=== PATIENT | female | born 1970 | race Caucasian/White ===

== ENCOUNTER 2020-10-02 23:48 | Emergency (ER) | payer BC ==
[~2020-10-02] VITALS: Ht 152.4 cm; Wt 77.2 kg
[2020-10-03 01:09] VITALS: BP 152/90
[2020-10-03] MEDS ORDERED: KETOROLAC 60 MG/2 ML VIAL. IM ONE (01:45)
[2020-10-03] MEDS ORDERED: CYCLOBENZAPRINE 10 MG TABLET. PO ONE (01:45)
[2020-10-03] MEDS ORDERED: TRAM-48 PO (02:01)
[2020-10-03] MEDS ORDERED: CYCL10TA2 PO (02:01)
--- NOTE | 2020-10-03 02:03 | PHYS DOC ---
General Adult EDM: Chief Complaint: BACK PAIN OR INJURY HPI: HPI: Patient is a 50 year old female presents with a chief complaint of back pain. Patient states back pain started suddenly around noon yesterday. Patient states pain is located right upper back. Patient's pain is exacerbated with movement twisting and turning and bending down. Patient states pain is relieved with rest. On exam patient's pain is located right paraspinal at the approximate level of T7-8. Patient's pain is reproducible to palpation. There is no midline C-spine T-spine or L-spine step-off or deformities. Patient has no neurological deficits of her upper extremities. Patient denies any associated chest pain or shortness of breath. Patient denies any injury. Review of Systems: Review of Systems: Review of systems: Constitutional symptoms- No fever, no chills. Eyes- No Discharge, No Visual Loss Respiratory symptoms- No shortness of breath, No wheezing, No Dyspnea on Exertion Cardiovascular Systems; No chest pain, No Palpitations, No syncope Gastrointestinal symptoms: NO abdominal pain, no nausea, no vomiting or diarrhea. Genitourinary symptoms: No dysuria. Musculoskeletal symptoms: Positive back pain No extremity pain. NEUROLOGICAL Symptoms: No headache, no generalized weakness; No focal Weakness Skin: No rash. Heart Score: C/O Chest Pain: N/A Risk Factors: Risk Factors: DM, Current or recent (<one month) smoker, HTN, HLP, family history of CAD, obesity. Risk Scores: Score 0 - 3: 2.5% MACE over next 6 weeks - Discharge Home Score 4 - 6: 20.3% MACE over next 6 weeks - Admit for Clinical Observation Score 7 - 10: 72.7% MACE over next 6 weeks - Early Invasive Strategies Current Medications: Current Medications Medications (Trade) Dose Ordered Sig/[facility] Start Time Stop Time Status Last Admin Dose Admin Cyclobenzaprine HCl (Flexeril) 10 mg 1X ONCE 10/03/20 01:45 10/03/20 01:47 DC Ketorolac Tromethamine (Toradol Im) 30 mg 1X ONCE 10/03/20 01:45 10/03/20 01:47 DC Allergies: Allergies: Allergies Coded Allergies Type Severity Reaction Last Updated Verified No Known Drug Allergies 10/03/20 No Physical Exam: PE: General: alert, no acute distress. Skin: warm, dry and intact, no erythema, no rash. HENT: bilateral external ears normal, oropharynx moist, nose normal. Head:: Normocephalic, atraumatic. Neck: Trachea midline. Eyes: EOMI, Normal conjunctiva, No drainage CARDIOVASCULAR: Regular rate and rhythm RESPIRATORY: No respiratory distress Back: Full range of motion. Tenderness to palpation right paraspinal at the level of T7-T8, no midline C-spine T or L-spine step-off or deformities MUSCULOSKELETAL: Full range of motion of bilateral upper and lower extremities. GASTROINTESTINAL: Abdomen soft without rebound or guarding. NEUROLOGICAL: Alert and noted to person, place and time. No neurological deficits observed Psychiatric: Cooperative. Normal judgment EKG: EKG: [] Radiology/Procedures: Radiology/Procedures: [] Course & Med Decision Making: Course & Med Decision Making Pertinent Labs and Imaging studies reviewed. (See chart for details) [] Based upon history of present illness and physical exam I elected not to perform any laboratory or radiologic imaging. Patient was treated with Toradol and Flexeril. She was discharged home with Ultram and Flexeril. [employer] Disclaimer: [employer] Disclaimer: This electronic medical record was generated, in whole or in part, using a voice recognition dictation system. Departure Departure Impression: Primary Impression: Musculoskeletal back pain Disposition: HOME / SELF CARE / HOMELESS Condition: STABLE Referrals: RANJANA TREADWELL (PCP) Patient Instructions: Back Pain, Adult Scripts Tramadol Hcl (ULTRAM) 50 Mg Tablet 1 TAB PO PRN Q6HRS PRN for pain MDD 4 Tablet(s) for 7 Days, #28 TAB 0 Refills Prov: HERNANDEZ KUNZ I DO 10/03/20 Cyclobenzaprine Hcl (CYCLOBENZAPRINE HCL) 10 Mg Tablet 1 TAB PO QHS, #20 TAB Prov: HERNANDEZ KUNZ I DO 10/03/20 HERNANDEZ KUNZ I DO Oct 03, 2020 02:03
== END 2020-10-03 02:09 | disposition home or self-care (01) ==
LOC: EDSEX → ER 23:48
DX: M54.6 Pain in thoracic spine (principal)
CPT/HCPCS: 96372; 99283; J1885

== ENCOUNTER 2020-10-04 20:57 | Emergency (ER) | payer BC ==
[~2020-10-04] VITALS: Ht 152.4 cm; Wt 80.9 kg
[~2020-10-04 20:57] MED LIST: CYCL10TA2 PO; TRAM-48 PO
[2020-10-04 21:25] LABS: BILIRUBIN,URINE NEGATIVE (NEG); CLARITY,URINE CLEAR; COLOR,URINE YELLOW; NITRITE,URINE POSITIVE (NEG); PROTEIN,URINE 30 mg/dL (NEG-TRACE); UROBILINOGEN,URINE 0.2 mg/dL (0.2 mg/dL)
[2020-10-04] MEDS ORDERED: IV NORMAL SALINE 1000ML BAG 1,000 ML IV SCH (21:30)
[2020-10-04 21:32] LABS: BARBITURATES NEG (NEG); BENZODIAZEPINES NEG (NEG); CANNABINOIDS POS (NEG); COCAINE NEG (NEG); METHADONE NEG (NEG); OPIATES POS (NEG); PHENCYCLIDINE NEG (NEG)
[2020-10-04 21:33] LABS: AMPHETAMINE/METHAMPHETAMINE NEG (NEG)
[2020-10-04 21:36] LABS: BACTERIA,URINE FEW /HPF (0-FEW); RBC,URINE OCC /HPF (0-2)
[2020-10-04] MEDS ORDERED: fentaNYL PF VIAL 100 MCG/2 ML VIAL IVP ONE (22:00)
[2020-10-04 22:07] LABS: BASO % 0 % (0-3); EOS % 0 % (0-3); HEMATOCRIT 32.4 % (36.0-47.0); HEMOGLOBIN 11.4 g/dL (12.0-15.5); LYMPH # 1.5 x10^3/uL (1.0-4.8); LYMPH % 11 % (24-48); MEAN CORPUSCULAR HEMOGLOBIN 30 pg (25-35); MEAN CORPUSCULAR HGB CONC 35 g/dL (31-37); MEAN CORPUSCULAR VOLUME 86 fL (79-100); MONO # 1.6 x10^3/uL (0.0-1.1); MONO % 11 % (0-9); NEUT # 10.8 x10^3/uL (1.8-7.7); NEUT % 78 % (31-73); PLATELET COUNT 253 x10^3/uL (140-400); RED BLOOD COUNT 3.75 x10^6/uL (3.50-5.40); RED CELL DISTRIBUTION WIDTH 13.9 % (11.5-14.5); WHITE BLOOD COUNT 13.9 x10^3/uL (4.0-11.0)
--- NOTE | 2020-10-04 22:14 | PHYS DOC ---
Past Medical History Additional Past Medical Histor: MOOD DISORDER,CHRONIC NECK PAIN,HIGH CHOL ESTEROL (LUCAS COLEMAN BURNER TENDER) Past Surgical History: Other Additional Past Surgical Histo: CERVICAL NECK SX (LUCAS COLEMAN BURNER TENDER) Smoking Status: Never Smoker Alcohol Use: Rarely (LUCAS COLEMAN BURNER TENDER) General Adult EDM: Chief Complaint: ABDOMINAL PAIN HPI: HPI: Patient is a 50 year old female who presents with was here this past with back pain that has now progressed into mid abdominal pain she states that is sharp. She states it is radiating some times and sometimes it does not. Patient was given tramadol and cyclobenzaprine. There is no imaging done. Patient is back for worsening pain. She states she cannot even sit up to get out of bed. She denies loss of bowel or bladder, focal weakness, numbness or tingling. Patient has a history of mood disorder, chronic neck pain, high cholesterol, cervical neck pain. Patient rates her pain a 10 out of 10. (LUCAS COLEMAN BURNER TENDER) Review of Systems: Review of Systems: Constitutional: Denies fever or chills. [] Eyes: Denies change in visual acuity. [] HENT: Denies nasal congestion or sore throat. [] Respiratory: Denies cough or shortness of breath. [] Cardiovascular: Denies chest pain or edema. [] GI: + abdominal pain, +nausea, denies vomiting, bloody stools or diarrhea. [] : Denies dysuria. [] Musculoskeletal: + Bilateral flank back pain or denies joint pain. [] Integument: Denies rash. [] Neurologic: Denies headache, focal weakness or sensory changes. [] Endocrine: Denies polyuria or polydipsia. [] Lymphatic: Denies swollen glands. [] Psychiatric: Denies depression or anxiety. [] (LUCAS COLEMAN BURNER TENDER) Heart Score: C/O Chest Pain: No Risk Factors: Risk Factors: DM, Current or recent (<one month) smoker, HTN, HLP, family history of CAD, obesity. Risk Scores: Score 0 - 3: 2.5% MACE over next 6 weeks - Discharge Home Score 4 - 6: 20.3% MACE over next 6 weeks - Admit for Clinical Observation Score 7 - 10: 72.7% MACE over next 6 weeks - Early Invasive Strategies (LUCAS COLEMAN APRN) Current Medications: Current Medications Medications (Trade) Dose Ordered Sig/[facility] Start Time Stop Time Status Last Admin Dose Admin Ceftriaxone Sodium (Rocephin) 1 gm 1X ONCE 10/04/20 22:15 10/04/20 22:16 UNV Fentanyl Citrate (Fentanyl 2ml Vial) 50 mcg 1X ONCE 10/04/20 22:00 10/04/20 22:02 DC Sodium Chloride 1,000 ml @ 1,000 mls/hr Q1H 10/04/20 21:30 10/04/20 22:29 10/04/20 21:30 1,000 MLS/HR (LUCAS COLEMAN APRN) Allergies: Allergies: Allergies Coded Allergies Type Severity Reaction Last Updated Verified No Known Drug Allergies 10/03/20 No (LUCAS COLEMAN APRN) Physical Exam: PE: Constitutional: Well developed, well nourished, no acute distress, non-toxic appearance. [] HENT: Normocephalic, atraumatic, bilateral external ears normal, oropharynx moist, no oral exudates, nose normal. [] Eyes: PERRLA, EOMI, conjunctiva normal, no discharge. [] Neck: Normal range of motion, no tenderness, supple, no stridor. [] Cardiovascular:Heart rate regular rhythm, no murmur [] Lungs & Thorax: Bilateral breath sounds clear to auscultation [] Abdomen: Bowel sounds normal, soft, upper quadrant tenderness, no masses, no pulsatile masses. [] Skin: Warm, dry, no erythema, no rash. [] Back: No tenderness, bilateral CVA tenderness. [] Extremities: No tenderness, no cyanosis, no clubbing, ROM intact, no edema. [] Neurologic: Alert and oriented X 3, normal motor function, normal sensory function, no focal deficits noted. [] Psychologic: Affect normal, judgement normal, mood normal. [] (LUCAS COLEMAN APRN) Current Patient Data: Labs: Laboratory Tests Test 10/04/20 21:11 10/04/20 21:15 POC Urine HCG, Qualitative Hcg negative (Negative) Urine Collection Type Unknown Urine Color Yellow Urine Clarity Clear Urine pH 6.0 (<5.0-8.0) Urine Specific Palm 1.020 (1.000-1.030) Urine Protein 30 mg/dL (NEG-TRACE) Urine Glucose (UA) 100 mg/dL (NEG) Urine Ketones (Stick) Trace mg/dL (NEG) Urine Blood Small (NEG) Urine Nitrite Positive (NEG) Urine Bilirubin Negative (NEG) Urine Urobilinogen Dipstick 0.2 mg/dL (0.2 mg/dL) Urine Leukocyte Esterase Negative (NEG) Urine RBC Occ /HPF (0-2) Urine WBC 1-4 /HPF (0-4) Urine Squamous Epithelial Cells Mod /LPF Urine Bacteria Few /HPF (0-FEW) Urine Mucus Mod /LPF Urine Opiates Screen Pos (NEG) Urine Methadone Screen Neg (NEG) Urine Barbiturates Neg (NEG) Urine Phencyclidine Screen Neg (NEG) Urine Amphetamine/Methamphetamine Neg (NEG) Urine Benzodiazepines Screen Neg (NEG) Urine Cocaine Screen Neg (NEG) Urine Cannabinoids Screen Pos (NEG) Urine Ethyl Alcohol Neg (NEG) Vital Signs: Vital Signs Date Time Temp Pulse Resp B/P (MAP) Pulse Ox O2 Delivery O2 Flow Rate FiO2 10/04/20 21:24 98 18 166/92 (116) 100 Room Air 10/04/20 21:09 99.1 99.1 ([facility]) EKG: EK and read by Dr. Becerril as sinus tachycardia and no STEMI [] [facility] Radiology/Procedures: Radiology/Procedures: [] ([facility]) Radiology/Procedures: PROCEDURE: CT ABD PELV W/ IV CONTRST ONLY Exam: CT of abdomen and pelvis with contrast. CT thoracic spine INDICATION: Thoracic tenderness, abdominal pain TECHNIQUE: Sequential axial images through the abdomen and pelvis obtained following the administration of 75 mL of Omni 300 IV contrast. Sagittal and coronal reformatted images were reconstructed from the axial data and reviewed. Exposure: One or more of the following in the visualized dose reduction techniques were utilized for this examination: 1. Automated exposure control 2. Adjustment of the MA and/or KV according to patient size 3. Use of iterative of reconstructive technique Comparisons: None FINDINGS: Heart size is normal. No pericardial. Strandy opacities the dependent portion lungs likely representing atelectasis. Trace right Liver, spleen, pancreas and adrenals are unremarkable. Gallbladder is distended and appears thin-walled. No perinephric inflammation or hydronephrosis. No renal or ureteral calculi. Bladder is partially distended and appears thin-walled. Uterus is not enlarged. No abnormal adnexal mass. Large and small bowel are unremarkable. Appendix is normal. No free intra- abdominal air or fluid. No obstruction. Abdominal aorta has normal course and caliber. Abdominal vasculature is patent. No enlarged intra-abdominal lymph nodes are identified. No suspicious osseous lesions or acute fractures. Thoracic spine: Vertebral body heights and alignment are well-maintained. Fracture to the thoracic spine is not identified. No significant spondylotic change in the thoracic spine. Visualized paraspinal soft tissues are unremarkable. IMPRESSION: 1. No acute process identified within the abdomen or pelvis. 2. Negative CT thoracic spine for acute traumatic injury. Electronically signed by: Elizabeth Soliman MD (10/04/2020 11:58 PM) [facility] (YULIANA BECERRIL DO) Course & Med Decision Making: Course & Med Decision Making Pertinent Labs and Imaging studies reviewed. (See chart for details) COVID-19 CRITERIA: The patient was evaluated during the global COVID-19 pandemic, and that diagnosis was suspected/considered upon their initial presentation. Their evaluation, treatment and testing was consistent with current guidelines for patients who present with complaints or symptoms that may be related to COVID-19. See HPI. Alert and oriented x4. Ambulatory with a steady gait. Tenderness to bilateral flank. CVA tenderness. Abdominal tenderness with palpation in bilateral upper quadrants. Afebrile. Patient is positive for marijuana. Urinalysis shows positive nitrites. I have ordered Rocephin. Patient is not v accinated for Covid. [] (LUCAS COLEMAN APRN) Dragon Disclaimer: Dragon Disclaimer: This electronic medical record was generated, in whole or in part, using a voice recognition dictation system. (LUCAS COLEMAN APRN) COVID-19 Patient Risks: Age 65 or older: No Sign of co-morbidity: Yes Exp to person + for COVID: No Exp to PUI: No Travel from affected area: No Lower respiratory symptoms: No Fever: No Other: Yes (abd pain, nausea) (LUCAS COLEMAN APRN) PPE Use: Full PPE with N95 mask or PAPR: Yes (LUCAS COLEMAN APRN) Departure Departure Impression: Primary Impression: Pyelonephritis Disposition: HOME / SELF CARE / HOMELESS Condition: STABLE Referrals: RANJANA TREADWELL (PCP) Patient Instructions: Pyelonephritis, Adult, Cogi-co-Jcjj Scripts Hydrocodone Bit/Acetaminophen (HYDROCODONE-APAP 5-325 ) 1 Tab Tablet 0.5-1 TAB PO PRN Q6HRS PRN for PAIN, #10 TAB 0 Refills Prov: YULIANA BECERRIL DO 10/05/20 Ondansetron (ONDANSETRON ODT) 4 Mg Tab.rapdis 1 TAB PO PRN Q6-8HRS PRN for NAUSEA, #16 TAB Prov: YULIANA BECERRIL DO 10/05/20 Phenazopyridine Hcl (PYRIDIUM) 200 Mg Tablet 200 MG PO TID for 2 Days, #6 TAB Prov: YULIANA BECERRIL DO 10/05/20 Cephalexin (CEPHALEXIN) 500 Mg Tablet 1 TAB PO TID for 7 Days, #21 TAB Prov: YULIANA BECERRIL DO 10/05/20 Attending Signature Attending Signature I have reviewed the PA/NET SOFTWARE ARCHITECT's note and plan of care. I was available for consultation as needed during the patient's visit in the emergency department. I agree with the clinical impression, plan, and disposition. (YULIANA BECERRIL DO) LUCAS COLEMAN APRN Oct 04, 2020 22:14 YULIANA BECERRIL DO Oct 05, 2020 01:02
[2020-10-04] MEDS ORDERED: cefTRIAXone IV Push 1 GM VIAL. IVP ONE (22:15)
[2020-10-04 22:25] LABS: CALCIUM 9.6 mg/dL (8.5-10.1); CREATININE 0.8 mg/dL (0.6-1.0); GFR 76.2; POTASSIUM 4.2 mmol/L (3.5-5.1)
[2020-10-04 22:32] LABS: ALBUMIN 3.4 g/dL (3.4-5.0); ALBUMIN/GLOBULIN RATIO 0.7 (1.0-1.7); TOTAL BILIRUBIN 0.7 mg/dL (0.2-1.0); TOTAL PROTEIN 8.6 g/dL (6.4-8.2)
[2020-10-04] MEDS ORDERED: IOHEXOL 300 MG/ML 100ML VIAL. IV ONE (22:45)
[2020-10-04] MEDS ORDERED: CONTRAST GIVEN. MC PRN (22:45)
[2020-10-05] MEDS ORDERED: PHENAZOPYRIDINE 200 MG TABLET. PO ONE
[2020-10-05] MEDS ORDERED: KETOROLAC 15 MG/ML VIAL. IVP ONE
--- NOTE | 2020-10-05 | RAD ---
Exam: CT of abdomen and pelvis with contrast. CT thoracic spine INDICATION: Thoracic tenderness, abdominal pain TECHNIQUE: Sequential axial images through the abdomen and pelvis obtained following the administrati on of 75 mL of Omni 300 IV contrast. Sagittal and coronal reformatted images were reconstructed from the axial data and reviewed. Exposure: One or more of the following in the visualized dose reduction techniques were utilized for this examination: 1. Automated exposure control 2. Adjustment of the MA and/or KV according to patient size 3. Use of iterative of reconstructive technique Comparisons: None FINDINGS: Heart size is normal. No pericardial. Strandy opacities the dependent portion lungs likely representi ng atelectasis. Trace right Liver, spleen, pancreas and adrenals are unremarkable. Gallbladder is distended and appears thin-wall ed. No perinephric inflammation or hydronephrosis. No renal or ureteral calculi. Bladder is partially distended and appears thin-walled. Uterus is not enlarged. No abnormal adnexal m ass. Large and small bowel are unremarkable. Appendix is normal. No free intra-abdominal air or fluid. No obstruction. Abdominal aorta has normal course and caliber. Abdominal vasculature is patent. No enlarged intra-abdominal lymph nodes are identified. No suspicious osseous lesions or acute fractures. Thoracic spine: Vertebral body heights and alignment are well-maintained. Fracture to the thoracic spine is not identified. No significant spondylotic change in the thoracic spine. Visualized paraspinal soft tissues are unremarkable. IMPRESSION: 1. No acute process identified within the abdomen or pelvis. 2. Negative CT thoracic spine for acute traumatic injury. Electronically signed by: Elizabeth Soliman MD (10/04/2020 11:58 PM) [facility]
[2020-10-05 00:09] VITALS: BP 181/90
[2020-10-05] MEDS ORDERED: ONDA4TAB12 PO (01:10)
[2020-10-05] MEDS ORDERED: PHEN-318 PO (01:10)
[2020-10-05] MEDS ORDERED: HYDR-2761 PO (01:10)
[2020-10-05] MEDS ORDERED: CEPH500T PO (01:10)
--- NOTE | 2020-10-05 22:02 | EKG ---
[facility] [address] [place] [address] Test Date: 2020-10-04 Test Time: 21:38:39 Pat Name: TAMIKO DE LOS SANTOS Department: Room: Gender: F [id number] Technical Lead: : 1970 Requested By: LUCAS COLEMAN Order Number: [id number] Reading MD: Measurements Intervals [place] Rate: 101 P: 0 SD: 108 QRS: -64 QRSD: 244 T: 18 QT: 388 QTc: 511 Interpretive Statements SINUS TACHYCARDIA COMPLEX(ES) WITH ABERRANT INTRAVENTRICULAR CONDUCTION ABNORMAL LEFT AXIS DEVIATION LOW LIMB LEAD VOLTAGE NON SPECIFIC INTRAVENTRICULAR BLOCK QRS(T) CONTOUR ABNORMALITY CANNOT RULE OUT ANTEROLATERAL MYOCARDIAL DAMAGE ABNORMAL ECG RI6.02 No previous ECG available for comparison
--- NOTE | 2020-10-06 10:41 | NUR ---
IP: Pt noted to be back in the ED today. Notified ED, Leigh, to let pt know of negative covid test. on previous weekend visit.
[2020-10-06] MEDS ORDERED: TIZA4TAB2 PO (20:57)
[2020-10-06] MEDS ORDERED: ATOR10TA60 PO (20:57)
[2020-10-06] MEDS ORDERED: METO50TA6 PO (20:57)
[2020-10-06] MEDS ORDERED: VENL75CA6 PO (20:58)
[2020-10-06] MEDS ORDERED: ACET1TAB37 PO (20:58)
== END 2020-10-05 01:38 | disposition home or self-care (01) ==
LOC: ER 20:57
DX: N12 Tubulo-interstitial nephritis, not specified as acute or chronic (principal); Z20.822 Contact with and (suspected) exposure to COVID-19; G89.29 Other chronic pain; E78.00 Pure hypercholesterolemia, unspecified
CPT/HCPCS: 36415; 72128; 74177; 80053; 80307; 81001; 81025; 83605; 83690; 84484; 85025; 87040; 87086; 87205; 87426; 93005; 96361; 96374; 96375; 99285; J0696; J1885; J3010; J7030; Q9967; U0003; U0005

== ENCOUNTER 2020-10-06 09:29 | Inpatient (IN) | payer BC ==
[~2020-10-06] VITALS: Ht 152.4 cm; Wt 80.9 kg
[~2020-10-06 09:29] MED LIST changes: +CEPH500T PO; +HYDR-2761 PO; +ONDA4TAB12 PO; +PHEN-318 PO
[2020-10-06] MEDS ORDERED: IV NORMAL SALINE 1000ML BAG 1,000 ML IV ONE ×2 (09:45→14:45)
[2020-10-06] MEDS ORDERED: KETOROLAC 30 MG/ML VIAL. IVP ONE (10:00)
[2020-10-06] MEDS ORDERED: fentaNYL PF VIAL 100 MCG/2 ML VIAL IVP ONE (10:00)
--- NOTE | 2020-10-06 10:06 | PHYS DOC ---
Past Medical History Additional Past Medical Histor: MOOD DISORDER,CHRONIC NECK PAIN,HIGH CHOL ESTEROL (YULIANA GUPTA APRN) Past Surgical History: Other Additional Past Surgical Histo: CERVICAL NECK SX (YULIANA GUPTA APRN) Smoking Status: Never Smoker Alcohol Use: Rarely (YULIANA GUPTA APRN) General Adult HPI: HPI: Patient is a 50-year-old female who presents to the emergency department for ongoing mid abdominal pain that radiates around to her back mostly on the right side. Patient reports she was seen here on October 02 and was d iagnosed with musculoskeletal back strain, was seen again on the and was diagnosed with pyelonephritis, was started on a Keflex and Pyridium regimen, patient reports she has taken 3 doses of her Keflex and 2 doses of her Pyridium without relief in symptoms. Patient states she has had decreased urination, back pain is increased to 10 out of 10. Patient states she believes she might be in kidney failure. Patient denies increased thirst or increased urination, states there was a color change in her urine since starting her Keflex and Pyridium regimen. Patient denies burning on urination however reports urgency, denies increased urinary frequency. Denies vaginal discharge, denies STI concerns, denies rashes to her vagina. Patient denies fever or chills. Reports she takes atorvastatin, metoprolol, Bentyl flexing, and Tylenol 3. Reports a past surgical history of herniated disc repair of C4-5 and 6 several years ago. States she sees a Dr. Ceballos for primary care. Patient denies chest pains, shortness of breath, chest or nasal congestion, reports she has not received the COVID-19 virus vaccination series. Patient denies any other physical complaints or physical concerns. Patient denies a cigarette smoking history, reports she drinks alcohol socially, denies illicit drug use. (YULIANA GUPTA APRN) Review of Systems: Review of Systems: 14 body systems of review of systems have been reviewed. See HPI for pertinent positives and negative responses, otherwise all other systems are negative, nonpertinent or noncontributory. Constitutional: Negative except as outlined in HPI above. Skin: Negative except as outlined in HPI above. Eyes: Negative except as outlined in HPI above. HENT: Negative except as outlined in HPI above. Respiratory: Negative except as outlined in HPI above. Cardiovascular: Negative except as outlined in HPI above. GI: Negative except as outlined in HPI above. : Negative except as outlined in HPI above. Musculoskeletal: Negative except as outlined in HPI above. Integument: Negative except as outlined in HPI above. Neurologic: Negative except as outlined in HPI above. Endocrine: Negative except as outlined in HPI above. Lymphatic: Negative except as outlined in HPI above. Psychiatric: Negative except as outlined in HPI above. (YULIANA GUPTA APRN) Heart Score: C/O Chest Pain: No Risk Factors: Risk Factors: DM, Current or recent (<one month) smoker, HTN, HLP, family history of CAD, obesity. Risk Scores: Score 0 - 3: 2.5% MACE over next 6 weeks - Discharge Home Score 4 - 6: 20.3% MACE over next 6 weeks - Admit for Clinical Observation Score 7 - 10: 72.7% MACE over next 6 weeks - Early Invasive Strategies (YULIANA GUPTA APRN) Current Medications: Current Medications Medications (Trade) Dose Ordered Sig/Aparna Start Time Stop Time Status Last Admin Dose Admin Fentanyl Citrate (Fentanyl 2ml Vial) 75 mcg 1X ONCE 10/06/20 10:00 10/06/20 10:01 Ketorolac Tromethamine (Toradol 30mg Vial) 30 mg 1X ONCE 10/06/20 10:00 10/06/20 10:01 Sodium Chloride 1,000 ml @ 1,000 mls/hr 1X ONCE 10/06/20 09:45 10/06/20 10:44 (YULIANA GUPTA APRN) Allergies: Allergies: Allergies Coded Allergies Type Severity Reaction Last Updated Verified No Known Drug Allergies 10/03/20 No (YULIANA GUPTA APRN) Physical Exam: PE: Constitutional: Well developed, well nourished, no acute distress, non-toxic appearance. 50-year-old female appears uncomfortable however is nontoxic in appearance. HENT: Normocephalic, atraumatic. Eyes: Conjunctiva normal, no discharge. Neck: Normal range of motion. Cardiovascular: Distal cap refill less than 2 seconds, no cyanosis appreciated. Lungs & Thorax: Patient is in no respiratory distress, no adventitious lung sounds appreciated. Abdomen: Bowel sounds normal, soft, no masses, no pulsatile masses. No bruising or skin discoloration of the abdomen. Generalized pain to palpation all 4 quadrants. Skin: Warm, dry, no erythema, no rash. Back: No tenderness, bilateral CVA TTP. Extremities: No tenderness, no cyanosis, no clubbing, ROM intact, no edema. 2+ dorsalis pedis/posterior tibial pulses, no swelling, no edema, normal skin temperature, no erythema. Distal cap refill less than 2 seconds. Neurologic: Alert and oriented X 3, normal motor function, normal sensory function, no focal deficits noted. Except for bilateral lower extremities, patient complains of numbness feeling however can feel touch, painful stimuli, satisfactory 1 and two-point distinction. Psychologic: Affect normal, judgement normal, mood normal. (YULIANA GUPTA APRN) EKG: EKG: [] (YULIANA GUPTA APRN) Radiology/Procedures: Radiology/Procedures: PATIENT: TAMIKO DE LOS SANTOS ACCOUNT: [id number] : 1970 LOCATION: ER AGE: 50 SEX: F EXAM STATUS: REG ER ORD. PHYSICIAN: YULIANA GUPTA APRN REASON: Severe abdomen and low back pain PROCEDURE: CT ABD PELV W/ IV CONTRST ONLY EXAMINATION: CT abdomen and pelvis with IV contrast. INDICATION:50 years, Female, severe abdominal and low back pain. TECHNIQUE: Axial CT images of the abdomen and pelvis were obtained. Coronal and sagittal reformatted performed. COMPARISON: 10/04/2020. Exposure: One or more of the following individualized dose reduction techniques were utilized for this examination: 1. Automated exposure control 2. Adjustment of the mA and/or kV according to patient size 3. Use of iterative reconstruction technique. FINDINGS: LOWER CHEST: Trace right pleural effusion. Bibasilar subsegmental atelectasis. ABDOMEN/PELVIS: Mild diffuse hepatic steatosis. No suspicious focal hepatic lesion. Gallbladder, biliary ducts, spleen and adrenals are normal. Unremarkable pancreas. No hydronephrosis in either kidney. No bowel obstruction or wall thickening. Appendix is not seen with certainty. Normal caliber abdominal aorta. Mesenteric arteries and portal vein are patent. No lymphadenopathy in the abdomen or pelvis by size criteria. Trace amount of pelvic free fluid, likely physiologic. High density urine in the urinary bladder, likely secondary to previous IV contrast exam. Unremarkable uterus. No suspicious pelvic masses. MUSCULOSKELETAL: No acute osseous process. No significant degenerative changes in the lumbar spine. IMPRESSION: 1. No acute intra-abdominal findings. 2. Similar trace right pleural effusion and bibasilar subsegmental atelectasis. Electronically signed by: Chetan Miles MD (10/06/2020 12:43 PM) [facility] (YULIANA GUPTA APRN) Course & Med Decision Making: Course & Med Decision Making Pertinent Labs and Imaging studies reviewed. (See chart for details) 50-year-old female, vital signs reviewed, presents to the emergency department concerning ongoing pyelonephritis symptoms. Physical examination consistent with pyelonephritis, after an extensive chart review from previous 2 emergency department visits, will order urinalysis assay, CBC, BMP, lactic acid, IV saline lock, 1 L normal saline, IV pain medications. Discussed with patient ED planning and labs, will evaluate for failed home antibiotic therapy for pyelonephritis.. Lab called positive blood culture from visit 2 days ago, gram-positive cocci suggestive of staph, started 1 g Roce[address] IV. Pending CT abdomen/pelvis with IV contrast CT abdomen pelvis with IV contrast unremarkable, will order reconstructive L- spine related to lower extremity weakness and numbness, patient has required 75 mics fentanyl and 1 mg of Dilaudid to bring pain from 10 down to a 5 to a 6. Patient was also given 4 mg IV Zofran for nausea prophylaxis treatment. Discussed with patient commendation of admission to hospital related to positive blood cultures, ongoing back pain with lower extremity weakness, patient is amendable for admission. Called and discussed patient case and ED work-up with inpatient management physician Dr. Arciniega who agrees patient's presentation warrants admission to the hospital, Dr. Arciniega recommended IV Comycin per pharmacy, consult neurology related to lower extremity weakness and numbness. Dr. Rodríguez aware pending CT L-spine results. Dr. Arciniega has assumed patient care at this time. (YULIANA GUPTA APRN) Course & Med Decision Making I have reviewed and agree with all pertinent clinical information above including history, exam, and recommendations. Ronald Cooley DO (RONALD COOLEY DO) Russ Disclaimer: Russ Disclaimer: This electronic medical record was generated, in whole or in part, using a voice recognition dictation system. (YULIANA GUPTA APRN) Departure Departure Impression: Primary Impression: Positive blood culture Additional Impressions: Low back pain Qualified Codes: M54.5 - Low back pain Abdominal pain Qualified Codes: R10.84 - Generalized abdominal pain Lower extremity numbness Lower extremity weakness Qualified Codes: R29.898 - Other symptoms and signs involving the musculoskeletal system Pyelonephritis Disposition: ADMITTED INPATIENT Admitting Physician: DWIGHT (Admit to Dr. Arciniega to [facility] unit.) (YULIANA GUPTA APRN) Condition: GOOD Referrals: RANJANA CEBALLOS (PCP) YULIANA GUPTA APRN Oct 06, 2020 10:06 RONALD COOLEY DO Oct 06, 2020 15:22
[2020-10-06 10:33] LABS: BASO % 0 % (0-3); EOS % 0 % (0-3); HEMATOCRIT 31.3 % (36.0-47.0); HEMOGLOBIN 10.8 g/dL (12.0-15.5); LYMPH # 1.2 x10^3/uL (1.0-4.8); LYMPH % 10 % (24-48); MEAN CORPUSCULAR HEMOGLOBIN 30 pg (25-35); MEAN CORPUSCULAR HGB CONC 34 g/dL (31-37); MEAN CORPUSCULAR VOLUME 87 fL (79-100); MONO # 1.4 x10^3/uL (0.0-1.1); MONO % 11 % (0-9); NEUT # 9.8 x10^3/uL (1.8-7.7); NEUT % 79 % (31-73); PLATELET COUNT 293 x10^3/uL (140-400); RED CELL DISTRIBUTION WIDTH 13.5 % (11.5-14.5); WHITE BLOOD COUNT 12.4 x10^3/uL (4.0-11.0)
[2020-10-06 10:41] LABS: CALCIUM 9.4 mg/dL (8.5-10.1); CREATININE 0.8 mg/dL (0.6-1.0); GFR 76.2; POTASSIUM 3.9 mmol/L (3.5-5.1)
[2020-10-06 10:47] LABS: ALBUMIN 2.9 g/dL (3.4-5.0); ALBUMIN/GLOBULIN RATIO 0.5 (1.0-1.7); TOTAL BILIRUBIN 0.7 mg/dL (0.2-1.0); TOTAL PROTEIN 8.6 g/dL (6.4-8.2)
[2020-10-06 11:39] LABS: CLARITY,URINE CLEAR; COLOR,URINE RED
[2020-10-06] MEDS ORDERED: HYDROmorphone 2 MG/ML VIAL IVP ONE ×2 (11:45→16:45)
[2020-10-06] MEDS ORDERED: ONDANSETRON PF 4 MG/2 ML VIAL. IVP ONE (11:45)
[2020-10-06 12:00] LABS: BACTERIA,URINE FEW /HPF (0-FEW); HYALINE CASTS, URINE OCCASIONAL /HPF; WBC,URINE OCC /HPF (0-4)
[2020-10-06] MEDS ORDERED: CONTRAST GIVEN. MC PRN (12:00)
[2020-10-06] MEDS ORDERED: IOHEXOL 300 MG/ML 100ML VIAL. IV ONE (12:00)
[2020-10-06] MEDS ORDERED: cefTRIAXone IV Push 1 GM VIAL. IVP ONE (12:30)
--- NOTE | 2020-10-06 12:45 | RAD ---
EXAMINATION: CT abdomen and pelvis with IV contrast. INDICATION:50 years, Female, severe abdominal and low back pain. TECHNIQUE: Axial CT images of the abdomen and pelvis were obtained. Coronal and sagittal reformatted performed. COMPARISON: 10/04/2020. Exposure: One or more of the following individualized dose reduction techniques were utilized for thi s examination: 1. Automated exposure control 2. Adjustment of the mA and/or kV according to patient size 3. Use of iterative reconstruction technique. FINDINGS: LOWER CHEST: Trace right pleural effusion. Bibasilar subsegmental atelectasis. ABDOMEN/PELVIS: Mild diffuse hepatic steatosis. No suspicious focal hepatic lesion. Gallbladder, biliary ducts, splee n and adrenals are normal. Unremarkable pancreas. No hydronephrosis in either kidney. No bowel obstru ction or wall thickening. Appendix is not seen with certainty. Normal caliber abdominal aorta. Mesent alvaro arteries and portal vein are patent. No lymphadenopathy in the abdomen or pelvis by size criteri a. Trace amount of pelvic free fluid, likely physiologic. High density urine in the urinary bladder, likely secondary to previous IV contrast exam. Unremarkable uterus. No suspicious pelvic masses. MUSCULOSKELETAL: No acute osseous process. No significant degenerative changes in the lumbar spine. IMPRESSION: 1. No acute intra-abdominal findings. 2. Similar trace right pleural effusion and bibasilar subsegmental atelectasis. Electronically signed by: Chetan Miles MD (10/06/2020 12:43 PM) [facility]
[2020-10-06] MEDS ORDERED: VANCOMYCIN 2 GM in IV NORMAL SALINE 500ML BAG 500 ML IV ONE (14:15)
--- NOTE | 2020-10-06 14:28 | RAD ---
CT LUMBAR SPINE RECONSTRUCTION History:Reason: Low back pain with lower extremity numbness / Spl. Instructions: / History: Technique: Noncontrast CT was performed of the lumbar spine. Multiplanar reconstructions were perform ed. Exposure: One or more of the following individualized dose reduction techniques were utilized for thi s examination: 1. Automated exposure control 2. Adjustment of the mA and/or kV according to patient size 3. Use of iterative reconstruction technique. Comparison: None Findings: Normal vertebral body height and alignment. No fracture. Tiny right pleural effusion with adjacent atelectasis. L1-L2: Minimal disc bulge. No canal or neuroforaminal narrowing. L2-L3: Small disc bulge. Mild facet arthropathy. No canal or neuroforaminal narrowing. L3-L4: Broad-based disc bulge. Mild facet arthropathy. No canal narrowing. Mild subarticular recess narrowing. No neuroforaminal narrowing. L4-L5: Broad-based disc bulge. Moderate facet arthropathy. Moderate canal narrowing. Subarticular re cess narrowing. Mild bilateral neuroforaminal narrowing. L5-S1: Broad-based disc bulge. Moderate facet arthropathy. No canal narrowing. Mild subarticular rec ess narrowing. Mild bilateral neuroforaminal narrowing. Impression: 1. Multilevel lumbar spondylosis most prominent L4-5 and L5-S1. 2. L4-5 moderate canal narrowing with subarticular recess narrowing. 3. Neuroforaminal narrowing most prominent L4-5 and L5-S1. Electronically signed by: Rashel Hammond DO (10/06/2020 2:25 PM) [facility]
[2020-10-06] MEDS ORDERED: METOCLOPRAMIDE HCL 10 MG/2 ML VIAL. IVP ONE (14:45)
[2020-10-06] MEDS: methylPREDNISolone SOD SUCC PF 40 MG/ML VIAL. IV SCH (18:12)
[2020-10-06] MEDS: VANCOMYCIN PER PHARMACY MC PRN (18:58)
[2020-10-06 19:00] VITALS: BP 191/100
--- NOTE | 2020-10-06 19:01 | NUR ---
Pharmacy Vancomycin Dosing Note S:Consulted to monitor and dose vancomycin started 10/06/20. O:TAMIKO DE LOS SANTOS is a 50 year old F with Pyelonephritis . Height: 5 feet, 0 inches Weight: 80.9 kg [place] Body Weight: 45.50 Adjusted Body Weight: 59.66 Dosing Weight: Actual Other Antibiotics: ZOSYN LABS: Last BUN: Last Creatinine: 0.8 Creatinine Clearance: 80 mL/min Last WBC: 12.4 Last Procalcitonin: Tmax (past 24 hours): 98.8 Microbiology: I/O: Drug Levels: Last level: on at Last dose given 10/06/20 at 1430 Vancomycin Dosing: Loading Dose: 2000 mg x1 Dosing Weight: Actual Target Trough: 10-20 A: Based on: WEIGHT AND RENAL FUNCTION, VANCOMYCIN 2GM IV BOLUS GIVEN, P: 1. Begin Vancomycin 1250 mg IV q12h AT 02:30 ON 10/07 2. Follow up Trough level on 10/08/20 at 0200 3. Pharmacy will continue to monitor, follow and adjust therapy as needed. ANTOLIN HUNTLEY RPH, 10/06/20 [id number]
--- NOTE | 2020-10-06 19:51 | HP ---
ADMIT DATE: 10/06/2020 CHIEF COMPLAINT: Abdominal pain. HISTORY OF PRESENT ILLNESS: The patient is a pleasant 50-year-old female who has been to the ER a couple times in the past few days. Today, she presents with some abdominal pains on the right, it is radiating to her back. She was seen here on , was diagnosed with a back strain, was sent home with some antispasmodics and pain meds. She then came back on the , was diagnosed with pyelonephritis, started on Keflex and Pyridium. Now, she presents with abdominal pain, but she in the last few hours has now developed lower extremity weakness and numbness. She does admit to decreased urination and increasing back pain rated at 10/10. She increased her home meds, but that did not seem to help. Moving makes it worse, sitting still makes it better. She does have a past history of a herniated disk with her surgical repair of C4-C5 six years ago. I discussed the case with ER physician. I have examined the patient. We are concerned that she is developing progressive weakness. She also has a sed rate of greater than 130. Her C-reactive protein is 310. We also have a blood culture that just came back from one of her recent visits to the ER, it does show some Gram-positive cocci. We are going to put the patient on IV antibiotics including Rocephin and vancomycin. I am considering starting some steroids. We are consulting Dr. Preston to see if he would agree. He would like to get an MRI of the lower back as well. PAST MEDICAL HISTORY: C4-C5 herniated disk repair, mood disorder, chronic neck pain, hyperlipidemia, previous UTIs. ALLERGIES: None. FAMILY HISTORY: Hypertension. SOCIAL HISTORY: She does not drink, smoke or take drugs. 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 MEDICATIONS: Reviewed. She is on cephalexin 500 t.i.d., cyclobenzaprine, p.r.n. hydrocodone, Ultram p.r.n., ondansetron, Pyridium 200 t.i.d. REVIEW OF SYSTEMS: GENERAL: No history of weight change, weakness or fevers. SKIN: No bruising, hair changes or rashes. EYES: No blurred, double or loss of vision. NOSE AND THROAT: No history of nosebleeds, hoarseness or sore throat. HEART: No history of palpitations, chest pain or shortness of breath on exertion. LUNGS: Denies cough, hemoptysis, wheezing or shortness of breath. GASTROINTESTINAL: Abdomen: She complains of abdominal pain. GENITOURINARY: No history of frequency, urgency, hesitancy or nocturia. NEUROLOGIC: She complains of lower extremity numbness and weakness. PSYCHIATRIC: No history of panic, anxiety or depression. ENDOCRINE: No history of heat or cold intolerance, polyuria or polydipsia. EXTREMITIES: Denies muscle weakness, joint pain, pain on walking or stiffness. PHYSICAL EXAMINATION: VITALS: Within normal limits and are stable. GENERAL: She appears weak and depressed. HEENT: Normal cephalic atraumatic, external auditory canals are patent. EYES: Extraocular muscles are intact, pupils are equally round and reactive to light and accommodation. MUSCULOSKELETAL: Well developed, well nourished, good range of motion. ENDOCRINE: No thyromegaly was palpated. LYMPHATICS: No cervical chain or axillary nodes were noted. HEMATOPOIETIC: No bruising. NECK: Supple, no JVD, no thyromegaly was noted. LUNGS: Clear to auscultation in all lung cerrato without rhonchi or wheezing. HEART: RRR, S1, S2 present. Peripheral pulses intact, no obvious murmurs were noted. ABDOMEN: She has decreased bowel sounds with some tenderness to palpation. EXTREMITIES: Without any cyanosis, clubbing, or edema. Pedal pulses intact, Homans sign is negative. NEUROLOGIC: She has extreme weakness of the lower extremities. She could barely move her left foot. She can only do some slight abduction of the right thigh. PSYCHIATRIC: She appears a little depressed. SKIN: No ulcerations or rashes, good skin turgor, no jaundice. VASCULAR: Good capillary refill, neurovascular bundle appears to be intact. LABORATORY DATA: White count is 12, hemoglobin 10.8, platelets 293. Electrolytes are normal except for a sodium of 135. Her glucose is a little high at 137. AST a little high at 47, ALT little high at 66, alk phos high at 187. C-reactive protein 310. Albumin is low at 2.9. Sed rate greater than 130. Urinalysis shows occasional white cells. The rest of the test really was not completed because she is on Pyridium, is what I understand. DIAGNOSTIC DATA: Abdominal CT shows trace right pleural effusion and bibasilar subsegmental atelectasis. Lumbar spine shows multilevel lumbar spondylosis, most prominent at L4-L5 and L5-S1. She also has L4-L5 moderate canal narrowing with subarticular recess narrowing and neural foraminal narrowing, most prominent at L4-L5 and L5-S1. ASSESSMENT AND PLAN: Probable pyelonephritis, Gram-positive bacteremia, leukocytosis, elevated C-reactive protein, elevated sedimentation rate, progressive weakness of the lower extremities, anemia, hyponatremia, transaminitis. The patient has been admitted. We will start IV Rocephin and IV vancomycin. I am considering starting steroids if okay with Dr. Preston. He would like to get the MRI of her lumbar spine first. Gardiner at bedside drainage. P.r.n. pain medications. IV fluids. Trend labs. Home medications. Deep vein thrombosis prophylaxis. Full code. PROGNOSIS: Long-term prognosis is guarded. JANEL DR: Maira TID: [id number]
[2020-10-06] MEDS ORDERED: METO50TA6 PO (20:57)
[2020-10-06] MEDS ORDERED: TIZA4TAB2 PO (20:57)
[2020-10-06] MEDS ORDERED: ATOR10TA60 PO (20:57)
[2020-10-06] MEDS ORDERED: ACET1TAB37 PO (20:58)
[2020-10-06] MEDS ORDERED: VENL75CA6 PO (20:58)
[2020-10-06] MEDS ORDERED: HYDROcodone/APAP 5/325MG 1 TAB TABLET PO PRN (21:45)
[2020-10-06] MEDS ORDERED: ONDANSETRON ODT 4 MG TAB.RAPDIS. PO PRN (21:45)
[2020-10-06] MEDS: MORPHINE SULFATE 4 MG/ML INJ. IV PRN (22:18)
[2020-10-06] MEDS ORDERED: ACETAMINOPHEN/CODEINE 300/30MG TABLET. PO PRN (22:30)
[2020-10-06] MEDS ORDERED: CEPHALEXIN 250 MG CAPSULE. PO SCH (22:30)
[2020-10-06] MEDS: PHENAZOPYRIDINE 200 MG TABLET. PO SCH (22:30)
[2020-10-06 23:00] VITALS: BP 192/92
[2020-10-06] MEDS: HYDROcodone/APAP 5/325MG 1 TAB TABLET PO PRN (23:29)
[2020-10-06] MEDS: tiZANidine 4 MG TABLET. PO SCH (23:29)
[2020-10-06] MEDS: CYCLOBENZAPRINE 10 MG TABLET. PO SCH (23:29)
[2020-10-07] MEDS: MORPHINE SULFATE 4 MG/ML INJ. IV PRN (00:22)
[2020-10-07 03:00] VITALS: BP 134/60
[2020-10-07] MEDS: VANCOMYCIN 1.25 GM in IV NORMAL SALINE 250ML 250 ML IV SCH ×2 (03:34→16:38)
[2020-10-07 07:00] VITALS: BP 182/99
[2020-10-07] MEDS ORDERED: diazePAM 5 MG TABLET PO PRN (09:00)
[2020-10-07] MEDS: PHENAZOPYRIDINE 200 MG TABLET. PO SCH ×3 (09:00→20:28)
[2020-10-07] MEDS: ATORVASTATIN CALCIUM 10 MG TABLET. PO SCH (09:14)
[2020-10-07] MEDS: METOPROLOL TART IMMED RELEASE 50 MG TABLET. PO SCH (09:15)
[2020-10-07] MEDS: VENLAFAXINE XR 37.5 MG CAP.ER.24H. PO SCH ×2 (09:15→20:28)
[2020-10-07] MEDS: methylPREDNISolone SOD SUCC PF 40 MG/ML VIAL. IV SCH ×2 (09:16→20:27)
[2020-10-07] MEDS: fentaNYL PF VIAL 100 MCG/2 ML VIAL IVP PRN ×4 (09:31→20:29)
[2020-10-07] MEDS: VANCOMYCIN PER PHARMACY MC PRN ×2 (09:37→17:19)
--- NOTE | 2020-10-07 09:39 | PDOC2 ---
GI CONSULT Date of Service: DATE: 10/07/20 TIME: 09:39 Reason For Consult: transaminase-itis, elevated sed rate HPI: HPI: 50 y/o female ill since last . To ER three times, admitted last night. Began w/ mid right back pain while at work, denies precipitating events (though did hang some decorations in the break room that day). Sent home from ER w/ pain medication and muscle relaxer. Gradually worse, spreading to abdomen (nonspecific location), "sharp." Sent home from ER w/ antibiotics for UTI. Then Tuesday "couldn't move legs" while in bed. Now pain is in back, abdomen, pelvis, and down legs - "burning nerve pain" and "tingling." We are asked to see for abnormal LFTs including AST 47, ALT 66, Alk Phos 187. Bili is normal. Liver labs were normal prior to thins except ALk Phos 147. Neurology is following w/ plans for steroids and MRI. Previous urine culture and blood culture + staph aureus. No reflux or dysphagia. Some nausea, vomited once, also some retching. Decreased appetite. Pain unchanged w/ eating. Some h/o constipation - hasn't stooled in 3-4 days which is longer than normal. No hematochezia, melena, or weight loss. No previous EGD or colonoscopy. No GB, liver, pancreas, or PUD history. Hepatic steatosis noted on CT. Chronic neck pain on Tylenol w/ codeine. 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 PMH: PMH: HTN, HLD, restless leg syndrome, anxiety, eczema, chronic head/neck pain cervical surgery FH: Family History: No pertinent hx (denies GI cancers) Social History: Smoke: No ALCOHOL: none Drugs: Marijuana (tox screen + 10/04/20 (she denies)) ROS: GEN: Denies fevers, chills, sweats HEENT: Denies blurred vision, sore throat CV: Denies chest pain RESP: Denies shortness of air, cough GI: Per HPI : Denies hematuria, dysuria ENDO: Denies weight changes NEURO: altered sensation BLE MSK: chronic neck pain SKIN: Denies jaundice, pruritus Vitals: Vitals: Vital Signs Date Time Temp Pulse Resp B/P (MAP) Pulse Ox O2 Delivery O2 Flow Rate FiO2 10/07/20 09:15 80 182/99 10/07/20 07:00 98.3 18 97 Room Air 98.3 Labs: Labs: Laboratory Tests Test 10/06/20 10:05 10/06/20 11:14 10/06/20 11:21 White Blood Count 12.4 x10^3/uL (4.0-11.0) Red Blood Count 3.60 x10^6/uL (3.50-5.40) Hemoglobin 10.8 g/dL (12.0-15.5) Hematocrit 31.3 % (36.0-47.0) Mean Corpuscular Volume 87 fL (79-100) Mean Corpuscular Hemoglobin 30 pg (25-35) Mean Corpuscular Hemoglobin Concent 34 g/dL (31-37) Red Cell Distribution Width 13.5 % (11.5-14.5) Platelet Count 293 x10^3/uL (140-400) Neutrophils (%) (Auto) 79 % (31-73) Lymphocytes (%) (Auto) 10 % (24-48) Monocytes (%) (Auto) 11 % (0-9) Eosinophils (%) (Auto) 0 % (0-3) Basophils (%) (Auto) 0 % (0-3) Neutrophils # (Auto) 9.8 x10^3/uL (1.8-7.7) Lymphocytes # (Auto) 1.2 x10^3/uL (1.0-4.8) Monocytes # (Auto) 1.4 x10^3/uL (0.0-1.1) Eosinophils # (Auto) 0.0 x10^3/uL (0.0-0.7) Basophils # (Auto) 0.0 x10^3/uL (0.0-0.2) Sodium Level 135 mmol/L (136-145) Potassium Level 3.9 mmol/L (3.5-5.1) Chloride Level 98 mmol/L (98-107) Carbon Dioxide Level 27 mmol/L (21-32) Anion Gap 10 (6-14) Blood Urea Nitrogen 13 mg/dL (7-20) Creatinine 0.8 mg/dL (0.6-1.0) Estimated GFR (Cockcroft-Gault) 76.2 BUN/Creatinine Ratio 16 (6-20) Glucose Level 137 mg/dL (70-99) Lactic Acid Level 1.2 mmol/L (0.4-2.0) Calcium Level 9.4 mg/dL (8.5-10.1) Total Bilirubin 0.7 mg/dL (0.2-1.0) Aspartate Amino Transf (AST/SGOT) 47 U/L (15-37) Alanine Aminotransferase (ALT/SGPT) 66 U/L (14-59) Alkaline Phosphatase 187 U/L (46-116) Total Protein 8.6 g/dL (6.4-8.2) Albumin 2.9 g/dL (3.4-5.0) Albumin/Globulin Ratio 0.5 (1.0-1.7) SARS-CoV-2 RNA (KEVEN) Negative (Negative) SARS-CoV-2 Antigen (Rapid) Negative (NEGATIVE) Urine Collection Type U cath Urine Color Red Urine Clarity Clear Urine pH (<5.0-8.0) Urine Specific [place] (1.000-1.030) Urine Protein mg/dL (NEG-TRACE) Urine Glucose (UA) mg/dL (NEG) Urine Ketones (Stick) mg/dL (NEG) Urine Blood (NEG) Urine Nitrite (NEG) Urine Bilirubin (NEG) Urine Urobilinogen Dipstick mg/dL (0.2 mg/dL) Urine Leukocyte Esterase (NEG) Urine RBC 3-5 /HPF (0-2) Urine WBC Occ /HPF (0-4) Urine Squamous Epithelial Cells Occ /LPF Urine Bacteria Few /HPF (0-FEW) Urine Hyaline Casts Occasional /HPF Urine Mucus Slight /LPF Allergies: Coded Allergies: No Known Drug Allergies (Unverified , 10/03/20) Medications: Current Medications Medications (Trade) Dose Ordered Sig/Aparna Route PRN Reason Start Time Stop Time Status Last Admin Dose Admin Sodium Chloride 1,000 ml @ 1,000 mls/hr 1X ONCE IV 10/06/20 09:45 10/06/20 10:44 DC 10/06/20 10:27 Ketorolac Tromethamine (Toradol 30mg Vial) 30 mg 1X ONCE IVP 10/06/20 10:00 10/06/20 10:01 DC 10/06/20 10:25 Fentanyl Citrate (Fentanyl 2ml Vial) 75 mcg 1X ONCE IVP 10/06/20 10:00 10/06/20 10:01 DC 10/06/20 10:25 Ondansetron HCl (Zofran) 4 mg 1X ONCE IVP 10/06/20 11:45 10/06/20 11:46 DC 10/06/20 12:10 Hydromorphone HCl (Dilaudid) 1 mg 1X ONCE IVP 10/06/20 11:45 10/06/20 11:46 DC 10/06/20 12:11 Iohexol (Omnipaque 300 Mg/ml) 75 ml 1X ONCE IV 10/06/20 12:00 10/06/20 12:01 DC 10/06/20 12:06 Ceftriaxone Sodium (Rocephin) 1 gm 1X ONCE IVP 10/06/20 12:30 10/06/20 12:31 DC 10/06/20 12:10 Vancomycin HCl (Vanco Per Pharmacy) 1 each PRN DAILY PRN MC SEE COMMENTS 10/06/20 14:00 10/07/20 09:37 Vancomycin HCl 2 gm/Sodium Chloride 500 ml @ 250 mls/hr 1X ONCE IV 10/06/20 14:15 10/06/20 16:14 DC 10/06/20 14:17 Sodium Chloride 1,000 ml @ 1,000 mls/hr 1X ONCE IV 10/06/20 14:45 10/06/20 15:44 DC 10/06/20 14:54 Metoclopramide HCl (Reglan Vial) 10 mg 1X ONCE IVP 10/06/20 14:45 10/06/20 14:46 DC 10/06/20 14:54 Hydromorphone HCl (Dilaudid) 1 mg 1X ONCE IVP 10/06/20 16:45 10/06/20 16:46 DC 10/06/20 16:44 Methylprednisolone Sodium Succinate (SOLU-Medrol 40MG VIAL) 40 mg Q12HR IV 10/06/20 19:00 10/07/20 09:16 Vancomycin HCl 1.25 gm/Sodium Chloride 250 ml @ 167 mls/hr Q12H IV 10/07/20 02:30 10/07/20 03:34 Atorvastatin Calcium (Lipitor) 10 mg DAILY PO 10/07/20 09:00 10/07/20 09:14 Cyclobenzaprine HCl (Flexeril) 10 mg QHS PO 10/06/20 22:00 10/06/20 23:29 Metoprolol Tartrate (Lopressor) 50 mg DAILY PO 10/07/20 09:00 10/07/20 09:15 Ondansetron HCl (Zofran Odt) 4 mg PRN Q6HRS PRN PO NAUSEA 10/06/20 21:45 10/06/20 23:37 Tizanidine HCl (Zanaflex) 4 mg QHS PO 10/06/20 22:00 10/06/20 23:29 Morphine Sulfate (Morphine Sulfate) 2 mg PRN Q2HR PRN IV PAIN 10/06/20 21:45 10/07/20 08:31 DC 10/07/20 00:22 Venlafaxine HCl (Effexor Xr) 37.5 mg BID PO 10/07/20 09:00 10/07/20 09:15 Acetaminophen/ Hydrocodone Bitart (Lortab 5/325) 1 tab PRN Q6HRS PRN PO PAIN SEVERE 10/06/20 22:00 10/06/20 23:29 Fentanyl Citrate (Fentanyl 2ml Vial) 50 mcg PRN Q2HR PRN IVP PAIN 10/07/20 08:30 10/07/20 09:31 Imaging: Imaging: Lumbar CT 10/06 Impression: 1. Multilevel lumbar spondylosis most prominent L4-5 and L5-S1. 2. L4-5 moderate canal narrowing with subarticular recess narrowing. 3. Neuroforaminal narrowing most prominent L4-5 and L5-S1. CT A/P 10/06 IMPRESSION: 1. No acute intra-abdominal findings. 2. Similar trace right pleural effusion and bibasilar subsegmental atelectasis. Thoracic CT 10/04 IMPRESSION: 1. No acute process identified within the abdomen or pelvis. 2. Negative CT thoracic spine for acute traumatic injury. CT A/P 10/04 IMPRESSION: 1. No acute process identified within the abdomen or pelvis. PE: GEN: NAD, uncomfortable HEENT: Atraumatic, PERRL LUNGS: CTAB HEART: RRR ABD: NABS, S/ND, vague discomfort across lower abdomen - non-specific EXTREMITY: BLE weakness (?left worse) SKIN: No rashes, no jaundice NEURO/PSYCH: A & O 3 A/P: A/P: Myelopathy - back/abd/BLE pain UTI, bacteremia, abnormal LFTs, normocytic anemia, elevated sed/CRP Decreased appetite, nausea CRC screen - none Hepatic steatosis Chronic neck pain COVID negative -- Follow LFTs, check RUQ US for completeness. Empiric acid-salt lifter w/ n/v. Follow neurology recommendations. Atbx per primary. ROXIE RO Oct 07, 2020 09:39
--- NOTE | 2020-10-07 10:08 | PDOC2 ---
NEUROLOGY CONSULT Date of Service DOS: DATE: 10/07/20 TIME: 10:01 Reason for Consult Reason for Consult: Weakness Referring Physician Referring Physician: Dr. Arciniega Source Source: Chart review, Patient History of Present Illness History of Present Illness The patient is a 50-year-old right-handed female who came to the emergency [facility] on 10/02 with back pain. She was sent out on muscle relaxers and analgesics. She then came back in on the for back pain and urinary symptoms and was diagnosed with pyelonephritis and was started on Keflex and Pyridium. Starting the evening of 10/05, she has noticed increased back pain as well as leg pain and numbness. It hurts to move the legs. She says that morph ine has not helped much, Dilaudid helps a little bit, fentanyl helps some. I discussed the case with Mr. Gambino and Dr. Arciniega. The CT of the spine was negative. Patient has been started on steroids. I have ordered MRI studies for today. Patient denies any prior history of back pain or back injury. She had a C4-5 and 6 disc repair several years ago. She has no diplopia, dysphagia, dysarthria, weakness, or cognitive change. She is having urinary retention and has a [place] in. Past Medical History Cardiovascular: HTN CENTRAL NERVOUS SYSTEM: Other (Restless legs) Renal/: Other (Recent pyelonephritis diagnosis) Dermatology: Eczema Past Surgical History Past Surgical History: Other (Cervical disc C5-7) Family History Family History: No pertinent hx Social History Social History , no alcohol or tobacco Current Medications Current Medications Current Medications Sodium Chloride 1,000 ml @ 1,000 mls/hr 1X ONCE IV Last administered on 10/06/20at 10:27; Start 10/06/20 at 09:45; Stop 10/06/20 at 10:44; Status DC Ketorolac Tromethamine (Toradol 30mg Vial) 30 mg 1X ONCE IVP Last administered on 10/06/20at 10:25; Start 10/06/20 at 10:00; Stop 10/06/20 at 10:01; Status DC Fentanyl Citrate (Fentanyl 2ml Vial) 75 mcg 1X ONCE IVP Last administered on 10/06/20at 10:25; Start 10/06/20 at 10:00; Stop 10/06/20 at 10:01; Status DC Ondansetron HCl (Zofran) 4 mg 1X ONCE IVP Last administered on 10/06/20at 12:10; Start 10/06/20 at 11:45; Stop 10/06/20 at 11:46; Status DC Hydromorphone HCl (Dilaudid) 1 mg 1X ONCE IVP Last administered on 10/06/20at 12:11; Start 10/06/20 at 11:45; Stop 10/06/20 at 11:46; Status DC Iohexol (Omnipaque 300 Mg/ml) 75 ml 1X ONCE IV Last administered on 10/06/20at 12:06; Start 10/06/20 at 12:00; Stop 10/06/20 at 12:01; Status DC Info (CONTRAST GIVEN -- Rx MONITORING) 1 each PRN DAILY PRN MC SEE COMMENTS; Start 10/06/20 at 12:00; Stop 10/08/20 at 11:59 Ceftriaxone Sodium (Rocephin) 1 gm 1X ONCE IVP Last administered on 10/06/20at 12:10; Start 10/06/20 at 12:30; Stop 10/06/20 at 12:31; Status DC Vancomycin HCl (Vanco Per Pharmacy) 1 each PRN DAILY PRN MC SEE COMMENTS Last administered on 10/07/20at 09:37; Start 10/06/20 at 14:00 Vancomycin HCl 2 gm/Sodium Chloride 500 ml @ 250 mls/hr 1X ONCE IV Last administered on 10/06/20at 14:17; Start 10/06/20 at 14:15; Stop 10/06/20 at 16:14; Status DC Sodium Chloride 1,000 ml @ 1,000 mls/hr 1X ONCE IV Last administered on 10/06/20at 14:54; Start 10/06/20 at 14:45; Stop 10/06/20 at 15:44; Status DC Metoclopramide HCl (Reglan Vial) 10 mg 1X ONCE IVP Last administered on 10/06/20at 14:54; Start 10/06/20 at 14:45; Stop 10/06/20 at 14:46; Status DC Hydromorphone HCl (Dilaudid) 1 mg 1X ONCE IVP Last administered on 10/06/20at 16:44; Start 10/06/20 at 16:45; Stop 10/06/20 at 16:46; Status DC Methylprednisolone Sodium Succinate (SOLU-Medrol 40MG VIAL) 40 mg Q12HR IV Last administered on 10/07/20at 09:16; Start 10/06/20 at 19:00 Vancomycin HCl 1.25 gm/Sodium Chloride 250 ml @ 167 mls/hr Q12H IV Last administered on 10/07/20at 03:34; Start 10/07/20 at 02:30 Vancomycin HCl (Vancomycin Trough Level) 1 each 1X ONCE MC ; Start 10/08/20 at 14:00; Stop 10/08/20 at 14:01 Atorvastatin Calcium (Lipitor) 10 mg DAILY PO Last administered on 10/07/20at 09:14; Start 10/07/20 at 09:00 Cyclobenzaprine HCl (Flexeril) 10 mg QHS PO Last administered on 10/06/20at 23:29; Start 10/06/20 at 22:00 Acetaminophen/ Hydrocodone Bitart (Lortab 5/325) 0.5 tab PRN Q6HRS PRN PO PAIN MILD TO MODERATE; Start 10/06/20 at 21:45 Metoprolol Tartrate (Lopressor) 50 mg DAILY PO Last administered on 10/07/20at 09:15; Start 10/07/20 at 09:00 Ondansetron HCl (Zofran Odt) 4 mg PRN Q6HRS PRN PO NAUSEA Last administered on 10/06/20at 23:37; Start 10/06/20 at 21:45 Phenazopyridine HCl (Pyridium) 200 mg TID PO ; Start 10/06/20 at 22:30 Tizanidine HCl (Zanaflex) 4 mg QHS PO Last administered on 10/06/20at 23:29; Start 10/06/20 at 22:00 Tramadol HCl (Ultram) 50 mg PRN Q6HRS PRN PO pain MILD 2ND CHOICE; Start 10/06/20 at 21:45 Morphine Sulfate (Morphine Sulfate) 2 mg PRN Q2HR PRN IV PAIN Last administered on 10/07/20at 00:22; Start 10/06/20 at 21:45; Stop 10/07/20 at 08:31; Status DC Cephalexin HCl (Keflex) 500 mg TID PO ; Start 10/06/20 at 22:30; Status Cancel Venlafaxine HCl (Effexor Xr) 37.5 mg BID PO Last administered on 10/07/20at 09:1 5; Start 10/07/20 at 09:00 Acetaminophen/ Codeine Phosphate (Tylenol #3) 1 tab PRN Q4HRS PRN PO PAIN MODERATE 2ND CHOICE; Start 10/06/20 at 22:30 Acetaminophen/ Hydrocodone Bitart (Lortab 5/325) 1 tab PRN Q6HRS PRN PO PAIN SEVERE Last administered on 10/06/20at 23:29; Start 10/06/20 at 22:00 Diazepam (Valium) 10 mg PRN 1X PRN PO PICKLE CUTTER FOR MRI, MRX1; Start 10/07/20 at 09:00; Stop 10/07/20 at 23:00 Fentanyl Citrate (Fentanyl 2ml Vial) 50 mcg PRN Q2HR PRN IVP PAIN Last administered on 10/07/20at 09:31; Start 10/07/20 at 08:30 Lactobacillus Rhamnosus (Culturelle) 1 cap BID PO ; Start 10/07/20 at 21:00 Ceftriaxone Sodium (Rocephin) 2 gm Q24H IVP ; Start 10/07/20 at 12:00 Active Scripts Active Hydrocodone-Apap 5-325 (Hydrocodone Bit/Acetaminophen) 1 Tab Tablet 0.5-1 Tab PO PRN Q6HRS PRN Ondansetron Odt (Ondansetron) 4 Mg Tab.rapdis 1 Tab PO PRN Q6-8HRS PRN Pyridium (Phenazopyridine Hcl) 200 Mg Tablet 200 Mg PO TID 2 Days Cephalexin 500 Mg Tablet 1 Tab PO TID 7 Days Ultram (Tramadol Hcl) 50 Mg Tablet 1 Tab PO PRN Q6HRS PRN MDD 4 Tablet(s) 7 Days Cyclobenzaprine Hcl 10 Mg Tablet 1 Tab PO QHS Reported Acetaminophen-Cod #4 Tablet (Acetaminophen/Codeine Phosphate) 1 Each Tablet 1 Tab PO PRN Q4HRS PRN Venlafaxine Hcl Er (Venlafaxine Hcl) 75 Mg Cap.er.24h 1 Cap PO DAILY Tizanidine Hcl 4 Mg Tablet 1 Tab PO QHS Metoprolol Tartrate 50 Mg Tablet 1 Tab PO DAILY Atorvastatin Calcium 10 Mg Tablet 1 Tab PO DAILY Allergies Allergies: Coded Allergies: No Known Drug Allergies (Unverified , 10/03/20) ROS Review of System Negative for fever, chills, weight loss, shortness of breath, chest pain, indigestion, hematochezia, melena. Positive for dysuria. Full 14-point review of systems is negative. Physical Exam Physical Examination General: Well-developed, well-nourished white female in no acute distress HEENT: Normocephalic andatraumatic. Temporal arteriespulsatile and nontender. Neck: Supple without bruit, no meningismus Musculoskeletal: Stability:see neurologic. Gait exam:see neurologic. Tone:see neurologic.Strength:see neurologic. Back: No particular point tenderness or deformity Neurological: Mental Status:intact, orientation, memory, attention span/concentration, language, fund of knowledge normal. Cranial Nerves:Pupils equal and reactive to light, extraocular movements areintact, visual cerrato are full to confrontation. Facial sensation is normal. There is no facial asymmetry. Vestibulo-ocular reflex is intact. Palate elevates and tongue protrudes in midline. All other cranial related problems are negative except as mentioned before.Reflexes:2+ and symmetric with flexor plantar responses. Motor: 2/5 in legs, arms are5/5 with normal tone and bulk. Some splinting of the legs due to pain. Coordination:Finger-nose finger and [id number] testing are normal. Rapid alternating movements and fine finger movements are intact. Gait:Not tested sensory: T10 level. Vitals VITALS Vital Signs Date Time Temp Pulse Resp B/P (MAP) Pulse Ox O2 Delivery O2 Flow Rate FiO2 10/07/20 09:15 80 182/99 10/07/20 07:00 98.3 18 97 Room Air 98.3 Labs Labs Laboratory Tests Test 10/06/20 09:39 10/06/20 10:05 10/06/20 11:14 10/06/20 11:21 Erythrocyte Sedimentation Rate > 130 (0-25) C-Reactive Protein, Quantitative 310.1 mg/L (0-3.3) White Blood Count 12.4 x10^3/uL (4.0-11.0) Red Blood Count 3.60 x10^6/uL (3.50-5.40) Hemoglobin 10.8 g/dL (12.0-15.5) Hematocrit 31.3 % (36.0-47.0) Mean Corpuscular Volume 87 fL (79-100) Mean Corpuscular Hemoglobin 30 pg (25-35) Mean Corpuscular Hemoglobin Concent 34 g/dL (31-37) Red Cell Distribution Width 13.5 % (11.5-14.5) Platelet Count 293 x10^3/uL (140-400) Neutrophils (%) (Auto) 79 % (31-73) Lymphocytes (%) (Auto) 10 % (24-48) Monocytes (%) (Auto) 11 % (0-9) Eosinophils (%) (Auto) 0 % (0-3) Basophils (%) (Auto) 0 % (0-3) Neutrophils # (Auto) 9.8 x10^3/uL (1.8-7.7) Lymphocytes # (Auto) 1.2 x10^3/uL (1.0-4.8) Monocytes # (Auto) 1.4 x10^3/uL (0.0-1.1) Eosinophils # (Auto) 0.0 x10^3/uL (0.0-0.7) Basophils # (Auto) 0.0 x10^3/uL (0.0-0.2) Sodium Level 135 mmol/L (136-145) Potassium Level 3.9 mmol/L (3.5-5.1) Chloride Level 98 mmol/L (98-107) Carbon Dioxide Level 27 mmol/L (21-32) Anion Gap 10 (6-14) Blood Urea Nitrogen 13 mg/dL (7-20) Creatinine 0.8 mg/dL (0.6-1.0) Estimated GFR (Cockcroft-Gault) 76.2 BUN/Creatinine Ratio 16 (6-20) Glucose Level 137 mg/dL (70-99) Lactic Acid Level 1.2 mmol/L (0.4-2.0) Calcium Level 9.4 mg/dL (8.5-10.1) Total Bilirubin 0.7 mg/dL (0.2-1.0) Aspartate Amino Transf (AST/SGOT) 47 U/L (15-37) Alanine Aminotransferase (ALT/SGPT) 66 U/L (14-59) Alkaline Phosphatase 187 U/L (46-116) Total Protein 8.6 g/dL (6.4-8.2) Albumin 2.9 g/dL (3.4-5.0) Albumin/Globulin Ratio 0.5 (1.0-1.7) SARS-CoV-2 RNA (KEVEN) Negative (Negative) SARS-CoV-2 Antigen (Rapid) Negative (NEGATIVE) Urine Collection Type U cath Urine Color Red Urine Clarity Clear Urine pH (<5.0-8.0) Urine Specific [place] (1.000-1.030) Urine Protein mg/dL (NEG-TRACE) Urine Glucose (UA) mg/dL (NEG) Urine Ketones (Stick) mg/dL (NEG) Urine Blood (NEG) Urine Nitrite (NEG) Urine Bilirubin (NEG) Urine Urobilinogen Dipstick mg/dL (0.2 mg/dL) Urine Leukocyte Esterase (NEG) Urine RBC 3-5 /HPF (0-2) Urine WBC Occ /HPF (0-4) Urine Squamous Epithelial Cells Occ /LPF Urine Bacteria Few /HPF (0-FEW) Urine Hyaline Casts Occasional /HPF Urine Mucus Slight /LPF Laboratory Tests Test 10/06/20 10:05 10/06/20 11:14 10/06/20 11:21 White Blood Count 12.4 x10^3/uL (4.0-11.0) Red Blood Count 3.60 x10^6/uL (3.50-5.40) Hemoglobin 10.8 g/dL (12.0-15.5) Hematocrit 31.3 % (36.0-47.0) Mean Corpuscular Volume 87 fL (79-100) Mean Corpuscular Hemoglobin 30 pg (25-35) Mean Corpuscular Hemoglobin Concent 34 g/dL (31-37) Red Cell Distribution Width 13.5 % (11.5-14.5) Platelet Count 293 x10^3/uL (140-400) Neutrophils (%) (Auto) 79 % (31-73) Lymphocytes (%) (Auto) 10 % (24-48) Monocytes (%) (Auto) 11 % (0-9) Eosinophils (%) (Auto) 0 % (0-3) Basophils (%) (Auto) 0 % (0-3) Neutrophils # (Auto) 9.8 x10^3/uL (1.8-7.7) Lymphocytes # (Auto) 1.2 x10^3/uL (1.0-4.8) Monocytes # (Auto) 1.4 x10^3/uL (0.0-1.1) Eosinophils # (Auto) 0.0 x10^3/uL (0.0-0.7) Basophils # (Auto) 0.0 x10^3/uL (0.0-0.2) Sodium Level 135 mmol/L (136-145) Potassium Level 3.9 mmol/L (3.5-5.1) Chloride Level 98 mmol/L (98-107) Carbon Dioxide Level 27 mmol/L (21-32) Anion Gap 10 (6-14) Blood Urea Nitrogen 13 mg/dL (7-20) Creatinine 0.8 mg/dL (0.6-1.0) Estimated GFR (Cockcroft-Gault) 76.2 BUN/Creatinine Ratio 16 (6-20) Glucose Level 137 mg/dL (70-99) Lactic Acid Level 1.2 mmol/L (0.4-2.0) Calcium Level 9.4 mg/dL (8.5-10.1) Total Bilirubin 0.7 mg/dL (0.2-1.0) Aspartate Amino Transf (AST/SGOT) 47 U/L (15-37) Alanine Aminotransferase (ALT/SGPT) 66 U/L (14-59) Alkaline Phosphatase 187 U/L (46-116) Total Protein 8.6 g/dL (6.4-8.2) Albumin 2.9 g/dL (3.4-5.0) Albumin/Globulin Ratio 0.5 (1.0-1.7) SARS-CoV-2 RNA (KEVEN) Negative (Negative) SARS-CoV-2 Antigen (Rapid) Negative (NEGATIVE) Urine Collection Type U cath Urine Color Red Urine Clarity Clear Urine pH (<5.0-8.0) Urine Specific [place] (1.000-1.030) Urine Protein mg/dL (NEG-TRACE) Urine Glucose (UA) mg/dL (NEG) Urine Ketones (Stick) mg/dL (NEG) Urine Blood (NEG) Urine Nitrite (NEG) Urine Bilirubin (NEG) Urine Urobilinogen Dipstick mg/dL (0.2 mg/dL) Urine Leukocyte Esterase (NEG) Urine RBC 3-5 /HPF (0-2) Urine WBC Occ /HPF (0-4) Urine Squamous Epithelial Cells Occ /LPF Urine Bacteria Few /HPF (0-FEW) Urine Hyaline Casts Occasional /HPF Urine Mucus Slight /LPF Images Images CT LUMBAR SPINE RECONSTRUCTION History:Reason: Low back pain with lower extremity numbness / Spl. Instructions: / History: Technique: Noncontrast CT was performed of the lumbar spine. Multiplanar re constructions were performed. Exposure: One or more of the following individualized dose reduction techniques were utilized for this examination: 1. Automated exposure control 2. Adjustment of the mA and/or kV according to patient size 3. Use of iterative reconstruction technique. Comparison: None Findings: Normal vertebral body height and alignment. No fracture. Tiny right pleural effusion with adjacent atelectasis. L1-L2: Minimal disc bulge. No canal or neuroforaminal narrowing. L2-L3: Small disc bulge. Mild facet arthropathy. No canal or neuroforaminal narrowing. L3-L4: Broad-based disc bulge. Mild facet arthropathy. No canal narrowing. Mild subarticular recess narrowing. No neuroforaminal narrowing. L4-L5: Broad-based disc bulge. Moderate facet arthropathy. Moderate canal narrowing. Subarticular recess narrowing. Mild bilateral neuroforaminal narrowing. L5-S1: Broad-based disc bulge. Moderate facet arthropathy. No canal narrowing. Mild subarticular recess narrowing. Mild bilateral neuroforaminal narrowing. Impression: 1. Multilevel lumbar spondylosis most prominent L4-5 and L5-S1. 2. L4-5 moderate canal narrowing with subarticular recess narrowing. 3. Neuroforaminal narrowing most prominent L4-5 and L5-S1. CT abdomen and pelvis with IV contrast. INDICATION:50 years, Female, severe abdominal and low back pain. TECHNIQUE: Axial CT images of the abdomen and pelvis were obtained. Coronal and sagittal reformatted performed. COMPARISON: 10/04/2020. Exposure: One or more of the following individualized dose reduction techniques were utilized for this examination: 1. Automated exposure control 2. Adjustment of the mA and/or kV according to patient size 3. Use of iterative reconstruction technique. FINDINGS: LOWER CHEST: Trace right pleural effusion. Bibasilar subsegmental atelectasis. ABDOMEN/PELVIS: Mild diffuse hepatic steatosis. No suspicious focal hepatic lesion. Gallbladder, biliary ducts, spleen and adrenals are normal. Unremarkable pancreas. No hydronephrosis in either kidney. No bowel obstruction or wall thickening. Appendix is not seen with certainty. Normal caliber abdominal aorta. Mesenteric arteries and portal vein are patent. No lymphadenopathy in the abdomen or pelvis by size criteria. Trace amount of pelvic free fluid, likely physiologic. High density urine in the urinary bladder, likely secondary to previous IV contrast exam. Unremarkable uterus. No suspicious pelvic masses. MUSCULOSKELETAL: No acute osseous process. No significant degenerative changes in the lumbar spine. IMPRESSION: 1. No acute intra-abdominal findings. 2. Similar trace right pleural effusion and bibasilar subsegmental atelectasis. Assessment/Plan Assessment/Plan Impression: T10 thoracic myelopathy, structural versus inflammatory Pyelonephritis Recommendations: MRI of the lumbar and thoracic spine, further MRI studies depending on the results, such as checking for multiple sclerosis. Patient needs sedation Steroids Rehabilitation modalities I stopped the morphine in favor of fentanyl as needed Thank you for letting me help with the patient's care. VINCENT DOMINGUEZ MD Oct 07, 2020 10:08
[2020-10-07 10:49] LABS: ALBUMIN 2.6 g/dL (3.4-5.0); DIRECT BILIRUBIN 0.2 mg/dL (0.0-0.2); TOTAL BILIRUBIN 0.3 mg/dL (0.2-1.0)
[2020-10-07 11:00] VITALS: BP 183/91
[2020-10-07] MEDS: PANTOPRAZOLE 40 MG TABLET.DR. PO SCH (12:00)
[2020-10-07] MEDS ORDERED: cefTRIAXone IV Push 2 GM VIAL. IVP SCH (12:00)
--- NOTE | 2020-10-07 13:36 | RAD ---
EXAM: Abdomen sonogram. HISTORY: Elevated liver function laboratory values. TECHNIQUE: Sonographic imaging of the abdomen was performed. COMPARISON: 10/06/2020. FINDINGS: The liver is normal in size. No focal hepatic lesion is seen. The gallbladder is unremarkab le. The common bile duct is normal in caliber. The visualized portions of the pancreas are unremarkab le. The right kidney is unremarkable. The inferior vena cava is patent. IMPRESSION: No acute sonographic finding. Electronically signed by: Marry Cheney MD (10/07/2020 1:34 PM) [id number]
--- NOTE | 2020-10-07 13:42 | PDOC ---
[facility] PROGRESS NOTE Date of Service DOS: DATE: 10/07/20 TIME: 13:26 Chief Complaint Chief Complaint Mid abdominal pain which radiates around the back, ongoing concern C4-C5 herniated disk repair Musculoskeletal back pain pyleonephritis mood disorder chronic neck pain hyperlipidemia History of Present Illness History of Present Illness HPI: The patient is a pleasant 50-year-old female who has been to the ER a couple times in the past few days. Today, she presents with some abdominal pains on the right, it is radiating to her back. She was seen here on , was diagnosed with a back strain, was sent home with someantispasmodics and pain meds. She then came back on the , was diagnosed with pyelonephritis, started on Keflex and Pyridium. Now, she presents with abdominal pain, but she in the last few hours has now developed lower extremity weakness and numbness. She does admit to decreased urination and increasing back pain rated at 10/10. She increased her home meds, but that did not seem tohelp. Moving makes it worse, sitting still makes it better. She does have a past history of a herniated disk with her surgical repair of C4-C5 six years ago. I discussed the case with ER physician. I have examined the patient. We are concerned that she is developing progressive weakness. She also has a sed rate of greater than 130. Her C-reactive protein is 310. We also have a blood culture that just came back from one of her recent visits to the ER, it does show some Gram-positive cocci. We are going to put the patient on IV antibiotics including Rocephin and vancomycin. I am considering starting some steroids. We are consulting Dr. Preston to see if he would agree. He would like to get an MRI of the lower back as well. 10/07: Patient seen and examined. Endorses decreased pain since admission. Endorses moving around better and says she is feeling much better. Consulted with RN. Karon salgado. Vitals/I&O Vitals/I&O: Vital Signs Date Time Temp Pulse Resp B/P (MAP) Pulse Ox O2 Delivery O2 Flow Rate FiO2 10/07/20 11:00 98.1 62 18 183/91 (121) 97 Room Air 98.1 I & O 0 10/06/20 10/06/20 10/07/20 15:00 23:00 07:00 Intake Total 1000 ml 1500 ml 250 ml Output Total 800 ml 1900 ml Balance 1000 ml 700 ml -1650 ml Physical Exam General: Alert Heart: Regular rate, Normal S1, Normal S2 Lungs: Clear Abdomen: Other (She has decreased bowel sounds with some tenderness to palpation) Extremities: No clubbing, No cyanosis, No edema Skin: No rashes Labs Labs: Laboratory Tests Test 10/07/20 10:25 Iron Level 39 ug/dL (50-170) Total Iron Binding Capacity 259 ug/dL (250-450) Iron Saturation 15 % (15-34) Total Bilirubin 0.3 mg/dL (0.2-1.0) Direct Bilirubin 0.2 mg/dL (0.0-0.2) Aspartate Amino Transf (AST/SGOT) 24 U/L (15-37) Alanine Aminotransferase (ALT/SGPT) 47 U/L (14-59) Alkaline Phosphatase 182 U/L (46-116) Total Protein 8.0 g/dL (6.4-8.2) Albumin 2.6 g/dL (3.4-5.0) Vitamin B12 Level 437 pg/mL (247-911) Hepatitis A IgM Antibody Nonreactive (Nonreactive) Hepatitis B Surface Antigen Nonreactive (Nonreactive) Hepatitis B Core IgM Antibody Nonreactive (Nonreactive) Hepatitis C IgG Antibody Nonreactive (Nonreactive) Review of Systems Review of Systems: Patient denies weakness or muscle stiffness Assessment and Plan Assessmemt and Plan Problems Medical Problems: (1) Abdominal pain Status: Acute (2) Low back pain Status: Acute (3) Lower extremity numbness Status: Acute (4) Lower extremity weakness Status: Acute (5) Positive blood culture Status: Acute (6) Pyelonephritis Status: Acute Mid abdominal pain which radiates around the back, ongoing concern C4-C5 herniated disk repair Musculoskeletal back pain pyleonephritis mood disorder chronic neck pain hyperlipidemia Plan: 1. Continue abx ( IV Rocephin and IV vancomycin) 2. Continue steroids 3. Appreciate Dr. Little input 4. Await MRI impression (MRI scheduled for 10/07) 5. Continue Gardiner BSD 6. PRN pain medications 7. IV fluids 8.Trend labs 9. Home medications 10. DVT prophylaxis 11. PT/OT 12. Full code. 13. Discharge disposition pending Comment Review of Relevant I have reviewed the following items leticia (where applicable) has been applied. Medications: Current Medications Medications (Trade) Dose Ordered Sig/Aparna Route PRN Reason Start Time Stop Time Status Last Admin Dose Admin Vancomycin HCl (Vanco Per Pharmacy) 1 each PRN DAILY PRN MC SEE COMMENTS 10/06/20 14:00 10/07/20 09:37 Vancomycin HCl 2 gm/Sodium Chloride 500 ml @ 250 mls/hr 1X ONCE IV 10/06/20 14:15 10/06/20 16:14 DC 10/06/20 14:17 Sodium Chloride 1,000 ml @ 1,000 mls/hr 1X ONCE IV 10/06/20 14:45 10/06/20 15:44 DC 10/06/20 14:54 Metoclopramide HCl (Reglan Vial) 10 mg 1X ONCE IVP 10/06/20 14:45 10/06/20 14:46 DC 10/06/20 14:54 Hydromorphone HCl (Dilaudid) 1 mg 1X ONCE IVP 10/06/20 16:45 10/06/20 16:46 DC 10/06/20 16:44 Methylprednisolone Sodium Succinate (SOLU-Medrol 40MG VIAL) 40 mg Q12HR IV 10/06/20 19:00 10/07/20 09:16 Vancomycin HCl 1.25 gm/Sodium Chloride 250 ml @ 167 mls/hr Q12H IV 10/07/20 02:30 10/07/20 03:34 Atorvastatin Calcium (Lipitor) 10 mg DAILY PO 10/07/20 09:00 10/07/20 09:14 Cyclobenzaprine HCl (Flexeril) 10 mg QHS PO 10/06/20 22:00 10/06/20 23:29 Metoprolol Tartrate (Lopressor) 50 mg DAILY PO 10/07/20 09:00 10/07/20 09:15 Ondansetron HCl (Zofran Odt) 4 mg PRN Q6HRS PRN PO NAUSEA 10/06/20 21:45 10/06/20 23:37 Tizanidine HCl (Zanaflex) 4 mg QHS PO 10/06/20 22:00 10/06/20 23:29 Morphine Sulfate (Morphine Sulfate) 2 mg PRN Q2HR PRN IV PAIN 10/06/20 21:45 10/07/20 08:31 DC 10/07/20 00:22 Venlafaxine HCl (Effexor Xr) 37.5 mg BID PO 10/07/20 09:00 10/07/20 09:15 Acetaminophen/ Hydrocodone Bitart (Lortab 5/325) 1 tab PRN Q6HRS PRN PO PAIN SEVERE 10/06/20 22:00 10/06/20 23:29 Fentanyl Citrate (Fentanyl 2ml Vial) 50 mcg PRN Q2HR PRN IVP PAIN 10/07/20 08:30 10/07/20 09:31 Ceftriaxone Sodium (Rocephin) 2 gm Q24H IVP 10/07/20 12:00 10/07/20 12:26 Justifications for Admission Other Justification VISHNU LEMONS III DO Oct 07, 2020 13:42
--- NOTE | 2020-10-07 15:15 | NUR ---
SS following for discharge planning. SS reviewed pt chart and discussed with pt RN. Pt is from home with family and is currently on room air. COVID19 negative. Pt on IV Vancomycin and IV Rocephin. MRI today. PT/OT ordered. PT recommended acute rehabilitation. SS will continue to follow for discharge planning.
[2020-10-07] MEDS: traMADol 50 MG TABLET PO PRN (15:38)
--- NOTE | 2020-10-07 17:16 | RAD ---
EXAMINATION: Magnetic resonance imaging (MRI) of the thoracic and lumbar spine without contrast 2020 1:23 PM HISTORY: T10 sensory level TECHNIQUE: Multiplanar multi-weighted MRI of the thoracic and lumbar spine was performed without intr avenous contrast using the standard thoracic and lumbar spine protocol. Contrast information: None administered. COMPARISON: CT thoracic 10/04/2020 and lumbar spine 10/06/2020. FINDINGS: Thoracic spine: Alignment of the thoracic spine is normal. Vertebral body heights are maintained. Osseous hemangioma identified at T5 measuring 7 mm. There is a central disc protrusion at C6-C7 resulting in mild to mod erate spinal canal stenosis with minimal deformity ventral cord. No cord signal alteration. Anterior cervical discectomy and fusion identified from C4 through C6. No significant marrow edema. Disc heigh ts are maintained. No acute fracture. There is a posterior epidural fluid collection with intrinsic T1 signal hyperintensity mixed with T1 signal hypointensity and T2 signal hyperintensity extending from T3-T4 inferiorly to the T11 vertebra l level. There is compression of the cord from T5-T6 through T9-T10. Inferior extension of the epidur al collection extends to the T11 vertebral level. There is cord signal alteration at T9-T10 with ill- defined T2 signal hyperintensity suggestive of cord edema. There are disc bulges at T5-T6, T6-T7, T7- T8 and T8-T9, exacerbated levels of stenoses. Moderate to severe spinal canal stenosis from T5-T6 thr ough T8-T9. There is fluid within the right facet joint at T6-T7 and to a lesser extent T7-T8 and T8- T9 bilaterally. Minimal interspinous ligamentous edema identified at these levels. There is no prever tebral or paraspinal hematoma or edema. Trace right pleural effusion. Thoracic aorta is normal in luis miguel iber. Lumbar spine: The alignment of the lumbar spine is normal. Vertebral bodies demonstrate normal signal intensity on all sequences. There are no compression fractures. The conus medullaris terminates at the level of L1. The distal spinal cord signal intensity is normal. Mild disc desiccation at and L3-L4. Limited views of the abdomen and pelvis show no soft tissue abnormality. The aorta is normal. L1-L2: The disc is normal in configuration. There is no facet arthropathy. There is no neuroforaminal stenosis. There is no spinal canal stenosis. L2-L3: The disc is normal in configuration. There is no facet arthropathy. There is no neuroforaminal stenosis. There is no spinal canal stenosis. L3-L4: The disc is normal in configuration. There is mild facet arthropathy. There is no neuroforamin al stenosis. There is no spinal canal stenosis. L4-L5: Mild circumferential disc bulge. There is mild facet arthropathy. There is moderate left and m ild right neuroforaminal stenosis. There is mild spinal canal stenosis. L5-S1: The disc is normal in configuration. There is moderate facet arthropathy. There is no neurofor aminal stenosis. There is no spinal canal stenosis. IMPRESSION: 1. There is a posterior epidural fluid collection extending from T3-T4 inferiorly to the T11 vertebra l level with areas of moderate to severe spinal canal stenosis extending from T5-T6 through T8-T9. Th ere is ill-defined cord signal alteration at T9 and T10 level suggestive cord edema. There is fluid w ithin the facet joints, most prominent at T6-T7 on the right. Minimal fluid identified at the facet j oints at T7-T8 and T8-T9 bilaterally. Differential considerations would include an epidural hematoma although no fracture or suggestion of trauma is visualized. Septic arthritis of the facet joint is a differential consideration given underlying history of pyelonephritis with epidural abscess. Postcont rast enhanced imaging could be of benefit although given changes of cord edema, further imaging shoul d be based on clinical findings. 2. Mild degenerative changes of the lumbar spine as described in detail above. FOR INTERNAL CODING PURPOSES Critical result: Findings discussed with Yessi, the patient's nurse at 10/07/2020 5:01 PM. RESULT CODE: (C) Electronically signed by: Melissa Marquis MD (10/07/2020 5:13 PM) [id number]
[2020-10-07 19:00] VITALS: BP 172/95
--- NOTE | 2020-10-07 19:39 | PDOC ---
Provider Note Date of Service: DATE: 10/07/20 TIME: 19:27 Provider Note Patient seen and examined at 1830 Consulted for thoracic epidural fluid. The patient is a 50-year-old right-handed female who came to the emergency department on 10/02 with back pain. She was sent out on muscle relaxers and analgesics. She then came back in on the for back pain and urinary symptoms and was diagnosed with pyelonephritis and was started on Keflex and Pyridium. Starting the evening of 10/05, she has noticed increased back pain as well as leg pain and numbness. Patient denies any prior history of back pain or back injury. She is having urinary retention and has a Gardiner in.She reports that she has not been able to ambulate in 2 days and feels that she is unchanged or slightly improved since admission. On examination, there is no tenderness with palpation of the thoracic and lumbar spine. There is anti gravity of the hip flexors and quadriceps. 4+/5 dorsiflexion, 5/5 plantar flexion.T10 relative sensory level. On the thoracic MRI there is dorsal epidural mass extending from T3-[id number] re latively severe stenosis. Differentials include epidural abscess vs hematoma. She is stable. She just ate dinner. Plan to take to OR and evacuate in the morning. D/W patient, RN and Dr. Preston. All questions answered. Justifications for Admission Other Justification PRATIMA ARAYA MD Oct 07, 2020 19:39
[2020-10-07] MEDS: tiZANidine 4 MG TABLET. PO SCH (20:28)
[2020-10-07] MEDS: LACTOBACILLUS RHAMNOSUS GG 1 CAPSULE. PO SCH (20:28)
[2020-10-07] MEDS: CYCLOBENZAPRINE 10 MG TABLET. PO SCH (20:29)
[2020-10-07 23:00] VITALS: BP 145/80
[2020-10-08] VITALS (9 sets, daily range): BP systolic 140–187; BP diastolic 80–111
[2020-10-08] MEDS: fentaNYL PF VIAL 100 MCG/2 ML VIAL IVP PRN ×7 (00:43→23:40)
[2020-10-08] MEDS: VANCOMYCIN 1.25 GM in IV NORMAL SALINE 250ML 250 ML IV SCH (02:38)
[2020-10-08] MEDS ORDERED: ONDANSETRON PF 4 MG/2 ML VIAL. ONE (06:33)
[2020-10-08] MEDS ORDERED: PHENYLEPHRINE in 0.9% NACL PF 1 MG/10 ML SYRINGE. IV ONE (06:33)
[2020-10-08] MEDS ORDERED: PROPOFOL 10 MG/ML (20ML) VIAL. IV ONE (06:33)
[2020-10-08] MEDS ORDERED: DEXAMETHASONE SOD PHOS 4 MG/ML VIAL ONE (06:33)
[2020-10-08] MEDS ORDERED: LIDOCAINE 2% PF 5 ML VIAL. ONE (06:33)
[2020-10-08] MEDS ORDERED: PROPOFOL 50 ML IV ONE ×3 (06:33→11:24)
[2020-10-08] MEDS ORDERED: REMIFENTANIL 2 MG VIAL. IV ONE (06:34)
[2020-10-08] MEDS ORDERED: ROCURONIUM 50 MG/5 ML VIAL. ONE (06:38)
[2020-10-08 06:50] LABS: BASO % 0 % (0-3); EOS % 0 % (0-3); HEMATOCRIT 31.6 % (36.0-47.0); HEMOGLOBIN 10.8 g/dL (12.0-15.5); LYMPH # 1.4 x10^3/uL (1.0-4.8); LYMPH % 14 % (24-48); MEAN CORPUSCULAR HEMOGLOBIN 30 pg (25-35); MEAN CORPUSCULAR HGB CONC 34 g/dL (31-37); MEAN CORPUSCULAR VOLUME 87 fL (79-100); MONO # 0.8 x10^3/uL (0.0-1.1); MONO % 8 % (0-9); NEUT # 7.9 x10^3/uL (1.8-7.7); NEUT % 78 % (31-73); PLATELET COUNT 352 x10^3/uL (140-400); RED BLOOD COUNT 3.63 x10^6/uL (3.50-5.40); RED CELL DISTRIBUTION WIDTH 12.9 % (11.5-14.5); WHITE BLOOD COUNT 10.1 x10^3/uL (4.0-11.0)
[2020-10-08] MEDS ORDERED: THROMBIN TOPICAL 20,000 UNIT SPRAY.SYRN KIT TP ONE (06:58)
[2020-10-08] MEDS ORDERED: KETOROLAC 60 MG/2 ML VIAL. ONE (06:58)
[2020-10-08] MEDS ORDERED: GELATIN SPONGE SIZE 100. ONE (06:58)
[2020-10-08] MEDS ORDERED: BUPIVACAINE-EPI 0.5%-1:200000 MPF 30 ML VIAL. ONE (06:58)
[2020-10-08 07:26] LABS: ALBUMIN 2.6 g/dL (3.4-5.0); ALBUMIN/GLOBULIN RATIO 0.6 (1.0-1.7); CALCIUM 8.9 mg/dL (8.5-10.1); CREATININE 0.8 mg/dL (0.6-1.0); GFR 76.2; POTASSIUM 4.9 mmol/L (3.5-5.1); TOTAL BILIRUBIN 0.2 mg/dL (0.2-1.0); TOTAL PROTEIN 7.1 g/dL (6.4-8.2)
[2020-10-08] MEDS: PANTOPRAZOLE 40 MG TABLET.DR. PO SCH (07:30)
[2020-10-08] MEDS ORDERED: ceFAZolin SODIUM 1 GM in IV NORMAL SALINE 1000ML BAG 1,000 ML IRR ONE (08:00)
[2020-10-08] MEDS ORDERED: GLYCOPYRROLATE 1 MG/5 ML VIAL. ONE (08:13)
[2020-10-08] MEDS ORDERED: MIDAZOLAM HCL/PF 2 MG/2 ML VIAL. ONE (08:13)
[2020-10-08] MEDS: IV RINGERS,LACTATED 1000ML 1,000 ML IV SCH ×2 (08:20→13:03)
[2020-10-08 08:34] LABS: U PREG PATIENT NEGATIVE (NEG)
[2020-10-08] MEDS: PHENAZOPYRIDINE 200 MG TABLET. PO SCH ×3 (09:00→20:22)
[2020-10-08] MEDS: VENLAFAXINE XR 37.5 MG CAP.ER.24H. PO SCH ×2 (09:00→20:19)
[2020-10-08] MEDS: methylPREDNISolone SOD SUCC PF 40 MG/ML VIAL. IV SCH ×2 (09:00→20:19)
[2020-10-08] MEDS: ATORVASTATIN CALCIUM 10 MG TABLET. PO SCH (09:00)
[2020-10-08] MEDS: METOPROLOL TART IMMED RELEASE 50 MG TABLET. PO SCH (09:00)
[2020-10-08] MEDS: LACTOBACILLUS RHAMNOSUS GG 1 CAPSULE. PO SCH ×2 (09:00→20:20)
[2020-10-08] MEDS: VANCOMYCIN PER PHARMACY MC PRN (09:45)
--- NOTE | 2020-10-08 09:49 | PDOC ---
Date of Service: DATE: 10/08/20 TIME: 09:45 Objective: Objective: D/w nurse - in OR for laminectomy. Vital Signs: Vital Signs Date Time Temp Pulse Resp B/P (MAP) Pulse Ox O2 Delivery O2 Flow Rate FiO2 10/08/20 08:05 97.1 82 33 194/98 97 Room Air 97.1 Labs: Laboratory Tests Test 10/07/20 10:25 10/08/20 06:05 10/08/20 08:23 Iron Level 39 ug/dL Total Iron Binding Capacity 259 ug/dL Iron Saturation 15 % Total Bilirubin 0.3 mg/dL 0.2 mg/dL Direct Bilirubin 0.2 mg/dL 0.1 mg/dL Aspartate Amino Transf (AST/SGOT) 24 U/L 103 U/L Alanine Aminotransferase (ALT/SGPT) 47 U/L 133 U/L Alkaline Phosphatase 182 U/L 242 U/L Total Protein 8.0 g/dL 7.1 g/dL Albumin 2.6 g/dL 2.6 g/dL Vitamin B12 Level 437 pg/mL Hepatitis A IgM Antibody Nonreactive Hepatitis B Surface Antigen Nonreactive Hepatitis B Core IgM Antibody Nonreactive Hepatitis C IgG Antibody Nonreactive White Blood Count 10.1 x10^3/uL Red Blood Count 3.63 x10^6/uL Hemoglobin 10.8 g/dL Hematocrit 31.6 % Mean Corpuscular Volume 87 fL Mean Corpuscular Hemoglobin 30 pg Mean Corpuscular Hemoglobin Concent 34 g/dL Red Cell Distribution Width 12.9 % Platelet Count 352 x10^3/uL Neutrophils (%) (Auto) 78 % Lymphocytes (%) (Auto) 14 % Monocytes (%) (Auto) 8 % Eosinophils (%) (Auto) 0 % Basophils (%) (Auto) 0 % Neutrophils # (Auto) 7.9 x10^3/uL Lymphocytes # (Auto) 1.4 x10^3/uL Monocytes # (Auto) 0.8 x10^3/uL Eosinophils # (Auto) 0.0 x10^3/uL Basophils # (Auto) 0.0 x10^3/uL Sodium Level 138 mmol/L Potassium Level 4.9 mmol/L Chloride Level 102 mmol/L Carbon Dioxide Level 29 mmol/L Anion Gap 7 Blood Urea Nitrogen 14 mg/dL Creatinine 0.8 mg/dL Estimated GFR (Cockcroft-Gault) 76.2 BUN/Creatinine Ratio 18 Glucose Level 145 mg/dL Calcium Level 8.9 mg/dL Albumin/Globulin Ratio 0.6 Urine Test Negative Imaging: RUQ US IMPRESSION: No acute sonographic finding. T and L spine MRIs IMPRESSION: 1. There is a posterior epidural fluid collection extending from T3-T4 inferiorly to the T11 vertebral level with areas of moderate to severe spinal canal stenosis extending from T5-T6 through T8-T9. There is ill-defined cord signal alteration at T9 and T10 level suggestive cord edema. There is fluid within the facet joints, most prominent at T6-T7 on the right. Minimal fluid identified at the facet joints at T7-T8 and T8-T9 bilaterally. Differential considerations would include an epidural hematoma although no fracture or suggestion of trauma is visualized. Septic arthritis of the facet joint is a differential consideration given underlying history of pyelonephritis with epidural abscess. Postcontrast enhanced imaging could be of benefit although given changes of cord edema, further imaging should be based on clinical findings. 2. Mild degenerative changes of the lumbar spine as described in detail above. PE: out of room A/P: Epidural abscess vs hematoma UTI, bacteremia Abnormal LFTs - fluctuating/worse today - liver unremarkable on US, CT noted fatty liver, viral Hep negative COVID negative -- Currently in OR - await findings. Follow LFTs. Justicifation of Admission Dx: Justifications for Admission: Justification of Admission Dx: Yes ROXIE RO Oct 08, 2020 09:49
[2020-10-08] MEDS ORDERED: METOPROLOL IV PUSH 5 MG/5 ML VIAL. IVP ONE (10:40)
[2020-10-08] MEDS ORDERED: 0.9 % SODIUM CHLORIDE 20 ML VIAL. IJ ONE (11:14)
[2020-10-08] MEDS ORDERED: REMIFENTANIL 1 MG VIAL. IV ONE (11:14)
--- NOTE | 2020-10-08 11:18 | PDOC ---
Infectious Disease Note Subjective: Subjective D/W nurse Patient is off floor to OR for laminectomy. Discussed with recovery room nurse Patient still remains in OR Vital Signs: Vital Signs Vital Signs Date Time Temp Pulse Resp B/P (MAP) Pulse Ox O2 Delivery O2 Flow Rate FiO2 10/08/20 08:05 97.1 82 33 194/98 97 Room Air 97.1 Medications: Inpatient Meds: Medications reviewed. Labs: Lab Laboratory Tests Test 10/08/20 06:05 10/08/20 08:23 White Blood Count 10.1 x10^3/uL (4.0-11.0) Red Blood Count 3.63 x10^6/uL (3.50-5.40) Hemoglobin 10.8 g/dL (12.0-15.5) Hematocrit 31.6 % (36.0-47.0) Mean Corpuscular Volume 87 fL (79-100) Mean Corpuscular Hemoglobin 30 pg (25-35) Mean Corpuscular Hemoglobin Concent 34 g/dL (31-37) Red Cell Distribution Width 12.9 % (11.5-14.5) Platelet Count 352 x10^3/uL (140-400) Neutrophils (%) (Auto) 78 % (31-73) Lymphocytes (%) (Auto) 14 % (24-48) Monocytes (%) (Auto) 8 % (0-9) Eosinophils (%) (Auto) 0 % (0-3) Basophils (%) (Auto) 0 % (0-3) Neutrophils # (Auto) 7.9 x10^3/uL (1.8-7.7) Lymphocytes # (Auto) 1.4 x10^3/uL (1.0-4.8) Monocytes # (Auto) 0.8 x10^3/uL (0.0-1.1) Eosinophils # (Auto) 0.0 x10^3/uL (0.0-0.7) Basophils # (Auto) 0.0 x10^3/uL (0.0-0.2) Sodium Level 138 mmol/L (136-145) Potassium Level 4.9 mmol/L (3.5-5.1) Chloride Level 102 mmol/L (98-107) Carbon Dioxide Level 29 mmol/L (21-32) Anion Gap 7 (6-14) Blood Urea Nitrogen 14 mg/dL (7-20) Creatinine 0.8 mg/dL (0.6-1.0) Estimated GFR (Cockcroft-Gault) 76.2 BUN/Creatinine Ratio 18 (6-20) Glucose Level 145 mg/dL (70-99) Calcium Level 8.9 mg/dL (8.5-10.1) Total Bilirubin 0.2 mg/dL (0.2-1.0) Direct Bilirubin 0.1 mg/dL (0.0-0.2) Aspartate Amino Transf (AST/SGOT) 103 U/L (15-37) Alanine Aminotransferase (ALT/SGPT) 133 U/L (14-59) Alkaline Phosphatase 242 U/L (46-116) Total Protein 7.1 g/dL (6.4-8.2) Albumin 2.6 g/dL (3.4-5.0) Albumin/Globulin Ratio 0.6 (1.0-1.7) Urine Test Negative (NEG) Objective: Assessment: Methicillin sensitive staph aureus bacteremia October 04 Epidural abscess undergoing surgery Staph aureus UTI MSSA Plan: Plan of Care I have changed her regimen from IV Vanco and Rocephin to nafcillin Dose daptomycin Follow-up cultures and lab Repeat blood cultures Continue supportive care We will assess patient tomorrow for ID consult Discussed with nursing staff DAWNA RENO MD Oct 08, 2020 11:18
[2020-10-08] MEDS ORDERED: HYDROmorphone 2 MG/ML VIAL ONE ×2 (11:30→13:51)
[2020-10-08] MEDS: NAFCILLIN 2 GM in IV DEXTROSE 5% 100ML 100 ML IV SCH ×5 (12:00→23:57)
[2020-10-08] MEDS ORDERED: NEOSTIGMINE METHYLSULFATE 5 MG/5 ML SYRINGE. ONE (12:22)
[2020-10-08] MEDS ORDERED: DAPTOmycin (GENERIC) IVPB 490 MG in IV NORMAL SALINE 50ML 50 ML IV ONE (12:30)
[2020-10-08] MEDS ORDERED: fentaNYL PF VIAL 100 MCG/2 ML VIAL ONE (13:13)
--- NOTE | 2020-10-08 13:22 | PDOC ---
[facility] PROGRESS NOTE Date of Service DOS: DATE: 10/08/20 TIME: 13:17 Chief Complaint Chief Complaint Thoracic abscess with cord compression Mid abdominal pain which radiates around the back, ongoing concern C4-C5 herniated disk repair Musculoskeletal back pain pyleonephritis mood disorder chronic neck pain hyperlipidemia MSSA bacteremia MSSA UTI History of Present Illness History of Present Illness 10/08/2020 Patient seen and examined in the postop recovery area Discussed the case with Dr. Stahl and his nurse practitioner (appreciate their rapid intervention) Patient just got out of surgery and had a T [address] Stahl performed a thoracic laminectomy He would like to continue steroids for another day Discussed with RN Chart reviewed Patient is going to ICU room 110 HPI: The patient is a pleasant 50-year-old female who has been to the ER a couple times in the past few days. Today, she presents with some abdominal pains on the right, it is radiating to her back. She was seen here on , was diagnosed with a back strain, was sent home with someantispasmodics and pain meds. She then came back on the , was diagnosed with pyelonephritis, started on Keflex and Pyridium. Now, she presents with abdominal pain, but she in the last few hours has now developed lower extremity weakness and numbness. She does admit to decreased urination and increasing back pain rated at 10/10. She increased her home meds, but that did not seem tohelp. Moving makes it worse, sitting still makes it better. She does have a past history of a herniated disk with her surgical repair of C4-C5 six years ago. I discussed the case with ER physician. I have examined the patient. We are concerned that she is developing progressive weakness. She also has a sed rate of greater than 130. Her C-reactive protein is 310. We also have a blood culture that just came back from one of her recent visits to the ER, it does show some Gram-positive cocci. We are going to put the patient on IV antibiotics including Rocephin and vancomycin. I am considering starting some steroids. We are consulting Dr. Preston to see if he would agree. He would like to get an MRI of the lower back as well. 10/07: Patient seen and examined. Endorses decreased pain since admission. Endorses moving around better and says she is feeling much better. Consulted with RN. Karon salgado. Vitals/I&O Vitals/I&O: Vital Signs Date Time Temp Pulse Resp B/P (MAP) Pulse Ox O2 Delivery O2 Flow Rate FiO2 10/08/20 08:05 97.1 82 33 194/98 97 Room Air 97.1 I & O 10/07/20 10/07/20 10/08/20 15:00 23:00 07:00 Output Total 600 ml Balance -600 ml Physical Exam General: Other (Sedated) Heart: Regular rate, Normal S1, Normal S2 Lungs: Clear Abdomen: Other (She has decreased bowel sounds) Extremities: No clubbing, No cyanosis, No edema Skin: No rashes Labs Labs: Laboratory Tests Test 10/08/20 06:05 10/08/20 08:23 White Blood Count 10.1 x10^3/uL (4.0-11.0) Red Blood Count 3.63 x10^6/uL (3.50-5.40) Hemoglobin 10.8 g/dL (12.0-15.5) Hematocrit 31.6 % (36.0-47.0) Mean Corpuscular Volume 87 fL (79-100) Mean Corpuscular Hemoglobin 30 pg (25-35) Mean Corpuscular Hemoglobin Concent 34 g/dL (31-37) Red Cell Distribution Width 12.9 % (11.5-14.5) Platelet Count 352 x10^3/uL (140-400) Neutrophils (%) (Auto) 78 % (31-73) Lymphocytes (%) (Auto) 14 % (24-48) Monocytes (%) (Auto) 8 % (0-9) Eosinophils (%) (Auto) 0 % (0-3) Basophils (%) (Auto) 0 % (0-3) Neutrophils # (Auto) 7.9 x10^3/uL (1.8-7.7) Lymphocytes # (Auto) 1.4 x10^3/uL (1.0-4.8) Monocytes # (Auto) 0.8 x10^3/uL (0.0-1.1) Eosinophils # (Auto) 0.0 x10^3/uL (0.0-0.7) Basophils # (Auto) 0.0 x10^3/uL (0.0-0.2) Sodium Level 138 mmol/L (136-145) Potassium Level 4.9 mmol/L (3.5-5.1) Chloride Level 102 mmol/L (98-107) Carbon Dioxide Level 29 mmol/L (21-32) Anion Gap 7 (6-14) Blood Urea Nitrogen 14 mg/dL (7-20) Creatinine 0.8 mg/dL (0.6-1.0) Estimated GFR (Cockcroft-Gault) 76.2 BUN/Creatinine Ratio 18 (6-20) Glucose Level 145 mg/dL (70-99) Calcium Level 8.9 mg/dL (8.5-10.1) Total Bilirubin 0.2 mg/dL (0.2-1.0) Direct Bilirubin 0.1 mg/dL (0.0-0.2) Aspartate Amino Transf (AST/SGOT) 103 U/L (15-37) Alanine Aminotransferase (ALT/SGPT) 133 U/L (14-59) Alkaline Phosphatase 242 U/L (46-116) Total Protein 7.1 g/dL (6.4-8.2) Albumin 2.6 g/dL (3.4-5.0) Albumin/Globulin Ratio 0.6 (1.0-1.7) Urine Test Negative (NEG) Review of Systems Review of Systems: Unable to obtain she is sedated Assessment and Plan Assessmemt and Plan Problems Medical Problems: (1) Abdominal pain Status: Acute (2) Low back pain Status: Acute (3) Lower extremity numbness Status: Acute (4) Lower extremity weakness Status: Acute (5) Positive blood culture Status: Acute (6) Pyelonephritis Status: Acut Postop thoracic laminectomy and abscess drainage Thoracic abscess with cord compression Mid abdominal pain which radiates around the back, ongoing concern C4-C5 herniated disk repair Musculoskeletal back pain pyleonephritis mood disorder chronic neck pain hyperlipidemia MSSA bacteremia MSSA UTI Plan ICU monitoring IV antibiotics per infectious disease Wound care As previously stated we are continuing steroids for another day Trend labs PT OT when possible She may need to go to a LTAC? IV fluids As needed narcotics Home meds DVT prophylaxis Full code Prognosis guarded but improving CC time 31 minutes Comment Review of Relevant I have reviewed the following items leticia (where applicable) has been applied. Medications: Current Medications Medications (Trade) Dose Ordered Sig/Aparna Route PRN Reason Start Time Stop Time Status Last Admin Dose Admin Lactobacillus Rhamnosus (Culturelle) 1 cap BID PO 10/07/20 21:00 10/07/20 20:28 Gelatin (Gelfoam Size 100) 1 each STK-MED ONCE .ROUTE 10/08/20 06:58 10/08/20 06:58 DC 10/08/20 10:14 Bupivacaine HCl/ Epinephrine Bitart (Sensorcain-Epi 0.5%-1:[id number] Mpf) 30 ml STK-MED ONCE .ROUTE 10/08/20 06:58 10/08/20 06:58 DC 10/08/20 10:14 Ketorolac Tromethamine (Toradol Im) 60 mg STK-MED ONCE .ROUTE 10/08/20 06:58 10/08/20 06:59 DC 10/08/20 10:14 Thrombin 20,000 unit STK-MED ONCE TP 10/08/20 06:58 10/08/20 06:59 DC 10/08/20 10:14 Cefazolin Sodium 1 gm/Sodium Chloride 1,000 ml @ 1,000 mls/hr 1X ONCE IRR 10/08/20 08:00 10/08/20 08:59 DC 10/08/20 10:14 Ringer's Solution 1,000 ml @ 100 mls/hr Q10H IV 10/08/20 08:15 10/08/20 13:03 Justifications for Admission Other Justification VISHNU LEMONS III DO Oct 08, 2020 13:22
[2020-10-08] MEDS ORDERED: MORPHINE SULFATE 2 MG/ML INJ. IVP PRN (13:30)
[2020-10-08] MEDS ORDERED: PROCHLORPERAZINE 10 MG/2 ML VIAL. IVP PRN (13:30)
[2020-10-08] MEDS ORDERED: IV RINGERS,LACTATED 1000ML 1,000 ML IV SCH (13:30)
[2020-10-08] MEDS ORDERED: fentaNYL PF VIAL 100 MCG/2 ML VIAL IVP PRN (13:30)
[2020-10-08] MEDS ORDERED: hydrALAZINE 20 MG/ML VIAL. ONE (13:31)
[2020-10-08] MEDS: hydrALAZINE 20 MG/ML VIAL. IVP PRN (13:38)
--- NOTE | 2020-10-08 13:45 | NUR ---
report given to ICU for transfer from recovery to room 110
[2020-10-08] MEDS: HYDROmorphone 2 MG/ML VIAL IVP PRN ×3 (13:55→14:50)
--- NOTE | 2020-10-08 15:00 | NUR ---
Pt arrived from PACU to room 110. A/Ox4, vital signs stable BP 165/95, emptied 30ml of sanguineus drainage. Will monitor closely.
--- NOTE | 2020-10-08 15:55 | NUR ---
SW following. Discussed with RN, pt from home with family, room air, NPO. Therapy recommending acute rehab - SW reviewed chart before going to visit with pt, only to find pt has been transferred to the ICU. RN did advise this morning that pt will likely decline to go to rehab. COVID-19 negative. Melanie RUEDA will continue to follow.
--- NOTE | 2020-10-08 15:59 | PDOC ---
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 Oriented to time, place and person. PERRL. EOMI. CN: no focal findings. Muscle tone: normal. Muscle strength: 5/5 arms, 3-4/5 legs DTR: 2+ Plantar reflex: Flexor Gait: not examined in bed. Sensory exam: no abnormal findings. No longer has T10 level. No cerebellar signs elicited. Review of Relevant I have reviewed the following items leticia (where applicable) has been applied. Labs Laboratory Tests Test 10/07/20 10:25 10/08/20 06:05 10/08/20 08:23 Iron Level 39 ug/dL (50-170) Total Iron Binding Capacity 259 ug/dL (250-450) Iron Saturation 15 % (15-34) Total Bilirubin 0.3 mg/dL (0.2-1.0) 0.2 mg/dL (0.2-1.0) Direct Bilirubin 0.2 mg/dL (0.0-0.2) 0.1 mg/dL (0.0-0.2) Aspartate Amino Transf (AST/SGOT) 24 U/L (15-37) 103 U/L (15-37) Alanine Aminotransferase (ALT/SGPT) 47 U/L (14-59) 133 U/L (14-59) Alkaline Phosphatase 182 U/L (46-116) 242 U/L (46-116) Total Protein 8.0 g/dL (6.4-8.2) 7.1 g/dL (6.4-8.2) Albumin 2.6 g/dL (3.4-5.0) 2.6 g/dL (3.4-5.0) Vitamin B12 Level 437 pg/mL (247-911) Hepatitis A IgM Antibody Nonreactive (Nonreactive) Hepatitis B Surface Antigen Nonreactive (Nonreactive) Hepatitis B Core IgM Antibody Nonreactive (Nonreactive) Hepatitis C IgG Antibody Nonreactive (Nonreactive) White Blood Count 10.1 x10^3/uL (4.0-11.0) Red Blood Count 3.63 x10^6/uL (3.50-5.40) Hemoglobin 10.8 g/dL (12.0-15.5) Hematocrit 31.6 % (36.0-47.0) Mean Corpuscular Volume 87 fL (79-100) Mean Corpuscular Hemoglobin 30 pg (25-35) Mean Corpuscular Hemoglobin Concent 34 g/dL (31-37) Red Cell Distribution Width 12.9 % (11.5-14.5) Platelet Count 352 x10^3/uL (140-400) Neutrophils (%) (Auto) 78 % (31-73) Lymphocytes (%) (Auto) 14 % (24-48) Monocytes (%) (Auto) 8 % (0-9) Eosinophils (%) (Auto) 0 % (0-3) Basophils (%) (Auto) 0 % (0-3) Neutrophils # (Auto) 7.9 x10^3/uL (1.8-7.7) Lymphocytes # (Auto) 1.4 x10^3/uL (1.0-4.8) Monocytes # (Auto) 0.8 x10^3/uL (0.0-1.1) Eosinophils # (Auto) 0.0 x10^3/uL (0.0-0.7) Basophils # (Auto) 0.0 x10^3/uL (0.0-0.2) Sodium Level 138 mmol/L (136-145) Potassium Level 4.9 mmol/L (3.5-5.1) Chloride Level 102 mmol/L (98-107) Carbon Dioxide Level 29 mmol/L (21-32) Anion Gap 7 (6-14) Blood Urea Nitrogen 14 mg/dL (7-20) Creatinine 0.8 mg/dL (0.6-1.0) Estimated GFR (Cockcroft-Gault) 76.2 BUN/Creatinine Ratio 18 (6-20) Glucose Level 145 mg/dL (70-99) Calcium Level 8.9 mg/dL (8.5-10.1) Albumin/Globulin Ratio 0.6 (1.0-1.7) Urine Test Negative (NEG) Laboratory Tests Test 10/08/20 06:05 10/08/20 08:23 White Blood Count 10.1 x10^3/uL (4.0-11.0) Red Blood Count 3.63 x10^6/uL (3.50-5.40) Hemoglobin 10.8 g/dL (12.0-15.5) Hematocrit 31.6 % (36.0-47.0) Mean Corpuscular Volume 87 fL (79-100) Mean Corpuscular Hemoglobin 30 pg (25-35) Mean Corpuscular Hemoglobin Concent 34 g/dL (31-37) Red Cell Distribution Width 12.9 % (11.5-14.5) Platelet Count 352 x10^3/uL (140-400) Neutrophils (%) (Auto) 78 % (31-73) Lymphocytes (%) (Auto) 14 % (24-48) Monocytes (%) (Auto) 8 % (0-9) Eosinophils (%) (Auto) 0 % (0-3) Basophils (%) (Auto) 0 % (0-3) Neutrophils # (Auto) 7.9 x10^3/uL (1.8-7.7) Lymphocytes # (Auto) 1.4 x10^3/uL (1.0-4.8) Monocytes # (Auto) 0.8 x10^3/uL (0.0-1.1) Eosinophils # (Auto) 0.0 x10^3/uL (0.0-0.7) Basophils # (Auto) 0.0 x10^3/uL (0.0-0.2) Sodium Level 138 mmol/L (136-145) Potassium Level 4.9 mmol/L (3.5-5.1) Chloride Level 102 mmol/L (98-107) Carbon Dioxide Level 29 mmol/L (21-32) Anion Gap 7 (6-14) Blood Urea Nitrogen 14 mg/dL (7-20) Creatinine 0.8 mg/dL (0.6-1.0) Estimated GFR (Cockcroft-Gault) 76.2 BUN/Creatinine Ratio 18 (6-20) Glucose Level 145 mg/dL (70-99) Calcium Level 8.9 mg/dL (8.5-10.1) Total Bilirubin 0.2 mg/dL (0.2-1.0) Direct Bilirubin 0.1 mg/dL (0.0-0.2) Aspartate Amino Transf (AST/SGOT) 103 U/L (15-37) Alanine Aminotransferase (ALT/SGPT) 133 U/L (14-59) Alkaline Phosphatase 242 U/L (46-116) Total Protein 7.1 g/dL (6.4-8.2) Albumin 2.6 g/dL (3.4-5.0) Albumin/Globulin Ratio 0.6 (1.0-1.7) Urine Test Negative (NEG) Medications Current Medications Sodium Chloride 1,000 ml @ 1,000 mls/hr 1X ONCE IV Last administered on 10/06/20at 10:27; Start 10/06/20 at 09:45; Stop 10/06/20 at 10:44; Status DC Ketorolac Tromethamine (Toradol 30mg Vial) 30 mg 1X ONCE IVP Last administered on 10/06/20at 10:25; Start 10/06/20 at 10:00; Stop 10/06/20 at 10:01; Status DC Fentanyl Citrate (Fentanyl 2ml Vial) 75 mcg 1X ONCE IVP Last administered on 10/06/20at 10:25; Start 10/06/20 at 10:00; Stop 10/06/20 at 10:01; Status DC Ondansetron HCl (Zofran) 4 mg 1X ONCE IVP Last administered on 10/06/20at 12:10; Start 10/06/20 at 11:45; Stop 10/06/20 at 11:46; Status DC Hydromorphone HCl (Dilaudid) 1 mg 1X ONCE IVP Last administered on 10/06/20at 12:11; Start 10/06/20 at 11:45; Stop 10/06/20 at 11:46; Status DC Iohexol (Omnipaque 300 Mg/ml) 75 ml 1X ONCE IV Last administered on 10/06/20at 12:06; Start 10/06/20 at 12:00; Stop 10/06/20 at 12:01; Status DC Info (CONTRAST GIVEN -- Rx MONITORING) 1 each PRN DAILY PRN MC SEE COMMENTS; Start 10/06/20 at 12:00; Stop 10/08/20 at 11:59; Status DC Ceftriaxone Sodium (Rocephin) 1 gm 1X ONCE IVP Last administered on 10/06/20at 12:10; Start 10/06/20 at 12:30; Stop 10/06/20 at 12:31; Status DC Vancomycin HCl (Vanco Per Pharmacy) 1 each PRN DAILY PRN MC SEE COMMENTS Last administered on 10/08/20at 09:45; Start 10/06/20 at 14:00; Stop 10/08/20 at 09:55; Status DC Vancomycin HCl 2 gm/Sodium Chloride 500 ml @ 250 mls/hr 1X ONCE IV Last administered on 10/06/20at 14:17; Start 10/06/20 at 14:15; Stop 10/06/20 at 16:14; Status DC Sodium Chloride 1,000 ml @ 1,000 mls/hr 1X ONCE IV Last administered on 10/06/20at 14:54; Start 10/06/20 at 14:45; Stop 10/06/20 at 15:44; Status DC Metoclopramide HCl (Reglan Vial) 10 mg 1X ONCE IVP Last administered on 10/06/20at 14:54; Start 10/06/20 at 14:45; Stop 10/06/20 at 14:46; Status DC Hydromorphone HCl (Dilaudid) 1 mg 1X ONCE IVP Last administered on 10/06/20at 16:44; Start 10/06/20 at 16:45; Stop 10/06/20 at 16:46; Status DC Methylprednisolone Sodium Succinate (SOLU-Medrol 40MG VIAL) 40 mg Q12HR IV Last administered on 10/07/20at 20:27; Start 10/06/20 at 19:00 Vancomycin HCl 1.25 gm/Sodium Chloride 250 ml @ 167 mls/hr Q12H IV Last administered on 10/08/20 02:38; Start 10/07/20 at 02:30; Stop 10/08/20 at 09:51; Status DC Vancomycin HCl (Vancomycin Trough Level) 1 each 1X ONCE MC ; Start 10/08/20 at 14:00; Stop 10/08/20 at 14:01; Status Cancel Atorvastatin Calcium (Lipitor) 10 mg DAILY PO Last administered on 10/07/20at 09:14; Start 10/07/20 at 09:00 Cyclobenzaprine HCl (Flexeril) 10 mg QHS PO Last administered on 10/07/20 20:29; Start 10/06/20 at 22:00 Acetaminophen/ Hydrocodone Bitart (Lortab 5/325) 0.5 tab PRN Q6HRS PRN PO PAIN MILD TO MODERATE; Start 10/06/20 at 21:45 Metoprolol Tartrate (Lopressor) 50 mg DAILY PO Last administered on 10/07/20 09:15; Start 10/07/20 at 09:00 Ondansetron HCl (Zofran Odt) 4 mg PRN Q6HRS PRN PO NAUSEA Last administered on 10/06/20 23:37; Start 10/06/20 at 21:45 Phenazopyridine HCl (Pyridium) 200 mg TID PO Last administered on 10/07/20 20:28; Start 10/06/20 at 22:30 Tizanidine HCl (Zanaflex) 4 mg QHS PO Last administered on 10/07/20 20:28; Start 10/06/20 at 22:00 Tramadol HCl (Ultram) 50 mg PRN Q6HRS PRN PO pain MILD 2ND CHOICE Last administered on 10/07/20 15:38; Start 10/06/20 at 21:45 Morphine Sulfate (Morphine Sulfate) 2 mg PRN Q2HR PRN IV PAIN Last administered on 10/07/20 00:22; Start 10/06/20 at 21:45; Stop 10/07/20 at 08:31; Status DC Cephalexin HCl (Keflex) 500 mg TID PO ; Start 10/06/20 at 22:30; Status Cancel Venlafaxine HCl (Effexor Xr) 37.5 mg BID PO Last administered on 8/24/21at 20:28; Start 10/07/20 at 09:00 Acetaminophen/ Codeine Phosphate (Tylenol #3) 1 tab PRN Q4HRS PRN PO PAIN MODERATE 2ND CHOICE; Start 10/06/20 at 22:30 Acetaminophen/ Hydrocodone Bitart (Lortab 5/325) 1 tab PRN Q6HRS PRN PO PAIN SEVERE Last administered on 10/06/20at 23:29; Start 10/06/20 at 22:00 Diazepam (Valium) 10 mg PRN 1X PRN PO [employer] FOR MRI, MRX1 Last administered on 10/07/20at 13:42; Start 10/07/20 at 09:00; Stop 10/07/20 at 23:00; Status DC Fentanyl Citrate (Fentanyl 2ml Vial) 50 mcg PRN Q2HR PRN IVP PAIN Last administered on 10/08/20at 15:20; Start 10/07/20 at 08:30 Lactobacillus Rhamnosus (Culturelle) 1 cap BID PO Last administered on 10/07/20at 20:28; Start 10/07/20 at 21:00 Ceftriaxone Sodium (Rocephin) 2 gm Q24H IVP Last administered on 10/07/20at 12:26; Start 10/07/20 at 12:00; Stop 10/08/20 at 09:51; Status DC Pantoprazole Sodium (Protonix) 40 mg DAILYAC PO ; Start 10/07/20 at 12:00 Propofol (Diprivan) 200 mg STK-MED ONCE IV ; Start 10/08/20 at 06:33; Stop 10/08/20 at 06:33; Status DC Lidocaine HCl (Lidocaine Pf 2% Vial) 5 ml STK-MED ONCE .ROUTE ; Start 10/08/20 at 06:33; Stop 10/08/20 at 06:33; Status DC Dexamethasone Sodium Phosphate (Decadron) 4 mg STK-MED ONCE .ROUTE ; Start 10/08/20 at 06:33; Stop 10/08/20 at 06:33; Status DC Ondansetron HCl (Zofran) 4 mg STK-MED ONCE .ROUTE ; Start 10/08/20 at 06:33; Stop 10/08/20 at 06:33; Status DC Propofol 50 ml @ As Directed STK-MED ONCE IV ; Start 10/08/20 at 06:33; Stop 10/08/20 at 06:33; Status DC Phenylephrine HCl (PHENYLEPHRINE in 0.9% NACL PF) 1 mg STK-MED ONCE IV ; Start 10/08/20 at 06:33; Stop 10/08/20 at 06:34; Status DC Remifentanil HCl (Ultiva) 2 mg STK-MED ONCE IV ; Start 10/08/20 at 06:34; Stop 10/08/20 at 06:34; Status DC Rocuronium Parlin (Zemuron) 50 mg STK-MED ONCE .ROUTE ; Start 10/08/20 at 06:38; Stop 10/08/20 at 06:38; Status DC Gelatin (Gelfoam Size 100) 1 each STK-MED ONCE .ROUTE Last administered on 10/08/20at 10:14; Start 10/08/20 at 06:58; Stop 10/08/20 at 06:58; Status DC Bupivacaine HCl/ Epinephrine Bitart (Sensorcain-Epi 0.5%-1:[id number] Mpf) 30 ml STK-MED ONCE .ROUTE Last administered on 10/08/20at 10:14; Start 10/08/20 at 06:58; Stop 10/08/20 at 06:58; Status DC Ketorolac Tromethamine (Toradol Im) 60 mg STK-MED ONCE .ROUTE Last administered on 10/08/20at 10:14; Start 10/08/20 at 06:58; Stop 10/08/20 at 06:59; Status DC Thrombin 20,000 unit STK-MED ONCE TP Last administered on 10/08/20at 10:14; Start 10/08/20 at 06:58; Stop 10/08/20 at 06:59; Status DC Cefazolin Sodium 1 gm/Sodium Chloride 1,000 ml @ 1,000 mls/hr 1X ONCE IRR Last administered on 10/08/20at 10:14; Start 10/08/20 at 08:00; Stop 10/08/20 at 08:59; Status DC Midazolam HCl (Versed) 2 mg STK-MED ONCE .ROUTE ; Start 10/08/20 at 08:13; Stop 10/08/20 at 08:14; Status DC Glycopyrrolate (Robinul) 1 mg STK-MED ONCE .ROUTE ; Start 10/08/20 at 08:13; Stop 10/08/20 at 08:14; Status DC Ringer's Solution 1,000 ml @ 100 mls/hr Q10H IV Last administered on 10/08/20at 13:03; Start 10/08/20 at 08:15 Propofol 50 ml @ As Directed STK-MED ONCE IV ; Start 10/08/20 at 09:28; Stop 10/08/20 at 09:28; Status DC Nafcillin Sodium 2 gm/Dextrose 100 ml @ 200 mls/hr Q4HRS IV Last administered on 10/08/20at 15:31; Start 10/08/20 at 12:00 Metoprolol Tartrate (Lopressor Vial) 5 mg STK-MED ONCE IVP ; Start 10/08/20 at 10:40; Stop 10/08/20 at 10:40; Status DC Remifentanil HCl (Ultiva) 1 mg STK-MED ONCE IV ; Start 10/08/20 at 11:14; Stop 10/08/20 at 11:14; Status DC Sodium Chloride (SODIUM CHLORIDE 20ml) 20 ml STK-MED ONCE IJ ; Start 10/08/20 at 11:14; Stop 10/08/20 at 11:14; Status DC Daptomycin 490 mg/ Sodium Chloride 50 ml @ 100 mls/hr ONCE ONCE IV Last administered on 10/08/20at 15:19; Start 10/08/20 at 12:30; Stop 10/08/20 at 12:59; Status DC Propofol 50 ml @ As Directed STK-MED ONCE IV ; Start 10/08/20 at 11:24; Stop 10/08/20 at 11:25; Status DC Hydromorphone HCl (Dilaudid) 2 mg STK-MED ONCE .ROUTE ; Start 10/08/20 at 11:30; Stop 10/08/20 at 11:31; Status DC Neostigmine Parlin (Neostigmine Methylsulfate) 5 mg STK-MED ONCE .ROUTE ; Start 10/08/20 at 12:22; Stop 10/08/20 at 12:22; Status DC Fentanyl Citrate (Fentanyl 2ml Vial) 100 mcg STK-MED ONCE .ROUTE ; Start 10/08/20 at 13:13; Stop 10/08/20 at 13:13; Status DC Fentanyl Citrate (Fentanyl 2ml Vial) 25 mcg PRN Q5MIN PRN IVP MILD PAIN 1-3; Start 10/08/20 at 13:30; Stop 10/09/20 at 13:29 Fentanyl Citrate (Fentanyl 2ml Vial) 50 mcg PRN Q5MIN PRN IVP MODERATE PAIN 4-6 Last administered on 10/08/20at 13:33; Start 10/08/20 at 13:30; Stop 10/09/20 at 13:29 Morphine Sulfate (Morphine Sulfate) 1 mg PRN Q10MIN PRN IVP SEVERE PAIN 7-10; Start 10/08/20 at 13:30; Stop 10/09/20 at 13:29 Ringer's Solution 1,000 ml @ 30 mls/hr Q24H IV ; Start 10/08/20 at 13:30; Stop 10/09/20 at 01:29 Hydromorphone HCl (Dilaudid) 0.5 mg PRN Q10MIN PRN IVP SEVERE PAIN 7-10, 2nd CHOICE Last administered on 10/08/20at 14:50; Start 10/08/20 at 13:30; Stop 10/09/20 at 13:29 Prochlorperazine Edisylate (Compazine) 5 mg PACU PRN PRN IVP NAUSEA, MRX1; Start 10/08/20 at 13:30; Stop 10/09/20 at 13:29 Hydralazine HCl (Apresoline Inj) 20 mg STK-MED ONCE .ROUTE ; Start 10/08/20 at 13:31; Stop 10/08/20 at 13:31; Status DC Hydralazine HCl (Apresoline Inj) 10 mg 1X PRN PRN IVP hypertension Last administered on 10/08/20at 13:38; Start 10/08/20 at 13:45 Hydromorphone HCl (Dilaudid) 2 mg STK-MED ONCE .ROUTE ; Start 10/08/20 at 13:51; Stop 10/08/20 at 13:51; Status DC Active Scripts Active Hydrocodone-Apap 5-325 (Hydrocodone Bit/Acetaminophen) 1 Tab Tablet 0.5-1 Tab PO PRN Q6HRS PRN Ondansetron Odt (Ondansetron) 4 Mg Tab.rapdis 1 Tab PO PRN Q6-8HRS PRN Pyridium (Phenazopyridine Hcl) 200 Mg Tablet 200 Mg PO TID 2 Days Cephalexin 500 Mg Tablet 1 Tab PO TID 7 Days Ultram (Tramadol Hcl) 50 Mg Tablet 1 Tab PO PRN Q6HRS PRN MDD 4 Tablet(s) 7 Days Cyclobenzaprine Hcl 10 Mg Tablet 1 Tab PO QHS Reported Acetaminophen-Cod #4 Tablet (Acetaminophen/Codeine Phosphate) 1 Each Tablet 1 Tab PO PRN Q4HRS PRN Venlafaxine Hcl Er (Venlafaxine Hcl) 75 Mg Cap.er.24h 1 Cap PO DAILY Tizanidine Hcl 4 Mg Tablet 1 Tab PO QHS Metoprolol Tartrate 50 Mg Tablet 1 Tab PO DAILY Atorvastatin Calcium 10 Mg Tablet 1 Tab PO DAILY Vitals/I & O Vital Sign - Last 24 Hours 10/07/20 10/07/20 10/07/20 10/07/20 18:24 19:00 20:29 20:30 Temp 98.3 98.3 Pulse 91 Resp 18 20 B/P (MAP) 172/95 (120) Pulse Ox 97 96 O2 Delivery Room Air Room Air Room Air Room Air 10/07/20 10/07/20 10/08/20 10/08/20 20:59 23:00 00:43 01:15 Temp 98.3 98.3 Pulse 60 Resp 18 18 20 B/P (MAP) 145/80 (101) Pulse Ox 95 95 O2 Delivery Room Air Room Air Room Air Room Air 10/08/20 10/08/20 10/08/20 10/08/20 03:00 04:37 05:15 08:00 Temp 98.0 98.0 Pulse 61 Resp 18 B/P (MAP) 187/89 (121) Pulse Ox 95 95 95 O2 Delivery Room Air Room Air Room Air Room Air 10/08/20 10/08/20 10/08/20 10/08/20 08:05 12:52 12:52 13:07 Temp 97.1 97.8 97.1 97.8 Pulse 82 73 68 Resp 33 10 16 B/P (MAP) 194/98 135/103 198/109 Pulse Ox 97 100 100 O2 Delivery Room Air Mask Simple Mask Simple Mask O2 Flow Rate 8 8 8 10/08/20 10/08/20 10/08/20 10/08/20 13:22 13:37 13:38 13:45 Pulse 66 68 70 Resp 15 14 B/P (MAP) 203/105 173/102 209/105 Pulse Ox 100 97 95 O2 Delivery Simple Mask Room Air Room Air O2 Flow Rate 8 10/08/20 10/08/20 10/08/20 10/08/20 13:52 14:07 14:22 14:37 Pulse 82 82 74 90 Resp 20 18 16 28 B/P (MAP) 170/96 159/85 146/86 151/95 Pulse Ox 96 93 93 95 O2 Delivery Room Air Room Air Room Air Room Air 10/08/20 15:20 Resp 18 Pulse Ox 95 O2 Delivery Room Air Intake and Output 10/07/20 10/07/20 10/08/20 15:00 23:00 07:00 Output Total 600 ml Balance -600 ml Images THORACIC SPINE WO CONTRAST EXAMINATION: Magnetic resonance imaging (MRI) of the thoracic and lumbar spine without contrast 10/07/2020 1:23 PM HISTORY: T10 sensory level TECHNIQUE: Multiplanar multi-weighted MRI of the thoracic and lumbar spine was performed without intravenous contrast using the standard thoracic and lumbar spine protocol. Contrast information: None administered. COMPARISON: CT thoracic 10/04/2020 and lumbar spine 10/06/2020. FINDINGS: Thoracic spine: Alignment of the thoracic spine is normal. Vertebral body heights are maintained. Osseous hemangioma identified at T5 measuring 7 mm. There is a central disc protrusion at C6-C7 resulting in mild to moderate spinal canal stenosis with minimal deformity ventral cord. No cord signal alteration. Anterior cervical discectomy and fusion identified from C4 through C6. No significant marrow edema. Disc heights are maintained. No acute fracture. There is a posterior epidural fluid collection with intrinsic T1 signal hyp erintensity mixed with T1 signal hypointensity and T2 signal hyperintensity extending from T3-T4 inferiorly to the T11 vertebral level. There is compression of the cord from T5-T6 through T9-T10. Inferior extension of the epidural collection extends to the T11 vertebral level. There is cord signal alteration at T9-T10 with ill-defined T2 signal hyperintensity suggestive of cord edema. There are disc bulges at T5-T6, T6-T7, T7-T8 and T8-T9, exacerbated levels of stenoses. Moderate to severe spinal canal stenosis from T5-T6 through T8-T9. There is fluid within the right facet joint at T6-T7 and to a lesser extent T7- T8 and T8-T9 bilaterally. Minimal interspinous ligamentous edema identified at these levels. There is no prevertebral or paraspinal hematoma or edema. Trace right pleural effusion. Thoracic aorta is normal in caliber. Lumbar spine: The alignment of the lumbar spine is normal. Vertebral bodies demonstrate normal signal intensity on all sequences. There are no compression fractures. The conus medullaris terminates at the level of L1. The distal spinal cord signal intensity is normal. Mild disc desiccation at and L3-L4. Limited views of the abdomen and pelvis show no soft tissue abnormality. The aorta is normal. L1-L2: The disc is normal in configuration. There is no facet arthropathy. There is no neuroforaminal stenosis. There is no spinal canal stenosis. L2-L3: The disc is normal in configuration. There is no facet arthropathy. There is no neuroforaminal stenosis. There is no spinal canal stenosis. L3-L4: The disc is normal in configuration. There is mild facet arthropathy. There is no neuroforaminal stenosis. There is no spinal canal stenosis. L4-L5: Mild circumferential disc bulge. There is mild facet arthropathy. There is moderate left and mild right neuroforaminal stenosis. There is mild spinal canal stenosis. L5-S1: The disc is normal in configuration. There is moderate facet arthropathy. There is no neuroforaminal stenosis. There is no spinal canal stenosis. IMPRESSION: 1. There is a posterior epidural fluid collection extending from T3-T4 inferiorly to the T11 vertebral level with areas of moderate to severe spinal canal stenosis extending from T5-T6 through T8-T9. There is ill-defined cord signal alteration at T9 and T10 level suggestive cord edema. There is fluid within the facet joints, most prominent at T6-T7 on the right. Minimal fluid identified at the facet joints at T7-T8 and T8-T9 bilaterally. Differential considerations would include an epidural hematoma although no fracture or suggestion of trauma is visualized. Septic arthritis of the facet joint is a differential consideration given underlying history of pyelonephritis with epidural abscess. Postcontrast enhanced imaging could be of benefit although given changes of cord edema, further imaging should be based on clinical findings. 2. Mild degenerative changes of the lumbar spine as described in detail above. Justicifation of Admission Dx: Justifications for Admission: Justification of Admission Dx: Yes VINCENT DOMINGUEZ MD Oct 08, 2020 15:59
--- NOTE | 2020-10-08 16:35 | OP ---
DATE OF SURGERY: 10/08/2020 PREOPERATIVE DIAGNOSIS: Thoracic dorsal epidural mass T3-4 to T10-11. POSTOPERATIVE DIAGNOSIS: Thoracic dorsal epidural mass T3-4 to T10-11 OPERATION PERFORMED: T4 through T10 laminectomy with removal of epidural mass/abscess and placement of drain. SURGEON: Anant Delacruz M.D. RECEPTION INTERVIEWER: ALEYDA Pozo assisted with all aspects of the surgery. We also used microscopy during this operation. We also used fluoroscopy and multimodality electrophysiologic monitoring including SSEP and motor evoked potentials. SPECIMEN: Decompression, abscess. OPERATIVE INDICATIONS: The patient is a pleasant 50-year-old who developed problems with significant thoracic spine pain and lower extremity weakness and was found to have the above-mentioned findings on her imaging studies. I recommended a thoracic laminectomy. I did discuss this with the patient and her family in detail. They understood and wished me to go ahead. DESCRIPTION OF PROCEDURE: Following general endotracheal anesthesia, the patient was positioned prone on the Abner table. Thoracic region was prepped and draped in the standard fashion. OTTONIEL hose and AV impulse boots were applied for DVT prophylaxis. The microscope was draped, fluoroscopy was draped and brought into the field. Monitoring was established. She was on antibiotics and was receiving vancomycin. Using fluoroscopic guidance, incision was made from T3-T4 down to T10-T11. I dissected down through skin and subcutaneous tissue, reflected the paraspinal muscles and placed a Boothe retractors. I then brought in the microscope and using a Leksell rongeur, I trimmed away the spinous processes. I then using a conical bur, thinned the bone down over the lamina from about T5 through T9. I then brought in Kerrisons and performed a laminectomy, and very carefully and very gently peeling back the lamina and ligamentum flavum. There was a considerable amount of partly organized abscess material and I gently sucked and removed this as well as sent multiple cultures and as I worked, I fully decompress the region. There was some residual abscess extending above and below my laminectomy and so I thinned the bone further superiorly and inferiorly and used Kerrisons to again remove bone superiorly, inferiorly and fully decompressed the entire region. Monitoring was stable throughout. I irrigated copiously and then I placed a drain after carefully exploring in the epidural space, which I brought out through a separate stab incision. Then I closed the wound in layers with absorbable suture after obtaining excellent hemostasis and irrigated copiously. The skin was closed with skin derick. I felt the surgery went very well. JONATHAN/ROQUE/SUNDAY DR: Humera TID: [id number] MTDD
[2020-10-08] MEDS: HYDROcodone/APAP 5/325MG 1 TAB TABLET PO PRN (18:51)
[2020-10-08] MEDS: CYCLOBENZAPRINE 10 MG TABLET. PO SCH (20:20)
[2020-10-08] MEDS: tiZANidine 4 MG TABLET. PO SCH (20:20)
[2020-10-09] VITALS (16 sets, daily range): BP systolic 145–202; BP diastolic 61–119
--- NOTE | 2020-10-09 00:24 | NUR ---
Patient called out stating that she is hallucinating. says "there are things crawling across me, i heard my dad talking to me in the corner, the leaves on the curtain have little eyeballs in them and someone is playing music out there" Patient also stated "i heard you all talking about how haunted this ICU is" assured patient that none of this stuff was actually happening, patient stated that she has had these hallucinations before at her house and attributed them to the Zanaflex. Will continue to monitor patient.
[2020-10-09] MEDS: NAFCILLIN 2 GM in IV DEXTROSE 5% 100ML 100 ML IV SCH ×5 (04:07→21:21)
[2020-10-09] MEDS: IV RINGERS,LACTATED 1000ML 1,000 ML IV SCH ×2 (04:15→15:44)
[2020-10-09] MEDS: fentaNYL PF VIAL 100 MCG/2 ML VIAL IVP PRN ×7 (04:16→23:13)
[2020-10-09] MEDS: PANTOPRAZOLE 40 MG TABLET.DR. PO SCH ×2 (06:16→09:07)
[2020-10-09] MEDS: HYDROcodone/APAP 5/325MG 1 TAB TABLET PO PRN ×3 (06:17→18:30)
[2020-10-09 08:04] LABS: BASO % 0 % (0-3); EOS % 0 % (0-3); HEMATOCRIT 30.6 % (36.0-47.0); HEMOGLOBIN 10.8 g/dL (12.0-15.5); LYMPH # 2.2 x10^3/uL (1.0-4.8); LYMPH % 18 % (24-48); MEAN CORPUSCULAR HEMOGLOBIN 30 pg (25-35); MEAN CORPUSCULAR HGB CONC 35 g/dL (31-37); MEAN CORPUSCULAR VOLUME 86 fL (79-100); MONO # 1.4 x10^3/uL (0.0-1.1); MONO % 11 % (0-9); NEUT % 71 % (31-73); PLATELET COUNT 394 x10^3/uL (140-400); RED BLOOD COUNT 3.56 x10^6/uL (3.50-5.40); WHITE BLOOD COUNT 12.6 x10^3/uL (4.0-11.0)
[2020-10-09 08:57] LABS: ALBUMIN 2.3 g/dL (3.4-5.0); ALBUMIN/GLOBULIN RATIO 0.5 (1.0-1.7); CALCIUM 8.9 mg/dL (8.5-10.1); CREATININE 0.7 mg/dL (0.6-1.0); GFR 88.9; POTASSIUM 4.3 mmol/L (3.5-5.1); TOTAL BILIRUBIN 0.4 mg/dL (0.2-1.0); TOTAL PROTEIN 7.1 g/dL (6.4-8.2)
[2020-10-09 08:58] LABS: ALBUMIN 2.4 g/dL (3.4-5.0); DIRECT BILIRUBIN 0.1 mg/dL (0.0-0.2); TOTAL BILIRUBIN 0.4 mg/dL (0.2-1.0); TOTAL PROTEIN 6.5 g/dL (6.4-8.2)
[2020-10-09] MEDS: VENLAFAXINE XR 37.5 MG CAP.ER.24H. PO SCH ×2 (09:07→21:21)
[2020-10-09] MEDS: METOPROLOL TART IMMED RELEASE 50 MG TABLET. PO SCH (09:07)
[2020-10-09] MEDS: LACTOBACILLUS RHAMNOSUS GG 1 CAPSULE. PO SCH ×2 (09:08→21:21)
[2020-10-09] MEDS: ATORVASTATIN CALCIUM 10 MG TABLET. PO SCH (09:08)
[2020-10-09] MEDS: methylPREDNISolone SOD SUCC PF 40 MG/ML VIAL. IV SCH ×2 (09:08→21:20)
--- NOTE | 2020-10-09 10:28 | PDOC ---
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, 10/08 Recent pyelonephritis History of anterior cervical discectomy and fusion C4-C6 Plan Okay to go to floor from my perspective Rehabilitation modalities, may need inpatient rehab, but she is improving well Discontinuation of [place], DVT prophylaxis per neurosurgery and internal medicine Discussed with patient Subjective She is happy with her course Objective Vital Signs Date Time Temp Pulse Resp B/P (MAP) Pulse Ox O2 Delivery O2 Flow Rate FiO2 10/09/20 09:07 18 95 Room Air 10/09/20 09:07 73 182/99 10/08/20 23:00 98.9 98.9 10/08/20 13:22 8 Intake and Output 10/09/20 07:00 Intake Total 2300 ml Output Total 1615 ml Balance 685 ml Intake IV Total 2300 ml Output Urine Total 1400 ml Drainage Total 165 ml Estimated Blood Loss 50 ml PHYSICAL EXAM Alert. Oriented to time, place and person. PERRL. EOMI. CN: no focal findings. Muscle tone: normal. Muscle strength: 5/5 arms, 3-4/5 legs DTR: 2+ Plantar reflex: Flexor Gait: not examined in bed. Sensory exam: no abnormal findings. No longer has T10 level. No cerebellar signs elicited. Review of Relevant I have reviewed the following items leticai (where applicable) has been applied. Labs Laboratory Tests Test 10/08/20 06:05 10/08/20 08:23 10/09/20 07:40 White Blood Count 10.1 x10^3/uL (4.0-11.0) 12.6 x10^3/uL (4.0-11.0) Red Blood Count 3.63 x10^6/uL (3.50-5.40) 3.56 x10^6/uL (3.50-5.40) Hemoglobin 10.8 g/dL (12.0-15.5) 10.8 g/dL (12.0-15.5) Hematocrit 31.6 % (36.0-47.0) 30.6 % (36.0-47.0) Mean Corpuscular Volume 87 fL (79-100) 86 fL (79-100) Mean Corpuscular Hemoglobin 30 pg (25-35) 30 pg (25-35) Mean Corpuscular Hemoglobin Concent 34 g/dL (31-37) 35 g/dL (31-37) Red Cell Distribution Width 12.9 % (11.5-14.5) 13.0 % (11.5-14.5) Platelet Count 352 x10^3/uL (140-400) 394 x10^3/uL (140-400) Neutrophils (%) (Auto) 78 % (31-73) 71 % (31-73) Lymphocytes (%) (Auto) 14 % (24-48) 18 % (24-48) Monocytes (%) (Auto) 8 % (0-9) 11 % (0-9) Eosinophils (%) (Auto) 0 % (0-3) 0 % (0-3) Basophils (%) (Auto) 0 % (0-3) 0 % (0-3) Neutrophils # (Auto) 7.9 x10^3/uL (1.8-7.7) 9.0 x10^3/uL (1.8-7.7) Lymphocytes # (Auto) 1.4 x10^3/uL (1.0-4.8) 2.2 x10^3/uL (1.0-4.8) Monocytes # (Auto) 0.8 x10^3/uL (0.0-1.1) 1.4 x10^3/uL (0.0-1.1) Eosinophils # (Auto) 0.0 x10^3/uL (0.0-0.7) 0.0 x10^3/uL (0.0-0.7) Basophils # (Auto) 0.0 x10^3/uL (0.0-0.2) 0.0 x10^3/uL (0.0-0.2) Sodium Level 138 mmol/L (136-145) 138 mmol/L (136-145) Potassium Level 4.9 mmol/L (3.5-5.1) 4.3 mmol/L (3.5-5.1) Chloride Level 102 mmol/L (98-107) 102 mmol/L (98-107) Carbon Dioxide Level 29 mmol/L (21-32) 28 mmol/L (21-32) Anion Gap 7 (6-14) 8 (6-14) Blood Urea Nitrogen 14 mg/dL (7-20) 14 mg/dL (7-20) Creatinine 0.8 mg/dL (0.6-1.0) 0.7 mg/dL (0.6-1.0) Estimated GFR (Cockcroft-Gault) 76.2 88.9 BUN/Creatinine Ratio 18 (6-20) 20 (6-20) Glucose Level 145 mg/dL (70-99) 133 mg/dL (70-99) Calcium Level 8.9 mg/dL (8.5-10.1) 8.9 mg/dL (8.5-10.1) Total Bilirubin 0.2 mg/dL (0.2-1.0) 0.4 mg/dL (0.2-1.0) Direct Bilirubin 0.1 mg/dL (0.0-0.2) 0.1 mg/dL (0.0-0.2) Aspartate Amino Transf (AST/SGOT) 103 U/L (15-37) 32 U/L (15-37) Alanine Aminotransferase (ALT/SGPT) 133 U/L (14-59) 89 U/L (14-59) Alkaline Phosphatase 242 U/L (46-116) 189 U/L (46-116) Total Protein 7.1 g/dL (6.4-8.2) 6.5 g/dL (6.4-8.2) Albumin 2.6 g/dL (3.4-5.0) 2.4 g/dL (3.4-5.0) Albumin/Globulin Ratio 0.6 (1.0-1.7) 0.5 (1.0-1.7) Urine Test Negative (NEG) Laboratory Tests Test 10/09/20 07:40 White Blood Count 12.6 x10^3/uL (4.0-11.0) Red Blood Count 3.56 x10^6/uL (3.50-5.40) Hemoglobin 10.8 g/dL (12.0-15.5) Hematocrit 30.6 % (36.0-47.0) Mean Corpuscular Volume 86 fL (79-100) Mean Corpuscular Hemoglobin 30 pg (25-35) Mean Corpuscular Hemoglobin Concent 35 g/dL (31-37) Red Cell Distribution Width 13.0 % (11.5-14.5) Platelet Count 394 x10^3/uL (140-400) Neutrophils (%) (Auto) 71 % (31-73) Lymphocytes (%) (Auto) 18 % (24-48) Monocytes (%) (Auto) 11 % (0-9) Eosinophils (%) (Auto) 0 % (0-3) Basophils (%) (Auto) 0 % (0-3) Neutrophils # (Auto) 9.0 x10^3/uL (1.8-7.7) Lymphocytes # (Auto) 2.2 x10^3/uL (1.0-4.8) Monocytes # (Auto) 1.4 x10^3/uL (0.0-1.1) Eosinophils # (Auto) 0.0 x10^3/uL (0.0-0.7) Basophils # (Auto) 0.0 x10^3/uL (0.0-0.2) Sodium Level 138 mmol/L (136-145) Potassium Level 4.3 mmol/L (3.5-5.1) Chloride Level 102 mmol/L (98-107) Carbon Dioxide Level 28 mmol/L (21-32) Anion Gap 8 (6-14) Blood Urea Nitrogen 14 mg/dL (7-20) Creatinine 0.7 mg/dL (0.6-1.0) Estimated GFR (Cockcroft-Gault) 88.9 BUN/Creatinine Ratio 20 (6-20) Glucose Level 133 mg/dL (70-99) Calcium Level 8.9 mg/dL (8.5-10.1) Total Bilirubin 0.4 mg/dL (0.2-1.0) Direct Bilirubin 0.1 mg/dL (0.0-0.2) Aspartate Amino Transf (AST/SGOT) 32 U/L (15-37) Alanine Aminotransferase (ALT/SGPT) 89 U/L (14-59) Alkaline Phosphatase 189 U/L (46-116) Total Protein 6.5 g/dL (6.4-8.2) Albumin 2.4 g/dL (3.4-5.0) Albumin/Globulin Ratio 0.5 (1.0-1.7) Microbiology 10/08/20 Gram Stain - Final, Resulted 10/08/20 Aerobic and Anaerobic Culture - Preliminary, Resulted Medications Current Medications Sodium Chloride 1,000 ml @ 1,000 mls/hr 1X ONCE IV Last administered on 10/06/20at 10:27; Start 10/06/20 at 09:45; Stop 10/06/20 at 10:44; Status DC Ketorolac Tromethamine (Toradol 30mg Vial) 30 mg 1X ONCE IVP Last administered on 10/06/20at 10:25; Start 10/06/20 at 10:00; Stop 10/06/20 at 10:01; Status DC Fentanyl Citrate (Fentanyl 2ml Vial) 75 mcg 1X ONCE IVP Last administered on 10/06/20at 10:25; Start 10/06/20 at 10:00; Stop 10/06/20 at 10:01; Status DC Ondansetron HCl (Zofran) 4 mg 1X ONCE IVP Last administered on 10/06/20at 12:10; Start 10/06/20 at 11:45; Stop 10/06/20 at 11:46; Status DC Hydromorphone HCl (Dilaudid) 1 mg 1X ONCE IVP Last administered on 10/06/20at 12:11; Start 10/06/20 at 11:45; Stop 10/06/20 at 11:46; Status DC Iohexol (Omnipaque 300 Mg/ml) 75 ml 1X ONCE IV Last administered on 10/06/20at 12:06; Start 10/06/20 at 12:00; Stop 10/06/20 at 12:01; Status DC Info (CONTRAST GIVEN -- Rx MONITORING) 1 each PRN DAILY PRN MC SEE COMMENTS; Start 10/06/20 at 12:00; Stop 10/08/20 at 11:59; Status DC Ceftriaxone Sodium (Rocephin) 1 gm 1X ONCE IVP Last administered on 10/06/20at 12:10; Start 10/06/20 at 12:30; Stop 10/06/20 at 12:31; Status DC Vancomycin HCl (Vanco Per Pharmacy) 1 each PRN DAILY PRN MC SEE COMMENTS Last administered on 10/08/20at 09:45; Start 10/06/20 at 14:00; Stop 10/08/20 at 09:55; Status DC Vancomycin HCl 2 gm/Sodium Chloride 500 ml @ 250 mls/hr 1X ONCE IV Last administered on 10/06/20at 14:17; Start 10/06/20 at 14:15; Stop 10/06/20 at 16:14; Status DC Sodium Chloride 1,000 ml @ 1,000 mls/hr 1X ONCE IV Last administered on 10/06/20at 14:54; Start 10/06/20 at 14:45; Stop 10/06/20 at 15:44; Status DC Metoclopramide HCl (Reglan Vial) 10 mg 1X ONCE IVP Last administered on 10/06/20at 14:54; Start 10/06/20 at 14:45; Stop 10/06/20 at 14:46; Status DC Hydromorphone HCl (Dilaudid) 1 mg 1X ONCE IVP Last administered on 10/06/20at 16:44; Start 10/06/20 at 16:45; Stop 10/06/20 at 16:46; Status DC Methylprednisolone Sodium Succinate (SOLU-Medrol 40MG VIAL) 40 mg Q12HR IV Last administered on 10/09/20at 09:08; Start 10/06/20 at 19:00 Vancomycin HCl 1.25 gm/Sodium Chloride 250 ml @ 167 mls/hr Q12H IV Last administered on 10/08/20at 02:38; Start 10/07/20 at 02:30; Stop 10/08/20 at 09:51; Status DC Vancomycin HCl (Vancomycin Trough Level) 1 each 1X ONCE MC ; Start 10/08/20 at 14:00; Stop 10/08/20 at 14:01; Status Cancel Atorvastatin Calcium (Lipitor) 10 mg DAILY PO Last administered on 10/09/20at 09:08; Start 10/07/20 at 09:00 Cyclobenzaprine HCl (Flexeril) 10 mg QHS PO Last administered on 10/08/20at 20:20; Start 10/06/20 at 22:00 Acetaminophen/ Hydrocodone Bitart (Lortab 5/325) 0.5 tab PRN Q6HRS PRN PO MODERATE PAIN; Start 10/06/20 at 21:45 Metoprolol Tartrate (Lopressor) 50 mg DAILY PO Last administered on 10/09/20at 09:07; Start 10/07/20 at 09:00 Ondansetron HCl (Zofran Odt) 4 mg PRN Q6HRS PRN PO NAUSEA Last administered on 10/06/20at 23:37; Start 10/06/20 at 21:45 Phenazopyridine HCl (Pyridium) 200 mg TID PO Last administered on 10/07/20 20:28; Start 10/06/20 at 22:30; Stop 10/09/20 at 08:05; Status DC Tizanidine HCl (Zanaflex) 4 mg QHS PO Last administered on 10/08/20 20:20; Start 10/06/20 at 22:00 Tramadol HCl (Ultram) 50 mg PRN Q6HRS PRN PO pain MILD 2ND CHOICE Last administered on 10/07/20 15:38; Start 10/06/20 at 21:45 Morphine Sulfate (Morphine Sulfate) 2 mg PRN Q2HR PRN IV PAIN Last administered on 10/07/20at 00:22; Start 10/06/20 at 21:45; Stop 10/07/20 at 08:31; Status DC Cephalexin HCl (Keflex) 500 mg TID PO ; Start 10/06/20 at 22:30; Status Cancel Venlafaxine HCl (Effexor Xr) 37.5 mg BID PO Last administered on 10/09/20at 09:07; Start 10/07/20 at 09:00 Acetaminophen/ Codeine Phosphate (Tylenol #3) 1 tab PRN Q4HRS PRN PO MILD PAIN 1-3; Start 10/06/20 at 22:30 Acetaminophen/ Hydrocodone Bitart (Lortab 5/325) 1 tab PRN Q6HRS PRN PO SEVERE PAIN Last administered on 10/09/20at 06:17; Start 10/06/20 at 22:00 Diazepam (Valium) 10 mg PRN 1X PRN PO SWITCHMAN FOR MRI, MRX1 Last administered on 10/07/20at 13:42; Start 10/07/20 at 09:00; Stop 10/07/20 at 23:00; Status DC Fentanyl Citrate (Fentanyl 2ml Vial) 50 mcg PRN Q2HR PRN IVP PAIN Last administered on 10/09/20at 09:07; Start 10/07/20 at 08:30 Lactobacillus Rhamnosus (Culturelle) 1 cap BID PO Last administered on 10/09/20at 09:08; Start 10/07/20 at 21:00 Ceftriaxone Sodium (Rocephin) 2 gm Q24H IVP Last administered on 10/07/20at 12:26; Start 10/07/20 at 12:00; Stop 10/08/20 at 09:51; Status DC Pantoprazole Sodium (Protonix) 40 mg DAILYAC PO Last administered on 10/09/20at 09:07; Start 10/07/20 at 12:00 Propofol (Diprivan) 200 mg STK-MED ONCE IV ; Start 10/08/20 at 06:33; Stop 10/08/20 at 06:33; Status DC Lidocaine HCl (Lidocaine Pf 2% Vial) 5 ml STK-MED ONCE .ROUTE ; Start 10/08/20 at 06:33; Stop 10/08/20 at 06:33; Status DC Dexamethasone Sodium Phosphate (Decadron) 4 mg STK-MED ONCE .ROUTE ; Start 10/08/20 at 06:33; Stop 10/08/20 at 06:33; Status DC Ondansetron HCl (Zofran) 4 mg STK-MED ONCE .ROUTE ; Start 10/08/20 at 06:33; Stop 10/08/20 at 06:33; Status DC Propofol 50 ml @ As Directed STK-MED ONCE IV ; Start 10/08/20 at 06:33; Stop 10/08/20 at 06:33; Status DC Phenylephrine HCl (PHENYLEPHRINE in 0.9% NACL PF) 1 mg STK-MED ONCE IV ; Start 10/08/20 at 06:33; Stop 10/08/20 at 06:34; Status DC Remifentanil HCl (Ultiva) 2 mg STK-MED ONCE IV ; Start 10/08/20 at 06:34; Stop 10/08/20 at 06:34; Status DC Rocuronium [place] (Zemuron) 50 mg STK-MED ONCE .ROUTE ; Start 10/08/20 at 06:38; Stop 10/08/20 at 06:38; Status DC Gelatin (Gelfoam Size 100) 1 each STK-MED ONCE .ROUTE Last administered on 10/08/20at 10:14; Start 10/08/20 at 06:58; Stop 10/08/20 at 06:58; Status DC Bupivacaine HCl/ Epinephrine Bitart (Sensorcain-Epi 0.5%-1:[id number] Mpf) 30 ml STK-MED ONCE .ROUTE Last administered on 10/08/20at 10:14; Start 10/08/20 at 06:58; Stop 10/08/20 at 06:58; Status DC Ketorolac Tromethamine (Toradol Im) 60 mg STK-MED ONCE .ROUTE Last administered on 10/08/20at 10:14; Start 10/08/20 at 06:58; Stop 10/08/20 at 06:59; Status DC Thrombin 20,000 unit STK-MED ONCE TP Last administered on 10/08/20at 10:14; Start 10/08/20 at 06:58; Stop 10/08/20 at 06:59; Status DC Cefazolin Sodium 1 gm/Sodium Chloride 1,000 ml @ 1,000 mls/hr 1X ONCE IRR Last administered on 10/08/20at 10:14; Start 10/08/20 at 08:00; Stop 10/08/20 at 08:59; Status DC Midazolam HCl (Versed) 2 mg STK-MED ONCE .ROUTE ; Start 10/08/20 at 08:13; Stop 10/08/20 at 08:14; Status DC Glycopyrrolate (Robinul) 1 mg STK-MED ONCE .ROUTE ; Start 10/08/20 at 08:13; Stop 10/08/20 at 08:14; Status DC Ringer's Solution 1,000 ml @ 100 mls/hr Q10H IV Last administered on 10/08/20at 13:03; Start 10/08/20 at 08:15 Propofol 50 ml @ As Directed STK-MED ONCE IV ; Start 10/08/20 at 09:28; Stop 10/08/20 at 09:28; Status DC Nafcillin Sodium 2 gm/Dextrose 100 ml @ 200 mls/hr Q4HRS IV Last administered on 10/09/20at 09:08; Start 10/08/20 at 12:00 Metoprolol Tartrate (Lopressor Vial) 5 mg STK-MED ONCE IVP ; Start 10/08/20 at 10:40; Stop 10/08/20 at 10:40; Status DC Remifentanil HCl (Ultiva) 1 mg STK-MED ONCE IV ; Start 10/08/20 at 11:14; Stop 10/08/20 at 11:14; Status DC Sodium Chloride (SODIUM CHLORIDE 20ml) 20 ml STK-MED ONCE IJ ; Start 10/08/20 at 11:14; Stop 10/08/20 at 11:14; Status DC Daptomycin 490 mg/ Sodium Chloride 50 ml @ 100 mls/hr ONCE ONCE IV Last administered on 10/08/20at 15:19; Start 10/08/20 at 12:30; Stop 10/08/20 at 12:59; Status DC Propofol 50 ml @ As Directed STK-MED ONCE IV ; Start 10/08/20 at 11:24; Stop 10/08/20 at 11:25; Status DC Hydromorphone HCl (Dilaudid) 2 mg STK-MED ONCE .ROUTE ; Start 10/08/20 at 11:30; Stop 10/08/20 at 11:31; Status DC Neostigmine [place] (Neostigmine Methylsulfate) 5 mg STK-MED ONCE .ROUTE ; Start 10/08/20 at 12:22; Stop 10/08/20 at 12:22; Status DC Fentanyl Citrate (Fentanyl 2ml Vial) 100 mcg STK-MED ONCE .ROUTE ; Start 10/08/20 at 13:13; Stop 10/08/20 at 13:13; Status DC Fentanyl Citrate (Fentanyl 2ml Vial) 25 mcg PRN Q5MIN PRN IVP MILD PAIN 1-3; Start 10/08/20 at 13:30; Stop 10/09/20 at 13:29 Fentanyl Citrate (Fentanyl 2ml Vial) 50 mcg PRN Q5MIN PRN IVP MODERATE PAIN 4-6 Last administered on 10/08/20at 13:33; Start 10/08/20 at 13:30; Stop 10/09/20 at 07:39; Status DC Morphine Sulfate (Morphine Sulfate) 1 mg PRN Q10MIN PRN IVP SEVERE PAIN 7-10 Last administered on 10/08/20at 16:40; Start 10/08/20 at 13:30; Stop 10/09/20 at 07:39; Status DC Ringer's Solution 1,000 ml @ 30 mls/hr Q24H IV ; Start 10/08/20 at 13:30; Stop 10/09/20 at 01:29; Status DC Hydromorphone HCl (Dilaudid) 0.5 mg PRN Q10MIN PRN IVP SEVERE PAIN 7-10, 2nd CHOICE Last administered on 10/08/20at 14:50; Start 10/08/20 at 13:30; Stop 10/09/20 at 07:39; Status DC Prochlorperazine Edisylate (Compazine) 5 mg PACU PRN PRN IVP NAUSEA, MRX1; Start 10/08/20 at 13:30; Stop 10/09/20 at 13:29 Hydralazine HCl (Apresoline Inj) 20 mg STK-MED ONCE .ROUTE ; Start 10/08/20 at 13:31; Stop 10/08/20 at 13:31; Status DC Hydralazine HCl (Apresoline Inj) 10 mg 1X PRN PRN IVP hypertension Last administered on 10/08/20at 13:38; Start 10/08/20 at 13:45 Hydromorphone HCl (Dilaudid) 2 mg STK-MED ONCE .ROUTE ; Start 10/08/20 at 13:51; Stop 10/08/20 at 13:51; Status DC Active Scripts Active Hydrocodone-Apap 5-325 (Hydrocodone Bit/Acetaminophen) 1 Tab Tablet 0.5-1 Tab PO PRN Q6HRS PRN Ondansetron Odt (Ondansetron) 4 Mg Tab.rapdis 1 Tab PO PRN Q6-8HRS PRN Pyridium (Phenazopyridine Hcl) 200 Mg Tablet 200 Mg PO TID 2 Days Cephalexin 500 Mg Tablet 1 Tab PO TID 7 Days Ultram (Tramadol Hcl) 50 Mg Tablet 1 Tab PO PRN Q6HRS PRN MDD 4 Tablet(s) 7 Days Cyclobenzaprine Hcl 10 Mg Tablet 1 Tab PO QHS Reported Acetaminophen-Cod #4 Tablet (Acetaminophen/Codeine Phosphate) 1 Each Tablet 1 Tab PO PRN Q4HRS PRN Venlafaxine Hcl Er (Venlafaxine Hcl) 75 Mg Cap.er.24h 1 Cap PO DAILY Tizanidine Hcl 4 Mg Tablet 1 Tab PO QHS Metoprolol Tartrate 50 Mg Tablet 1 Tab PO DAILY Atorvastatin Calcium 10 Mg Tablet 1 Tab PO DAILY Vitals/I & O Vital Sign - Last 24 Hours 10/08/20 10/08/20 10/08/20 10/08/20 12:52 12:52 13:07 13:22 Temp 97.8 97.8 Pulse 73 68 66 Resp 10 16 15 B/P (MAP) 135/103 198/109 203/105 Pulse Ox 100 100 100 O2 Delivery Mask Simple Mask Simple Mask Simple Mask O2 Flow Rate 8 8 8 8 10/08/20 10/08/20 10/08/20 10/08/20 13:37 13:38 13:45 13:52 Pulse 68 70 82 Resp 14 20 B/P (MAP) 173/102 209/105 170/96 Pulse Ox 97 95 96 O2 Delivery Room Air Room Air Room Air 10/08/20 10/08/20 10/08/20 10/08/20 14:03 14:07 14:22 14:37 Pulse 82 74 90 Resp 18 16 28 B/P (MAP) 159/85 146/86 151/95 Pulse Ox 96 93 93 95 O2 Delivery Room Air Room Air Room Air Room Air 10/08/20 10/08/20 10/08/20 10/08/20 15:20 15:20 15:50 16:00 Temp 97.8 97.8 Pulse 90 Resp 18 18 B/P (MAP) 159/87 (111) Pulse Ox 95 96 96 97 O2 Delivery Room Air Room Air Room Air Room Air 10/08/20 10/08/20 10/08/20 10/08/20 16:40 17:00 17:10 18:00 Pulse 82 96 Resp 18 18 B/P (MAP) 176/92 (120) 164/111 (128) Pulse Ox 95 97 96 97 O2 Delivery Room Air Room Air Room Air Room Air 10/08/20 10/08/20 10/08/20 10/08/20 18:51 19:00 19:21 20:07 Temp 98.6 98.6 Pulse 91 Resp 18 B/P (MAP) 145/85 (105) Pulse Ox 96 96 96 O2 Delivery Room Air Room Air Room Air Room Air 10/08/20 10/08/20 10/08/20 10/08/20 20:07 20:25 20:55 21:00 Pulse 100 111 Resp 18 20 20 18 B/P (MAP) 165/90 (115) 162/84 (110) Pulse Ox 95 95 97 96 O2 Delivery Room Air Room Air Room Air Room Air 10/08/20 10/08/20 10/08/20 10/09/20 22:04 23:00 23:40 00:00 Temp 98.9 98.9 Pulse 93 62 62 Resp 18 18 20 18 B/P (MAP) 167/91 (116) 140/80 (100) 145/83 (103) Pulse Ox 97 94 97 94 O2 Delivery Room Air Room Air Room Air Room Air 10/09/20 10/09/20 10/09/20 10/09/20 00:00 00:10 01:00 02:00 Pulse 69 70 Resp 20 18 18 B/P (MAP) 148/87 (107) 183/105 (131) Pulse Ox 97 98 98 O2 Delivery Room Air Room Air Room Air Room Air 10/09/20 10/09/20 10/09/20 10/09/20 03:00 04:00 04:00 04:16 Pulse 66 66 Resp 18 18 16 B/P (MAP) 160/92 (114) 187/102 (130) Pulse Ox 98 98 98 O2 Delivery Room Air Room Air Room Air Room Air 10/09/20 10/09/20 10/09/20 10/09/20 04:46 05:20 06:00 06:17 Pulse 66 73 Resp 18 16 16 20 B/P (MAP) 176/98 (124) 182/99 (126) Pulse Ox 98 95 93 95 O2 Delivery Room Air Room Air Room Air Room Air 10/09/20 10/09/20 10/09/20 06:47 09:07 09:07 Pulse 73 Resp 18 18 B/P (MAP) 182/99 Pulse Ox 95 95 O2 Delivery Room Air Room Air Intake and Output 10/08/20 10/08/20 10/09/20 15:00 23:00 07:00 Intake Total 1000 ml 100 ml 1200 ml Output Total 680 ml 365 ml 570 ml Balance 320 ml -265 ml 630 ml Justicifation of Admission Dx: Justifications for Admission: Justification of Admission Dx: Yes VINCENT DOMINGUEZ MD Oct 09, 2020 10:28
--- NOTE | 2020-10-09 10:52 | CONS ---
DATE OF CONSULTATION: 10/09/2020 REFERRING PHYSICIAN: Dr. Delacruz. REASON FOR CONSULTATION: Epidural abscess, antibiotic management. HISTORY OF PRESENT ILLNESS: A 50-year-old female currently in ICU after undergoing surgery on 10/10/2020 for epidural abscess. I have attempted to see the patient yesterday twice but was in OR. Antibiotic regimen was changed from chart review of blood culture and urine culture results. A 50-year-old female who presented to the ER initially on 10/02/2020 with complaints of back pain, which started suddenly. With movement and bending down, it got worse. It is relieved with rest. The patient was afebrile. She was diagnosed with musculoskeletal and back pain. She was given tramadol and cyclobenzaprine. The patient returned to the ER on 10/04/2020 with complaints of pain which has now progressed into the mid abdomen and sharp. The patient did not have any imaging done. She had worsening of back pain. She could not even sit up or get out of bed. She denies any bowel or bladder complaints. The patient rated her pain as 10/10. She was given ceftriaxone. UA showed pyuria. Temperature was 99.1. She underwent CT of the abdomen which did not show any acute process, negative CT thoracic spine for acute traumatic injury. The patient was diagnosed with pyelonephritis and was given cephalexin. The patient returned again to the ER on 10/06/2020 at which time she continued to have pain. Blood cultures from 10/04 were reported positive for 1/3 bottles for Staph aureus, methicillin-sensitive. UA was positive for Staph aureus. The patient's white count on the was 12.4, on was 13.9. ESR was greater than 30. Lactate was normal. Creatinine was normal. LFTs were elevated. Repeat UA showed occasional WBC. SARS COVID was negative. LFTs were elevated. C-reactive protein was 310.1. GI was consulted. Hepatitis serology was negative. The patient underwent a thoracolumbar spine MRI, which showed posterior epidural fluid collection extending from T3, T4 inferiorly to T11 vertebral body with areas of moderate to severe spinal canal stenosis extending from T5-T6 through T8-T9, there is an ill-defined cord signal alteration at T9-T10 suggestive of cord edema. There is fluid within the facet joints, more prominent at the T6-T7 on the right. Minimal fluid identified at the facets at T7-T8 and T8-T9 bilaterally. Differential consideration would include epidural hematoma, although no fracture to suggest trauma, visualized septic arthritis of the facet joint is in the differential. Mild degenerative changes of the lumbar spine. The patient was seen by Neurosurgery. She underwent T4-T10 laminectomy with removal of epidural mass/abscess and placement of drain on 10/08/2020. The patient also had numbness and tingling affecting both her lower extremities. The patient had been on steroids. Due to her urinary retention, Gardiner was placed. PAST MEDICAL HISTORY: Restless leg syndrome, eczema, on immunosuppressive medications. The patient could not tell me the names through her heater room helper. PAST SURGICAL HISTORY: Cervical disk C5-C7. SOCIAL HISTORY: . No alcohol, no tobacco. 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 FAMILY HISTORY: Noncontributory. CURRENT MEDICATIONS: Nafcillin, 1 dose of daptomycin. Other medications reviewed in medication list. REVIEW OF SYSTEMS: The patient denies any fevers, chills, back pain is under control, numbness and tingling over both the lower extremities, improving. Denies any fevers, chills, nausea, vomiting, diarrhea, abdominal pain. Denies any symptoms prior to admission except for above in HPI. Please see other review of system in HPI. PHYSICAL EXAMINATION: VITAL SIGNS: Temperature 98.9, pulse 73, respiratory rate 18, blood pressure 182/99, oxygen saturation 95% on room air. GENERAL: Alert, oriented x 3, pleasant female, lying in bed comfortably, in no acute distress. HEENT: Normocephalic, atraumatic. Anicteric. NECK: Supple, no JVD. LUNGS: Decreased breath sounds at the bases, otherwise clear. No accessory muscle use. HEART: S1, S2. ABDOMEN: Soft, nontender, nondistended, no rebound, no guarding. EXTREMITIES: Postoperative dressing with drain in place, not taken down. DERMATOLOGIC: Visualized area. No generalized rash. Multiple scars present from previous eczema. Mole over the left upper lip, looks well healed. NEUROLOGIC: Alert, oriented x 3, able to move all 4 extremities. Gait and stance not examined. PSYCHIATRIC: Calm and cooperative. LABORATORY DATA: WBC 10.1, was 12.4, previously was 13.9, hemoglobin 10.8, hematocrit 31.8, platelets 352. ESR greater than 130. C-reactive protein 310. Troponin normal. Lactate normal. Sodium 138, potassium 4.9, chloride 102, bicarbonate 29, BUN 14, creatinine 0.8, glucose 105. AST 103, ALT 133, alkaline phosphatase 242. Total protein 7.1, albumin 2.6. UA repeat negative. UA from 10/04 reviewed. SARS COVID negative. Hepatitis profile negative. MICROBIOLOGY: Blood culture 10/04, methicillin-sensitive Staph aureus. Urine culture, methicillin-sensitive Staph aureus. Spine culture 10/08, no organisms seen, PMNs, many. Repeat blood cultures 10/08, pending. IMAGING: As above. IMPRESSION: 1. Sepsis from Gram-positive bacteremia. 2. Methicillin-sensitive Staphylococcus aureus bacteremia 10/04/2020. 3. Thoracic dorsal epidural abscess T3-T4 to T10-T10 status post T4-T10 laminectomy with removal of epidural mass/abscess and placement of drain, cultures are pending at this time. ESR of 130. CRP of 310. 4. Staph aureus urinary tract infection, MSSA. 5. Leukocytosis. 6. Abnormal LFTs, could be from sepsis. Hepatitis profile negative. History of eczema, on immunosuppression. 7. History of C4-C5 herniated disk. 8. Tingling and numbness affecting lower extremity, likely from epidural abscess, improving. 9. Urinary retention, status post Gardiner placement. 10. Anemia, acute blood loss. RECOMMENDATIONS: 1. Continue nafcillin. 2. Status post one dose of daptomycin. 3. Follow up repeat blood culture results from 10/08/2020. 4. Monitor intraoperative cultures. 5. Wound and drain care as directed. 6. PT and OT as tolerated. 7. Continue supportive care. CCT 35 minutes. Thank you, Dr. Delacruz, for consulting Infectious Disease to participate in this patient's care. If you have any questions, do not hesitate to contact me. AGNIESZKA/KATHY/WOO MICHELLE: Zia TID: [id number] MTDD
--- NOTE | 2020-10-09 10:56 | PDOC ---
PROGRESS NOTES Date of Service DATE: 10/09/20 TIME: 10:51 Subjective Subjective POD #1 S/P thoracic laminectomy and removal of epidural abscess T4-T10 up in chair pain well controlled improved sensation in LE Objective Objective Vital Signs Date Time Temp Pulse Resp B/P (MAP) Pulse Ox O2 Delivery O2 Flow Rate FiO2 10/09/20 09:07 18 95 Room Air 10/09/20 09:07 73 182/99 10/08/20 23:00 98.9 98.9 10/08/20 13:22 8 Intake and Output 10/09/20 07:00 Intake Total 2300 ml Output Total 1615 ml Balance 685 ml Intake IV Total 2300 ml Output Urine Total 1400 ml Drainage Total 165 ml Estimated Blood Loss 50 ml Physical Exam General: Alert, Oriented X3, Cooperative, No acute distress Neuro: Other (not able to ambulate but strength improved, no longer has T10 sensory level) Skin: Other (Dressing C,D, I , flat. drain in place 120 cc out total) Assessment Assessment Problems Medical Problems: (1) Abdominal pain Status: Acute (2) Low back pain Status: Acute (3) Lower extremity numbness Status: Acute (4) Lower extremity weakness Status: Acute (5) Positive blood culture Status: Acute (6) Pyelonephritis Status: Acute Plan Plan of Care ok to transfer to floor PT/ OT/ rehab may need inpatient rehab sorin evans tomorrow continue SCDs D/W RN Comment Review of Relevant I have reviewed the following items leticia (where applicable) has been applied. Labs Laboratory Tests Test 10/08/20 06:05 10/08/20 08:23 10/09/20 07:40 White Blood Count 10.1 x10^3/uL (4.0-11.0) 12.6 x10^3/uL (4.0-11.0) Red Blood Count 3.63 x10^6/uL (3.50-5.40) 3.56 x10^6/uL (3.50-5.40) Hemoglobin 10.8 g/dL (12.0-15.5) 10.8 g/dL (12.0-15.5) Hematocrit 31.6 % (36.0-47.0) 30.6 % (36.0-47.0) Mean Corpuscular Volume 87 fL (79-100) 86 fL (79-100) Mean Corpuscular Hemoglobin 30 pg (25-35) 30 pg (25-35) Mean Corpuscular Hemoglobin Concent 34 g/dL (31-37) 35 g/dL (31-37) Red Cell Distribution Width 12.9 % (11.5-14.5) 13.0 % (11.5-14.5) Platelet Count 352 x10^3/uL (140-400) 394 x10^3/uL (140-400) Neutrophils (%) (Auto) 78 % (31-73) 71 % (31-73) Lymphocytes (%) (Auto) 14 % (24-48) 18 % (24-48) Monocytes (%) (Auto) 8 % (0-9) 11 % (0-9) Eosinophils (%) (Auto) 0 % (0-3) 0 % (0-3) Basophils (%) (Auto) 0 % (0-3) 0 % (0-3) Neutrophils # (Auto) 7.9 x10^3/uL (1.8-7.7) 9.0 x10^3/uL (1.8-7.7) Lymphocytes # (Auto) 1.4 x10^3/uL (1.0-4.8) 2.2 x10^3/uL (1.0-4.8) Monocytes # (Auto) 0.8 x10^3/uL (0.0-1.1) 1.4 x10^3/uL (0.0-1.1) Eosinophils # (Auto) 0.0 x10^3/uL (0.0-0.7) 0.0 x10^3/uL (0.0-0.7) Basophils # (Auto) 0.0 x10^3/uL (0.0-0.2) 0.0 x10^3/uL (0.0-0.2) Sodium Level 138 mmol/L (136-145) 138 mmol/L (136-145) Potassium Level 4.9 mmol/L (3.5-5.1) 4.3 mmol/L (3.5-5.1) Chloride Level 102 mmol/L (98-107) 102 mmol/L (98-107) Carbon Dioxide Level 29 mmol/L (21-32) 28 mmol/L (21-32) Anion Gap 7 (6-14) 8 (6-14) Blood Urea Nitrogen 14 mg/dL (7-20) 14 mg/dL (7-20) Creatinine 0.8 mg/dL (0.6-1.0) 0.7 mg/dL (0.6-1.0) Estimated GFR (Cockcroft-Gault) 76.2 88.9 BUN/Creatinine Ratio 18 (6-20) 20 (6-20) Glucose Level 145 mg/dL (70-99) 133 mg/dL (70-99) Calcium Level 8.9 mg/dL (8.5-10.1) 8.9 mg/dL (8.5-10.1) Total Bilirubin 0.2 mg/dL (0.2-1.0) 0.4 mg/dL (0.2-1.0) Direct Bilirubin 0.1 mg/dL (0.0-0.2) 0.1 mg/dL (0.0-0.2) Aspartate Amino Transf (AST/SGOT) 103 U/L (15-37) 32 U/L (15-37) Alanine Aminotransferase (ALT/SGPT) 133 U/L (14-59) 89 U/L (14-59) Alkaline Phosphatase 242 U/L (46-116) 189 U/L (46-116) Total Protein 7.1 g/dL (6.4-8.2) 6.5 g/dL (6.4-8.2) Albumin 2.6 g/dL (3.4-5.0) 2.4 g/dL (3.4-5.0) Albumin/Globulin Ratio 0.6 (1.0-1.7) 0.5 (1.0-1.7) Urine Test Negative (NEG) Laboratory Tests Test 10/09/20 07:40 White Blood Count 12.6 x10^3/uL (4.0-11.0) Red Blood Count 3.56 x10^6/uL (3.50-5.40) Hemoglobin 10.8 g/dL (12.0-15.5) Hematocrit 30.6 % (36.0-47.0) Mean Corpuscular Volume 86 fL (79-100) Mean Corpuscular Hemoglobin 30 pg (25-35) Mean Corpuscular Hemoglobin Concent 35 g/dL (31-37) Red Cell Distribution Width 13.0 % (11.5-14.5) Platelet Count 394 x10^3/uL (140-400) Neutrophils (%) (Auto) 71 % (31-73) Lymphocytes (%) (Auto) 18 % (24-48) Monocytes (%) (Auto) 11 % (0-9) Eosinophils (%) (Auto) 0 % (0-3) Basophils (%) (Auto) 0 % (0-3) Neutrophils # (Auto) 9.0 x10^3/uL (1.8-7.7) Lymphocytes # (Auto) 2.2 x10^3/uL (1.0-4.8) Monocytes # (Auto) 1.4 x10^3/uL (0.0-1.1) Eosinophils # (Auto) 0.0 x10^3/uL (0.0-0.7) Basophils # (Auto) 0.0 x10^3/uL (0.0-0.2) Sodium Level 138 mmol/L (136-145) Potassium Level 4.3 mmol/L (3.5-5.1) Chloride Level 102 mmol/L (98-107) Carbon Dioxide Level 28 mmol/L (21-32) Anion Gap 8 (6-14) Blood Urea Nitrogen 14 mg/dL (7-20) Creatinine 0.7 mg/dL (0.6-1.0) Estimated GFR (Cockcroft-Gault) 88.9 BUN/Creatinine Ratio 20 (6-20) Glucose Level 133 mg/dL (70-99) Calcium Level 8.9 mg/dL (8.5-10.1) Total Bilirubin 0.4 mg/dL (0.2-1.0) Direct Bilirubin 0.1 mg/dL (0.0-0.2) Aspartate Amino Transf (AST/SGOT) 32 U/L (15-37) Alanine Aminotransferase (ALT/SGPT) 89 U/L (14-59) Alkaline Phosphatase 189 U/L (46-116) Total Protein 6.5 g/dL (6.4-8.2) Albumin 2.4 g/dL (3.4-5.0) Albumin/Globulin Ratio 0.5 (1.0-1.7) Microbiology 10/08/20 Gram Stain - Final, Resulted 10/08/20 Aerobic and Anaerobic Culture - Preliminary, Resulted Medications Current Medications Sodium Chloride 1,000 ml @ 1,000 mls/hr 1X ONCE IV Last administered on 10/06/20at 10:27; Start 10/06/20 at 09:45; Stop 10/06/20 at 10:44; Status DC Ketorolac Tromethamine (Toradol 30mg Vial) 30 mg 1X ONCE IVP Last administered on 10/06/20at 10:25; Start 10/06/20 at 10:00; Stop 10/06/20 at 10:01; Status DC Fentanyl Citrate (Fentanyl 2ml Vial) 75 mcg 1X ONCE IVP Last administered on 10/06/20at 10:25; Start 10/06/20 at 10:00; Stop 10/06/20 at 10:01; Status DC Ondansetron HCl (Zofran) 4 mg 1X ONCE IVP Last administered on 10/06/20at 12:10; Start 10/06/20 at 11:45; Stop 10/06/20 at 11:46; Status DC Hydromorphone HCl (Dilaudid) 1 mg 1X ONCE IVP Last administered on 10/06/20at 12:11; Start 10/06/20 at 11:45; Stop 10/06/20 at 11:46; Status DC Iohexol (Omnipaque 300 Mg/ml) 75 ml 1X ONCE IV Last administered on 10/06/20at 12:06; Start 10/06/20 at 12:00; Stop 10/06/20 at 12:01; Status DC Info (CONTRAST GIVEN -- Rx MONITORING) 1 each PRN DAILY PRN MC SEE COMMENTS; Start 10/06/20 at 12:00; Stop 10/08/20 at 11:59; Status DC Ceftriaxone Sodium (Rocephin) 1 gm 1X ONCE IVP Last administered on 10/06/20at 12:10; Start 10/06/20 at 12:30; Stop 10/06/20 at 12:31; Status DC Vancomycin HCl (Vanco Per Pharmacy) 1 each PRN DAILY PRN MC SEE COMMENTS Last administered on 10/08/20at 09:45; Start 10/06/20 at 14:00; Stop 10/08/20 at 09:55; Status DC Vancomycin HCl 2 gm/Sodium Chloride 500 ml @ 250 mls/hr 1X ONCE IV Last administered on 10/06/20at 14:17; Start 10/06/20 at 14:15; Stop 10/06/20 at 16:14; Status DC Sodium Chloride 1,000 ml @ 1,000 mls/hr 1X ONCE IV Last administered on 10/06/20at 14:54; Start 10/06/20 at 14:45; Stop 10/06/20 at 15:44; Status DC Metoclopramide HCl (Reglan Vial) 10 mg 1X ONCE IVP Last administered on 10/06/20at 14:54; Start 10/06/20 at 14:45; Stop 10/06/20 at 14:46; Status DC Hydromorphone HCl (Dilaudid) 1 mg 1X ONCE IVP Last administered on 10/06/20at 16:44; Start 10/06/20 at 16:45; Stop 10/06/20 at 16:46; Status DC Methylprednisolone Sodium Succinate (SOLU-Medrol 40MG VIAL) 40 mg Q12HR IV Last administered on 10/09/20at 09:08; Start 10/06/20 at 19:00 Vancomycin HCl 1.25 gm/Sodium Chloride 250 ml @ 167 mls/hr Q12H IV Last administered on 10/08/20at 02:38; Start 10/07/20 at 02:30; Stop 10/08/20 at 09:51; Status DC Vancomycin HCl (Vancomycin Trough Level) 1 each 1X ONCE MC ; Start 10/08/20 at 14:00; Stop 10/08/20 at 14:01; Status Cancel Atorvastatin Calcium (Lipitor) 10 mg DAILY PO Last administered on 10/09/20at 09:08; Start 10/07/20 at 09:00 Cyclobenzaprine HCl (Flexeril) 10 mg QHS PO Last administered on 10/08/20at 20:2 0; Start 10/06/20 at 22:00 Acetaminophen/ Hydrocodone Bitart (Lortab 5/325) 0.5 tab PRN Q6HRS PRN PO MODERATE PAIN; Start 10/06/20 at 21:45 Metoprolol Tartrate (Lopressor) 50 mg DAILY PO Last administered on 10/09/20at 09:07; Start 10/07/20 at 09:00 Ondansetron HCl (Zofran Odt) 4 mg PRN Q6HRS PRN PO NAUSEA Last administered on 10/06/20 23:37; Start 10/06/20 at 21:45 Phenazopyridine HCl (Pyridium) 200 mg TID PO Last administered on 10/07/20 20:28; Start 10/06/20 at 22:30; Stop 10/09/20 at 08:05; Status DC Tizanidine HCl (Zanaflex) 4 mg QHS PO Last administered on 10/08/20 20:20; Start 10/06/20 at 22:00 Tramadol HCl (Ultram) 50 mg PRN Q6HRS PRN PO pain MILD 2ND CHOICE Last administered on 10/07/20at 15:38; Start 10/06/20 at 21:45 Morphine Sulfate (Morphine Sulfate) 2 mg PRN Q2HR PRN IV PAIN Last administered on 10/07/20at 00:22; Start 10/06/20 at 21:45; Stop 10/07/20 at 08:31; Status DC Cephalexin HCl (Keflex) 500 mg TID PO ; Start 10/06/20 at 22:30; Status Cancel Venlafaxine HCl (Effexor Xr) 37.5 mg BID PO Last administered on 10/09/20 09:07; Start 10/07/20 at 09:00 Acetaminophen/ Codeine Phosphate (Tylenol #3) 1 tab PRN Q4HRS PRN PO MILD PAIN 1-3; Start 10/06/20 at 22:30 Acetaminophen/ Hydrocodone Bitart (Lortab 5/325) 1 tab PRN Q6HRS PRN PO SEVERE PAIN Last administered on 10/09/20 06:17; Start 10/06/20 at 22:00 Diazepam (Valium) 10 mg PRN 1X PRN PO TECHNICAL SUPPORT AGENT FOR MRI, MRX1 Last administered on 10/07/20at 13:42; Start 10/07/20 at 09:00; Stop 10/07/20 at 23:00; Status DC Fentanyl Citrate (Fentanyl 2ml Vial) 50 mcg PRN Q2HR PRN IVP PAIN Last administered on 10/09/20 09:07; Start 10/07/20 at 08:30 Lactobacillus Rhamnosus (Culturelle) 1 cap BID PO Last administered on 10/09/20at 09:08; Start 10/07/20 at 21:00 Ceftriaxone Sodium (Rocephin) 2 gm Q24H IVP Last administered on 10/07/20at 12:26; Start 10/07/20 at 12:00; Stop 10/08/20 at 09:51; Status DC Pantoprazole Sodium (Protonix) 40 mg DAILYAC PO Last administered on 10/09/20at 09:07; Start 10/07/20 at 12:00 Propofol (Diprivan) 200 mg STK-MED ONCE IV ; Start 10/08/20 at 06:33; Stop 10/08/20 at 06:33; Status DC Lidocaine HCl (Lidocaine Pf 2% Vial) 5 ml STK-MED ONCE .ROUTE ; Start 10/08/20 at 06:33; Stop 10/08/20 at 06:33; Status DC Dexamethasone Sodium Phosphate (Decadron) 4 mg STK-MED ONCE .ROUTE ; Start 10/08/20 at 06:33; Stop 10/08/20 at 06:33; Status DC Ondansetron HCl (Zofran) 4 mg STK-MED ONCE .ROUTE ; Start 10/08/20 at 06:33; Stop 10/08/20 at 06:33; Status DC Propofol 50 ml @ As Directed STK-MED ONCE IV ; Start 10/08/20 at 06:33; Stop 10/08/20 at 06:33; Status DC Phenylephrine HCl (PHENYLEPHRINE in 0.9% NACL PF) 1 mg STK-MED ONCE IV ; Start 10/08/20 at 06:33; Stop 10/08/20 at 06:34; Status DC Remifentanil HCl (Ultiva) 2 mg STK-MED ONCE IV ; Start 10/08/20 at 06:34; Stop 10/08/20 at 06:34; Status DC Rocuronium [place] (Zemuron) 50 mg STK-MED ONCE .ROUTE ; Start 10/08/20 at 06:38; Stop 10/08/20 at 06:38; Status DC Gelatin (Gelfoam Size 100) 1 each STK-MED ONCE .ROUTE Last administered on 10/08/20at 10:14; Start 10/08/20 at 06:58; Stop 10/08/20 at 06:58; Status DC Bupivacaine HCl/ Epinephrine Bitart (Sensorcain-Epi 0.5%-1:[id number] Mpf) 30 ml STK-MED ONCE .ROUTE Last administered on 10/08/20at 10:14; Start 10/08/20 at 06:58; Stop 10/08/20 at 06:58; Status DC Ketorolac Tromethamine (Toradol Im) 60 mg STK-MED ONCE .ROUTE Last administered on 10/08/20at 10:14; Start 10/08/20 at 06:58; Stop 10/08/20 at 06:59; Status DC Thrombin 20,000 unit STK-MED ONCE TP Last administered on 10/08/20at 10:14; Start 10/08/20 at 06:58; Stop 10/08/20 at 06:59; Status DC Cefazolin Sodium 1 gm/Sodium Chloride 1,000 ml @ 1,000 mls/hr 1X ONCE IRR Last administered on 10/08/20at 10:14; Start 10/08/20 at 08:00; Stop 10/08/20 at 08:59; Status DC Midazolam HCl (Versed) 2 mg STK-MED ONCE .ROUTE ; Start 10/08/20 at 08:13; Stop 10/08/20 at 08:14; Status DC Glycopyrrolate (Robinul) 1 mg STK-MED ONCE .ROUTE ; Start 10/08/20 at 08:13; Stop 10/08/20 at 08:14; Status DC Ringer's Solution 1,000 ml @ 100 mls/hr Q10H IV Last administered on 10/08/20at 13:03; Start 10/08/20 at 08:15 Propofol 50 ml @ As Directed STK-MED ONCE IV ; Start 10/08/20 at 09:28; Stop 10/08/20 at 09:28; Status DC Nafcillin Sodium 2 gm/Dextrose 100 ml @ 200 mls/hr Q4HRS IV Last administered on 10/09/20at 09:08; Start 10/08/20 at 12:00 Metoprolol Tartrate (Lopressor Vial) 5 mg STK-MED ONCE IVP ; Start 10/08/20 at 10:40; Stop 10/08/20 at 10:40; Status DC Remifentanil HCl (Ultiva) 1 mg STK-MED ONCE IV ; Start 10/08/20 at 11:14; Stop 10/08/20 at 11:14; Status DC Sodium Chloride (SODIUM CHLORIDE 20ml) 20 ml STK-MED ONCE IJ ; Start 10/08/20 at 11:14; Stop 10/08/20 at 11:14; Status DC Daptomycin 490 mg/ Sodium Chloride 50 ml @ 100 mls/hr ONCE ONCE IV Last administered on 10/08/20at 15:19; Start 10/08/20 at 12:30; Stop 10/08/20 at 12:59; Status DC Propofol 50 ml @ As Directed STK-MED ONCE IV ; Start 10/08/20 at 11:24; Stop 10/08/20 at 11:25; Status DC Hydromorphone HCl (Dilaudid) 2 mg STK-MED ONCE .ROUTE ; Start 10/08/20 at 11:30; Stop 10/08/20 at 11:31; Status DC Neostigmine [place] (Neostigmine Methylsulfate) 5 mg STK-MED ONCE .ROUTE ; Start 10/08/20 at 12:22; Stop 10/08/20 at 12:22; Status DC Fentanyl Citrate (Fentanyl 2ml Vial) 100 mcg STK-MED ONCE .ROUTE ; Start 10/08/20 at 13:13; Stop 10/08/20 at 13:13; Status DC Fentanyl Citrate (Fentanyl 2ml Vial) 25 mcg PRN Q5MIN PRN IVP MILD PAIN 1-3; Start 10/08/20 at 13:30; Stop 10/09/20 at 13:29 Fentanyl Citrate (Fentanyl 2ml Vial) 50 mcg PRN Q5MIN PRN IVP MODERATE PAIN 4-6 Last administered on 10/08/20at 13:33; Start 10/08/20 at 13:30; Stop 10/09/20 at 07:39; Status DC Morphine Sulfate (Morphine Sulfate) 1 mg PRN Q10MIN PRN IVP SEVERE PAIN 7-10 Last administered on 10/08/20at 16:40; Start 10/08/20 at 13:30; Stop 10/09/20 at 07:39; Status DC Ringer's Solution 1,000 ml @ 30 mls/hr Q24H IV ; Start 10/08/20 at 13:30; Stop 10/09/20 at 01:29; Status DC Hydromorphone HCl (Dilaudid) 0.5 mg PRN Q10MIN PRN IVP SEVERE PAIN 7-10, 2nd CHOICE Last administered on 10/08/20at 14:50; Start 10/08/20 at 13:30; Stop 10/09/20 at 07:39; Status DC Prochlorperazine Edisylate (Compazine) 5 mg PACU PRN PRN IVP NAUSEA, MRX1; Start 10/08/20 at 13:30; Stop 10/09/20 at 13:29 Hydralazine HCl (Apresoline Inj) 20 mg STK-MED ONCE .ROUTE ; Start 10/08/20 at 13:31; Stop 10/08/20 at 13:31; Status DC Hydralazine HCl (Apresoline Inj) 10 mg 1X PRN PRN IVP hypertension Last administered on 10/08/20at 13:38; Start 10/08/20 at 13:45 Hydromorphone HCl (Dilaudid) 2 mg STK-MED ONCE .ROUTE ; Start 10/08/20 at 13:51; Stop 10/08/20 at 13:51; Status DC Active Scripts Active Hydrocodone-Apap 5-325 (Hydrocodone Bit/Acetaminophen) 1 Tab Tablet 0.5-1 Tab PO PRN Q6HRS PRN Ondansetron Odt (Ondansetron) 4 Mg Tab.rapdis 1 Tab PO PRN Q6-8HRS PRN Pyridium (Phenazopyridine Hcl) 200 Mg Tablet 200 Mg PO TID 2 Days Cephalexin 500 Mg Tablet 1 Tab PO TID 7 Days Ultram (Tramadol Hcl) 50 Mg Tablet 1 Tab PO PRN Q6HRS PRN MDD 4 Tablet(s) 7 Days Cyclobenzaprine Hcl 10 Mg Tablet 1 Tab PO QHS Reported Acetaminophen-Cod #4 Tablet (Acetaminophen/Codeine Phosphate) 1 Each Tablet 1 Tab PO PRN Q4HRS PRN Venlafaxine Hcl Er (Venlafaxine Hcl) 75 Mg Cap.er.24h 1 Cap PO DAILY Tizanidine Hcl 4 Mg Tablet 1 Tab PO QHS Metoprolol Tartrate 50 Mg Tablet 1 Tab PO DAILY Atorvastatin Calcium 10 Mg Tablet 1 Tab PO DAILY Vitals/I & O Vital Sign - Last 24 Hours 10/08/20 10/08/20 10/08/20 10/08/20 12:52 12:52 13:07 13:22 Temp 97.8 97.8 Pulse 73 68 66 Resp 10 16 15 B/P (MAP) 135/103 198/109 203/105 Pulse Ox 100 100 100 O2 Delivery Mask Simple Mask Simple Mask Simple Mask O2 Flow Rate 8 8 8 8 10/08/20 10/08/20 10/08/20 10/08/20 13:37 13:38 13:45 13:52 Pulse 68 70 82 Resp 14 20 B/P (MAP) 173/102 209/105 170/96 Pulse Ox 97 95 96 O2 Delivery Room Air Room Air Room Air 10/08/20 10/08/20 10/08/20 10/08/20 14:03 14:07 14:22 14:37 Pulse 82 74 90 Resp 18 16 28 B/P (MAP) 159/85 146/86 151/95 Pulse Ox 96 93 93 95 O2 Delivery Room Air Room Air Room Air Room Air 10/08/20 10/08/20 10/08/20 10/08/20 15:20 15:20 15:50 16:00 Temp 97.8 97.8 Pulse 90 Resp 18 18 B/P (MAP) 159/87 (111) Pulse Ox 95 96 96 97 O2 Delivery Room Air Room Air Room Air Room Air 10/08/20 10/08/20 10/08/20 10/08/20 16:40 17:00 17:10 18:00 Pulse 82 96 Resp 18 18 B/P (MAP) 176/92 (120) 164/111 (128) Pulse Ox 95 97 96 97 O2 Delivery Room Air Room Air Room Air Room Air 10/08/20 10/08/20 10/08/20 10/08/20 18:51 19:00 19:21 20:07 Temp 98.6 98.6 Pulse 91 Resp 18 B/P (MAP) 145/85 (105) Pulse Ox 96 96 96 O2 Delivery Room Air Room Air Room Air Room Air 10/08/20 10/08/20 10/08/20 10/08/20 20:07 20:25 20:55 21:00 Pulse 100 111 Resp 18 20 20 18 B/P (MAP) 165/90 (115) 162/84 (110) Pulse Ox 95 95 97 96 O2 Delivery Room Air Room Air Room Air Room Air 10/08/20 10/08/20 10/08/20 10/09/20 22:04 23:00 23:40 00:00 Temp 98.9 98.9 Pulse 93 62 62 Resp 18 18 20 18 B/P (MAP) 167/91 (116) 140/80 (100) 145/83 (103) Pulse Ox 97 94 97 94 O2 Delivery Room Air Room Air Room Air Room Air 10/09/20 10/09/20 10/09/20 10/09/20 00:00 00:10 01:00 02:00 Pulse 69 70 Resp 20 18 18 B/P (MAP) 148/87 (107) 183/105 (131) Pulse Ox 97 98 98 O2 Delivery Room Air Room Air Room Air Room Air 10/09/20 10/09/20 10/09/20 10/09/20 03:00 04:00 04:00 04:16 Pulse 66 66 Resp 18 18 16 B/P (MAP) 160/92 (114) 187/102 (130) Pulse Ox 98 98 98 O2 Delivery Room Air Room Air Room Air Room Air 10/09/20 10/09/20 10/09/20 10/09/20 04:46 05:20 06:00 06:17 Pulse 66 73 Resp 18 16 16 20 B/P (MAP) 176/98 (124) 182/99 (126) Pulse Ox 98 95 93 95 O2 Delivery Room Air Room Air Room Air Room Air 10/09/20 10/09/20 10/09/20 06:47 09:07 09:07 Pulse 73 Resp 18 18 B/P (MAP) 182/99 Pulse Ox 95 95 O2 Delivery Room Air Room Air Intake and Output 10/08/20 10/08/20 10/09/20 15:00 23:00 07:00 Intake Total 1000 ml 100 ml 1200 ml Output Total 680 ml 365 ml 570 ml Balance 320 ml -265 ml 630 ml Justifications for Admission Other Justification PRATIMA ARAYA MD Oct 09, 2020 10:56
--- NOTE | 2020-10-09 11:17 | PDOC ---
Date of Service: DATE: 10/09/20 TIME: 11:10 Subjective: Subjective: No GI complaints. Hungry. No abd pain. Lower body/legs feel weak - "they're not doing what I want them to do" but can move more easily today. Objective: Objective: Reviewed other notes - ?on immunosuppressants for eczema? - specifics unclear, not on med list. Vital Signs: Vital Signs Date Time Temp Pulse Resp B/P (MAP) Pulse Ox O2 Delivery O2 Flow Rate FiO2 10/09/20 09:07 18 95 Room Air 10/09/20 09:07 73 182/99 10/08/20 23:00 98.9 98.9 10/08/20 13:22 8 Labs: Laboratory Tests Test 10/09/20 07:40 White Blood Count 12.6 x10^3/uL Red Blood Count 3.56 x10^6/uL Hemoglobin 10.8 g/dL Hematocrit 30.6 % Mean Corpuscular Volume 86 fL Mean Corpuscular Hemoglobin 30 pg Mean Corpuscular Hemoglobin Concent 35 g/dL Red Cell Distribution Width 13.0 % Platelet Count 394 x10^3/uL Neutrophils (%) (Auto) 71 % Lymphocytes (%) (Auto) 18 % Monocytes (%) (Auto) 11 % Eosinophils (%) (Auto) 0 % Basophils (%) (Auto) 0 % Neutrophils # (Auto) 9.0 x10^3/uL Lymphocytes # (Auto) 2.2 x10^3/uL Monocytes # (Auto) 1.4 x10^3/uL Eosinophils # (Auto) 0.0 x10^3/uL Basophils # (Auto) 0.0 x10^3/uL Sodium Level 138 mmol/L Potassium Level 4.3 mmol/L Chloride Level 102 mmol/L Carbon Dioxide Level 28 mmol/L Anion Gap 8 Blood Urea Nitrogen 14 mg/dL Creatinine 0.7 mg/dL Estimated GFR (Cockcroft-Gault) 88.9 BUN/Creatinine Ratio 20 Glucose Level 133 mg/dL Calcium Level 8.9 mg/dL Total Bilirubin 0.4 mg/dL Direct Bilirubin 0.1 mg/dL Aspartate Amino Transf (AST/SGOT) 32 U/L Alanine Aminotransferase (ALT/SGPT) 89 U/L Alkaline Phosphatase 189 U/L Total Protein 6.5 g/dL Albumin 2.4 g/dL Albumin/Globulin Ratio 0.5 GRAM STAIN Final Final NO ORGANISMS SEEN. RBC:MANY SQUAMOUS EPI CELL:NONE SEEN PMN (WBCs):RARE Unless otherwise specified, Testing Performed by: [address] [id number] For Inquires, the Physician may contact the Microbiology department at [phone] ANAEROBIC-AEROBIC CULTURE Preliminary Preliminary FEW [STAPHYLOCOCCUS AUREUS] on 10/09/20 at 0917 STAPHYLOCOCCUS AUREUS Unless otherwise specified, Testing Performed by: [address] [address] For Inquires, the Physician may contact the Microbiology department at [phone] PE: GEN: NAD - up in chair eating breakfast with enthusiasm LUNGS: CTAB HEART: RRR ABD: non-distended EXTREM: appears to move BLE much more compared to first day of admission NEURO/PSYCH: A & O 3 A/P: Thoracic dorsal epidural mass T3-4 to T10-11 s/p laminectomy, removal of epidural mass/abscess, and drain placement 10/08/20 UTI, bacteremia Abnormal LFTs - fluctuating/better today - liver unremarkable on US, CT noted fatty liver, viral Hep negative - unclear cause (?multi-factorial/related to infections ?drug) COVID negative -- Doing well from GI standpoint. Eating today and LFTs improved. GI will sign off - please call if needed. Our office will contact her next year for screening colonoscopy. Justicifation of Admission Dx: Justifications for Admission: Justification of Admission Dx: Yes ROXIE RO Oct 09, 2020 11:17
[2020-10-09] MEDS ORDERED: SODIUM PHOSPHATES 19/7GM 133 ML ENEMA. PR PRN (13:00)
[2020-10-09] MEDS ORDERED: BISACODYL 10 MG SUPP.RECT. PR PRN (13:00)
--- NOTE | 2020-10-09 13:15 | PDOC ---
[facility] PROGRESS NOTE Date of Service DOS: DATE: 10/09/20 TIME: 13:14 Chief Complaint Chief Complaint Thoracic abscess with cord compression status post T4-T11 laminectomy 10/08/2020 Mid abdominal pain which radiates around the back, ongoing concern C4-C5 herniated disk repair Musculoskeletal back pain pyleonephritis mood disorder chronic neck pain hyperlipidemia MSSA bacteremia MSSA UTI History of Present Illness History of Present Illness 10/09/2020 Patient seen and examined bedside conversing well with no neuro focal deficits. She does endorse some tingling on her shins and up to her knee. Her strength was not assessed but she is wiggling her toes and lifting her leg appropriately. Okay for transfer to the med telemetry floor. Patient's chart, labs, images were reviewed and discussed with RN 10/08/2020 Patient seen and examined in the postop recovery area Discussed the case with Dr. Stahl and his nurse practitioner (appreciate their rapid intervention) Patient just got out of surgery and had a T [address] Stahl performed a thoracic laminectomy He would like to continue steroids for another day Discussed with RN Chart reviewed Patient is going to ICU room 110 HPI: The patient is a pleasant 50-year-old female who has been to the ER a couple times in the past few days. Today, she presents with some abdominal pains on the right, it is radiating to her back. She was seen here on , was diagnosed with a back strain, was sent home with someantispasmodics and pain meds. She then came back on the , was diagnosed with pyelonephritis, started on Keflex and Pyridium. Now, she presents with abdominal pain, but she in the last few hours has now developed lower extremity weakness and numbness. She does admit to decreased urination and increasing back pain rated at 10/10. She increased her home meds, but that did not seem tohelp. Moving makes it worse, sitting still makes it better. She does have a past history of a herniated disk with her surgical repair of C4-C5 six years ago. I discussed the case with ER physician. I have examined the patient. We are concerned that she is developing progressive weakness. She also has a sed rate of greater than 130. Her C-reactive protein is 310. We also have a blood culture that just came back from one of her recent visits to the ER, it does show some Gram-positive cocci. We are going to put the patient on IV antibiotics including Rocephin and vancomycin. I am considering starting some steroids. We are consulting Dr. Preston to see if he would agree. He would like to get an MRI of the lower back as well. 10/07: Patient seen and examined. Endorses decreased pain since admission. Endorses moving around better and says she is feeling much better. Consulted with RN. Brantley reviewed. Vitals/I&O Vitals/I&O: Vital Signs Date Time Temp Pulse Resp B/P (MAP) Pulse Ox O2 Delivery O2 Flow Rate FiO2 10/09/20 12:45 18 94 Room Air 10/09/20 11:00 66 178/93 (121) 10/09/20 10:00 97.9 97.9 10/08/20 13:22 8 I & O 10/08/20 10/08/20 10/09/20 15:00 23:00 07:00 Intake Total 1000 ml 100 ml 1200 ml Output Total 680 ml 365 ml 570 ml Balance 320 ml -265 ml 630 ml Physical Exam General: Alert, Oriented X3, Cooperative, No acute distress Heart: Regular rate, Normal S1, Normal S2 Lungs: Clear Abdomen: Other (She has decreased bowel sounds) Extremities: No clubbing, No cyanosis, No edema Skin: Other (Dressing C,D, I , flat. drain in place 120 cc out total) Labs Labs: Laboratory Tests Test 10/09/20 07:40 White Blood Count 12.6 x10^3/uL (4.0-11.0) Red Blood Count 3.56 x10^6/uL (3.50-5.40) Hemoglobin 10.8 g/dL (12.0-15.5) Hematocrit 30.6 % (36.0-47.0) Mean Corpuscular Volume 86 fL (79-100) Mean Corpuscular Hemoglobin 30 pg (25-35) Mean Corpuscular Hemoglobin Concent 35 g/dL (31-37) Red Cell Distribution Width 13.0 % (11.5-14.5) Platelet Count 394 x10^3/uL (140-400) Neutrophils (%) (Auto) 71 % (31-73) Lymphocytes (%) (Auto) 18 % (24-48) Monocytes (%) (Auto) 11 % (0-9) Eosinophils (%) (Auto) 0 % (0-3) Basophils (%) (Auto) 0 % (0-3) Neutrophils # (Auto) 9.0 x10^3/uL (1.8-7.7) Lymphocytes # (Auto) 2.2 x10^3/uL (1.0-4.8) Monocytes # (Auto) 1.4 x10^3/uL (0.0-1.1) Eosinophils # (Auto) 0.0 x10^3/uL (0.0-0.7) Basophils # (Auto) 0.0 x10^3/uL (0.0-0.2) Sodium Level 138 mmol/L (136-145) Potassium Level 4.3 mmol/L (3.5-5.1) Chloride Level 102 mmol/L (98-107) Carbon Dioxide Level 28 mmol/L (21-32) Anion Gap 8 (6-14) Blood Urea Nitrogen 14 mg/dL (7-20) Creatinine 0.7 mg/dL (0.6-1.0) Estimated GFR (Cockcroft-Gault) 88.9 BUN/Creatinine Ratio 20 (6-20) Glucose Level 133 mg/dL (70-99) Calcium Level 8.9 mg/dL (8.5-10.1) Total Bilirubin 0.4 mg/dL (0.2-1.0) Direct Bilirubin 0.1 mg/dL (0.0-0.2) Aspartate Amino Transf (AST/SGOT) 32 U/L (15-37) Alanine Aminotransferase (ALT/SGPT) 89 U/L (14-59) Alkaline Phosphatase 189 U/L (46-116) Total Protein 6.5 g/dL (6.4-8.2) Albumin 2.4 g/dL (3.4-5.0) Albumin/Globulin Ratio 0.5 (1.0-1.7) Assessment and Plan Assessmemt and Plan Problems Medical Problems: (1) Abdominal pain Status: Acute (2) Low back pain Status: Acute (3) Lower extremity numbness Status: Acute (4) Lower extremity weakness Status: Acute (5) Positive blood culture Status: Acute (6) Pyelonephritis Status: Acute Comment Review of Relevant I have reviewed the following items leticia (where applicable) has been applied. Medications: Current Medications Medications (Trade) Dose Ordered Sig/Aparna Route PRN Reason Start Time Stop Time Status Last Admin Dose Admin Fentanyl Citrate (Fentanyl 2ml Vial) 50 mcg PRN Q5MIN PRN IVP MODERATE PAIN 4-6 10/08/20 13:30 10/09/20 07:39 DC 10/08/20 13:33 Morphine Sulfate (Morphine Sulfate) 1 mg PRN Q10MIN PRN IVP SEVERE PAIN 7-10 10/08/20 13:30 10/09/20 07:39 DC 10/08/20 16:40 Hydromorphone HCl (Dilaudid) 0.5 mg PRN Q10MIN PRN IVP SEVERE PAIN 7-10, 2nd CHOICE 10/08/20 13:30 10/09/20 07:39 DC 10/08/20 14:50 Hydralazine HCl (Apresoline Inj) 10 mg 1X PRN PRN IVP hypertension 10/08/20 13:45 10/08/20 13:38 Justifications for Admission Other Justification MANN SWEENEY MD Oct 09, 2020 13:15
[2020-10-09] MEDS: BISACODYL 5 MG TABLET.DR. PO SCH (13:32)
--- NOTE | 2020-10-09 13:53 | CONS ---
DATE OF CONSULTATION: 10/09/2020 ATTENDING PHYSICIAN: Anant Delacruz MD REASON FOR CONSULTATION: The patient was seen at the request of Dr. Delacruz for rehab evaluation. HISTORY OF PRESENT ILLNESS: This is a 50-year-old female who was seen in the Emergency Room 2 days prior and was admitted on 10/06/2020 with abdominal pain on the right side with radiation to her back. She was seen on 09/28/2020, diagnosed with lumbar sprain, sent home with antispasmodic and pain medication. Then, she came back to the hospital on 10/04, diagnosed with pyelonephritis, started on Keflex and Pyridium. The patient presented with abdominal pain, but she also noted in the last few hours prior to hospitalization, developed lower extremity weakness and numbness and decreased urination, increasing back pain on a scale of 10/10. Home medications did not help much. Moving makes the pain worse, sitting still makes it better. She had past history of herniated disk in the cervical spine, had cervical spine surgery done about 6 years ago. The patient had a sed rate of 130. C-reactive protein was 310. Blood cultures revealed gram-positive cocci. She was started on IV antibiotics. She was seen by Neurology. She had MRI scan of thoracic and lumbar vertebrae and she underwent T4-T10 laminectomy with removal of epidural mass or abscess and placement of drain done on 10/08/2020. The patient admits continued lower extremity numbness and pain in her back. She denies any problems with lower extremity weakness or numbness prior to the onset of present symptoms in the last 11 days. 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 She denies any trauma to her back. PHYSICAL EXAMINATION: On physical exam today revealed a middle-aged female. She is alert, oriented to time, place, person and circumstance, follows commands appropriately. Moves all 4 extremities voluntarily where she had 4+/5 grade muscle strength. Deep tendon reflexes are exaggerated at both knees. She had decreased touch and pinprick sensation from T10 level down. The patient had dressing to her thoracic spine operative wound area. Other than that, her skin is intact. She had an indwelling Gardiner catheter in place. Last bowel movement is about 2 weeks ago. I have not tested her mobility skills, but as per physical therapy notes and nursing reports of her requiring more than 2-person assistance with transfers. She requires minimal assistance with bed mobility. ASSESSMENT: Middle-aged female with recent onset thoracic epidural hematoma or abscess, status post laminectomy and evacuation done on 10/08/2020 with residual spastic paraparesis and mobility and self-care limitations with neurogenic bowel and bladder. RECOMMENDATIONS: Agree with the plans for continued physical and occupational therapy to ask for a screen for transfer to rehab unit to start her on a bowel training program. Dr. Delacruz, I appreciate asking me to participate in the care of this interesting patient. I will be glad to see her for followup with you on as needed basis. YUNG/BONI MICHELLE: YUNG/sinan TID: [id number]
--- NOTE | 2020-10-09 14:53 | NUR ---
SS following up with discharge planning. SS reviewed pt chart and discussed with pt RN. Pt is currently on room air. Pt had Laminectomy on 10/08/2020. PT/OT following. COVID19 negative. Pt on IV Nafcillin and IV Solu-Medrol. Pt transferred to room 414. Erika CONCEPCION, to follow.
[2020-10-09] MEDS: hydrALAZINE 20 MG/ML VIAL. IVP PRN ×2 (15:25→21:33)
[2020-10-09] MEDS: tiZANidine 4 MG TABLET. PO SCH ×2 (19:21→21:21)
[2020-10-09] MEDS: traMADol 50 MG TABLET PO PRN (19:42)
[2020-10-09] MEDS: SENNOSIDES/DOCUSATE 8.6/50MG TABLET. PO SCH (21:00)
[2020-10-09] MEDS: CYCLOBENZAPRINE 10 MG TABLET. PO SCH (21:20)
[2020-10-10] MEDS: HYDROcodone/APAP 5/325MG 1 TAB TABLET PO PRN ×3 (00:50→19:56)
[2020-10-10] MEDS: NAFCILLIN 2 GM in IV DEXTROSE 5% 100ML 100 ML IV SCH ×6 (00:50→20:03)
[2020-10-10] MEDS: fentaNYL PF VIAL 100 MCG/2 ML VIAL IVP PRN ×7 (01:45→23:18)
[2020-10-10] MEDS: IV RINGERS,LACTATED 1000ML 1,000 ML IV SCH ×3 (02:07→20:15)
[2020-10-10 03:00] VITALS: BP 168/89
[2020-10-10 05:34] LABS: BASO % 0 % (0-3); EOS % 0 % (0-3); HEMATOCRIT 30.8 % (36.0-47.0); HEMOGLOBIN 10.6 g/dL (12.0-15.5); LYMPH # 2.6 x10^3/uL (1.0-4.8); LYMPH % 23 % (24-48); MEAN CORPUSCULAR HEMOGLOBIN 30 pg (25-35); MEAN CORPUSCULAR HGB CONC 34 g/dL (31-37); MEAN CORPUSCULAR VOLUME 86 fL (79-100); MONO # 1.3 x10^3/uL (0.0-1.1); MONO % 12 % (0-9); NEUT # 7.5 x10^3/uL (1.8-7.7); NEUT % 66 % (31-73); PLATELET COUNT 443 x10^3/uL (140-400); RED BLOOD COUNT 3.56 x10^6/uL (3.50-5.40); RED CELL DISTRIBUTION WIDTH 13.2 % (11.5-14.5); WHITE BLOOD COUNT 11.5 x10^3/uL (4.0-11.0)
[2020-10-10 05:46] LABS: ALBUMIN 2.4 g/dL (3.4-5.0); ALBUMIN/GLOBULIN RATIO 0.5 (1.0-1.7); CALCIUM 8.7 mg/dL (8.5-10.1); CREATININE 0.7 mg/dL (0.6-1.0); GFR 88.9; POTASSIUM 3.9 mmol/L (3.5-5.1); TOTAL BILIRUBIN 0.4 mg/dL (0.2-1.0)
[2020-10-10 07:00] VITALS: BP 183/94
--- NOTE | 2020-10-10 07:23 | NUR ---
cristina rowell at 0600 per MD order.
--- NOTE | 2020-10-10 08:18 | PDOC ---
Infectious Disease Note Subjective: Subjective Pt feels better Postop pain is under control Denies fever, nausea, vomiting, shortness of breath, diarrhea, abdominal pain, rash Otherwise as above Vital Signs: Vital Signs Vital Signs Date Time Temp Pulse Resp B/P (MAP) Pulse Ox O2 Delivery O2 Flow Rate FiO2 10/10/20 06:32 20 95 Room Air 10/10/20 03:00 97.9 60 168/89 (115) 97.9 Physical Exam: PHYSICAL EXAM GENERAL: Alert, oriented x 3, pleasant female, lying in bed comfortably, in no acute distress. HEENT: Normocephalic, atraumatic. Anicteric. NECK: Supple, no JVD. LUNGS: Decreased breath sounds at the bases, otherwise clear. No accessory muscle use. HEART: S1, S2. ABDOMEN: Soft, nontender, nondistended, no rebound, no guarding. EXTREMITIES no edema, kendra hose present ble BACK:: Postoperative dressing with drain in place, not taken down. DERMATOLOGIC: Visualized area. No generalized rash. Multiple scars present from previous eczema. Mole over the left upper lip, looks well healed. NEUROLOGIC: Alert, oriented x 3, able to move all 4 extremities. Gait and stance not examined. PSYCHIATRIC: Calm and cooperative. Medications: Inpatient Meds: Medications reviewed. Labs: Lab Laboratory Tests Test 10/10/20 04:25 White Blood Count 11.5 x10^3/uL (4.0-11.0) Red Blood Count 3.56 x10^6/uL (3.50-5.40) Hemoglobin 10.6 g/dL (12.0-15.5) Hematocrit 30.8 % (36.0-47.0) Mean Corpuscular Volume 86 fL (79-100) Mean Corpuscular Hemoglobin 30 pg (25-35) Mean Corpuscular Hemoglobin Concent 34 g/dL (31-37) Red Cell Distribution Width 13.2 % (11.5-14.5) Platelet Count 443 x10^3/uL (140-400) Neutrophils (%) (Auto) 66 % (31-73) Lymphocytes (%) (Auto) 23 % (24-48) Monocytes (%) (Auto) 12 % (0-9) Eosinophils (%) (Auto) 0 % (0-3) Basophils (%) (Auto) 0 % (0-3) Neutrophils # (Auto) 7.5 x10^3/uL (1.8-7.7) Lymphocytes # (Auto) 2.6 x10^3/uL (1.0-4.8) Monocytes # (Auto) 1.3 x10^3/uL (0.0-1.1) Eosinophils # (Auto) 0.0 x10^3/uL (0.0-0.7) Basophils # (Auto) 0.0 x10^3/uL (0.0-0.2) Sodium Level 136 mmol/L (136-145) Potassium Level 3.9 mmol/L (3.5-5.1) Chloride Level 101 mmol/L (98-107) Carbon Dioxide Level 31 mmol/L (21-32) Anion Gap 4 (6-14) Blood Urea Nitrogen 8 mg/dL (7-20) Creatinine 0.7 mg/dL (0.6-1.0) Estimated GFR (Cockcroft-Gault) 88.9 BUN/Creatinine Ratio 11 (6-20) Glucose Level 124 mg/dL (70-99) Calcium Level 8.7 mg/dL (8.5-10.1) Total Bilirubin 0.4 mg/dL (0.2-1.0) Aspartate Amino Transf (AST/SGOT) 20 U/L (15-37) Alanine Aminotransferase (ALT/SGPT) 64 U/L (14-59) Alkaline Phosphatase 163 U/L (46-116) Total Protein 7.0 g/dL (6.4-8.2) Albumin 2.4 g/dL (3.4-5.0) Albumin/Globulin Ratio 0.5 (1.0-1.7) Objective: Assessment: Sepsis from Gram positive bacteremia Methicillin sensitive staph aureus bacteremia October 04 Thoracic dorsal epidural abscess T3-T4 to T10-T10 - status post T4-T10 laminectomy with removal of epidural mass/abscess and placement of drain, cultures are pending at this time. ESR of 130. CRP of 310. Staph aureus urinary tract infection, MSSA. Leukocytosis. Abnormal LFTs, could be from sepsis. Hepatitis profile negative. History of eczema, on immunosuppression. History of C4-C5 herniated disk. Paresthesia affecting lower extremity, likely from epidural abscess, improving. Urinary retention, status post Gardiner placement. Anemia, acute blood loss. Plan: Plan of Care Do not place PICC line until repeat blood cultures are negative at least for 48 to 78 hours Continue nafcillin. Status post one dose of daptomycin. Follow up repeat blood culture results from 10/08/2020. Monitor intraoperative cultures. Wound and drain care as directed. PT and OT as tolerated. Monitor labs and cultures Discussed with nursing staff DAWNA RENO MD Oct 10, 2020 08:18
[2020-10-10] MEDS: methylPREDNISolone SOD SUCC PF 40 MG/ML VIAL. IV SCH (09:00)
[2020-10-10] MEDS: ATORVASTATIN CALCIUM 10 MG TABLET. PO SCH (09:05)
[2020-10-10] MEDS: BISACODYL 5 MG TABLET.DR. PO SCH (09:05)
[2020-10-10] MEDS: SENNOSIDES/DOCUSATE 8.6/50MG TABLET. PO SCH ×2 (09:06→21:00)
[2020-10-10] MEDS: LACTOBACILLUS RHAMNOSUS GG 1 CAPSULE. PO SCH ×2 (09:06→20:03)
[2020-10-10] MEDS: VENLAFAXINE XR 37.5 MG CAP.ER.24H. PO SCH ×2 (09:06→20:03)
[2020-10-10] MEDS: METOPROLOL TART IMMED RELEASE 50 MG TABLET. PO SCH (09:06)
[2020-10-10 09:25] LABS: % BANDS 3 % (0-9); % LYMPHS 33 % (24-48); % MONOS 5 % (0-10); % SEGS 59 % (35-66); NUCLEATED RBC 1; PLT ESTIMATE INCREASED (ADEQUATE)
--- NOTE | 2020-10-10 09:25 | PDOC ---
PROGRESS NOTES Date of Service DATE: 10/10/20 TIME: 09:22 Subjective Subjective No new complaints. Objective Objective Vital Signs Date Time Temp Pulse Resp B/P (MAP) Pulse Ox O2 Delivery O2 Flow Rate FiO2 10/10/20 09:06 95 Room Air 8.0 10/10/20 09:06 60 168/89 10/10/20 06:32 20 10/10/20 03:00 97.9 97.9 Intake and Output 10/10/20 07:00 Output Total 3200 ml Balance -3200 ml Output Urine Total 3150 ml Drainage Total 50 ml Physical Exam Physical Exam She is alert,supine in bed and came to a sitting and standing position under supervision and felt wobbly initially after coming to a standing position but felt more confident later. Drain in place and Gardiner is out and she is receiving IV fluids and she remains constipated.She is eating well and passing gases. She is anemic. Assessment Assessment Problems Medical Problems: (1) Abdominal pain Status: Acute (2) Low back pain Status: Acute (3) Lower extremity numbness Status: Acute (4) Lower extremity weakness Status: Acute (5) Positive blood culture Status: Acute (6) Pyelonephritis Status: Acute Plan Plan of Care To continue present rehbab efforts and hopefully to rehab unit when medically stable. To work on her constipation and see how she voids. Comment Review of Relevant I have reviewed the following items leticia (where applicable) has been applied. Labs Laboratory Tests Test 10/09/20 07:40 10/10/20 04:25 White Blood Count 12.6 x10^3/uL (4.0-11.0) 11.5 x10^3/uL (4.0-11.0) Red Blood Count 3.56 x10^6/uL (3.50-5.40) 3.56 x10^6/uL (3.50-5.40) Hemoglobin 10.8 g/dL (12.0-15.5) 10.6 g/dL (12.0-15.5) Hematocrit 30.6 % (36.0-47.0) 30.8 % (36.0-47.0) Mean Corpuscular Volume 86 fL (79-100) 86 fL (79-100) Mean Corpuscular Hemoglobin 30 pg (25-35) 30 pg (25-35) Mean Corpuscular Hemoglobin Concent 35 g/dL (31-37) 34 g/dL (31-37) Red Cell Distribution Width 13.0 % (11.5-14.5) 13.2 % (11.5-14.5) Platelet Count 394 x10^3/uL (140-400) 443 x10^3/uL (140-400) Neutrophils (%) (Auto) 71 % (31-73) 66 % (31-73) Lymphocytes (%) (Auto) 18 % (24-48) 23 % (24-48) Monocytes (%) (Auto) 11 % (0-9) 12 % (0-9) Eosinophils (%) (Auto) 0 % (0-3) 0 % (0-3) Basophils (%) (Auto) 0 % (0-3) 0 % (0-3) Neutrophils # (Auto) 9.0 x10^3/uL (1.8-7.7) 7.5 x10^3/uL (1.8-7.7) Lymphocytes # (Auto) 2.2 x10^3/uL (1.0-4.8) 2.6 x10^3/uL (1.0-4.8) Monocytes # (Auto) 1.4 x10^3/uL (0.0-1.1) 1.3 x10^3/uL (0.0-1.1) Eosinophils # (Auto) 0.0 x10^3/uL (0.0-0.7) 0.0 x10^3/uL (0.0-0.7) Basophils # (Auto) 0.0 x10^3/uL (0.0-0.2) 0.0 x10^3/uL (0.0-0.2) Sodium Level 138 mmol/L (136-145) 136 mmol/L (136-145) Potassium Level 4.3 mmol/L (3.5-5.1) 3.9 mmol/L (3.5-5.1) Chloride Level 102 mmol/L (98-107) 101 mmol/L (98-107) Carbon Dioxide Level 28 mmol/L (21-32) 31 mmol/L (21-32) Anion Gap 8 (6-14) 4 (6-14) Blood Urea Nitrogen 14 mg/dL (7-20) 8 mg/dL (7-20) Creatinine 0.7 mg/dL (0.6-1.0) 0.7 mg/dL (0.6-1.0) Estimated GFR (Cockcroft-Gault) 88.9 88.9 BUN/Creatinine Ratio 20 (6-20) 11 (6-20) Glucose Level 133 mg/dL (70-99) 124 mg/dL (70-99) Calcium Level 8.9 mg/dL (8.5-10.1) 8.7 mg/dL (8.5-10.1) Total Bilirubin 0.4 mg/dL (0.2-1.0) 0.4 mg/dL (0.2-1.0) Direct Bilirubin 0.1 mg/dL (0.0-0.2) Aspartate Amino Transf (AST/SGOT) 32 U/L (15-37) 20 U/L (15-37) Alanine Aminotransferase (ALT/SGPT) 89 U/L (14-59) 64 U/L (14-59) Alkaline Phosphatase 189 U/L (46-116) 163 U/L (46-116) Total Protein 6.5 g/dL (6.4-8.2) 7.0 g/dL (6.4-8.2) Albumin 2.4 g/dL (3.4-5.0) 2.4 g/dL (3.4-5.0) Albumin/Globulin Ratio 0.5 (1.0-1.7) 0.5 (1.0-1.7) Laboratory Tests Test 10/10/20 04:25 White Blood Count 11.5 x10^3/uL (4.0-11.0) Red Blood Count 3.56 x10^6/uL (3.50-5.40) Hemoglobin 10.6 g/dL (12.0-15.5) Hematocrit 30.8 % (36.0-47.0) Mean Corpuscular Volume 86 fL (79-100) Mean Corpuscular Hemoglobin 30 pg (25-35) Mean Corpuscular Hemoglobin Concent 34 g/dL (31-37) Red Cell Distribution Width 13.2 % (11.5-14.5) Platelet Count 443 x10^3/uL (140-400) Neutrophils (%) (Auto) 66 % (31-73) Lymphocytes (%) (Auto) 23 % (24-48) Monocytes (%) (Auto) 12 % (0-9) Eosinophils (%) (Auto) 0 % (0-3) Basophils (%) (Auto) 0 % (0-3) Neutrophils # (Auto) 7.5 x10^3/uL (1.8-7.7) Lymphocytes # (Auto) 2.6 x10^3/uL (1.0-4.8) Monocytes # (Auto) 1.3 x10^3/uL (0.0-1.1) Eosinophils # (Auto) 0.0 x10^3/uL (0.0-0.7) Basophils # (Auto) 0.0 x10^3/uL (0.0-0.2) Sodium Level 136 mmol/L (136-145) Potassium Level 3.9 mmol/L (3.5-5.1) Chloride Level 101 mmol/L (98-107) Carbon Dioxide Level 31 mmol/L (21-32) Anion Gap 4 (6-14) Blood Urea Nitrogen 8 mg/dL (7-20) Creatinine 0.7 mg/dL (0.6-1.0) Estimated GFR (Cockcroft-Gault) 88.9 BUN/Creatinine Ratio 11 (6-20) Glucose Level 124 mg/dL (70-99) Calcium Level 8.7 mg/dL (8.5-10.1) Total Bilirubin 0.4 mg/dL (0.2-1.0) Aspartate Amino Transf (AST/SGOT) 20 U/L (15-37) Alanine Aminotransferase (ALT/SGPT) 64 U/L (14-59) Alkaline Phosphatase 163 U/L (46-116) Total Protein 7.0 g/dL (6.4-8.2) Albumin 2.4 g/dL (3.4-5.0) Albumin/Globulin Ratio 0.5 (1.0-1.7) Microbiology 10/08/20 Gram Stain - Final, Resulted 10/08/20 Aerobic and Anaerobic Culture - Preliminary, Resulted Medications Current Medications Sodium Chloride 1,000 ml @ 1,000 mls/hr 1X ONCE IV Last administered on 10/06/20at 10:27; Start 10/06/20 at 09:45; Stop 10/06/20 at 10:44; Status DC Ketorolac Tromethamine (Toradol 30mg Vial) 30 mg 1X ONCE IVP Last administered on 10/06/20at 10:25; Start 10/06/20 at 10:00; Stop 10/06/20 at 10:01; Status DC Fentanyl Citrate (Fentanyl 2ml Vial) 75 mcg 1X ONCE IVP Last administered on 10/06/20at 10:25; Start 10/06/20 at 10:00; Stop 10/06/20 at 10:01; Status DC Ondansetron HCl (Zofran) 4 mg 1X ONCE IVP Last administered on 10/06/20at 12:1 0; Start 10/06/20 at 11:45; Stop 10/06/20 at 11:46; Status DC Hydromorphone HCl (Dilaudid) 1 mg 1X ONCE IVP Last administered on 10/06/20at 12:11; Start 10/06/20 at 11:45; Stop 10/06/20 at 11:46; Status DC Iohexol (Omnipaque 300 Mg/ml) 75 ml 1X ONCE IV Last administered on 10/06/20at 12:06; Start 10/06/20 at 12:00; Stop 10/06/20 at 12:01; Status DC Info (CONTRAST GIVEN -- Rx MONITORING) 1 each PRN DAILY PRN MC SEE COMMENTS; Start 10/06/20 at 12:00; Stop 10/08/20 at 11:59; Status DC Ceftriaxone Sodium (Rocephin) 1 gm 1X ONCE IVP Last administered on 10/06/20at 12:10; Start 10/06/20 at 12:30; Stop 10/06/20 at 12:31; Status DC Vancomycin HCl (Vanco Per Pharmacy) 1 each PRN DAILY PRN MC SEE COMMENTS Last administered on 10/08/20at 09:45; Start 10/06/20 at 14:00; Stop 10/08/20 at 09:55; Status DC Vancomycin HCl 2 gm/Sodium Chloride 500 ml @ 250 mls/hr 1X ONCE IV Last administered on 10/06/20at 14:17; Start 10/06/20 at 14:15; Stop 10/06/20 at 16:14; Status DC Sodium Chloride 1,000 ml @ 1,000 mls/hr 1X ONCE IV Last administered on 10/06/20at 14:54; Start 10/06/20 at 14:45; Stop 10/06/20 at 15:44; Status DC Metoclopramide HCl (Reglan Vial) 10 mg 1X ONCE IVP Last administered on 10/06/20at 14:54; Start 10/06/20 at 14:45; Stop 10/06/20 at 14:46; Status DC Hydromorphone HCl (Dilaudid) 1 mg 1X ONCE IVP Last administered on 10/06/20at 16:44; Start 10/06/20 at 16:45; Stop 10/06/20 at 16:46; Status DC Methylprednisolone Sodium Succinate (SOLU-Medrol 40MG VIAL) 40 mg Q12HR IV Last administered on 10/10/20at 09:00; Start 10/06/20 at 19:00 Vancomycin HCl 1.25 gm/Sodium Chloride 250 ml @ 167 mls/hr Q12H IV Last administered on 10/08/20at 02:38; Start 10/07/20 at 02:30; Stop 10/08/20 at 09:51; Status DC Vancomycin HCl (Vancomycin Trough Level) 1 each 1X ONCE MC ; Start 10/08/20 at 14:00; Stop 10/08/20 at 14:01; Status Cancel Atorvastatin Calcium (Lipitor) 10 mg DAILY PO Last administered on 10/10/20at 09:05; Start 10/07/20 at 09:00 Cyclobenzaprine HCl (Flexeril) 10 mg QHS PO Last administered on 10/09/20at 21 :20; Start 10/06/20 at 22:00 Acetaminophen/ Hydrocodone Bitart (Lortab 5/325) 0.5 tab PRN Q6HRS PRN PO MODERATE PAIN; Start 10/06/20 at 21:45 Metoprolol Tartrate (Lopressor) 50 mg DAILY PO Last administered on 10/10/20at 09:06; Start 10/07/20 at 09:00 Ondansetron HCl (Zofran Odt) 4 mg PRN Q6HRS PRN PO NAUSEA Last administered on 10/06/20at 23:37; Start 10/06/20 at 21:45 Phenazopyridine HCl (Pyridium) 200 mg TID PO Last administered on 10/07/20 20:28; Start 10/06/20 at 22:30; Stop 10/09/20 at 08:05; Status DC Tizanidine HCl (Zanaflex) 4 mg QHS PO Last administered on 10/08/20 20:20; Start 10/06/20 at 22:00 Tramadol HCl (Ultram) 50 mg PRN Q6HRS PRN PO pain MILD 2ND CHOICE Last administered on 10/09/20 19:42; Start 10/06/20 at 21:45 Morphine Sulfate (Morphine Sulfate) 2 mg PRN Q2HR PRN IV PAIN Last administered on 10/07/20 00:22; Start 10/06/20 at 21:45; Stop 10/07/20 at 08:31; Status DC Cephalexin HCl (Keflex) 500 mg TID PO ; Start 10/06/20 at 22:30; Status Cancel Venlafaxine HCl (Effexor Xr) 37.5 mg BID PO Last administered on 10/10/20 09:06; Start 10/07/20 at 09:00 Acetaminophen/ Codeine Phosphate (Tylenol #3) 1 tab PRN Q4HRS PRN PO MILD PAIN 1-3; Start 10/06/20 at 22:30 Acetaminophen/ Hydrocodone Bitart (Lortab 5/325) 1 tab PRN Q6HRS PRN PO SEVERE PAIN Last administered on 10/10/20at 00:50; Start 10/06/20 at 22:00 Diazepam (Valium) 10 mg PRN 1X PRN PO [employer] FOR MRI, MRX1 Last administered on 10/07/20at 13:42; Start 10/07/20 at 09:00; Stop 10/07/20 at 23:00; Status DC Fentanyl Citrate (Fentanyl 2ml Vial) 50 mcg PRN Q2HR PRN IVP PAIN Last administered on 10/10/20at 08:59; Start 10/07/20 at 08:30 Lactobacillus Rhamnosus (Culturelle) 1 cap BID PO Last administered on 10/10/20 09:06; Start 10/07/20 at 21:00 Ceftriaxone Sodium (Rocephin) 2 gm Q24H IVP Last administered on 8/24/21at 12:26; Start 10/07/20 at 12:00; Stop 10/08/20 at 09:51; Status DC Pantoprazole Sodium (Protonix) 40 mg DAILYAC PO Last administered on 10/09/20at 09:07; Start 10/07/20 at 12:00 Propofol (Diprivan) 200 mg STK-MED ONCE IV ; Start 10/08/20 at 06:33; Stop 10/08/20 at 06:33; Status DC Lidocaine HCl (Lidocaine Pf 2% Vial) 5 ml STK-MED ONCE .ROUTE ; Start 10/08/20 at 06:33; Stop 10/08/20 at 06:33; Status DC Dexamethasone Sodium Phosphate (Decadron) 4 mg STK-MED ONCE .ROUTE ; Start 10/08/20 at 06:33; Stop 10/08/20 at 06:33; Status DC Ondansetron HCl (Zofran) 4 mg STK-MED ONCE .ROUTE ; Start 10/08/20 at 06:33; Stop 10/08/20 at 06:33; Status DC Propofol 50 ml @ As Directed STK-MED ONCE IV ; Start 10/08/20 at 06:33; Stop 10/08/20 at 06:33; Status DC Phenylephrine HCl (PHENYLEPHRINE in 0.9% NACL PF) 1 mg STK-MED ONCE IV ; Start 10/08/20 at 06:33; Stop 10/08/20 at 06:34; Status DC Remifentanil HCl (Ultiva) 2 mg STK-MED ONCE IV ; Start 10/08/20 at 06:34; Stop 10/08/20 at 06:34; Status DC Rocuronium [place] (Zemuron) 50 mg STK-MED ONCE .ROUTE ; Start 10/08/20 at 06:38; Stop 10/08/20 at 06:38; Status DC Gelatin (Gelfoam Size 100) 1 each STK-MED ONCE .ROUTE Last administered on 10/08/20at 10:14; Start 10/08/20 at 06:58; Stop 10/08/20 at 06:58; Status DC Bupivacaine HCl/ Epinephrine Bitart (Sensorcain-Epi 0.5%-1:[id number] Mpf) 30 ml STK-MED ONCE .ROUTE Last administered on 10/08/20at 10:14; Start 10/08/20 at 06:58; Stop 10/08/20 at 06:58; Status DC Ketorolac Tromethamine (Toradol Im) 60 mg STK-MED ONCE .ROUTE Last administered on 10/08/20at 10:14; Start 10/08/20 at 06:58; Stop 10/08/20 at 06:59; Status DC Thrombin 20,000 unit STK-MED ONCE TP Last administered on 10/08/20at 10:14; Start 10/08/20 at 06:58; Stop 10/08/20 at 06:59; Status DC Cefazolin Sodium 1 gm/Sodium Chloride 1,000 ml @ 1,000 mls/hr 1X ONCE IRR Last administered on 10/08/20at 10:14; Start 10/08/20 at 08:00; Stop 10/08/20 at 08:59; Status DC Midazolam HCl (Versed) 2 mg STK-MED ONCE .ROUTE ; Start 10/08/20 at 08:13; Stop 10/08/20 at 08:14; Status DC Glycopyrrolate (Robinul) 1 mg STK-MED ONCE .ROUTE ; Start 10/08/20 at 08:13; Stop 10/08/20 at 08:14; Status DC Ringer's Solution 1,000 ml @ 100 mls/hr Q10H IV Last administered on 10/10/20at 02:07; Start 10/08/20 at 08:15 Propofol 50 ml @ As Directed STK-MED ONCE IV ; Start 10/08/20 at 09:28; Stop 10/08/20 at 09:28; Status DC Nafcillin Sodium 2 gm/Dextrose 100 ml @ 200 mls/hr Q4HRS IV Last administered on 10/10/20at 08:59; Start 10/08/20 at 12:00 Metoprolol Tartrate (Lopressor Vial) 5 mg STK-MED ONCE IVP ; Start 10/08/20 at 10:40; Stop 10/08/20 at 10:40; Status DC Remifentanil HCl (Ultiva) 1 mg STK-MED ONCE IV ; Start 10/08/20 at 11:14; Stop 10/08/20 at 11:14; Status DC Sodium Chloride (SODIUM CHLORIDE 20ml) 20 ml STK-MED ONCE IJ ; Start 10/08/20 at 11:14; Stop 10/08/20 at 11:14; Status DC Daptomycin 490 mg/ Sodium Chloride 50 ml @ 100 mls/hr ONCE ONCE IV Last administered on 10/08/20at 15:19; Start 10/08/20 at 12:30; Stop 10/08/20 at 12:59; Status DC Propofol 50 ml @ As Directed STK-MED ONCE IV ; Start 10/08/20 at 11:24; Stop 10/08/20 at 11:25; Status DC Hydromorphone HCl (Dilaudid) 2 mg STK-MED ONCE .ROUTE ; Start 10/08/20 at 11:30; Stop 10/08/20 at 11:31; Status DC Neostigmine [place] (Neostigmine Methylsulfate) 5 mg STK-MED ONCE .ROUTE ; Start 10/08/20 at 12:22; Stop 10/08/20 at 12:22; Status DC Fentanyl Citrate (Fentanyl 2ml Vial) 100 mcg STK-MED ONCE .ROUTE ; Start 10/08/20 at 13:13; Stop 10/08/20 at 13:13; Status DC Fentanyl Citrate (Fentanyl 2ml Vial) 25 mcg PRN Q5MIN PRN IVP MILD PAIN 1-3; Start 10/08/20 at 13:30; Stop 10/09/20 at 13:29; Status DC Fentanyl Citrate (Fentanyl 2ml Vial) 50 mcg PRN Q5MIN PRN IVP MODERATE PAIN 4-6 Last administered on 10/08/20at 13:33; Start 10/08/20 at 13:30; Stop 10/09/20 at 07:39; Status DC Morphine Sulfate (Morphine Sulfate) 1 mg PRN Q10MIN PRN IVP SEVERE PAIN 7-10 Last administered on 10/08/20at 16:40; Start 10/08/20 at 13:30; Stop 10/09/20 at 07:39; Status DC Ringer's Solution 1,000 ml @ 30 mls/hr Q24H IV ; Start 10/08/20 at 13:30; Stop 10/09/20 at 01:29; Status DC Hydromorphone HCl (Dilaudid) 0.5 mg PRN Q10MIN PRN IVP SEVERE PAIN 7-10, 2nd CHOICE Last administered on 10/08/20at 14:50; Start 10/08/20 at 13:30; Stop 10/09/20 at 07:39; Status DC Prochlorperazine Edisylate (Compazine) 5 mg PACU PRN PRN IVP NAUSEA, MRX1; Start 10/08/20 at 13:30; Stop 10/09/20 at 13:29; Status DC Hydralazine HCl (Apresoline Inj) 20 mg STK-MED ONCE .ROUTE ; Start 10/08/20 at 13:31; Stop 10/08/20 at 13:31; Status DC Hydralazine HCl (Apresoline Inj) 10 mg 1X PRN PRN IVP hypertension Last administered on 10/09/20at 21:33; Start 10/08/20 at 13:45 Hydromorphone HCl (Dilaudid) 2 mg STK-MED ONCE .ROUTE ; Start 10/08/20 at 13:51; Stop 10/08/20 at 13:51; Status DC Bisacodyl (Dulcolax Supp) 10 mg PRN DAILY PRN PA CONSTIPATION; Start 10/09/20 at 13:00 Bisacodyl (Dulcolax Tab) 10 mg DAILY PO Last administered on 10/10/20at 09:05; Start 10/09/20 at 13:00 Senna/Docusate Sodium (Senna Plus) 1 tab BID PO Last administered on 10/10/20at 09:06; Start 10/09/20 at 21:00 Sodium Monofluorophosphate (Fleet Adult) 133 ml DAILY PRN PA CONSTIPATION, 2ND CHOICE PA; Start 10/09/20 at 13:00 Lorazepam (Ativan) 1 mg PRN Q6HRS PRN PO ANXIETY / AGITATION Last administered on 10/10/20at 02:06; Start 10/10/20 at 02:00 Active Scripts Active Hydrocodone-Apap 5-325 (Hydrocodone Bit/Acetaminophen) 1 Tab Tablet 0.5-1 Tab PO PRN Q6HRS PRN Ondansetron Odt (Ondansetron) 4 Mg Tab.rapdis 1 Tab PO PRN Q6-8HRS PRN Pyridium (Phenazopyridine Hcl) 200 Mg Tablet 200 Mg PO TID 2 Days Cephalexin 500 Mg Tablet 1 Tab PO TID 7 Days Ultram (Tramadol Hcl) 50 Mg Tablet 1 Tab PO PRN Q6HRS PRN MDD 4 Tablet(s) 7 Days Cyclobenzaprine Hcl 10 Mg Tablet 1 Tab PO QHS Reported Acetaminophen-Cod #4 Tablet (Acetaminophen/Codeine Phosphate) 1 Each Tablet 1 Tab PO PRN Q4HRS PRN Venlafaxine Hcl Er (Venlafaxine Hcl) 75 Mg Cap.er.24h 1 Cap PO DAILY Tizanidine Hcl 4 Mg Tablet 1 Tab PO QHS Metoprolol Tartrate 50 Mg Tablet 1 Tab PO DAILY Atorvastatin Calcium 10 Mg Tablet 1 Tab PO DAILY Vitals/I & O Vital Sign - Last 24 Hours 10/09/20 10/09/20 10/09/20 10/09/20 09:37 10:00 10:00 11:00 Temp 97.9 97.9 Pulse 74 66 Resp 18 18 22 B/P (MAP) 178/101 (126) 178/93 (121) Pulse Ox 94 97 94 O2 Delivery Room Air Room Air Room Air 10/09/20 10/09/20 10/09/20 10/09/20 12:15 12:15 12:45 12:45 Resp 18 18 18 18 Pulse Ox 94 94 94 94 O2 Delivery Room Air Room Air Room Air Room Air 10/09/20 10/09/20 10/09/20 10/09/20 13:00 13:45 15:11 15:25 Temp 98.1 98.5 98.1 98.5 Pulse 72 71 71 Resp 20 18 B/P (MAP) 147/79 (101) 180/99 (126) 180/99 Pulse Ox 94 95 O2 Delivery Room Air Room Air Room Air 10/09/20 10/09/20 10/09/20 10/09/20 15:31 16:01 17:38 18:08 Pulse Ox 95 95 95 95 O2 Delivery Room Air Room Air Room Air Room Air 10/09/20 10/09/20 10/09/20 10/09/20 18:30 18:50 19:00 19:42 Temp 98.6 98.6 Pulse 70 Resp 18 20 B/P (MAP) 170/61 (97) Pulse Ox 95 95 97 96 O2 Delivery Room Air Room Air Room Air Room Air 10/09/20 10/09/20 10/09/20 10/09/20 20:00 21:20 21:33 23:00 Temp 98.1 98.1 Pulse 70 84 Resp 20 18 B/P (MAP) 170/61 149/82 (104) Pulse Ox 96 95 O2 Delivery Room Air Room Air Room Air 10/09/20 10/09/20 10/10/20 10/10/20 23:13 23:43 00:50 01:45 Resp 20 20 20 20 Pulse Ox 96 95 96 O2 Delivery Room Air Room Air Room Air Room Air 10/10/20 10/10/20 10/10/20 10/10/20 02:15 03:00 06:32 08:59 Temp 97.9 97.9 Pulse 60 Resp 20 18 20 B/P (MAP) 168/89 (115) Pulse Ox 95 95 95 95 O2 Delivery Room Air Room Air Room Air Room Air O2 Flow Rate 8.0 10/10/20 10/10/20 09:06 09:06 Pulse 60 B/P (MAP) 168/89 Pulse Ox 95 O2 Delivery Room Air O2 Flow Rate 8.0 Intake and Output 10/09/20 10/09/20 10/10/20 15:00 23:00 07:00 Output Total 550 ml 2650 ml Balance -550 ml -2650 ml Justifications for Admission Other Justification SHELBY RO MD Oct 10, 2020 09:25
[2020-10-10] MEDS ORDERED: MAGNESIUM CITRATE 296 ML SOLUTION. PO PRN (09:30)
[2020-10-10] MEDS: ASCORBIC ACID 500 MG TABLET PO SCH (09:42)
[2020-10-10] MEDS: FERROUS SULFATE 325 MG TABLET. PO SCH (09:42)
--- NOTE | 2020-10-10 09:47 | PDOC ---
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, 10/08 Recent pyelonephritis History of anterior cervical discectomy and fusion C4-C6 Restless leg syndrome, was worse last night, responded to lorazepam Plan Rehabilitation modalities, may need inpatient rehab, but she is improving well Discontinuation of [place], DVT prophylaxis per neurosurgery and internal medicine Taper steroids We can give her pramipexole which helped her in the past if restless leg syndrome persists Discussed with patient Subjective Restless leg syndrome was bad last night, she took pramipexole in the past Objective Vital Signs Date Time Temp Pulse Resp B/P (MAP) Pulse Ox O2 Delivery O2 Flow Rate FiO2 10/10/20 09:06 95 Room Air 8.0 10/10/20 09:06 60 168/89 10/10/20 06:32 20 10/10/20 03:00 97.9 97.9 Intake and Output 10/10/20 07:00 Output Total 3200 ml Balance -3200 ml Output Urine Total 3150 ml Drainage Total 50 ml PHYSICAL EXAM Alert. Oriented to time, place and person. PERRL. EOMI. CN: no focal findings. Muscle tone: normal. Muscle strength: 5/5 arms, 4/5 legs DTR: 2+ Plantar reflex: Flexor Gait: not examined in bed. Sensory exam: no abnormal findings. No longer has T10 level. No cerebellar signs elicited. Review of Relevant I have reviewed the following items leticia (where applicable) has been applied. Labs Laboratory Tests Test 10/09/20 07:40 10/10/20 04:25 White Blood Count 12.6 x10^3/uL (4.0-11.0) 11.5 x10^3/uL (4.0-11.0) Red Blood Count 3.56 x10^6/uL (3.50-5.40) 3.56 x10^6/uL (3.50-5.40) Hemoglobin 10.8 g/dL (12.0-15.5) 10.6 g/dL (12.0-15.5) Hematocrit 30.6 % (36.0-47.0) 30.8 % (36.0-47.0) Mean Corpuscular Volume 86 fL (79-100) 86 fL (79-100) Mean Corpuscular Hemoglobin 30 pg (25-35) 30 pg (25-35) Mean Corpuscular Hemoglobin Concent 35 g/dL (31-37) 34 g/dL (31-37) Red Cell Distribution Width 13.0 % (11.5-14.5) 13.2 % (11.5-14.5) Platelet Count 394 x10^3/uL (140-400) 443 x10^3/uL (140-400) Neutrophils (%) (Auto) 71 % (31-73) 66 % (31-73) Lymphocytes (%) (Auto) 18 % (24-48) 23 % (24-48) Monocytes (%) (Auto) 11 % (0-9) 12 % (0-9) Eosinophils (%) (Auto) 0 % (0-3) 0 % (0-3) Basophils (%) (Auto) 0 % (0-3) 0 % (0-3) Neutrophils # (Auto) 9.0 x10^3/uL (1.8-7.7) 7.5 x10^3/uL (1.8-7.7) Lymphocytes # (Auto) 2.2 x10^3/uL (1.0-4.8) 2.6 x10^3/uL (1.0-4.8) Monocytes # (Auto) 1.4 x10^3/uL (0.0-1.1) 1.3 x10^3/uL (0.0-1.1) Eosinophils # (Auto) 0.0 x10^3/uL (0.0-0.7) 0.0 x10^3/uL (0.0-0.7) Basophils # (Auto) 0.0 x10^3/uL (0.0-0.2) 0.0 x10^3/uL (0.0-0.2) Sodium Level 138 mmol/L (136-145) 136 mmol/L (136-145) Potassium Level 4.3 mmol/L (3.5-5.1) 3.9 mmol/L (3.5-5.1) Chloride Level 102 mmol/L (98-107) 101 mmol/L (98-107) Carbon Dioxide Level 28 mmol/L (21-32) 31 mmol/L (21-32) Anion Gap 8 (6-14) 4 (6-14) Blood Urea Nitrogen 14 mg/dL (7-20) 8 mg/dL (7-20) Creatinine 0.7 mg/dL (0.6-1.0) 0.7 mg/dL (0.6-1.0) Estimated GFR (Cockcroft-Gault) 88.9 88.9 BUN/Creatinine Ratio 20 (6-20) 11 (6-20) Glucose Level 133 mg/dL (70-99) 124 mg/dL (70-99) Calcium Level 8.9 mg/dL (8.5-10.1) 8.7 mg/dL (8.5-10.1) Total Bilirubin 0.4 mg/dL (0.2-1.0) 0.4 mg/dL (0.2-1.0) Direct Bilirubin 0.1 mg/dL (0.0-0.2) Aspartate Amino Transf (AST/SGOT) 32 U/L (15-37) 20 U/L (15-37) Alanine Aminotransferase (ALT/SGPT) 89 U/L (14-59) 64 U/L (14-59) Alkaline Phosphatase 189 U/L (46-116) 163 U/L (46-116) Total Protein 6.5 g/dL (6.4-8.2) 7.0 g/dL (6.4-8.2) Albumin 2.4 g/dL (3.4-5.0) 2.4 g/dL (3.4-5.0) Albumin/Globulin Ratio 0.5 (1.0-1.7) 0.5 (1.0-1.7) Segmented Neutrophils % 59 % (35-66) Band Neutrophils % 3 % (0-9) Lymphocytes % 33 % (24-48) Monocytes % 5 % (0-10) Nucleated Red Blood Cells 1 Platelet Estimate Increased (ADEQUATE) Laboratory Tests Test 10/10/20 04:25 White Blood Count 11.5 x10^3/uL (4.0-11.0) Red Blood Count 3.56 x10^6/uL (3.50-5.40) Hemoglobin 10.6 g/dL (12.0-15.5) Hematocrit 30.8 % (36.0-47.0) Mean Corpuscular Volume 86 fL (79-100) Mean Corpuscular Hemoglobin 30 pg (25-35) Mean Corpuscular Hemoglobin Concent 34 g/dL (31-37) Red Cell Distribution Width 13.2 % (11.5-14.5) Platelet Count 443 x10^3/uL (140-400) Neutrophils (%) (Auto) 66 % (31-73) Lymphocytes (%) (Auto) 23 % (24-48) Monocytes (%) (Auto) 12 % (0-9) Eosinophils (%) (Auto) 0 % (0-3) Basophils (%) (Auto) 0 % (0-3) Neutrophils # (Auto) 7.5 x10^3/uL (1.8-7.7) Lymphocytes # (Auto) 2.6 x10^3/uL (1.0-4.8) Monocytes # (Auto) 1.3 x10^3/uL (0.0-1.1) Eosinophils # (Auto) 0.0 x10^3/uL (0.0-0.7) Basophils # (Auto) 0.0 x10^3/uL (0.0-0.2) Segmented Neutrophils % 59 % (35-66) Band Neutrophils % 3 % (0-9) Lymphocytes % 33 % (24-48) Monocytes % 5 % (0-10) Nucleated Red Blood Cells 1 Platelet Estimate Increased (ADEQUATE) Sodium Level 136 mmol/L (136-145) Potassium Level 3.9 mmol/L (3.5-5.1) Chloride Level 101 mmol/L (98-107) Carbon Dioxide Level 31 mmol/L (21-32) Anion Gap 4 (6-14) Blood Urea Nitrogen 8 mg/dL (7-20) Creatinine 0.7 mg/dL (0.6-1.0) Estimated GFR (Cockcroft-Gault) 88.9 BUN/Creatinine Ratio 11 (6-20) Glucose Level 124 mg/dL (70-99) Calcium Level 8.7 mg/dL (8.5-10.1) Total Bilirubin 0.4 mg/dL (0.2-1.0) Aspartate Amino Transf (AST/SGOT) 20 U/L (15-37) Alanine Aminotransferase (ALT/SGPT) 64 U/L (14-59) Alkaline Phosphatase 163 U/L (46-116) Total Protein 7.0 g/dL (6.4-8.2) Albumin 2.4 g/dL (3.4-5.0) Albumin/Globulin Ratio 0.5 (1.0-1.7) Microbiology 10/08/20 Gram Stain - Final, Resulted 10/08/20 Aerobic and Anaerobic Culture - Preliminary, Resulted Medications Current Medications Sodium Chloride 1,000 ml @ 1,000 mls/hr 1X ONCE IV Last administered on 10/06/20at 10:27; Start 10/06/20 at 09:45; Stop 10/06/20 at 10:44; Status DC Ketorolac Tromethamine (Toradol 30mg Vial) 30 mg 1X ONCE IVP Last administered on 10/06/20at 10:25; Start 10/06/20 at 10:00; Stop 10/06/20 at 10:01; Status DC Fentanyl Citrate (Fentanyl 2ml Vial) 75 mcg 1X ONCE IVP Last administered on 10/06/20at 10:25; Start 10/06/20 at 10:00; Stop 10/06/20 at 10:01; Status DC Ondansetron HCl (Zofran) 4 mg 1X ONCE IVP Last administered on 10/06/20at 12:10; Start 10/06/20 at 11:45; Stop 10/06/20 at 11:46; Status DC Hydromorphone HCl (Dilaudid) 1 mg 1X ONCE IVP Last administered on 10/06/20at 12:11; Start 10/06/20 at 11:45; Stop 10/06/20 at 11:46; Status DC Iohexol (Omnipaque 300 Mg/ml) 75 ml 1X ONCE IV Last administered on 10/06/20at 12:06; Start 10/06/20 at 12:00; Stop 10/06/20 at 12:01; Status DC Info (CONTRAST GIVEN -- Rx MONITORING) 1 each PRN DAILY PRN MC SEE COMMENTS; Start 10/06/20 at 12:00; Stop 10/08/20 at 11:59; Status DC Ceftriaxone Sodium (Rocephin) 1 gm 1X ONCE IVP Last administered on 10/06/20at 12:10; Start 10/06/20 at 12:30; Stop 10/06/20 at 12:31; Status DC Vancomycin HCl (Vanco Per Pharmacy) 1 each PRN DAILY PRN MC SEE COMMENTS Last administered on 10/08/20at 09:45; Start 10/06/20 at 14:00; Stop 10/08/20 at 09:55; Status DC Vancomycin HCl 2 gm/Sodium Chloride 500 ml @ 250 mls/hr 1X ONCE IV Last a dministered on 10/06/20at 14:17; Start 10/06/20 at 14:15; Stop 10/06/20 at 16:14; Status DC Sodium Chloride 1,000 ml @ 1,000 mls/hr 1X ONCE IV Last administered on 10/06/20at 14:54; Start 10/06/20 at 14:45; Stop 10/06/20 at 15:44; Status DC Metoclopramide HCl (Reglan Vial) 10 mg 1X ONCE IVP Last administered on 10/06/20at 14:54; Start 10/06/20 at 14:45; Stop 10/06/20 at 14:46; Status DC Hydromorphone HCl (Dilaudid) 1 mg 1X ONCE IVP Last administered on 10/06/20at 16:44; Start 10/06/20 at 16:45; Stop 10/06/20 at 16:46; Status DC Methylprednisolone Sodium Succinate (SOLU-Medrol 40MG VIAL) 40 mg Q12HR IV Last administered on 10/10/20at 09:00; Start 10/06/20 at 19:00 Vancomycin HCl 1.25 gm/Sodium Chloride 250 ml @ 167 mls/hr Q12H IV Last administered on 10/08/20at 02:38; Start 10/07/20 at 02:30; Stop 10/08/20 at 09:51; Status DC Vancomycin HCl (Vancomycin Trough Level) 1 each 1X ONCE MC ; Start 10/08/20 at 14:00; Stop 10/08/20 at 14:01; Status Cancel Atorvastatin Calcium (Lipitor) 10 mg DAILY PO Last administered on 10/10/20 09:05; Start 10/07/20 at 09:00 Cyclobenzaprine HCl (Flexeril) 10 mg QHS PO Last administered on 10/09/20 21:20; Start 10/06/20 at 22:00 Acetaminophen/ Hydrocodone Bitart (Lortab 5/325) 0.5 tab PRN Q6HRS PRN PO MODERATE PAIN; Start 10/06/20 at 21:45 Metoprolol Tartrate (Lopressor) 50 mg DAILY PO Last administered on 10/10/20 09:06; Start 10/07/20 at 09:00 Ondansetron HCl (Zofran Odt) 4 mg PRN Q6HRS PRN PO NAUSEA Last administered on 10/06/20 23:37; Start 10/06/20 at 21:45 Phenazopyridine HCl (Pyridium) 200 mg TID PO Last administered on 10/07/20 20:28; Start 10/06/20 at 22:30; Stop 10/09/20 at 08:05; Status DC Tizanidine HCl (Zanaflex) 4 mg QHS PO Last administered on 10/08/20 20:20; Start 10/06/20 at 22:00 Tramadol HCl (Ultram) 50 mg PRN Q6HRS PRN PO pain MILD 2ND CHOICE Last administered on 10/09/20 19:42; Start 10/06/20 at 21:45 Morphine Sulfate (Morphine Sulfate) 2 mg PRN Q2HR PRN IV PAIN Last administered on 10/07/20 00:22; Start 10/06/20 at 21:45; Stop 10/07/20 at 08:31; Status DC Cephalexin HCl (Keflex) 500 mg TID PO ; Start 10/06/20 at 22:30; Status Cancel Venlafaxine HCl (Effexor Xr) 37.5 mg BID PO Last administered on 10/10/20 09:06; Start 10/07/20 at 09:00 Acetaminophen/ Codeine Phosphate (Tylenol #3) 1 tab PRN Q4HRS PRN PO MILD PAIN 1-3; Start 10/06/20 at 22:30 Acetaminophen/ Hydrocodone Bitart (Lortab 5/325) 1 tab PRN Q6HRS PRN PO SEVERE PAIN Last administered on 8/27/21at 00:50; Start 10/06/20 at 22:00 Diazepam (Valium) 10 mg PRN 1X PRN PO DELIVERY COORDINATOR FOR MRI, MRX1 Last administered on 10/07/20at 13:42; Start 10/07/20 at 09:00; Stop 10/07/20 at 23:00; Status DC Fentanyl Citrate (Fentanyl 2ml Vial) 50 mcg PRN Q2HR PRN IVP PAIN Last administered on 10/10/20at 08:59; Start 10/07/20 at 08:30 Lactobacillus Rhamnosus (Culturelle) 1 cap BID PO Last administered on 10/10/20at 09:06; Start 10/07/20 at 21:00 Ceftriaxone Sodium (Rocephin) 2 gm Q24H IVP Last administered on 10/07/20at 12:26; Start 10/07/20 at 12:00; Stop 10/08/20 at 09:51; Status DC Pantoprazole Sodium (Protonix) 40 mg DAILYAC PO Last administered on 10/09/20at 09:07; Start 10/07/20 at 12:00 Propofol (Diprivan) 200 mg STK-MED ONCE IV ; Start 10/08/20 at 06:33; Stop 10/08/20 at 06:33; Status DC Lidocaine HCl (Lidocaine Pf 2% Vial) 5 ml STK-MED ONCE .ROUTE ; Start 10/08/20 at 06:33; Stop 10/08/20 at 06:33; Status DC Dexamethasone Sodium Phosphate (Decadron) 4 mg STK-MED ONCE .ROUTE ; Start 10/08/20 at 06:33; Stop 10/08/20 at 06:33; Status DC Ondansetron HCl (Zofran) 4 mg STK-MED ONCE .ROUTE ; Start 10/08/20 at 06:33; Stop 10/08/20 at 06:33; Status DC Propofol 50 ml @ As Directed STK-MED ONCE IV ; Start 10/08/20 at 06:33; Stop 10/08/20 at 06:33; Status DC Phenylephrine HCl (PHENYLEPHRINE in 0.9% NACL PF) 1 mg STK-MED ONCE IV ; Start 10/08/20 at 06:33; Stop 10/08/20 at 06:34; Status DC Remifentanil HCl (Ultiva) 2 mg STK-MED ONCE IV ; Start 10/08/20 at 06:34; Stop 10/08/20 at 06:34; Status DC Rocuronium [place] (Zemuron) 50 mg STK-MED ONCE .ROUTE ; Start 10/08/20 at 06:38; Stop 10/08/20 at 06:38; Status DC Gelatin (Gelfoam Size 100) 1 each STK-MED ONCE .ROUTE Last administered on 10/08/20at 10:14; Start 10/08/20 at 06:58; Stop 10/08/20 at 06:58; Status DC Bupivacaine HCl/ Epinephrine Bitart (Sensorcain-Epi 0.5%-1:208207 Mpf) 30 ml STK-MED ONCE .ROUTE Last administered on 10/08/20at 10:14; Start 10/08/20 at 06:58; Stop 10/08/20 at 06:58; Status DC Ketorolac Tromethamine (Toradol Im) 60 mg STK-MED ONCE .ROUTE Last administered on 10/08/20at 10:14; Start 10/08/20 at 06:58; Stop 10/08/20 at 06:59; Status DC Thrombin 20,000 unit STK-MED ONCE TP Last administered on 10/08/20at 10:14; Start 10/08/20 at 06:58; Stop 10/08/20 at 06:59; Status DC Cefazolin Sodium 1 gm/Sodium Chloride 1,000 ml @ 1,000 mls/hr 1X ONCE IRR Last administered on 10/08/20at 10:14; Start 10/08/20 at 08:00; Stop 10/08/20 at 08:59; Status DC Midazolam HCl (Versed) 2 mg STK-MED ONCE .ROUTE ; Start 10/08/20 at 08:13; Stop 10/08/20 at 08:14; Status DC Glycopyrrolate (Robinul) 1 mg STK-MED ONCE .ROUTE ; Start 10/08/20 at 08:13; Stop 10/08/20 at 08:14; Status DC Ringer's Solution 1,000 ml @ 100 mls/hr Q10H IV Last administered on 10/10/20at 02:07; Start 10/08/20 at 08:15 Propofol 50 ml @ As Directed STK-MED ONCE IV ; Start 10/08/20 at 09:28; Stop 10/08/20 at 09:28; Status DC Nafcillin Sodium 2 gm/Dextrose 100 ml @ 200 mls/hr Q4HRS IV Last administered on 10/10/20at 08:59; Start 10/08/20 at 12:00 Metoprolol Tartrate (Lopressor Vial) 5 mg STK-MED ONCE IVP ; Start 10/08/20 at 10:40; Stop 10/08/20 at 10:40; Status DC Remifentanil HCl (Ultiva) 1 mg STK-MED ONCE IV ; Start 10/08/20 at 11:14; Stop 10/08/20 at 11:14; Status DC Sodium Chloride (SODIUM CHLORIDE 20ml) 20 ml STK-MED ONCE IJ ; Start 10/08/20 at 11:14; Stop 10/08/20 at 11:14; Status DC Daptomycin 490 mg/ Sodium Chloride 50 ml @ 100 mls/hr ONCE ONCE IV Last administered on 10/08/20at 15:19; Start 10/08/20 at 12:30; Stop 10/08/20 at 12:59; Status DC Propofol 50 ml @ As Directed STK-MED ONCE IV ; Start 10/08/20 at 11:24; Stop 10/08/20 at 11:25; Status DC Hydromorphone HCl (Dilaudid) 2 mg STK-MED ONCE .ROUTE ; Start 10/08/20 at 11:30; Stop 10/08/20 at 11:31; Status DC Neostigmine [place] (Neostigmine Methylsulfate) 5 mg STK-MED ONCE .ROUTE ; Start 10/08/20 at 12:22; Stop 10/08/20 at 12:22; Status DC Fentanyl Citrate (Fentanyl 2ml Vial) 100 mcg STK-MED ONCE .ROUTE ; Start 10/08/20 at 13:13; Stop 10/08/20 at 13:13; Status DC Fentanyl Citrate (Fentanyl 2ml Vial) 25 mcg PRN Q5MIN PRN IVP MILD PAIN 1-3; Start 10/08/20 at 13:30; Stop 10/09/20 at 13:29; Status DC Fentanyl Citrate (Fentanyl 2ml Vial) 50 mcg PRN Q5MIN PRN IVP MODERATE PAIN 4-6 Last administered on 10/08/20at 13:33; Start 10/08/20 at 13:30; Stop 10/09/20 at 07:39; Status DC Morphine Sulfate (Morphine Sulfate) 1 mg PRN Q10MIN PRN IVP SEVERE PAIN 7-10 Last administered on 10/08/20at 16:40; Start 10/08/20 at 13:30; Stop 10/09/20 at 07:39; Status DC Ringer's Solution 1,000 ml @ 30 mls/hr Q24H IV ; Start 10/08/20 at 13:30; Stop 10/09/20 at 01:29; Status DC Hydromorphone HCl (Dilaudid) 0.5 mg PRN Q10MIN PRN IVP SEVERE PAIN 7-10, 2nd CHOICE Last administered on 10/08/20at 14:50; Start 10/08/20 at 13:30; Stop 10/09/20 at 07:39; Status DC Prochlorperazine Edisylate (Compazine) 5 mg PACU PRN PRN IVP NAUSEA, MRX1; Start 10/08/20 at 13:30; Stop 10/09/20 at 13:29; Status DC Hydralazine HCl (Apresoline Inj) 20 mg STK-MED ONCE .ROUTE ; Start 10/08/20 at 13:31; Stop 10/08/20 at 13:31; Status DC Hydralazine HCl (Apresoline Inj) 10 mg 1X PRN PRN IVP hypertension Last administered on 10/09/20at 21:33; Start 10/08/20 at 13:45 Hydromorphone HCl (Dilaudid) 2 mg STK-MED ONCE .ROUTE ; Start 10/08/20 at 13:51; Stop 10/08/20 at 13:51; Status DC Bisacodyl (Dulcolax Supp) 10 mg PRN DAILY PRN [place] CONSTIPATION; Start 10/09/20 at 13:00 Bisacodyl (Dulcolax Tab) 10 mg DAILY PO Last administered on 10/10/20at 09:05; Start 10/09/20 at 13:00 Senna/Docusate Sodium (Senna Plus) 1 tab BID PO Last administered on 10/10/20at 09:06; Start 10/09/20 at 21:00 Sodium Monofluorophosphate (Fleet Adult) 133 ml DAILY PRN [place] CONSTIPATION, 2ND CHOICE [place]; Start 10/09/20 at 13:00 Lorazepam (Ativan) 1 mg PRN Q6HRS PRN PO ANXIETY / AGITATION Last administered on 10/10/20at 02:06; Start 10/10/20 at 02:00 Magnesium Citrate (Citroma) 296 ml PRN 1X PRN PO CONSTIPATION Last administered on 10/10/20at 09:42; Start 10/10/20 at 09:30 Ferrous Sulfate (Feosol) 325 mg DAILYWBKFT PO Last administered on 10/10/20at 09:42; Start 10/10/20 at 10:00 Ascorbic Acid (Vitamin C) 500 mg DAILY PO Last administered on 10/10/20at 09:42; Start 10/10/20 at 10:00 Active Scripts Active Hydrocodone-Apap 5-325 (Hydrocodone Bit/Acetaminophen) 1 Tab Tablet 0.5-1 Tab PO PRN Q6HRS PRN Ondansetron Odt (Ondansetron) 4 Mg Tab.rapdis 1 Tab PO PRN Q6-8HRS PRN Pyridium (Phenazopyridine Hcl) 200 Mg Tablet 200 Mg PO TID 2 Days Cephalexin 500 Mg Tablet 1 Tab PO TID 7 Days Ultram (Tramadol Hcl) 50 Mg Tablet 1 Tab PO PRN Q6HRS PRN MDD 4 Tablet(s) 7 Days Cyclobenzaprine Hcl 10 Mg Tablet 1 Tab PO QHS Reported Acetaminophen-Cod #4 Tablet (Acetaminophen/Codeine Phosphate) 1 Each Tablet 1 Tab PO PRN Q4HRS PRN Venlafaxine Hcl Er (Venlafaxine Hcl) 75 Mg Cap.er.24h 1 Cap PO DAILY Tizanidine Hcl 4 Mg Tablet 1 Tab PO QHS Metoprolol Tartrate 50 Mg Tablet 1 Tab PO DAILY Atorvastatin Calcium 10 Mg Tablet 1 Tab PO DAILY Vitals/I & O Vital Sign - Last 24 Hours 10/09/20 10/09/20 10/09/20 10/09/20 10:00 10:00 11:00 12:15 Temp 97.9 97.9 Pulse 74 66 Resp 18 22 18 B/P (MAP) 178/101 (126) 178/93 (121) Pulse Ox 97 94 94 O2 Delivery Room Air Room Air Room Air 10/09/20 10/09/20 10/09/20 10/09/20 12:15 12:45 12:45 13:00 Temp 98.1 98.1 Pulse 72 Resp 18 18 18 20 B/P (MAP) 147/79 (101) Pulse Ox 94 94 94 94 O2 Delivery Room Air Room Air Room Air Room Air 10/09/20 10/09/20 10/09/20 10/09/20 13:45 15:11 15:25 15:31 Temp 98.5 98.5 Pulse 71 71 Resp 18 B/P (MAP) 180/99 (126) 180/99 Pulse Ox 95 95 O2 Delivery Room Air Room Air Room Air 10/09/20 10/09/20 10/09/20 10/09/20 16:01 17:38 18:08 18:30 Pulse Ox 95 95 95 95 O2 Delivery Room Air Room Air Room Air Room Air 10/09/20 10/09/20 10/09/20 10/09/20 18:50 19:00 19:42 20:00 Temp 98.6 98.6 Pulse 70 Resp 18 20 B/P (MAP) 170/61 (97) Pulse Ox 95 97 96 O2 Delivery Room Air Room Air Room Air Room Air 10/09/20 10/09/20 10/09/20 10/09/20 21:20 21:33 23:00 23:13 Temp 98.1 98.1 Pulse 70 84 Resp 20 18 20 B/P (MAP) 170/61 149/82 (104) Pulse Ox 96 95 96 O2 Delivery Room Air Room Air Room Air 10/09/20 10/10/20 10/10/20 10/10/20 23:43 00:50 01:45 02:15 Resp 20 20 20 20 Pulse Ox 95 96 95 O2 Delivery Room Air Room Air Room Air Room Air 10/10/20 10/10/20 10/10/20 10/10/20 03:00 06:32 08:59 09:06 Temp 97.9 97.9 Pulse 60 60 Resp 18 20 B/P (MAP) 168/89 (115) 168/89 Pulse Ox 95 95 95 O2 Delivery Room Air Room Air Room Air O2 Flow Rate 8.0 10/10/20 09:06 Pulse Ox 95 O2 Delivery Room Air O2 Flow Rate 8.0 Intake and Output 10/09/20 10/09/20 10/10/20 15:00 23:00 07:00 Output Total 550 ml 2650 ml Balance -550 ml -2650 ml Justicifation of Admission Dx: Justifications for Admission: Justification of Admission Dx: Yes VINCENT DOMINGUEZ MD Oct 10, 2020 09:47
[2020-10-10 11:00] VITALS: BP 151/82
--- NOTE | 2020-10-10 13:35 | NUR ---
Post void residual 400cc at 12:20PM. Will reassess bladder scan after next void.
--- NOTE | 2020-10-10 14:42 | PDOC ---
[facility] [facility] PROGRESS NOTE Date of Service DOS: DATE: 10/10/20 TIME: 14:41 Chief Complaint Chief Complaint Thoracic abscess with cord compression status post T4-T11 laminectomy 10/08/2020 Mid abdominal pain which radiates around the back, ongoing concern C4-C5 herniated disk repair Musculoskeletal back pain pyleonephritis mood disorder chronic neck pain hyperlipidemia MSSA bacteremia MSSA UTI History of Present Illness History of Present Illness 10/10/2020 No acute events overnight. No new focal neuro deficits. Gardiner was di scontinued. Patient's bladder scan showed 400 cc. Will attempt observe at this time and straight catheter if needed if bladder scan is greater than 500 cc. The patient continues to retain urine will need to consider bladder training. Patient will need to continue rehab. Appreciate Dr. Leon recommendations. Bowel regimen was started for constipation. Patient's chart, labs, images were reviewed and discussed with RN 10/09/2020 Patient seen and examined bedside conversing well with no neuro focal deficits. She does endorse some tingling on her shins and up to her knee. Her strength was not assessed but she is wiggling her toes and lifting her leg appropriately. Okay for transfer to the med telemetry floor. Patient's chart, labs, images were reviewed and discussed with RN 10/08/2020 Patient seen and examined in the postop recovery area Discussed the case with Dr. Stahl and his nurse practitioner (appreciate their rapid intervention) Patient just got out of surgery and had a T [address] Stahl performed a thoracic laminectomy He would like to continue steroids for another day Discussed with RN Chart reviewed Patient is going to ICU room 110 HPI: The patient is a pleasant 50-year-old female who has been to the ER a couple times in the past few days. Today, she presents with some abdominal pains on the right, it is radiating to her back. She was seen here on , was diagnosed with a back strain, was sent home with someantispasmodics and pain meds. She then came back on the , was diagnosed with pyelonephritis, started on Keflex and Pyridium. Now, she presents with abdominal pain, but she in the last few hours has now developed lower extremity weakness and numbness. She does admit to decreased urination and increasing back pain rated at 10/10. She increased her home meds, but that did not seem tohelp. Moving makes it worse, sitting still makes it better. She does have a past history of a herniated disk with her surgical repair of C4-C5 six years ago. I discussed the case with ER physician. I have examined the patient. We are concerned that she is developing progressive weakness. She also has a sed rate of greater than 130. Her C-reactive protein is 310. We also have a blood culture that just came back from one of her recent visits to the ER, it does show some Gram-positive cocci. We are going to put the patient on IV antibiotics including Rocephin and vancomycin. I am considering starting some steroids. We are consulting Dr. Preston to see if he would agree. He would like to get an MRI of the lower back as well. 10/07: Patient seen and examined. Endorses decreased pain since admission. Endorses moving around better and says she is feeling much better. Consulted with RN. Karon salgado. Vitals/I&O Vitals/I&O: Vital Signs Date Time Temp Pulse Resp B/P (MAP) Pulse Ox O2 Delivery O2 Flow Rate FiO2 10/10/20 12:21 95 Room Air 8.0 10/10/20 11:00 98.1 78 18 151/82 (105) 98.1 I & O 10/09/20 10/09/20 10/10/20 15:00 23:00 07:00 Output Total 550 ml 2650 ml Balance -550 ml -2650 ml Physical Exam Physical Exam: GENERAL: Alert, oriented x 3, pleasant female, lying in bed comfortably, in no acute distress. HEENT: Normocephalic, atraumatic. Anicteric. NECK: Supple, no JVD. LUNGS: Decreased breath sounds at the bases, otherwise clear. No accessory muscle use. HEART: S1, S2. ABDOMEN: Soft, nontender, nondistended, no rebound, no guarding. EXTREMITIES no edema, kendra hose present ble BACK:: Postoperative dressing with drain in place, not taken down. DERMATOLOGIC: Visualized area. No generalized rash. Multiple scars present from previous eczema. Mole over the left upper lip, looks well healed. NEUROLOGIC: Alert, oriented x 3, able to move all 4 extremities. Gait and stance not examined. PSYCHIATRIC: Calm and cooperative. General: Alert, Oriented X3, Cooperative, No acute distress Heart: Regular rate, Normal S1, Normal S2 Lungs: Clear Abdomen: Other (She has decreased bowel sounds) Extremities: No clubbing, No cyanosis, No edema Skin: Other (Dressing C,D, I , flat. drain in place 120 cc out total) Labs Labs: Laboratory Tests Test 10/10/20 04:25 White Blood Count 11.5 x10^3/uL (4.0-11.0) Red Blood Count 3.56 x10^6/uL (3.50-5.40) Hemoglobin 10.6 g/dL (12.0-15.5) Hematocrit 30.8 % (36.0-47.0) Mean Corpuscular Volume 86 fL (79-100) Mean Corpuscular Hemoglobin 30 pg (25-35) Mean Corpuscular Hemoglobin Concent 34 g/dL (31-37) Red Cell Distribution Width 13.2 % (11.5-14.5) Platelet Count 443 x10^3/uL (140-400) Neutrophils (%) (Auto) 66 % (31-73) Lymphocytes (%) (Auto) 23 % (24-48) Monocytes (%) (Auto) 12 % (0-9) Eosinophils (%) (Auto) 0 % (0-3) Basophils (%) (Auto) 0 % (0-3) Neutrophils # (Auto) 7.5 x10^3/uL (1.8-7.7) Lymphocytes # (Auto) 2.6 x10^3/uL (1.0-4.8) Monocytes # (Auto) 1.3 x10^3/uL (0.0-1.1) Eosinophils # (Auto) 0.0 x10^3/uL (0.0-0.7) Basophils # (Auto) 0.0 x10^3/uL (0.0-0.2) Segmented Neutrophils % 59 % (35-66) Band Neutrophils % 3 % (0-9) Lymphocytes % 33 % (24-48) Monocytes % 5 % (0-10) Nucleated Red Blood Cells 1 Platelet Estimate Increased (ADEQUATE) Sodium Level 136 mmol/L (136-145) Potassium Level 3.9 mmol/L (3.5-5.1) Chloride Level 101 mmol/L (98-107) Carbon Dioxide Level 31 mmol/L (21-32) Anion Gap 4 (6-14) Blood Urea Nitrogen 8 mg/dL (7-20) Creatinine 0.7 mg/dL (0.6-1.0) Estimated GFR (Cockcroft-Gault) 88.9 BUN/Creatinine Ratio 11 (6-20) Glucose Level 124 mg/dL (70-99) Calcium Level 8.7 mg/dL (8.5-10.1) Total Bilirubin 0.4 mg/dL (0.2-1.0) Aspartate Amino Transf (AST/SGOT) 20 U/L (15-37) Alanine Aminotransferase (ALT/SGPT) 64 U/L (14-59) Alkaline Phosphatase 163 U/L (46-116) Total Protein 7.0 g/dL (6.4-8.2) Albumin 2.4 g/dL (3.4-5.0) Albumin/Globulin Ratio 0.5 (1.0-1.7) Assessment and Plan Assessmemt and Plan Problems Medical Problems: (1) Abdominal pain Status: Acute (2) Low back pain Status: Acute (3) Lower extremity numbness Status: Acute (4) Lower extremity weakness Status: Acute (5) Positive blood culture Status: Acute (6) Pyelonephritis Status: Acute Comment Review of Relevant I have reviewed the following items leticia (where applicable) has been applied. Medications: Current Medications Medications (Trade) Dose Ordered Sig/Aparna Route PRN Reason Start Time Stop Time Status Last Admin Dose Admin Senna/Docusate Sodium (Senna Plus) 1 tab BID PO 10/09/20 21:00 10/10/20 09:06 Lorazepam (Ativan) 1 mg PRN Q6HRS PRN PO ANXIETY / AGITATION 10/10/20 02:00 10/10/20 02:06 Magnesium Citrate (Citroma) 296 ml PRN 1X PRN PO CONSTIPATION 10/10/20 09:30 10/10/20 09:42 Ferrous Sulfate (Feosol) 325 mg DAILYWBKFT PO 10/10/20 10:00 10/10/20 09:42 Ascorbic Acid (Vitamin C) 500 mg DAILY PO 10/10/20 10:00 10/10/20 09:42 Justifications for Admission Other Justification MANN SWEENEY MD Oct 10, 2020 14:42
[2020-10-10 15:22] VITALS: BP 149/86
--- NOTE | 2020-10-10 16:11 | PATHOLOGY ---
[facility] Accession Number: [id number] . 01 Material submitted: . vertebral column - THORACIC DECOMPRESSION. Modifiers: THORACIC . 01 Clinical history: . EPIDURAL MASS T3-T11 WITH SEVERE STENOSIS THORACIC LAMINECTOMY T4 TO T10 PYELONEPHRITIS, LOWER EXT... . 02 Diagnosis: Segments of fibrocartilaginous, fibroadipose, and skeletal muscle tissue and bone, thoracic decompression: - Degenerative changes of fibrocartilaginous tissue. (JPM:etienne; 10/10/2020) QMS 10/10/2020 1359 Local . 02 Comment: There is no evidence of an acute inflammatory process or malignancy. (JPM:etienne; 10/10/2020) . 02 Electronically signed: . Chris Boothe MD, Pathologist NPI- [id number] . 01 Gross description: . The specimen is received in formalin, labeled "Elías Lopezki, thoracic decompression". Received are multiple segments of pale marin to pink-marin fibrous tissue admixed with fragments of gritty bone measuring 6.0 x 5.5 x 1.4 cm in aggregate dimensions. The specimen is submitted representatively in cassette A1, following light decalcification. ([facility]; 10/09/2020) NRI/NRI 10/10/2020 1358 Local . 02 Pathologist provided ICD-10: M99.72 . 02 CPT . 152746, [id number] Specimen Comment: A courtesy copy of this report has been sent to [phone], [phone] Specimen Comment: [id number], , Specimen Comment: Report sent to , DR DR CANDY LEMONS / Specimen Comment: DR TREADWELL Performed at: 01 [facility] [address], [place], [place] [id number] MD David Moss MD Phone: [phone] Performed at: 02 [facility] [address] [place], [place] [id number] MD Chris Boothe MD Phone: [phone]
[2020-10-10 19:00] VITALS: BP 148/93
--- NOTE | 2020-10-10 19:25 | NUR ---
Post void residual 410cc at 1400. Dr. Ahmadi notified and order to strait cath x1 if next post void equal or greater. Bladder scan 615cc at 1545, patient strait cather. Actual amount emptied 650cc. See free text nursing order. Continue to monitor post voids. If becomes 400 or greater and patient is not emptying, reinsert and maintain evans catheter.
[2020-10-10] MEDS: CYCLOBENZAPRINE 10 MG TABLET. PO SCH (19:57)
[2020-10-10] MEDS: tiZANidine 4 MG TABLET. PO SCH (21:00)
[2020-10-10 23:00] VITALS: BP 168/111
--- NOTE | 2020-10-10 23:09 | NUR ---
at 1900 patient assisted to [facility] to void, post void residual checked revealed 499ml.
[2020-10-11] MEDS: NAFCILLIN 2 GM in IV DEXTROSE 5% 100ML 100 ML IV SCH ×7 (00:12→23:57)
[2020-10-11] MEDS: hydrALAZINE 20 MG/ML VIAL. IVP PRN (00:12)
[2020-10-11] MEDS: fentaNYL PF VIAL 100 MCG/2 ML VIAL IVP PRN ×6 (02:35→21:32)
[2020-10-11] MEDS: HYDROcodone/APAP 5/325MG 1 TAB TABLET PO PRN ×3 (02:36→16:06)
[2020-10-11 03:00] VITALS: BP 159/89
[2020-10-11 06:13] LABS: BASO % 0 % (0-3); EOS # 0.2 x10^3/uL (0.0-0.7); EOS % 2 % (0-3); HEMATOCRIT 30.1 % (36.0-47.0); HEMOGLOBIN 10.4 g/dL (12.0-15.5); LYMPH # 5.4 x10^3/uL (1.0-4.8); LYMPH % 47 % (24-48); MEAN CORPUSCULAR HEMOGLOBIN 30 pg (25-35); MEAN CORPUSCULAR HGB CONC 34 g/dL (31-37); MEAN CORPUSCULAR VOLUME 87 fL (79-100); MONO # 0.9 x10^3/uL (0.0-1.1); MONO % 8 % (0-9); NEUT # 4.9 x10^3/uL (1.8-7.7); NEUT % 43 % (31-73); PLATELET COUNT 389 x10^3/uL (140-400); RED BLOOD COUNT 3.47 x10^6/uL (3.50-5.40); RED CELL DISTRIBUTION WIDTH 13.6 % (11.5-14.5); WHITE BLOOD COUNT 11.5 x10^3/uL (4.0-11.0)
[2020-10-11] MEDS: IV RINGERS,LACTATED 1000ML 1,000 ML IV SCH ×3 (06:15→21:38)
[2020-10-11 06:32] LABS: ALBUMIN 2.3 g/dL (3.4-5.0); ALBUMIN/GLOBULIN RATIO 0.6 (1.0-1.7); CALCIUM 8.6 mg/dL (8.5-10.1); CREATININE 0.8 mg/dL (0.6-1.0); GFR 76.2; POTASSIUM 3.4 mmol/L (3.5-5.1); TOTAL BILIRUBIN 0.6 mg/dL (0.2-1.0); TOTAL PROTEIN 6.4 g/dL (6.4-8.2)
[2020-10-11 07:00] VITALS: BP 167/90
--- NOTE | 2020-10-11 07:31 | PDOC ---
Infectious Disease Note Subjective: Subjective Pt feels better Postop pain is under control Continues to have paresthesia in both lower extremities though improved from admission Also has some weakness with ambulation Denies fever, nausea, vomiting, shortness of breath, diarrhea, abdominal pain, rash Otherwise as above Vital Signs: Vital Signs Vital Signs Date Time Temp Pulse Resp B/P (MAP) Pulse Ox O2 Delivery O2 Flow Rate FiO2 10/11/20 03:00 98.3 92 18 159/89 (112) 97 Room Air 98.3 10/10/20 19:05 8.0 Physical Exam: PHYSICAL EXAM GENERAL: Alert, oriented x 3, pleasant female, lying in bed comfortably, in no acute distress. HEENT: Normocephalic, atraumatic. Anicteric. NECK: Supple, no JVD. LUNGS: Decreased breath sounds at the bases, otherwise clear. No accessory muscle use. HEART: S1, S2. ABDOMEN: Soft, nontender, nondistended, no rebound, no guarding. EXTREMITIES no edema, kendra hose present ble BACK:: Postoperative dressing with drain in place, not taken down. DERMATOLOGIC: Visualized area. No generalized rash. Multiple scars present from previous eczema. Mole over the left upper lip, looks well healed. NEUROLOGIC: Alert, oriented x 3, able to move all 4 extremities. Gait and stance not examined. PSYCHIATRIC: Calm and cooperative. Medications: Inpatient Meds: Medications reviewed. Labs: Lab Laboratory Tests Test 10/11/20 05:30 White Blood Count 11.5 x10^3/uL (4.0-11.0) Red Blood Count 3.47 x10^6/uL (3.50-5.40) Hemoglobin 10.4 g/dL (12.0-15.5) Hematocrit 30.1 % (36.0-47.0) Mean Corpuscular Volume 87 fL (79-100) Mean Corpuscular Hemoglobin 30 pg (25-35) Mean Corpuscular Hemoglobin Concent 34 g/dL (31-37) Red Cell Distribution Width 13.6 % (11.5-14.5) Platelet Count 389 x10^3/uL (140-400) Neutrophils (%) (Auto) 43 % (31-73) Lymphocytes (%) (Auto) 47 % (24-48) Monocytes (%) (Auto) 8 % (0-9) Eosinophils (%) (Auto) 2 % (0-3) Basophils (%) (Auto) 0 % (0-3) Neutrophils # (Auto) 4.9 x10^3/uL (1.8-7.7) Lymphocytes # (Auto) 5.4 x10^3/uL (1.0-4.8) Monocytes # (Auto) 0.9 x10^3/uL (0.0-1.1) Eosinophils # (Auto) 0.2 x10^3/uL (0.0-0.7) Basophils # (Auto) 0.0 x10^3/uL (0.0-0.2) Sodium Level 137 mmol/L (136-145) Potassium Level 3.4 mmol/L (3.5-5.1) Chloride Level 99 mmol/L (98-107) Carbon Dioxide Level 32 mmol/L (21-32) Anion Gap 6 (6-14) Blood Urea Nitrogen 10 mg/dL (7-20) Creatinine 0.8 mg/dL (0.6-1.0) Estimated GFR (Cockcroft-Gault) 76.2 BUN/Creatinine Ratio 13 (6-20) Glucose Level 107 mg/dL (70-99) Calcium Level 8.6 mg/dL (8.5-10.1) Total Bilirubin 0.6 mg/dL (0.2-1.0) Aspartate Amino Transf (AST/SGOT) 6 U/L (15-37) Alanine Aminotransferase (ALT/SGPT) 38 U/L (14-59) Alkaline Phosphatase 137 U/L (46-116) Total Protein 6.4 g/dL (6.4-8.2) Albumin 2.3 g/dL (3.4-5.0) Albumin/Globulin Ratio 0.6 (1.0-1.7) Objective: Assessment: Sepsis from Gram positive bacteremia Methicillin sensitive staph aureus bacteremia October 04 MSSA Thoracic dorsal epidural abscess T3-T4 to T10-T10 - status post T4-T10 laminectomy with removal of epidural mass/abscess and placement of drain, cultures MSSA ESR of 130. CRP of 310. Staph aureus urinary tract infection, MSSA. Leukocytosis. Abnormal LFTs, could be from sepsis. Hepatitis profile negative. History of eczema, on immunosuppression. History of C4-C5 herniated disk. Paresthesia affecting lower extremity, likely from epidural abscess, improving. Urinary retention, status post Gardiner placement. Anemia, acute blood loss. Plan: Plan of Care Continue nafcillin. Status post one dose of daptomycin. Follow up repeat blood culture results from 10/08/2020. Negative so far PT and OT as tolerated, patient still continues to have weakness with ambulation Wound and drain care as directed. She may benefit from discharge to rehab facility Will need PICC line Monitor labs and cultures Discussed with nursing staff DAWNA RENO MD Oct 11, 2020 07:31
[2020-10-11] MEDS ORDERED: POTASSIUM CHLORIDE 20 MEQ TABLET.ER. PO ONE (08:00)
[2020-10-11] MEDS: LACTOBACILLUS RHAMNOSUS GG 1 CAPSULE. PO SCH ×2 (08:09→20:56)
[2020-10-11] MEDS: VENLAFAXINE XR 37.5 MG CAP.ER.24H. PO SCH ×2 (08:09→20:56)
[2020-10-11] MEDS: FERROUS SULFATE 325 MG TABLET. PO SCH (08:10)
[2020-10-11] MEDS: ATORVASTATIN CALCIUM 10 MG TABLET. PO SCH (08:10)
[2020-10-11] MEDS: PANTOPRAZOLE 40 MG TABLET.DR. PO SCH (08:10)
[2020-10-11] MEDS: ASCORBIC ACID 500 MG TABLET PO SCH (08:10)
[2020-10-11] MEDS: METOPROLOL TART IMMED RELEASE 50 MG TABLET. PO SCH (08:13)
[2020-10-11] MEDS: SENNOSIDES/DOCUSATE 8.6/50MG TABLET. PO SCH ×2 (09:00→21:00)
[2020-10-11] MEDS ORDERED: methylPREDNISolone SOD SUCC PF 40 MG/ML VIAL. IV ONE (09:00)
[2020-10-11] MEDS: BISACODYL 5 MG TABLET.DR. PO SCH (09:00)
--- NOTE | 2020-10-11 09:35 | PDOC ---
PROGRESS NOTES Date of Service DATE: 10/11/20 TIME: 09:30 Subjective Subjective She admits continued back pain. Objective Objective Vital Signs Date Time Temp Pulse Resp B/P (MAP) Pulse Ox O2 Delivery O2 Flow Rate FiO2 10/11/20 08:13 91 167/90 10/11/20 08:12 Room Air 10/11/20 07:00 98.1 97 98.1 10/11/20 03:00 18 10/10/20 19:05 8.0 l Intake and Output 10/11/20 07:00 Output Total 1662 ml Balance -1662 ml Output Urine Total 1600 ml Stool Total 2 ml Drainage Total 60 ml Physical Exam Physical Exam She is supine in bed and no change with her neurological status and she continues to require 2 person assistance for transfers and [place] catheter was replaced as she had 500+ ml post voiding urine residual and she had a bowel movement yesterday. Assessment Assessment Problems Medical Problems: (1) Abdominal pain Status: Acute (2) Low back pain Status: Acute (3) Lower extremity numbness Status: Acute (4) Lower extremity weakness Status: Acute (5) Positive blood culture Status: Acute (6) Pyelonephritis Status: Acute Plan Plan of Care To rehab unit when medically stable,to try flomax early next week before giving another voiding trial and also try abdominal binder as back support for use while up. Comment Review of Relevant I have reviewed the following items leticia (where applicable) has been applied. Labs Laboratory Tests Test 10/10/20 04:25 10/11/20 05:30 White Blood Count 11.5 x10^3/uL (4.0-11.0) 11.5 x10^3/uL (4.0-11.0) Red Blood Count 3.56 x10^6/uL (3.50-5.40) 3.47 x10^6/uL (3.50-5.40) Hemoglobin 10.6 g/dL (12.0-15.5) 10.4 g/dL (12.0-15.5) Hematocrit 30.8 % (36.0-47.0) 30.1 % (36.0-47.0) Mean Corpuscular Volume 86 fL (79-100) 87 fL (79-100) Mean Corpuscular Hemoglobin 30 pg (25-35) 30 pg (25-35) Mean Corpuscular Hemoglobin Concent 34 g/dL (31-37) 34 g/dL (31-37) Red Cell Distribution Width 13.2 % (11.5-14.5) 13.6 % (11.5-14.5) Platelet Count 443 x10^3/uL (140-400) 389 x10^3/uL (140-400) Neutrophils (%) (Auto) 66 % (31-73) 43 % (31-73) Lymphocytes (%) (Auto) 23 % (24-48) 47 % (24-48) Monocytes (%) (Auto) 12 % (0-9) 8 % (0-9) Eosinophils (%) (Auto) 0 % (0-3) 2 % (0-3) Basophils (%) (Auto) 0 % (0-3) 0 % (0-3) Neutrophils # (Auto) 7.5 x10^3/uL (1.8-7.7) 4.9 x10^3/uL (1.8-7.7) Lymphocytes # (Auto) 2.6 x10^3/uL (1.0-4.8) 5.4 x10^3/uL (1.0-4.8) Monocytes # (Auto) 1.3 x10^3/uL (0.0-1.1) 0.9 x10^3/uL (0.0-1.1) Eosinophils # (Auto) 0.0 x10^3/uL (0.0-0.7) 0.2 x10^3/uL (0.0-0.7) Basophils # (Auto) 0.0 x10^3/uL (0.0-0.2) 0.0 x10^3/uL (0.0-0.2) Segmented Neutrophils % 59 % (35-66) Band Neutrophils % 3 % (0-9) Lymphocytes % 33 % (24-48) Monocytes % 5 % (0-10) Nucleated Red Blood Cells 1 Platelet Estimate Increased (ADEQUATE) Sodium Level 136 mmol/L (136-145) 137 mmol/L (136-145) Potassium Level 3.9 mmol/L (3.5-5.1) 3.4 mmol/L (3.5-5.1) Chloride Level 101 mmol/L (98-107) 99 mmol/L (98-107) Carbon Dioxide Level 31 mmol/L (21-32) 32 mmol/L (21-32) Anion Gap 4 (6-14) 6 (6-14) Blood Urea Nitrogen 8 mg/dL (7-20) 10 mg/dL (7-20) Creatinine 0.7 mg/dL (0.6-1.0) 0.8 mg/dL (0.6-1.0) Estimated GFR (Cockcroft-Gault) 88.9 76.2 BUN/Creatinine Ratio 11 (6-20) 13 (6-20) Glucose Level 124 mg/dL (70-99) 107 mg/dL (70-99) Calcium Level 8.7 mg/dL (8.5-10.1) 8.6 mg/dL (8.5-10.1) Total Bilirubin 0.4 mg/dL (0.2-1.0) 0.6 mg/dL (0.2-1.0) Aspartate Amino Transf (AST/SGOT) 20 U/L (15-37) 6 U/L (15-37) Alanine Aminotransferase (ALT/SGPT) 64 U/L (14-59) 38 U/L (14-59) Alkaline Phosphatase 163 U/L (46-116) 137 U/L (46-116) Total Protein 7.0 g/dL (6.4-8.2) 6.4 g/dL (6.4-8.2) Albumin 2.4 g/dL (3.4-5.0) 2.3 g/dL (3.4-5.0) Albumin/Globulin Ratio 0.5 (1.0-1.7) 0.6 (1.0-1.7) Laboratory Tests Test 10/11/20 05:30 White Blood Count 11.5 x10^3/uL (4.0-11.0) Red Blood Count 3.47 x10^6/uL (3.50-5.40) Hemoglobin 10.4 g/dL (12.0-15.5) Hematocrit 30.1 % (36.0-47.0) Mean Corpuscular Volume 87 fL (79-100) Mean Corpuscular Hemoglobin 30 pg (25-35) Mean Corpuscular Hemoglobin Concent 34 g/dL (31-37) Red Cell Distribution Width 13.6 % (11.5-14.5) Platelet Count 389 x10^3/uL (140-400) Neutrophils (%) (Auto) 43 % (31-73) Lymphocytes (%) (Auto) 47 % (24-48) Monocytes (%) (Auto) 8 % (0-9) Eosinophils (%) (Auto) 2 % (0-3) Basophils (%) (Auto) 0 % (0-3) Neutrophils # (Auto) 4.9 x10^3/uL (1.8-7.7) Lymphocytes # (Auto) 5.4 x10^3/uL (1.0-4.8) Monocytes # (Auto) 0.9 x10^3/uL (0.0-1.1) Eosinophils # (Auto) 0.2 x10^3/uL (0.0-0.7) Basophils # (Auto) 0.0 x10^3/uL (0.0-0.2) Sodium Level 137 mmol/L (136-145) Potassium Level 3.4 mmol/L (3.5-5.1) Chloride Level 99 mmol/L (98-107) Carbon Dioxide Level 32 mmol/L (21-32) Anion Gap 6 (6-14) Blood Urea Nitrogen 10 mg/dL (7-20) Creatinine 0.8 mg/dL (0.6-1.0) Estimated GFR (Cockcroft-Gault) 76.2 BUN/Creatinine Ratio 13 (6-20) Glucose Level 107 mg/dL (70-99) Calcium Level 8.6 mg/dL (8.5-10.1) Total Bilirubin 0.6 mg/dL (0.2-1.0) Aspartate Amino Transf (AST/SGOT) 6 U/L (15-37) Alanine Aminotransferase (ALT/SGPT) 38 U/L (14-59) Alkaline Phosphatase 137 U/L (46-116) Total Protein 6.4 g/dL (6.4-8.2) Albumin 2.3 g/dL (3.4-5.0) Albumin/Globulin Ratio 0.6 (1.0-1.7) Microbiology 10/10/20 Blood Culture - Preliminary, Resulted NO GROWTH AFTER 1 DAY 10/08/20 Gram Stain - Final, Resulted 8/25/21 Aerobic and Anaerobic Culture - Preliminary, Resulted 10/08/20 Antimicrobic Susceptibility - Preliminary, Resulted Medications Current Medications Sodium Chloride 1,000 ml @ 1,000 mls/hr 1X ONCE IV Last administered on 10/06/20at 10:27; Start 10/06/20 at 09:45; Stop 10/06/20 at 10:44; Status DC Ketorolac Tromethamine (Toradol 30mg Vial) 30 mg 1X ONCE IVP Last administered on 10/06/20at 10:25; Start 10/06/20 at 10:00; Stop 10/06/20 at 10:01; Status DC Fentanyl Citrate (Fentanyl 2ml Vial) 75 mcg 1X ONCE IVP Last administered on 10/06/20at 10:25; Start 10/06/20 at 10:00; Stop 10/06/20 at 10:01; Status DC Ondansetron HCl (Zofran) 4 mg 1X ONCE IVP Last administered on 10/06/20at 12:10; Start 10/06/20 at 11:45; Stop 10/06/20 at 11:46; Status DC Hydromorphone HCl (Dilaudid) 1 mg 1X ONCE IVP Last administered on 10/06/20at 12:11; Start 10/06/20 at 11:45; Stop 10/06/20 at 11:46; Status DC Iohexol (Omnipaque 300 Mg/ml) 75 ml 1X ONCE IV Last administered on 10/06/20at 12:06; Start 10/06/20 at 12:00; Stop 10/06/20 at 12:01; Status DC Info (CONTRAST GIVEN -- Rx MONITORING) 1 each PRN DAILY PRN MC SEE COMMENTS; Start 10/06/20 at 12:00; Stop 10/08/20 at 11:59; Status DC Ceftriaxone Sodium (Rocephin) 1 gm 1X ONCE IVP Last administered on 10/06/20at 12:10; Start 10/06/20 at 12:30; Stop 10/06/20 at 12:31; Status DC Vancomycin HCl (Vanco Per Pharmacy) 1 each PRN DAILY PRN MC SEE COMMENTS Last administered on 10/08/20at 09:45; Start 10/06/20 at 14:00; Stop 10/08/20 at 09:55; Status DC Vancomycin HCl 2 gm/Sodium Chloride 500 ml @ 250 mls/hr 1X ONCE IV Last administered on 10/06/20at 14:17; Start 10/06/20 at 14:15; Stop 10/06/20 at 16 :14; Status DC Sodium Chloride 1,000 ml @ 1,000 mls/hr 1X ONCE IV Last administered on 10/06/20at 14:54; Start 10/06/20 at 14:45; Stop 10/06/20 at 15:44; Status DC Metoclopramide HCl (Reglan Vial) 10 mg 1X ONCE IVP Last administered on 10/06/20at 14:54; Start 10/06/20 at 14:45; Stop 10/06/20 at 14:46; Status DC Hydromorphone HCl (Dilaudid) 1 mg 1X ONCE IVP Last administered on 10/06/20at 16:44; Start 10/06/20 at 16:45; Stop 10/06/20 at 16:46; Status DC Methylprednisolone Sodium Succinate (SOLU-Medrol 40MG VIAL) 40 mg Q12HR IV Last administered on 10/10/20at 09:00; Start 10/06/20 at 19:00; Stop 10/10/20 at 09:49; Status DC Vancomycin HCl 1.25 gm/Sodium Chloride 250 ml @ 167 mls/hr Q12H IV Last administered on 10/08/20at 02:38; Start 10/07/20 at 02:30; Stop 10/08/20 at 09:51; Status DC Vancomycin HCl (Vancomycin Trough Level) 1 each 1X ONCE MC ; Start 10/08/20 at 14:00; Stop 10/08/20 at 14:01; Status Cancel Atorvastatin Calcium (Lipitor) 10 mg DAILY PO Last administered on 10/11/20at 08:10; Start 10/07/20 at 09:00 Cyclobenzaprine HCl (Flexeril) 10 mg QHS PO Last administered on 10/10/20at 19:57; Start 10/06/20 at 22:00 Acetaminophen/ Hydrocodone Bitart (Lortab 5/325) 0.5 tab PRN Q6HRS PRN PO MODERATE PAIN; Start 10/06/20 at 21:45 Metoprolol Tartrate (Lopressor) 50 mg DAILY PO Last administered on 10/11/20 08:13; Start 10/07/20 at 09:00 Ondansetron HCl (Zofran Odt) 4 mg PRN Q6HRS PRN PO NAUSEA Last administered on 10/06/20 23:37; Start 10/06/20 at 21:45 Phenazopyridine HCl (Pyridium) 200 mg TID PO Last administered on 10/07/20 20:28; Start 10/06/20 at 22:30; Stop 10/09/20 at 08:05; Status DC Tizanidine HCl (Zanaflex) 4 mg QHS PO Last administered on 10/08/20 20:20; Start 10/06/20 at 22:00 Tramadol HCl (Ultram) 50 mg PRN Q6HRS PRN PO pain MILD 2ND CHOICE Last administered on 10/09/20 19:42; Start 10/06/20 at 21:45 Morphine Sulfate (Morphine Sulfate) 2 mg PRN Q2HR PRN IV PAIN Last administered on 10/07/20 00:22; Start 10/06/20 at 21:45; Stop 10/07/20 at 08:31; Status DC Cephalexin HCl (Keflex) 500 mg TID PO ; Start 10/06/20 at 22:30; Status Cancel Venlafaxine HCl (Effexor Xr) 37.5 mg BID PO Last administered on 10/11/20 08:09; Start 10/07/20 at 09:00 Acetaminophen/ Codeine Phosphate (Tylenol #3) 1 tab PRN Q4HRS PRN PO MILD PAIN 1-3; Start 10/06/20 at 22:30 Acetaminophen/ Hydrocodone Bitart (Lortab 5/325) 1 tab PRN Q6HRS PRN PO SEVERE PAIN Last administered on 10/11/20 08:10; Start 10/06/20 at 22:00 Diazepam (Valium) 10 mg PRN 1X PRN PO [employer], MRX1 Last administered on 10/07/20 13:42; Start 10/07/20 at 09:00; Stop 10/07/20 at 23:00; Status DC Fentanyl Citrate (Fentanyl 2ml Vial) 50 mcg PRN Q2HR PRN IVP PAIN Last administered on 10/11/20 08:12; Start 10/07/20 at 08:30 Lactobacillus Rhamnosus (Culturelle) 1 cap BID PO Last administered on 10/11/20at 08:09; Start 10/07/20 at 21:00 Ceftriaxone Sodium (Rocephin) 2 gm Q24H IVP Last administered on 10/07/20at 12:26; Start 10/07/20 at 12:00; Stop 10/08/20 at 09:51; Status DC Pantoprazole Sodium (Protonix) 40 mg DAILYAC PO Last administered on 10/11/20at 08:10; Start 10/07/20 at 12:00 Propofol (Diprivan) 200 mg STK-MED ONCE IV ; Start 10/08/20 at 06:33; Stop 10/08/20 at 06:33; Status DC Lidocaine HCl (Lidocaine Pf 2% Vial) 5 ml STK-MED ONCE .ROUTE ; Start 10/08/20 at 06:33; Stop 10/08/20 at 06:33; Status DC Dexamethasone Sodium Phosphate (Decadron) 4 mg STK-MED ONCE .ROUTE ; Start 10/08/20 at 06:33; Stop 10/08/20 at 06:33; Status DC Ondansetron HCl (Zofran) 4 mg STK-MED ONCE .ROUTE ; Start 10/08/20 at 06:33; Stop 10/08/20 at 06:33; Status DC Propofol 50 ml @ As Directed STK-MED ONCE IV ; Start 10/08/20 at 06:33; Stop 10/08/20 at 06:33; Status DC Phenylephrine HCl (PHENYLEPHRINE in 0.9% NACL PF) 1 mg STK-MED ONCE IV ; Start 10/08/20 at 06:33; Stop 10/08/20 at 06:34; Status DC Remifentanil HCl (Ultiva) 2 mg STK-MED ONCE IV ; Start 10/08/20 at 06:34; Stop 10/08/20 at 06:34; Status DC Rocuronium [place] (Zemuron) 50 mg STK-MED ONCE .ROUTE ; Start 10/08/20 at 06:38; Stop 10/08/20 at 06:38; Status DC Gelatin (Gelfoam Size 100) 1 each STK-MED ONCE .ROUTE Last administered on 10/08/20at 10:14; Start 10/08/20 at 06:58; Stop 10/08/20 at 06:58; Status DC Bupivacaine HCl/ Epinephrine Bitart (Sensorcain-Epi 0.5%-1:[id number] Mpf) 30 ml STK-MED ONCE .ROUTE Last administered on 10/08/20at 10:14; Start 10/08/20 at 06:58; Stop 10/08/20 at 06:58; Status DC Ketorolac Tromethamine (Toradol Im) 60 mg STK-MED ONCE .ROUTE Last administered on 10/08/20at 10:14; Start 10/08/20 at 06:58; Stop 10/08/20 at 06:59; Status DC Thrombin 20,000 unit STK-MED ONCE TP Last administered on 10/08/20at 10:14; Start 10/08/20 at 06:58; Stop 10/08/20 at 06:59; Status DC Cefazolin Sodium 1 gm/Sodium Chloride 1,000 ml @ 1,000 mls/hr 1X ONCE IRR Last administered on 10/08/20at 10:14; Start 10/08/20 at 08:00; Stop 10/08/20 at 08:59; Status DC Midazolam HCl (Versed) 2 mg STK-MED ONCE .ROUTE ; Start 10/08/20 at 08:13; Stop 10/08/20 at 08:14; Status DC Glycopyrrolate (Robinul) 1 mg STK-MED ONCE .ROUTE ; Start 10/08/20 at 08:13; Stop 10/08/20 at 08:14; Status DC Ringer's Solution 1,000 ml @ 100 mls/hr Q10H IV Last administered on 10/10/20at 15:59; Start 10/08/20 at 08:15 Propofol 50 ml @ As Directed STK-MED ONCE IV ; Start 10/08/20 at 09:28; Stop 10/08/20 at 09:28; Status DC Nafcillin Sodium 2 gm/Dextrose 100 ml @ 200 mls/hr Q4HRS IV Last administered on 10/11/20at 04:02; Start 10/08/20 at 12:00 Metoprolol Tartrate (Lopressor Vial) 5 mg STK-MED ONCE IVP ; Start 10/08/20 at 10:40; Stop 10/08/20 at 10:40; Status DC Remifentanil HCl (Ultiva) 1 mg STK-MED ONCE IV ; Start 10/08/20 at 11:14; Stop 10/08/20 at 11:14; Status DC Sodium Chloride (SODIUM CHLORIDE 20ml) 20 ml STK-MED ONCE IJ ; Start 10/08/20 at 11:14; Stop 10/08/20 at 11:14; Status DC Daptomycin 490 mg/ Sodium Chloride 50 ml @ 100 mls/hr ONCE ONCE IV Last administered on 10/08/20at 15:19; Start 10/08/20 at 12:30; Stop 10/08/20 at 12:59; Status DC Propofol 50 ml @ As Directed STK-MED ONCE IV ; Start 10/08/20 at 11:24; Stop 10/08/20 at 11:25; Status DC Hydromorphone HCl (Dilaudid) 2 mg STK-MED ONCE .ROUTE ; Start 10/08/20 at 11:30; Stop 10/08/20 at 11:31; Status DC Neostigmine [place] (Neostigmine Methylsulfate) 5 mg STK-MED ONCE .ROUTE ; Sta rt 10/08/20 at 12:22; Stop 10/08/20 at 12:22; Status DC Fentanyl Citrate (Fentanyl 2ml Vial) 100 mcg STK-MED ONCE .ROUTE ; Start 10/08/20 at 13:13; Stop 10/08/20 at 13:13; Status DC Fentanyl Citrate (Fentanyl 2ml Vial) 25 mcg PRN Q5MIN PRN IVP MILD PAIN 1-3; Start 10/08/20 at 13:30; Stop 10/09/20 at 13:29; Status DC Fentanyl Citrate (Fentanyl 2ml Vial) 50 mcg PRN Q5MIN PRN IVP MODERATE PAIN 4-6 Last administered on 10/08/20at 13:33; Start 10/08/20 at 13:30; Stop 10/09/20 at 07:39; Status DC Morphine Sulfate (Morphine Sulfate) 1 mg PRN Q10MIN PRN IVP SEVERE PAIN 7-10 Last administered on 10/08/20at 16:40; Start 10/08/20 at 13:30; Stop 10/09/20 at 07:39; Status DC Ringer's Solution 1,000 ml @ 30 mls/hr Q24H IV ; Start 10/08/20 at 13:30; Stop 10/09/20 at 01:29; Status DC Hydromorphone HCl (Dilaudid) 0.5 mg PRN Q10MIN PRN IVP SEVERE PAIN 7-10, 2nd CHOICE Last administered on 10/08/20at 14:50; Start 10/08/20 at 13:30; Stop 10/09/20 at 07:39; Status DC Prochlorperazine Edisylate (Compazine) 5 mg PACU PRN PRN IVP NAUSEA, MRX1; Start 10/08/20 at 13:30; Stop 10/09/20 at 13:29; Status DC Hydralazine HCl (Apresoline Inj) 20 mg STK-MED ONCE .ROUTE ; Start 10/08/20 at 13:31; Stop 10/08/20 at 13:31; Status DC Hydralazine HCl (Apresoline Inj) 10 mg 1X PRN PRN IVP hypertension Last administered on 10/11/20at 00:12; Start 10/08/20 at 13:45 Hydromorphone HCl (Dilaudid) 2 mg STK-MED ONCE .ROUTE ; Start 10/08/20 at 13:51; Stop 10/08/20 at 13:51; Status DC Bisacodyl (Dulcolax Supp) 10 mg PRN DAILY PRN [place] CONSTIPATION; Start 10/09/20 at 13:00 Bisacodyl (Dulcolax Tab) 10 mg DAILY PO Last administered on 10/10/20at 09:05; Start 10/09/20 at 13:00 Senna/Docusate Sodium (Senna Plus) 1 tab BID PO Last administered on 10/10/20at 09:06; Start 10/09/20 at 21:00 Sodium Monofluorophosphate (Fleet Adult) 133 ml DAILY PRN [place] CONSTIPATION, 2ND CHOICE [place]; Start 10/09/20 at 13:00 Lorazepam (Ativan) 1 mg PRN Q6HRS PRN PO ANXIETY / AGITATION Last administered on 10/10/20at 23:18; Start 10/10/20 at 02:00 Magnesium Citrate (Citroma) 296 ml PRN 1X PRN PO CONSTIPATION Last administered on 10/10/20at 09:42; Start 10/10/20 at 09:30 Ferrous Sulfate (Feosol) 325 mg DAILYWBKFT PO Last administered on 10/11/20at 08:10; Start 10/10/20 at 10:00 Ascorbic Acid (Vitamin C) 500 mg DAILY PO Last administered on 10/11/20at 08:10; Start 10/10/20 at 10:00 Methylprednisolone Sodium Succinate (SOLU-Medrol 40MG VIAL) 20 mg 1X ONCE IV ; Start 10/11/20 at 09:00; Stop 10/11/20 at 09:01; Status DC Potassium Chloride (Klor-Con) 40 meq 1X ONCE PO Last administered on 10/11/20at 08:13; Start 10/11/20 at 08:00; Stop 10/11/20 at 08:01; Status DC Active Scripts Active Hydrocodone-Apap 5-325 (Hydrocodone Bit/Acetaminophen) 1 Tab Tablet 0.5-1 Tab PO PRN Q6HRS PRN Ondansetron Odt (Ondansetron) 4 Mg Tab.rapdis 1 Tab PO PRN Q6-8HRS PRN Pyridium (Phenazopyridine Hcl) 200 Mg Tablet 200 Mg PO TID 2 Days Cephalexin 500 Mg Tablet 1 Tab PO TID 7 Days Ultram (Tramadol Hcl) 50 Mg Tablet 1 Tab PO PRN Q6HRS PRN MDD 4 Tablet(s) 7 Days Cyclobenzaprine Hcl 10 Mg Tablet 1 Tab PO QHS Reported Acetaminophen-Cod #4 Tablet (Acetaminophen/Codeine Phosphate) 1 Each Tablet 1 Tab PO PRN Q4HRS PRN Venlafaxine Hcl Er (Venlafaxine Hcl) 75 Mg Cap.er.24h 1 Cap PO DAILY Tizanidine Hcl 4 Mg Tablet 1 Tab PO QHS Metoprolol Tartrate 50 Mg Tablet 1 Tab PO DAILY Atorvastatin Calcium 10 Mg Tablet 1 Tab PO DAILY Vitals/I & O Vital Sign - Last 24 Hours 10/10/20 10/10/20 10/10/20 10/10/20 09:43 10:25 11:00 11:20 Temp 98.1 98.1 Pulse 78 Resp 18 B/P (MAP) 151/82 (105) Pulse Ox 95 95 97 95 O2 Delivery Room Air Room Air Room Air Room Air O2 Flow Rate 8.0 8.0 8.0 8/2710/10/20 10/10/20 10/10/20 12:21 15:22 16:20 16:55 Temp 97.9 97.9 Pulse 75 Resp 16 B/P (MAP) 149/86 (107) Pulse Ox 95 98 98 98 O2 Delivery Room Air Room Air Room Air Room Air O2 Flow Rate 8.0 8.0 8.0 10/10/20 10/10/20 10/10/20 10/10/20 16:55 19:00 19:05 19:35 Temp 98.3 98.3 Pulse 80 Resp 18 20 B/P (MAP) 148/93 (111) Pulse Ox 98 98 98 98 O2 Delivery Room Air Room Air Room Air Room Air O2 Flow Rate 8.0 8.0 10/10/20 10/10/20 10/10/20 10/10/20 19:56 20:00 20:26 23:00 Temp 98.2 98.2 Pulse 79 Resp 20 20 18 B/P (MAP) 168/111 (130) Pulse Ox 98 96 O2 Delivery Room Air Room Air Room Air Room Air 10/10/20 10/10/20 10/11/20 10/11/20 23:18 23:48 00:12 02:35 Pulse 79 Resp 20 20 20 B/P (MAP) 168/111 Pulse Ox 96 96 96 O2 Delivery Room Air Room Air Room Air 10/11/20 10/11/20 10/11/20 10/11/20 02:36 03:00 07:00 08:10 Temp 98.3 98.1 98.3 98.1 Pulse 92 91 Resp 20 18 B/P (MAP) 159/89 (112) 167/90 (115) Pulse Ox 96 97 97 O2 Delivery Room Air Room Air Room Air Room Air 10/11/20 10/11/20 08:12 08:13 Pulse 91 B/P (MAP) 167/90 O2 Delivery Room Air Intake and Output 10/10/20 10/10/20 10/11/20 15:00 23:00 07:00 Output Total 30 ml 1632 ml Balance -30 ml -1632 ml Justifications for Admission Other Justification SHELBY RO MD Oct 11, 2020 09:35
--- NOTE | 2020-10-11 10:57 | PDOC ---
[facility] PROGRESS NOTE Date of Service DOS: DATE: 10/11/20 TIME: 10:56 Chief Complaint Chief Complaint Thoracic abscess with cord compression status post T4-T11 laminectomy 10/08/2020 Mid abdominal pain which radiates around the back, ongoing concern C4-C5 herniated disk repair Musculoskeletal back pain pyleonephritis mood disorder chronic neck pain hyperlipidemia MSSA bacteremia MSSA UTI History of Present Illness History of Present Illness 10/11/2020 No acute events overnight. No new focal deficits. Patient seen and examined bedside. Gardiner catheter was replaced after bladder scan that was post void showed residual greater than 500. Will attempt bladder training before Gardiner is discontinued. Continue PT OT modalities and possible rehab placement on Tuesday. Patient's chart, labs, images were reviewed and discussed with RN 10/10/2020 No acute events overnight. No new focal neuro deficits. Gardiner was discontinued. Patient's bladder scan showed 400 cc. Will attempt observe at this time and straight catheter if needed if bladder scan is greater than 500 cc. The patient continues to retain urine will need to consider bladder training. Patient will need to continue rehab. Appreciate Dr. Leon recommendations. Bowel regimen was started for constipation. Patient's chart, labs, images were reviewed and discussed with RN 10/09/2020 Patient seen and examined bedside conversing well with no neuro focal deficits. She does endorse some tingling on her shins and up to her knee. Her strength was not assessed but she is wiggling her toes and lifting her leg appropriately. Okay for transfer to the med telemetry floor. Patient's chart, labs, images were reviewed and discussed with RN 10/08/2020 Patient seen and examined in the postop recovery area Discussed the case with Dr. Stahl and his nurse practitioner (appreciate their rapid intervention) Patient just got out of surgery and had a T [address] Stahl performed a thoracic laminectomy He would like to continue steroids for another day Discussed with RN Chart reviewed Patient is going to ICU room 110 HPI: The patient is a pleasant 50-year-old female who has been to the ER a cou ple times in the past few days. Today, she presents with some abdominal pains on the right, it is radiating to her back. She was seen here on , was diagnosed with a back strain, was sent home with someantispasmodics and pain meds. She then came back on the , was diagnosed with pyelonephritis, started on Keflex and Pyridium. Now, she presents with abdominal pain, but she in the last few hours has now developed lower extremity weakness and numbness. She does admit to decreased urination and increasing back pain rated at 10/10. She increased her home meds, but that did not seem tohelp. Moving makes it worse, sitting still makes it better. She does have a past history of a herniated disk with her surgical repair of C4-C5 six years ago. I discussed the case with ER physician. I have examined the patient. We are concerned that she is developing progressive weakness. She also has a sed rate of greater than 130. Her C-reactive protein is 310. We also have a blood culture that just came back from one of her recent visits to the ER, it does show some Gram-positive cocci. We are going to put the patient on IV antibiot ics including Rocephin and vancomycin. I am considering starting some steroids. We are consulting Dr. Preston to see if he would agree. He would like to get an MRI of the lower back as well. 10/07: Patient seen and examined. Endorses decreased pain since admission. Endorses moving around better and says she is feeling much better. Consulted with RN. Karon salgado. Vitals/I&O Vitals/I&O: Vital Signs Date Time Temp Pulse Resp B/P (MAP) Pulse Ox O2 Delivery O2 Flow Rate FiO2 10/11/20 08:13 91 167/90 10/11/20 08:12 Room Air 10/11/20 07:00 98.1 97 98.1 10/11/20 03:00 18 10/10/20 19:05 8.0 I & O 10/10/20 10/10/20 10/11/20 15:00 23:00 07:00 Output Total 30 ml 1632 ml Balance -30 ml -1632 ml Physical Exam Physical Exam: GENERAL: Alert, oriented x 3, pleasant female, lying in bed comfortably, in no acute distress. HEENT: Normocephalic, atraumatic. Anicteric. NECK: Supple, no JVD. LUNGS: Decreased breath sounds at the bases, otherwise clear. No accessory muscle use. HEART: S1, S2. ABDOMEN: Soft, nontender, nondistended, no rebound, no guarding. EXTREMITIES no edema, kendra hose present ble BACK:: Postoperative dressing with drain in place, not taken down. DERMATOLOGIC: Visualized area. No generalized rash. Multiple scars present from previous eczema. Mole over the left upper lip, looks well healed. NEUROLOGIC: Alert, oriented x 3, able to move all 4 extremities. Gait and stance not examined. PSYCHIATRIC: Calm and cooperative. General: Alert, Oriented X3, Cooperative, No acute distress Heart: Regular rate, Normal S1, Normal S2 Lungs: Clear Abdomen: Other (She has decreased bowel sounds) Extremities: No clubbing, No cyanosis, No edema Skin: Other (Dressing C,D, I , flat. drain in place 120 cc out total) Labs Labs: Laboratory Tests Test 10/11/20 05:30 White Blood Count 11.5 x10^3/uL (4.0-11.0) Red Blood Count 3.47 x10^6/uL (3.50-5.40) Hemoglobin 10.4 g/dL (12.0-15.5) Hematocrit 30.1 % (36.0-47.0) Mean Corpuscular Volume 87 fL (79-100) Mean Corpuscular Hemoglobin 30 pg (25-35) Mean Corpuscular Hemoglobin Concent 34 g/dL (31-37) Red Cell Distribution Width 13.6 % (11.5-14.5) Platelet Count 389 x10^3/uL (140-400) Neutrophils (%) (Auto) 43 % (31-73) Lymphocytes (%) (Auto) 47 % (24-48) Monocytes (%) (Auto) 8 % (0-9) Eosinophils (%) (Auto) 2 % (0-3) Basophils (%) (Auto) 0 % (0-3) Neutrophils # (Auto) 4.9 x10^3/uL (1.8-7.7) Lymphocytes # (Auto) 5.4 x10^3/uL (1.0-4.8) Monocytes # (Auto) 0.9 x10^3/uL (0.0-1.1) Eosinophils # (Auto) 0.2 x10^3/uL (0.0-0.7) Basophils # (Auto) 0.0 x10^3/uL (0.0-0.2) Sodium Level 137 mmol/L (136-145) Potassium Level 3.4 mmol/L (3.5-5.1) Chloride Level 99 mmol/L (98-107) Carbon Dioxide Level 32 mmol/L (21-32) Anion Gap 6 (6-14) Blood Urea Nitrogen 10 mg/dL (7-20) Creatinine 0.8 mg/dL (0.6-1.0) Estimated GFR (Cockcroft-Gault) 76.2 BUN/Creatinine Ratio 13 (6-20) Glucose Level 107 mg/dL (70-99) Calcium Level 8.6 mg/dL (8.5-10.1) Total Bilirubin 0.6 mg/dL (0.2-1.0) Aspartate Amino Transf (AST/SGOT) 6 U/L (15-37) Alanine Aminotransferase (ALT/SGPT) 38 U/L (14-59) Alkaline Phosphatase 137 U/L (46-116) Total Protein 6.4 g/dL (6.4-8.2) Albumin 2.3 g/dL (3.4-5.0) Albumin/Globulin Ratio 0.6 (1.0-1.7) Assessment and Plan Assessmemt and Plan Problems Medical Problems: (1) Abdominal pain Status: Acute (2) Low back pain Status: Acute (3) Lower extremity numbness Status: Acute (4) Lower extremity weakness Status: Acute (5) Positive blood culture Status: Acute (6) Pyelonephritis Status: Acute Comment Review of Relevant I have reviewed the following items leticia (where applicable) has been applied. Medications: Current Medications Medications (Trade) Dose Ordered Sig/Aparna Route PRN Reason Start Time Stop Time Status Last Admin Dose Admin Potassium Chloride (Klor-Con) 40 meq 1X ONCE PO 10/11/20 08:00 10/11/20 08:01 DC 10/11/20 08:13 Justifications for Admission Other Justification MANN SWEENEY MD Oct 11, 2020 10:57
[2020-10-11 11:00] VITALS: BP 119/81
[2020-10-11 15:19] VITALS: BP 139/82
[2020-10-11 19:00] VITALS: BP 136/86
[2020-10-11] MEDS: CYCLOBENZAPRINE 10 MG TABLET. PO SCH (20:56)
[2020-10-11] MEDS: tiZANidine 4 MG TABLET. PO SCH (21:00)
[2020-10-11 23:00] VITALS: BP 146/87
[2020-10-12] MEDS: fentaNYL PF VIAL 100 MCG/2 ML VIAL IVP PRN ×5 (00:23→20:26)
[2020-10-12] MEDS: HYDROcodone/APAP 5/325MG 1 TAB TABLET PO PRN ×3 (00:27→14:17)
[2020-10-12 03:00] VITALS: BP 146/92
[2020-10-12] MEDS: NAFCILLIN 2 GM in IV DEXTROSE 5% 100ML 100 ML IV SCH ×5 (04:25→20:26)
[2020-10-12 06:16] LABS: BASO % 0 % (0-3); EOS # 0.3 x10^3/uL (0.0-0.7); EOS % 2 % (0-3); HEMATOCRIT 30.9 % (36.0-47.0); HEMOGLOBIN 10.5 g/dL (12.0-15.5); LYMPH # 4.5 x10^3/uL (1.0-4.8); LYMPH % 36 % (24-48); MEAN CORPUSCULAR HEMOGLOBIN 30 pg (25-35); MEAN CORPUSCULAR HGB CONC 34 g/dL (31-37); MEAN CORPUSCULAR VOLUME 87 fL (79-100); MONO # 1.1 x10^3/uL (0.0-1.1); MONO % 9 % (0-9); NEUT # 6.7 x10^3/uL (1.8-7.7); NEUT % 53 % (31-73); PLATELET COUNT 439 x10^3/uL (140-400); RED BLOOD COUNT 3.55 x10^6/uL (3.50-5.40); RED CELL DISTRIBUTION WIDTH 13.2 % (11.5-14.5); WHITE BLOOD COUNT 12.6 x10^3/uL (4.0-11.0)
[2020-10-12 06:34] LABS: ALBUMIN 2.4 g/dL (3.4-5.0); ALBUMIN/GLOBULIN RATIO 0.6 (1.0-1.7); CALCIUM 8.8 mg/dL (8.5-10.1); CREATININE 0.9 mg/dL (0.6-1.0); GFR 66.5; POTASSIUM 4.3 mmol/L (3.5-5.1); TOTAL BILIRUBIN 0.8 mg/dL (0.2-1.0); TOTAL PROTEIN 6.5 g/dL (6.4-8.2)
[2020-10-12 07:00] VITALS: BP 163/108
[2020-10-12] MEDS: BISACODYL 5 MG TABLET.DR. PO SCH (07:28)
[2020-10-12] MEDS: SENNOSIDES/DOCUSATE 8.6/50MG TABLET. PO SCH ×2 (07:29→21:00)
--- NOTE | 2020-10-12 07:31 | PDOC ---
Infectious Disease Note Subjective: Subjective Pt feels the same Some post op site pain Continues to have paresthesia in both lower extremities Also has some weakness in both her legs with ambulation Denies fever, nausea, vomiting, shortness of breath, abdominal pain, rash Has some loose bowel movements Vital Signs: Vital Signs Vital Signs Date Time Temp Pulse Resp B/P (MAP) Pulse Ox O2 Delivery O2 Flow Rate FiO2 10/12/20 06:47 20 97 Room Air 10/12/20 03:00 98.0 55 146/92 (110) 98.0 Physical Exam: PHYSICAL EXAM GENERAL: Alert, oriented x 3, pleasant female, lying in bed comfortably, in no acute distress. HEENT: Normocephalic, atraumatic. Anicteric. NECK: Supple, no JVD. LUNGS: Decreased breath sounds at the bases, otherwise clear. No accessory muscle use. HEART: S1, S2. ABDOMEN: Soft, nontender, nondistended, no rebound, no guarding. EXTREMITIES no edema, kendra hose present ble BACK:: Postoperative dressing with drain in place, not taken down. DERMATOLOGIC: Visualized area. No generalized rash. Multiple scars present from previous eczema. Mole over the left upper lip, looks well healed. NEUROLOGIC: Alert, oriented x 3, able to move all 4 extremities. Gait and stance not examined. PSYCHIATRIC: Calm and cooperative. Medications: Inpatient Meds: Medications reviewed. Labs: Lab Laboratory Tests Test 10/12/20 05:40 White Blood Count 12.6 x10^3/uL (4.0-11.0) Red Blood Count 3.55 x10^6/uL (3.50-5.40) Hemoglobin 10.5 g/dL (12.0-15.5) Hematocrit 30.9 % (36.0-47.0) Mean Corpuscular Volume 87 fL (79-100) Mean Corpuscular Hemoglobin 30 pg (25-35) Mean Corpuscular Hemoglobin Concent 34 g/dL (31-37) Red Cell Distribution Width 13.2 % (11.5-14.5) Platelet Count 439 x10^3/uL (140-400) Neutrophils (%) (Auto) 53 % (31-73) Lymphocytes (%) (Auto) 36 % (24-48) Monocytes (%) (Auto) 9 % (0-9) Eosinophils (%) (Auto) 2 % (0-3) Basophils (%) (Auto) 0 % (0-3) Neutrophils # (Auto) 6.7 x10^3/uL (1.8-7.7) Lymphocytes # (Auto) 4.5 x10^3/uL (1.0-4.8) Monocytes # (Auto) 1.1 x10^3/uL (0.0-1.1) Eosinophils # (Auto) 0.3 x10^3/uL (0.0-0.7) Basophils # (Auto) 0.0 x10^3/uL (0.0-0.2) Sodium Level 138 mmol/L (136-145) Potassium Level 4.3 mmol/L (3.5-5.1) Chloride Level 100 mmol/L (98-107) Carbon Dioxide Level 33 mmol/L (21-32) Anion Gap 5 (6-14) Blood Urea Nitrogen 11 mg/dL (7-20) Creatinine 0.9 mg/dL (0.6-1.0) Estimated GFR (Cockcroft-Gault) 66.5 BUN/Creatinine Ratio 12 (6-20) Glucose Level 116 mg/dL (70-99) Calcium Level 8.8 mg/dL (8.5-10.1) Total Bilirubin 0.8 mg/dL (0.2-1.0) Aspartate Amino Transf (AST/SGOT) 15 U/L (15-37) Alanine Aminotransferase (ALT/SGPT) 39 U/L (14-59) Alkaline Phosphatase 131 U/L (46-116) Total Protein 6.5 g/dL (6.4-8.2) Albumin 2.4 g/dL (3.4-5.0) Albumin/Globulin Ratio 0.6 (1.0-1.7) Micro Intraoperative cultures MSSA Repeat blood culture negative FINDINGS: LOWER CHEST: Trace right pleural effusion. Bibasilar subsegmental atelectasis. ABDOMEN/PELVIS: Mild diffuse hepatic steatosis. No suspicious focal hepatic lesion. Gallbladder, biliary ducts, spleen and adrenals are normal. Unremarkable pancreas. No hydronephrosis in either kidney. No bowel obstruction or wall thickening. Appendix is not seen with certainty. Normal caliber abdominal aorta. Mesenteric arteries and portal vein are patent. No lymphadenopathy in the abdomen or pelvis by size criteria. Trace amount of pelvic free fluid, likely physiologic. High density urine in the urinary bladder, likely secondary to previous IV contrast exam. Unremarkable uterus. No suspicious pelvic masses. MUSCULOSKELETAL: No acute osseous process. No significant degenerative changes in the lumbar spine. IMPRESSION: 1. No acute intra-abdominal findings. 2. Similar trace right pleural effusion and bibasilar subsegmental atelectasis. Objective: Assessment: Sepsis from Gram positive bacteremia Methicillin sensitive staph aureus bacteremia October 04 MSSA Thoracic dorsal epidural abscess T3-T4 to T10-T10 - status post T4-T10 laminectomy with removal of epidural mass/abscess and placement of drain, cultures MSSA ESR of 130. CRP of 310. Staph aureus urinary tract infection, MSSA. Leukocytosis. Abnormal LFTs, could be from sepsis. Also has hepatic steatosis hepatitis profile negative. History of eczema, on immunosuppression. History of C4-C5 herniated disk. Paresthesia affecting lower extremity, likely from epidural abscess, improving. Urinary retention, status post Gardiner placement. Anemia, acute blood loss. Diarrhea Plan: Plan of Care Stool softeners on hold If diarrhea continues check for C. difficile PCR Continue nafcillin. Status post one dose of daptomycin. Follow up repeat blood culture results from 10/08/2020. Negative so far PT and OT as tolerated, Wound and drain care as directed. She may benefit from discharge to rehab facility Will need PICC line Monitor labs and cultures Discussed with nursing staff DAWNA RENO MD Oct 12, 2020 07:31
[2020-10-12] MEDS: FERROUS SULFATE 325 MG TABLET. PO SCH (08:41)
[2020-10-12] MEDS: ASCORBIC ACID 500 MG TABLET PO SCH (08:41)
[2020-10-12] MEDS: PANTOPRAZOLE 40 MG TABLET.DR. PO SCH (08:41)
[2020-10-12] MEDS: VENLAFAXINE XR 37.5 MG CAP.ER.24H. PO SCH (08:41)
[2020-10-12] MEDS: LACTOBACILLUS RHAMNOSUS GG 1 CAPSULE. PO SCH (08:41)
[2020-10-12] MEDS: ATORVASTATIN CALCIUM 10 MG TABLET. PO SCH (08:42)
[2020-10-12] MEDS: METOPROLOL TART IMMED RELEASE 50 MG TABLET. PO SCH (08:42)
[2020-10-12 11:00] VITALS: BP 129/72
--- NOTE | 2020-10-12 11:32 | PDOC ---
[employer] [facility] PROGRESS NOTE Date of Service DOS: DATE: 10/12/20 TIME: 11:31 Chief Complaint Chief Complaint Thoracic abscess with cord compression status post T4-T11 laminectomy 10/08/2020 Mid abdominal pain which radiates around the back, ongoing concern C4-C5 herniated disk repair Musculoskeletal back pain pyleonephritis mood disorder chronic neck pain hyperlipidemia MSSA bacteremia MSSA UTI History of Present Illness History of Present Illness 10/12/2020 No acute events overnight. No concerns nursing. Continue PT OT modalities. Gardiner still in place. Patient's chart, labs, images were reviewed and discussed with RN 10/11/2020 No acute events overnight. No new focal deficits. Patient seen and examined bedside. Gardiner catheter was replaced after bladder scan that was post void showed residual greater than 500. Will attempt bladder training before Gardiner is discontinued. Continue PT OT modalities and possible rehab placement on Tuesday. Patient's chart, labs, images were reviewed and discussed with RN 10/10/2020 No acute events overnight. No new focal neuro deficits. Gardiner was discontinued. Patient's bladder scan showed 400 cc. Will attempt observe at this time and straight catheter if needed if bladder scan is greater than 500 cc. The patient continues to retain urine will need to consider bladder training. Patient will need to continue rehab. Appreciate Dr. Leon recommendations. Bowel regimen was started for constipation. Patient's chart, labs, images were reviewed and discussed with RN 10/09/2020 Patient seen and examined bedside conversing well with no neuro focal deficits. She does endorse some tingling on her shins and up to her knee. Her strength was not assessed but she is wiggling her toes and lifting her leg appropriately. Okay for transfer to the [facility] telemetry floor. Patient's chart, labs, images were reviewed and discussed with RN 10/08/2020 Patient seen and examined in the postop recovery area Discussed the case with Dr. Stahl and his nurse practitioner (appreciate their rapid intervention) Patient just got out of surgery and had a T [address] Stahl performed a thoracic laminectomy He would like to continue steroids for another day Discussed with RN Chart reviewed Patient is going to ICU room 110 HPI: The patient is a pleasant 50-year-old female who has been to the ER a couple times in the past few days. Today, she presents with some abdominal pains on the right, it is radiating to her back. She was seen here on , was diagnosed with a back strain, was sent home with someantispasmodics and pain meds. She then came back on the , was diagnosed with pyelonephritis, started on Keflex and Pyridium. Now, she presents with abdominal pain, but she in the last few hours has now developed lower extremity weakness and numbness. She does admit to decreased urination and increasing back pain rated at 10/10. She increased her home meds, but that did not seem tohelp. Moving makes it worse, sitting still makes it better. She does have a past history of a herniated disk with her surgical repair of C4-C5 six years ago. I discussed the case with ER physician. I have examined the patient. We are concerned that she is developing progressive weakness. She also has a sed rate of greater than 130. Her C-reactive protein is 310. We also have a blood culture that just came back from one of her recent visits to the ER, it does show some Gram-positive cocci. We are going to put the patient on IV antibiotics including Rocephin and vancomycin. I am considering starting some steroids. We are consulting Dr. Preston to see if he would agree. He would like to get an MRI of the lower back as well. 10/07: Patient seen and examined. Endorses decreased pain since admission. Endorses moving around better and says she is feeling much better. Consulted with RN. Karon salgado. Vitals/I&O Vitals/I&O: Vital Signs Date Time Temp Pulse Resp B/P (MAP) Pulse Ox O2 Delivery O2 Flow Rate FiO2 10/12/20 11:21 Room Air 10/12/20 08:42 98 163/108 10/12/20 07:00 97.9 20 97 97.9 I & O 10/11/20 10/11/20 10/12/20 15:00 23:00 07:00 Intake Total 500 ml Output Total 3800 ml 1820 ml Balance -3800 ml -1320 ml Physical Exam Physical Exam: GENERAL: Alert, oriented x 3, pleasant female, lying in bed comfortably, in no acute distress. HEENT: Normocephalic, atraumatic. Anicteric. NECK: Supple, no JVD. LUNGS: Decreased breath sounds at the bases, otherwise clear. No accessory muscle use. HEART: S1, S2. ABDOMEN: Soft, nontender, nondistended, no rebound, no guarding. EXTREMITIES no edema, kendra hose present ble BACK:: Postoperative dressing with drain in place, not taken down. DERMATOLOGIC: Visualized area. No generalized rash. Multiple scars present from previous eczema. Mole over the left upper lip, looks well healed. NEUROLOGIC: Alert, oriented x 3, able to move all 4 extremities. Gait and stance not examined. PSYCHIATRIC: Calm and cooperative. General: Alert, Oriented X3, Cooperative, No acute distress Heart: Regular rate, Normal S1, Normal S2 Lungs: Clear Abdomen: Other (She has decreased bowel sounds) Extremities: No clubbing, No cyanosis, No edema Skin: Other (Dressing C,D, I , flat. drain in place 120 cc out total) Labs Labs: Laboratory Tests Test 10/12/20 05:40 White Blood Count 12.6 x10^3/uL (4.0-11.0) Red Blood Count 3.55 x10^6/uL (3.50-5.40) Hemoglobin 10.5 g/dL (12.0-15.5) Hematocrit 30.9 % (36.0-47.0) Mean Corpuscular Volume 87 fL (79-100) Mean Corpuscular Hemoglobin 30 pg (25-35) Mean Corpuscular Hemoglobin Concent 34 g/dL (31-37) Red Cell Distribution Width 13.2 % (11.5-14.5) Platelet Count 439 x10^3/uL (140-400) Neutrophils (%) (Auto) 53 % (31-73) Lymphocytes (%) (Auto) 36 % (24-48) Monocytes (%) (Auto) 9 % (0-9) Eosinophils (%) (Auto) 2 % (0-3) Basophils (%) (Auto) 0 % (0-3) Neutrophils # (Auto) 6.7 x10^3/uL (1.8-7.7) Lymphocytes # (Auto) 4.5 x10^3/uL (1.0-4.8) Monocytes # (Auto) 1.1 x10^3/uL (0.0-1.1) Eosinophils # (Auto) 0.3 x10^3/uL (0.0-0.7) Basophils # (Auto) 0.0 x10^3/uL (0.0-0.2) Sodium Level 138 mmol/L (136-145) Potassium Level 4.3 mmol/L (3.5-5.1) Chloride Level 100 mmol/L (98-107) Carbon Dioxide Level 33 mmol/L (21-32) Anion Gap 5 (6-14) Blood Urea Nitrogen 11 mg/dL (7-20) Creatinine 0.9 mg/dL (0.6-1.0) Estimated GFR (Cockcroft-Gault) 66.5 BUN/Creatinine Ratio 12 (6-20) Glucose Level 116 mg/dL (70-99) Calcium Level 8.8 mg/dL (8.5-10.1) Total Bilirubin 0.8 mg/dL (0.2-1.0) Aspartate Amino Transf (AST/SGOT) 15 U/L (15-37) Alanine Aminotransferase (ALT/SGPT) 39 U/L (14-59) Alkaline Phosphatase 131 U/L (46-116) Total Protein 6.5 g/dL (6.4-8.2) Albumin 2.4 g/dL (3.4-5.0) Albumin/Globulin Ratio 0.6 (1.0-1.7) Assessment and Plan Assessmemt and Plan Problems Medical Problems: (1) Abdominal pain Status: Acute (2) Low back pain Status: Acute (3) Lower extremity numbness Status: Acute (4) Lower extremity weakness Status: Acute (5) Positive blood culture Status: Acute (6) Pyelonephritis Status: Acute Comment Review of Relevant I have reviewed the following items leticia (where applicable) has been applied. Justifications for Admission Other Justification MANN SWEENEY MD Oct 12, 2020 11:32
[2020-10-12] MEDS: IV RINGERS,LACTATED 1000ML 1,000 ML IV SCH ×2 (12:15→22:15)
[2020-10-12 15:00] VITALS: BP 125/72
[2020-10-12] MEDS ORDERED: HYDROmorphone 2 MG/ML VIAL IM ONE (15:00)
[2020-10-12 19:00] VITALS: BP 131/75
[2020-10-12] MEDS: tiZANidine 4 MG TABLET. PO SCH (21:00)
[2020-10-12 23:00] VITALS: BP 130/89
[2020-10-13] MEDS: NAFCILLIN 2 GM in IV DEXTROSE 5% 100ML 100 ML IV SCH ×6 (00:14→20:35)
[2020-10-13] MEDS: LACTOBACILLUS RHAMNOSUS GG 1 CAPSULE. PO SCH ×3 (00:15→20:35)
[2020-10-13] MEDS: VENLAFAXINE XR 37.5 MG CAP.ER.24H. PO SCH ×3 (00:15→20:35)
[2020-10-13] MEDS: CYCLOBENZAPRINE 10 MG TABLET. PO SCH ×2 (00:15→20:35)
[2020-10-13] MEDS: HYDROcodone/APAP 5/325MG 1 TAB TABLET PO PRN ×3 (00:16→19:48)
[2020-10-13 03:00] VITALS: BP 143/86
[2020-10-13] MEDS: fentaNYL PF VIAL 100 MCG/2 ML VIAL IVP PRN ×4 (04:19→20:27)
[2020-10-13 07:00] VITALS: BP 160/99
[2020-10-13 07:04] LABS: ALBUMIN 2.4 g/dL (3.4-5.0); ALBUMIN/GLOBULIN RATIO 0.6 (1.0-1.7); CALCIUM 8.9 mg/dL (8.5-10.1); CREATININE 0.8 mg/dL (0.6-1.0); GFR 76.2; POTASSIUM 4.2 mmol/L (3.5-5.1); TOTAL BILIRUBIN 0.7 mg/dL (0.2-1.0); TOTAL PROTEIN 6.5 g/dL (6.4-8.2)
[2020-10-13 07:33] LABS: BASO % 0 % (0-3); EOS # 0.3 x10^3/uL (0.0-0.7); EOS % 3 % (0-3); HEMATOCRIT 30.7 % (36.0-47.0); HEMOGLOBIN 10.7 g/dL (12.0-15.5); LYMPH # 3.8 x10^3/uL (1.0-4.8); LYMPH % 33 % (24-48); MEAN CORPUSCULAR HEMOGLOBIN 30 pg (25-35); MEAN CORPUSCULAR HGB CONC 35 g/dL (31-37); MEAN CORPUSCULAR VOLUME 87 fL (79-100); MONO # 0.9 x10^3/uL (0.0-1.1); MONO % 8 % (0-9); NEUT # 6.5 x10^3/uL (1.8-7.7); NEUT % 56 % (31-73); PLATELET COUNT 453 x10^3/uL (140-400); RED BLOOD COUNT 3.52 x10^6/uL (3.50-5.40); RED CELL DISTRIBUTION WIDTH 13.4 % (11.5-14.5); WHITE BLOOD COUNT 11.6 x10^3/uL (4.0-11.0)
--- NOTE | 2020-10-13 07:41 | PDOC ---
Infectious Disease Note Subjective Subjective pt is feeling good, no complaints no incontinence walking little better ROS ROS no n/v/d/ Vital Sign Vital Signs Vital Signs Date Time Temp Pulse Resp B/P (MAP) Pulse Ox O2 Delivery O2 Flow Rate FiO2 10/13/20 04:50 20 97 Room Air 10/13/20 03:00 98.0 88 143/86 (105) 98.0 Physical Exam PHYSICAL EXAM GENERAL: Alert, oriented x 3, pleasant female, lying in bed comfortably, in no acute distress. HEENT: Normocephalic, atraumatic. Anicteric. NECK: Supple, no JVD. LUNGS: Decreased breath sounds at the bases, otherwise clear. No accessory muscle use. HEART: S1, S2. ABDOMEN: Soft, nontender, nondistended, no rebound, no guarding. EXTREMITIES no edema, kendra hose present ble BACK:: Postoperative dressing with drain in place, not taken down. DERMATOLOGIC: Visualized area. No generalized rash. Multiple scars present from previous eczema. Mole over the left upper lip, looks well healed. NEUROLOGIC: Alert, oriented x 3, able to move all 4 extremities. Gait and stance not examined. PSYCHIATRIC: Calm and cooperative. Labs Lab Laboratory Tests Test 10/13/20 06:10 Sodium Level 136 mmol/L (136-145) Potassium Level 4.2 mmol/L (3.5-5.1) Chloride Level 100 mmol/L (98-107) Carbon Dioxide Level 31 mmol/L (21-32) Anion Gap 5 (6-14) Blood Urea Nitrogen 9 mg/dL (7-20) Creatinine 0.8 mg/dL (0.6-1.0) Estimated GFR (Cockcroft-Gault) 76.2 BUN/Creatinine Ratio 11 (6-20) Glucose Level 119 mg/dL (70-99) Calcium Level 8.9 mg/dL (8.5-10.1) Total Bilirubin 0.7 mg/dL (0.2-1.0) Aspartate Amino Transf (AST/SGOT) 8 U/L (15-37) Alanine Aminotransferase (ALT/SGPT) 24 U/L (14-59) Alkaline Phosphatase 124 U/L (46-116) Total Protein 6.5 g/dL (6.4-8.2) Albumin 2.4 g/dL (3.4-5.0) Albumin/Globulin Ratio 0.6 (1.0-1.7) Micro Objective Assessment Sepsis from Gram positive bacteremia Methicillin sensitive staph aureus bacteremia October 04,,,, 10/09 and 10/10 neg MSSA Thoracic dorsal epidural abscess T3-T4 to T10-T10 - status post T4-T10 laminectomy with removal of epidural mass/abscess and placement of drain, cultures MSSA ESR of 130. CRP of 310. Staph aureus urinary tract infection, MSSA. Leukocytosis. Abnormal LFTs, could be from sepsis. Also has hepatic steatosis hepatitis profile negative. History of eczema, on immunosuppression. History of C4-C5 herniated disk. Paresthesia affecting lower extremity, likely from epidural abscess, improving. Urinary retention, status post Gardiner placement. Anemia, acute blood loss. Diarrhea Plan Plan of Care picc d/c to rehab/snf Nafcillin f/u with ID in 2 wks wkly cbc, bun/cr, sed rate and crp FRANCISCO RENO MD Oct 13, 2020 07:41
[2020-10-13] MEDS: IV RINGERS,LACTATED 1000ML 1,000 ML IV SCH ×2 (08:15→18:15)
--- NOTE | 2020-10-13 08:49 | PDOC ---
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 Positive for MSSA Recent pyelonephritis History of anterior cervical discectomy and fusion C4-C6 Restless leg syndrome Methicillin sensitive staph aureus bacteremia October 04,,,, 10/09 and 10/10 neg Plan Rehabilitation modalities, needs inpatient rehab Discontinuation of Gardiner, DVT prophylaxis per neurosurgery and internal medicine Tapered steroids Start pramipexole which helped her in the past Subjective Restless leg syndrome still a problem. Pain is 4/10. Still has Gardiner in Objective Vital Signs Date Time Temp Pulse Resp B/P (MAP) Pulse Ox O2 Delivery O2 Flow Rate FiO2 10/13/20 04:50 20 97 Room Air 10/13/20 03:00 98.0 88 143/86 (105) 98.0 Intake and Output 10/13/20 07:00 Intake Total 550 ml Output Total 1600 ml Balance -1050 ml Intake Oral 250 ml IV Total 300 ml Output Urine Total 1600 ml PHYSICAL EXAM Alert. Oriented to time, place and person. PERRL. EOMI. CN: no focal findings. Muscle tone: normal. Muscle strength: 5/5 arms, 4/5 legs DTR: 2+ Plantar reflex: Flexor Gait: not examined in bed. Sensory exam: no abnormal findings. No longer has T10 level. No cerebellar signs elicited. Review of Relevant I have reviewed the following items leticia (where applicable) has been applied. Labs Laboratory Tests Test 10/12/20 05:40 10/13/20 06:10 White Blood Count 12.6 x10^3/uL (4.0-11.0) 11.6 x10^3/uL (4.0-11.0) Red Blood Count 3.55 x10^6/uL (3.50-5.40) 3.52 x10^6/uL (3.50-5.40) Hemoglobin 10.5 g/dL (12.0-15.5) 10.7 g/dL (12.0-15.5) Hematocrit 30.9 % (36.0-47.0) 30.7 % (36.0-47.0) Mean Corpuscular Volume 87 fL (79-100) 87 fL (79-100) Mean Corpuscular Hemoglobin 30 pg (25-35) 30 pg (25-35) Mean Corpuscular Hemoglobin Concent 34 g/dL (31-37) 35 g/dL (31-37) Red Cell Distribution Width 13.2 % (11.5-14.5) 13.4 % (11.5-14.5) Platelet Count 439 x10^3/uL (140-400) 453 x10^3/uL (140-400) Neutrophils (%) (Auto) 53 % (31-73) 56 % (31-73) Lymphocytes (%) (Auto) 36 % (24-48) 33 % (24-48) Monocytes (%) (Auto) 9 % (0-9) 8 % (0-9) Eosinophils (%) (Auto) 2 % (0-3) 3 % (0-3) Basophils (%) (Auto) 0 % (0-3) 0 % (0-3) Neutrophils # (Auto) 6.7 x10^3/uL (1.8-7.7) 6.5 x10^3/uL (1.8-7.7) Lymphocytes # (Auto) 4.5 x10^3/uL (1.0-4.8) 3.8 x10^3/uL (1.0-4.8) Monocytes # (Auto) 1.1 x10^3/uL (0.0-1.1) 0.9 x10^3/uL (0.0-1.1) Eosinophils # (Auto) 0.3 x10^3/uL (0.0-0.7) 0.3 x10^3/uL (0.0-0.7) Basophils # (Auto) 0.0 x10^3/uL (0.0-0.2) 0.0 x10^3/uL (0.0-0.2) Sodium Level 138 mmol/L (136-145) 136 mmol/L (136-145) Potassium Level 4.3 mmol/L (3.5-5.1) 4.2 mmol/L (3.5-5.1) Chloride Level 100 mmol/L (98-107) 100 mmol/L (98-107) Carbon Dioxide Level 33 mmol/L (21-32) 31 mmol/L (21-32) Anion Gap 5 (6-14) 5 (6-14) Blood Urea Nitrogen 11 mg/dL (7-20) 9 mg/dL (7-20) Creatinine 0.9 mg/dL (0.6-1.0) 0.8 mg/dL (0.6-1.0) Estimated GFR (Cockcroft-Gault) 66.5 76.2 BUN/Creatinine Ratio 12 (6-20) 11 (6-20) Glucose Level 116 mg/dL (70-99) 119 mg/dL (70-99) Calcium Level 8.8 mg/dL (8.5-10.1) 8.9 mg/dL (8.5-10.1) Total Bilirubin 0.8 mg/dL (0.2-1.0) 0.7 mg/dL (0.2-1.0) Aspartate Amino Transf (AST/SGOT) 15 U/L (15-37) 8 U/L (15-37) Alanine Aminotransferase (ALT/SGPT) 39 U/L (14-59) 24 U/L (14-59) Alkaline Phosphatase 131 U/L (46-116) 124 U/L (46-116) Total Protein 6.5 g/dL (6.4-8.2) 6.5 g/dL (6.4-8.2) Albumin 2.4 g/dL (3.4-5.0) 2.4 g/dL (3.4-5.0) Albumin/Globulin Ratio 0.6 (1.0-1.7) 0.6 (1.0-1.7) Laboratory Tests Test 10/13/20 06:10 White Blood Count 11.6 x10^3/uL (4.0-11.0) Red Blood Count 3.52 x10^6/uL (3.50-5.40) Hemoglobin 10.7 g/dL (12.0-15.5) Hematocrit 30.7 % (36.0-47.0) Mean Corpuscular Volume 87 fL (79-100) Mean Corpuscular Hemoglobin 30 pg (25-35) Mean Corpuscular Hemoglobin Concent 35 g/dL (31-37) Red Cell Distribution Width 13.4 % (11.5-14.5) Platelet Count 453 x10^3/uL (140-400) Neutrophils (%) (Auto) 56 % (31-73) Lymphocytes (%) (Auto) 33 % (24-48) Monocytes (%) (Auto) 8 % (0-9) Eosinophils (%) (Auto) 3 % (0-3) Basophils (%) (Auto) 0 % (0-3) Neutrophils # (Auto) 6.5 x10^3/uL (1.8-7.7) Lymphocytes # (Auto) 3.8 x10^3/uL (1.0-4.8) Monocytes # (Auto) 0.9 x10^3/uL (0.0-1.1) Eosinophils # (Auto) 0.3 x10^3/uL (0.0-0.7) Basophils # (Auto) 0.0 x10^3/uL (0.0-0.2) Sodium Level 136 mmol/L (136-145) Potassium Level 4.2 mmol/L (3.5-5.1) Chloride Level 100 mmol/L (98-107) Carbon Dioxide Level 31 mmol/L (21-32) Anion Gap 5 (6-14) Blood Urea Nitrogen 9 mg/dL (7-20) Creatinine 0.8 mg/dL (0.6-1.0) Estimated GFR (Cockcroft-Gault) 76.2 BUN/Creatinine Ratio 11 (6-20) Glucose Level 119 mg/dL (70-99) Calcium Level 8.9 mg/dL (8.5-10.1) Total Bilirubin 0.7 mg/dL (0.2-1.0) Aspartate Amino Transf (AST/SGOT) 8 U/L (15-37) Alanine Aminotransferase (ALT/SGPT) 24 U/L (14-59) Alkaline Phosphatase 124 U/L (46-116) Total Protein 6.5 g/dL (6.4-8.2) Albumin 2.4 g/dL (3.4-5.0) Albumin/Globulin Ratio 0.6 (1.0-1.7) Microbiology 10/10/20 Blood Culture - Preliminary, Resulted NO GROWTH AFTER 3 DAYS 10/08/20 Gram Stain - Final, Resulted 10/08/20 Aerobic and Anaerobic Culture - Preliminary, Resulted 10/08/20 Antimicrobic Susceptibility - Preliminary, Resulted Medications Current Medications Sodium Chloride 1,000 ml @ 1,000 mls/hr 1X ONCE IV Last administered on 10/06/20at 10:27; Start 10/06/20 at 09:45; Stop 10/06/20 at 10:44; Status DC Ketorolac Tromethamine (Toradol 30mg Vial) 30 mg 1X ONCE IVP Last administered on 10/06/20at 10:25; Start 10/06/20 at 10:00; Stop 10/06/20 at 10:01; Status DC Fentanyl Citrate (Fentanyl 2ml Vial) 75 mcg 1X ONCE IVP Last administered on 10/06/20at 10:25; Start 10/06/20 at 10:00; Stop 10/06/20 at 10:01; Status DC Ondansetron HCl (Zofran) 4 mg 1X ONCE IVP Last administered on 10/06/20at 12:10; Start 10/06/20 at 11:45; Stop 10/06/20 at 11:46; Status DC Hydromorphone HCl (Dilaudid) 1 mg 1X ONCE IVP Last administered on 10/06/20at 12:11; Start 10/06/20 at 11:45; Stop 10/06/20 at 11:46; Status DC Iohexol (Omnipaque 300 Mg/ml) 75 ml 1X ONCE IV Last administered on 10/06/20at 12:06; Start 10/06/20 at 12:00; Stop 10/06/20 at 12:01; Status DC Info (CONTRAST GIVEN -- Rx MONITORING) 1 each PRN DAILY PRN MC SEE COMMENTS; Start 10/06/20 at 12:00; Stop 10/08/20 at 11:59; Status DC Ceftriaxone Sodium (Rocephin) 1 gm 1X ONCE IVP Last administered on 10/06/20at 12:10; Start 10/06/20 at 12:30; Stop 10/06/20 at 12:31; Status DC Vancomycin HCl (Vanco Per Pharmacy) 1 each PRN DAILY PRN MC SEE COMMENTS Last administered on 10/08/20at 09:45; Start 10/06/20 at 14:00; Stop 10/08/20 at 09:55; Status DC Vancomycin HCl 2 gm/Sodium Chloride 500 ml @ 250 mls/hr 1X ONCE IV Last administered on 10/06/20at 14:17; Start 10/06/20 at 14:15; Stop 10/06/20 at 16:14; Status DC Sodium Chloride 1,000 ml @ 1,000 mls/hr 1X ONCE IV Last administered on 10/06/20at 14:54; Start 10/06/20 at 14:45; Stop 10/06/20 at 15:44; Status DC Metoclopramide HCl (Reglan Vial) 10 mg 1X ONCE IVP Last administered on at 14:54; Start 10/06/20 at 14:45; Stop 10/06/20 at 14:46; Status DC Hydromorphone HCl (Dilaudid) 1 mg 1X ONCE IVP Last administered on 10/06/20at 16:44; Start 10/06/20 at 16:45; Stop 10/06/20 at 16:46; Status DC Methylprednisolone Sodium Succinate (SOLU-Medrol 40MG VIAL) 40 mg Q12HR IV Last administered on 10/10/20at 09:00; Start 10/06/20 at 19:00; Stop 10/10/20 at 09:49; Status DC Vancomycin HCl 1.25 gm/Sodium Chloride 250 ml @ 167 mls/hr Q12H IV Last administered on 10/08/20at 02:38; Start 10/07/20 at 02:30; Stop 10/08/20 at 09:51; Status DC Vancomycin HCl (Vancomycin Trough Level) 1 each 1X ONCE MC ; Start 10/08/20 at 14:00; Stop 10/08/20 at 14:01; Status Cancel Atorvastatin Calcium (Lipitor) 10 mg DAILY PO Last administered on 10/12/20at 08:42; Start 10/07/20 at 09:00 Cyclobenzaprine HCl (Flexeril) 10 mg QHS PO Last administered on 10/13/20at 00:15; Start 10/06/20 at 22:00 Acetaminophen/ Hydrocodone Bitart (Lortab 5/325) 0.5 tab PRN Q6HRS PRN PO MODERATE PAIN; Start 10/06/20 at 21:45 Metoprolol Tartrate (Lopressor) 50 mg DAILY PO Last administered on 10/12/20 08:42; Start 10/07/20 at 09:00 Ondansetron HCl (Zofran Odt) 4 mg PRN Q6HRS PRN PO NAUSEA Last administered on 10/06/20 23:37; Start 10/06/20 at 21:45 Phenazopyridine HCl (Pyridium) 200 mg TID PO Last administered on 10/07/20 20:28; Start 10/06/20 at 22:30; Stop 10/09/20 at 08:05; Status DC Tizanidine HCl (Zanaflex) 4 mg QHS PO Last administered on 10/08/20 20:20; Start 10/06/20 at 22:00 Tramadol HCl (Ultram) 50 mg PRN Q6HRS PRN PO pain MILD 2ND CHOICE Last administered on 10/09/20 19:42; Start 10/06/20 at 21:45 Morphine Sulfate (Morphine Sulfate) 2 mg PRN Q2HR PRN IV PAIN Last administered on 10/07/20 00:22; Start 10/06/20 at 21:45; Stop 10/07/20 at 08:31; Status DC Cephalexin HCl (Keflex) 500 mg TID PO ; Start 10/06/20 at 22:30; Status Cancel Venlafaxine HCl (Effexor Xr) 37.5 mg BID PO Last administered on 10/13/20 00:15; Start 10/07/20 at 09:00 Acetaminophen/ Codeine Phosphate (Tylenol #3) 1 tab PRN Q4HRS PRN PO MILD PAIN 1-3 Last administered on 10/12/20at 11:21; Start 10/06/20 at 22:30 Acetaminophen/ Hydrocodone Bitart (Lortab 5/325) 1 tab PRN Q6HRS PRN PO SEVERE PAIN Last administered on 10/13/20 00:16; Start 10/06/20 at 22:00 Diazepam (Valium) 10 mg PRN 1X PRN PO [employer] FOR MRI, MRX1 Last administered on 10/07/20at 13:42; Start 10/07/20 at 09:00; Stop 10/07/20 at 23:00; Status DC Fentanyl Citrate (Fentanyl 2ml Vial) 50 mcg PRN Q2HR PRN IVP PAIN Last administered on 10/13/20at 04:19; Start 10/07/20 at 08:30 Lactobacillus Rhamnosus (Culturelle) 1 cap BID PO Last administered on 10/13/20at 00:15; Start 10/07/20 at 21:00 Ceftriaxone Sodium (Rocephin) 2 gm Q24H IVP Last administered on 10/07/20at 12:26; Start 10/07/20 at 12:00; Stop 10/08/20 at 09:51; Status DC Pantoprazole Sodium (Protonix) 40 mg DAILYAC PO Last administered on 10/12/20at 08:41; Start 10/07/20 at 12:00 Propofol (Diprivan) 200 mg STK-MED ONCE IV ; Start 10/08/20 at 06:33; Stop 10/08/20 at 06:33; Status DC Lidocaine HCl (Lidocaine Pf 2% Vial) 5 ml STK-MED ONCE .ROUTE ; Start 10/08/20 at 06:33; Stop 10/08/20 at 06:33; Status DC Dexamethasone Sodium Phosphate (Decadron) 4 mg STK-MED ONCE .ROUTE ; Start 10/08/20 at 06:33; Stop 10/08/20 at 06:33; Status DC Ondansetron HCl (Zofran) 4 mg STK-MED ONCE .ROUTE ; Start 10/08/20 at 06:33; Stop 10/08/20 at 06:33; Status DC Propofol 50 ml @ As Directed STK-MED ONCE IV ; Start 10/08/20 at 06:33; Stop 10/08/20 at 06:33; Status DC Phenylephrine HCl (PHENYLEPHRINE in 0.9% NACL PF) 1 mg STK-MED ONCE IV ; Start 10/08/20 at 06:33; Stop 10/08/20 at 06:34; Status DC Remifentanil HCl (Ultiva) 2 mg STK-MED ONCE IV ; Start 10/08/20 at 06:34; Stop 10/08/20 at 06:34; Status DC Rocuronium Endeavor (Zemuron) 50 mg STK-MED ONCE .ROUTE ; Start 10/08/20 at 06:38; Stop 10/08/20 at 06:38; Status DC Gelatin (Gelfoam Size 100) 1 each STK-MED ONCE .ROUTE Last administered on 10/08/20at 10:14; Start 10/08/20 at 06:58; Stop 10/08/20 at 06:58; Status DC Bupivacaine HCl/ Epinephrine Bitart (Sensorcain-Epi 0.5%-1:[id number] Mpf) 30 ml STK-MED ONCE .ROUTE Last administered on 10/08/20at 10:14; Start 10/08/20 at 06:58; Stop 10/08/20 at 06:58; Status DC Ketorolac Tromethamine (Toradol Im) 60 mg STK-MED ONCE .ROUTE Last administered on 10/08/20at 10:14; Start 10/08/20 at 06:58; Stop 10/08/20 at 06:59; Status DC Thrombin 20,000 unit STK-MED ONCE TP Last administered on 10/08/20at 10:14; Start 10/08/20 at 06:58; Stop 10/08/20 at 06:59; Status DC Cefazolin Sodium 1 gm/Sodium Chloride 1,000 ml @ 1,000 mls/hr 1X ONCE IRR Last administered on 10/08/20at 10:14; Start 10/08/20 at 08:00; Stop 10/08/20 at 08:59; Status DC Midazolam HCl (Versed) 2 mg STK-MED ONCE .ROUTE ; Start 10/08/20 at 08:13; Stop 10/08/20 at 08:14; Status DC Glycopyrrolate (Robinul) 1 mg STK-MED ONCE .ROUTE ; Start 10/08/20 at 08:13; St op 10/08/20 at 08:14; Status DC Ringer's Solution 1,000 ml @ 100 mls/hr Q10H IV Last administered on 10/11/20at 21:38; Start 10/08/20 at 08:15 Propofol 50 ml @ As Directed STK-MED ONCE IV ; Start 10/08/20 at 09:28; Stop 10/08/20 at 09:28; Status DC Nafcillin Sodium 2 gm/Dextrose 100 ml @ 200 mls/hr Q4HRS IV Last administered on 10/13/20at 04:20; Start 10/08/20 at 12:00 Metoprolol Tartrate (Lopressor Vial) 5 mg STK-MED ONCE IVP ; Start 10/08/20 at 10:40; Stop 10/08/20 at 10:40; Status DC Remifentanil HCl (Ultiva) 1 mg STK-MED ONCE IV ; Start 10/08/20 at 11:14; Stop 10/08/20 at 11:14; Status DC Sodium Chloride (SODIUM CHLORIDE 20ml) 20 ml STK-MED ONCE IJ ; Start 10/08/20 at 11:14; Stop 10/08/20 at 11:14; Status DC Daptomycin 490 mg/ Sodium Chloride 50 ml @ 100 mls/hr ONCE ONCE IV Last administered on 10/08/20at 15:19; Start 10/08/20 at 12:30; Stop 10/08/20 at 12:59; Status DC Propofol 50 ml @ As Directed STK-MED ONCE IV ; Start 10/08/20 at 11:24; Stop 10/08/20 at 11:25; Status DC Hydromorphone HCl (Dilaudid) 2 mg STK-MED ONCE .ROUTE ; Start 10/08/20 at 11:30; Stop 10/08/20 at 11:31; Status DC Neostigmine Endeavor (Neostigmine Methylsulfate) 5 mg STK-MED ONCE .ROUTE ; Start 10/08/20 at 12:22; Stop 10/08/20 at 12:22; Status DC Fentanyl Citrate (Fentanyl 2ml Vial) 100 mcg STK-MED ONCE .ROUTE ; Start 10/08/20 at 13:13; Stop 10/08/20 at 13:13; Status DC Fentanyl Citrate (Fentanyl 2ml Vial) 25 mcg PRN Q5MIN PRN IVP MILD PAIN 1-3; Start 10/08/20 at 13:30; Stop 10/09/20 at 13:29; Status DC Fentanyl Citrate (Fentanyl 2ml Vial) 50 mcg PRN Q5MIN PRN IVP MODERATE PAIN 4-6 Last administered on 10/08/20at 13:33; Start 10/08/20 at 13:30; Stop 10/09/20 at 07:39; Status DC Morphine Sulfate (Morphine Sulfate) 1 mg PRN Q10MIN PRN IVP SEVERE PAIN 7-10 Last administered on 10/08/20at 16:40; Start 10/08/20 at 13:30; Stop 10/09/20 at 07:39; Status DC Ringer's Solution 1,000 ml @ 30 mls/hr Q24H IV ; Start 10/08/20 at 13:30; Stop 10/09/20 at 01:29; Status DC Hydromorphone HCl (Dilaudid) 0.5 mg PRN Q10MIN PRN IVP SEVERE PAIN 7-10, 2nd CHOICE Last administered on 10/08/20at 14:50; Start 10/08/20 at 13:30; Stop 10/09/20 at 07:39; Status DC Prochlorperazine Edisylate (Compazine) 5 mg PACU PRN PRN IVP NAUSEA, MRX1; Start 10/08/20 at 13:30; Stop 10/09/20 at 13:29; Status DC Hydralazine HCl (Apresoline Inj) 20 mg STK-MED ONCE .ROUTE ; Start 10/08/20 at 13:31; Stop 10/08/20 at 13:31; Status DC Hydralazine HCl (Apresoline Inj) 10 mg 1X PRN PRN IVP hypertension Last administered on 10/11/20at 00:12; Start 10/08/20 at 13:45 Hydromorphone HCl (Dilaudid) 2 mg STK-MED ONCE .ROUTE ; Start 10/08/20 at 13:51; Stop 10/08/20 at 13:51; Status DC Bisacodyl (Dulcolax Supp) 10 mg PRN DAILY PRN [place] CONSTIPATION; Start 10/09/20 at 13:00 Bisacodyl (Dulcolax Tab) 10 mg DAILY PO Last administered on 10/10/20at 09:05; Start 10/09/20 at 13:00 Senna/Docusate Sodium (Senna Plus) 1 tab BID PO Last administered on 10/10/20at 09:06; Start 10/09/20 at 21:00 Sodium Monofluorophosphate (Fleet Adult) 133 ml DAILY PRN [place] CONSTIPATION, 2ND CHOICE [place]; Start 10/09/20 at 13:00 Lorazepam (Ativan) 1 mg PRN Q6HRS PRN PO ANXIETY / AGITATION Last administered on 10/13/20at 04:19; Start 10/10/20 at 02:00 Magnesium Citrate (Citroma) 296 ml PRN 1X PRN PO CONSTIPATION Last administered on 10/10/20at 09:42; Start 10/10/20 at 09:30 Ferrous Sulfate (Feosol) 325 mg DAILYWBKFT PO Last administered on 10/12/20at 08:41; Start 10/10/20 at 10:00 Ascorbic Acid (Vitamin C) 500 mg DAILY PO Last administered on 10/12/20at 08:41; Start 10/10/20 at 10:00 Methylprednisolone Sodium Succinate (SOLU-Medrol 40MG VIAL) 20 mg 1X ONCE IV Last administered on 10/11/20at 11:35; Start 10/11/20 at 09:00; Stop 10/11/20 at 09:01; Status DC Potassium Chloride (Klor-Con) 40 meq 1X ONCE PO Last administered on 10/11/20at 08:13; Start 10/11/20 at 08:00; Stop 10/11/20 at 08:01; Status DC Hydromorphone HCl (Dilaudid) 1 mg 1X ONCE IM Last administered on 10/12/20at 15:08; Start 10/12/20 at 15:00; Stop 10/12/20 at 15:01; Status DC Active Scripts Active Hydrocodone-Apap 5-325 (Hydrocodone Bit/Acetaminophen) 1 Tab Tablet 0.5-1 Tab PO PRN Q6HRS PRN Ondansetron Odt (Ondansetron) 4 Mg Tab.rapdis 1 Tab PO PRN Q6-8HRS PRN Pyridium (Phenazopyridine Hcl) 200 Mg Tablet 200 Mg PO TID 2 Days Cephalexin 500 Mg Tablet 1 Tab PO TID 7 Days Ultram (Tramadol Hcl) 50 Mg Tablet 1 Tab PO PRN Q6HRS PRN MDD 4 Tablet(s) 7 Days Cyclobenzaprine Hcl 10 Mg Tablet 1 Tab PO QHS Reported Acetaminophen-Cod #4 Tablet (Acetaminophen/Codeine Phosphate) 1 Each Tablet 1 Tab PO PRN Q4HRS PRN Venlafaxine Hcl Er (Venlafaxine Hcl) 75 Mg Cap.er.24h 1 Cap PO DAILY Tizanidine Hcl 4 Mg Tablet 1 Tab PO QHS Metoprolol Tartrate 50 Mg Tablet 1 Tab PO DAILY Atorvastatin Calcium 10 Mg Tablet 1 Tab PO DAILY Vitals/I & O Vital Sign - Last 24 Hours 10/12/20 10/12/20 10/12/20 10/12/20 09:11 09:49 10:19 11:00 Temp 97.9 97.9 Pulse 73 Resp 18 B/P (MAP) 129/72 (91) Pulse Ox 98 O2 Delivery Room Air Room Air Room Air Room Air 10/12/20 10/12/20 10/12/20 10/12/20 11:21 11:51 14:17 14:47 O2 Delivery Room Air Room Air Room Air Room Air 10/12/20 10/12/20 10/12/20 10/12/20 15:00 15:08 15:38 16:39 Temp 98.3 98.3 Pulse 92 Resp 18 B/P (MAP) 125/72 (89) Pulse Ox 98 O2 Delivery Room Air Room Air Room Air Room Air 10/12/20 10/12/20 10/12/20 10/12/20 17:09 19:00 20:00 20:26 Temp 98.1 98.1 Pulse 89 Resp 17 B/P (MAP) 131/75 (93) Pulse Ox 99 O2 Delivery Room Air Room Air Room Air Room Air 10/12/20 10/12/20 10/13/20 10/13/20 20:56 23:00 00:16 00:46 Temp 97.9 97.9 Pulse 98 Resp 18 16 18 18 B/P (MAP) 130/89 (103) Pulse Ox 99 98 99 99 O2 Delivery Room Air Room Air Room Air Room Air 10/13/20 10/13/20 10/13/20 03:00 04:19 04:50 Temp 98.0 98.0 Pulse 88 Resp 18 20 20 B/P (MAP) 143/86 (105) Pulse Ox 97 97 97 O2 Delivery Room Air Room Air Room Air Intake and Output 10/12/20 10/12/20 10/13/20 15:00 23:00 07:00 Intake Total 150 ml 400 ml Output Total 1600 ml Balance 150 ml -1200 ml Justicifation of Admission Dx: Justifications for Admission: Justification of Admission Dx: Yes VINCENT DOMINGUEZ MD Oct 13, 2020 08:49
[2020-10-13] MEDS: SENNOSIDES/DOCUSATE 8.6/50MG TABLET. PO SCH ×2 (09:00→20:36)
[2020-10-13] MEDS: BISACODYL 5 MG TABLET.DR. PO SCH (09:00)
--- NOTE | 2020-10-13 09:23 | PDOC ---
PROGRESS NOTES Date of Service DATE: 10/13/20 TIME: 09:18 Subjective Subjective No new complaints, Objective Objective Vital Signs Date Time Temp Pulse Resp B/P (MAP) Pulse Ox O2 Delivery O2 Flow Rate FiO2 10/13/20 07:00 97.7 102 18 160/99 (119) 96 Room Air 97.7 10/10/20 19:05 8.0 Intake and Output 10/13/20 07:00 Intake Total 550 ml Output Total 1600 ml Balance -1050 ml Intake Oral 250 ml IV Total 300 ml Output Urine Total 1600 ml Physical Exam Physical Exam She is alert,supine in bed with head end propped up and no change with her neurological status and she continues to require 2 person assistance for transfers. Indwelling Gardiner catheter in place. Assessment Assessment Problems Medical Problems: (1) Abdominal pain Status: Acute (2) Low back pain Status: Acute (3) Lower extremity numbness Status: Acute (4) Lower extremity weakness Status: Acute (5) Positive blood culture Status: Acute (6) Pyelonephritis Status: Acute Plan Plan of Care To continue present rehab efforts and to rehab unit when medically stable and to give another trial at voiding if she can transfer with one person assistance. Comment Review of Relevant I have reviewed the following items leticia (where applicable) has been applied. Labs Laboratory Tests Test 10/12/20 05:40 10/13/20 06:10 White Blood Count 12.6 x10^3/uL (4.0-11.0) 11.6 x10^3/uL (4.0-11.0) Red Blood Count 3.55 x10^6/uL (3.50-5.40) 3.52 x10^6/uL (3.50-5.40) Hemoglobin 10.5 g/dL (12.0-15.5) 10.7 g/dL (12.0-15.5) Hematocrit 30.9 % (36.0-47.0) 30.7 % (36.0-47.0) Mean Corpuscular Volume 87 fL (79-100) 87 fL (79-100) Mean Corpuscular Hemoglobin 30 pg (25-35) 30 pg (25-35) Mean Corpuscular Hemoglobin Concent 34 g/dL (31-37) 35 g/dL (31-37) Red Cell Distribution Width 13.2 % (11.5-14.5) 13.4 % (11.5-14.5) Platelet Count 439 x10^3/uL (140-400) 453 x10^3/uL (140-400) Neutrophils (%) (Auto) 53 % (31-73) 56 % (31-73) Lymphocytes (%) (Auto) 36 % (24-48) 33 % (24-48) Monocytes (%) (Auto) 9 % (0-9) 8 % (0-9) Eosinophils (%) (Auto) 2 % (0-3) 3 % (0-3) Basophils (%) (Auto) 0 % (0-3) 0 % (0-3) Neutrophils # (Auto) 6.7 x10^3/uL (1.8-7.7) 6.5 x10^3/uL (1.8-7.7) Lymphocytes # (Auto) 4.5 x10^3/uL (1.0-4.8) 3.8 x10^3/uL (1.0-4.8) Monocytes # (Auto) 1.1 x10^3/uL (0.0-1.1) 0.9 x10^3/uL (0.0-1.1) Eosinophils # (Auto) 0.3 x10^3/uL (0.0-0.7) 0.3 x10^3/uL (0.0-0.7) Basophils # (Auto) 0.0 x10^3/uL (0.0-0.2) 0.0 x10^3/uL (0.0-0.2) Sodium Level 138 mmol/L (136-145) 136 mmol/L (136-145) Potassium Level 4.3 mmol/L (3.5-5.1) 4.2 mmol/L (3.5-5.1) Chloride Level 100 mmol/L (98-107) 100 mmol/L (98-107) Carbon Dioxide Level 33 mmol/L (21-32) 31 mmol/L (21-32) Anion Gap 5 (6-14) 5 (6-14) Blood Urea Nitrogen 11 mg/dL (7-20) 9 mg/dL (7-20) Creatinine 0.9 mg/dL (0.6-1.0) 0.8 mg/dL (0.6-1.0) Estimated GFR (Cockcroft-Gault) 66.5 76.2 BUN/Creatinine Ratio 12 (6-20) 11 (6-20) Glucose Level 116 mg/dL (70-99) 119 mg/dL (70-99) Calcium Level 8.8 mg/dL (8.5-10.1) 8.9 mg/dL (8.5-10.1) Total Bilirubin 0.8 mg/dL (0.2-1.0) 0.7 mg/dL (0.2-1.0) Aspartate Amino Transf (AST/SGOT) 15 U/L (15-37) 8 U/L (15-37) Alanine Aminotransferase (ALT/SGPT) 39 U/L (14-59) 24 U/L (14-59) Alkaline Phosphatase 131 U/L (46-116) 124 U/L (46-116) Total Protein 6.5 g/dL (6.4-8.2) 6.5 g/dL (6.4-8.2) Albumin 2.4 g/dL (3.4-5.0) 2.4 g/dL (3.4-5.0) Albumin/Globulin Ratio 0.6 (1.0-1.7) 0.6 (1.0-1.7) Laboratory Tests Test 10/13/20 06:10 White Blood Count 11.6 x10^3/uL (4.0-11.0) Red Blood Count 3.52 x10^6/uL (3.50-5.40) Hemoglobin 10.7 g/dL (12.0-15.5) Hematocrit 30.7 % (36.0-47.0) Mean Corpuscular Volume 87 fL (79-100) Mean Corpuscular Hemoglobin 30 pg (25-35) Mean Corpuscular Hemoglobin Concent 35 g/dL (31-37) Red Cell Distribution Width 13.4 % (11.5-14.5) Platelet Count 453 x10^3/uL (140-400) Neutrophils (%) (Auto) 56 % (31-73) Lymphocytes (%) (Auto) 33 % (24-48) Monocytes (%) (Auto) 8 % (0-9) Eosinophils (%) (Auto) 3 % (0-3) Basophils (%) (Auto) 0 % (0-3) Neutrophils # (Auto) 6.5 x10^3/uL (1.8-7.7) Lymphocytes # (Auto) 3.8 x10^3/uL (1.0-4.8) Monocytes # (Auto) 0.9 x10^3/uL (0.0-1.1) Eosinophils # (Auto) 0.3 x10^3/uL (0.0-0.7) Basophils # (Auto) 0.0 x10^3/uL (0.0-0.2) Sodium Level 136 mmol/L (136-145) Potassium Level 4.2 mmol/L (3.5-5.1) Chloride Level 100 mmol/L (98-107) Carbon Dioxide Level 31 mmol/L (21-32) Anion Gap 5 (6-14) Blood Urea Nitrogen 9 mg/dL (7-20) Creatinine 0.8 mg/dL (0.6-1.0) Estimated GFR (Cockcroft-Gault) 76.2 BUN/Creatinine Ratio 11 (6-20) Glucose Level 119 mg/dL (70-99) Calcium Level 8.9 mg/dL (8.5-10.1) Total Bilirubin 0.7 mg/dL (0.2-1.0) Aspartate Amino Transf (AST/SGOT) 8 U/L (15-37) Alanine Aminotransferase (ALT/SGPT) 24 U/L (14-59) Alkaline Phosphatase 124 U/L (46-116) Total Protein 6.5 g/dL (6.4-8.2) Albumin 2.4 g/dL (3.4-5.0) Albumin/Globulin Ratio 0.6 (1.0-1.7) Microbiology 10/10/20 Blood Culture - Preliminary, Resulted NO GROWTH AFTER 3 DAYS 10/08/20 Gram Stain - Final, Resulted 10/08/20 Aerobic and Anaerobic Culture - Preliminary, Resulted 10/08/20 Antimicrobic Susceptibility - Preliminary, Resulted Medications Current Medications Sodium Chloride 1,000 ml @ 1,000 mls/hr 1X ONCE IV Last administered on 10/06/20at 10:27; Start 10/06/20 at 09:45; Stop 10/06/20 at 10:44; Status DC Ketorolac Tromethamine (Toradol 30mg Vial) 30 mg 1X ONCE IVP Last administered on 10/06/20at 10:25; Start 10/06/20 at 10:00; Stop 10/06/20 at 10:01; Status DC Fentanyl Citrate (Fentanyl 2ml Vial) 75 mcg 1X ONCE IVP Last administered on 10/06/20at 10:25; Start 10/06/20 at 10:00; Stop 10/06/20 at 10:01; Status DC Ondansetron HCl (Zofran) 4 mg 1X ONCE IVP Last administered on 10/06/20at 12:10; Start 10/06/20 at 11:45; Stop 10/06/20 at 11:46; Status DC Hydromorphone HCl (Dilaudid) 1 mg 1X ONCE IVP Last administered on 10/06/20at 12:11; Start 10/06/20 at 11:45; Stop 10/06/20 at 11:46; Status DC Iohexol (Omnipaque 300 Mg/ml) 75 ml 1X ONCE IV Last administered on 10/06/20at 12:06; Start 10/06/20 at 12:00; Stop 10/06/20 at 12:01; Status DC Info (CONTRAST GIVEN -- Rx MONITORING) 1 each PRN DAILY PRN MC SEE COMMENTS; Start 10/06/20 at 12:00; Stop 10/08/20 at 11:59; Status DC Ceftriaxone Sodium (Rocephin) 1 gm 1X ONCE IVP Last administered on 10/06/20at 12:10; Start 10/06/20 at 12:30; Stop 10/06/20 at 12:31; Status DC Vancomycin HCl (Vanco Per Pharmacy) 1 each PRN DAILY PRN MC SEE COMMENTS Last administered on 10/08/20at 09:45; Start 10/06/20 at 14:00; Stop 10/08/20 at 09:55; Status DC Vancomycin HCl 2 gm/Sodium Chloride 500 ml @ 250 mls/hr 1X ONCE IV Last administered on 10/06/20at 14:17; Start 10/06/20 at 14:15; Stop 10/06/20 at 16:14; Status DC Sodium Chloride 1,000 ml @ 1,000 mls/hr 1X ONCE IV Last administered on 10/06/20at 14:54; Start 10/06/20 at 14:45; Stop 10/06/20 at 15:44; Status DC Metoclopramide HCl (Reglan Vial) 10 mg 1X ONCE IVP Last administered on 10/06/20at 14:54; Start 10/06/20 at 14:45; Stop 10/06/20 at 14:46; Status DC Hydromorphone HCl (Dilaudid) 1 mg 1X ONCE IVP Last administered on 10/06/20at 16:44; Start 10/06/20 at 16:45; Stop 10/06/20 at 16:46; Status DC Methylprednisolone Sodium Succinate (SOLU-Medrol 40MG VIAL) 40 mg Q12HR IV Last administered on 10/10/20at 09:00; Start 10/06/20 at 19:00; Stop 10/10/20 at 09:49; Status DC Vancomycin HCl 1.25 gm/Sodium Chloride 250 ml @ 167 mls/hr Q12H IV Last administered on 10/08/20at 02:38; Start 10/07/20 at 02:30; Stop 10/08/20 at 09:51; Status DC Vancomycin HCl (Vancomycin Trough Level) 1 each 1X ONCE MC ; Start 10/08/20 at 14:00; Stop 10/08/20 at 14:01; Status Cancel Atorvastatin Calcium (Lipitor) 10 mg DAILY PO Last administered on 10/12/20at 08:42; Start 10/07/20 at 09:00 Cyclobenzaprine HCl (Flexeril) 10 mg QHS PO Last administered on 10/13/20at 00:15; Start 10/06/20 at 22:00 Acetaminophen/ Hydrocodone Bitart (Lortab 5/325) 0.5 tab PRN Q6HRS PRN PO MODERATE PAIN; Start 10/06/20 at 21:45 Metoprolol Tartrate (Lopressor) 50 mg DAILY PO Last administered on 10/12/20at 08:42; Start 10/07/20 at 09:00 Ondansetron HCl (Zofran Odt) 4 mg PRN Q6HRS PRN PO NAUSEA Last administered on 10/06/20at 23:37; Start 10/06/20 at 21:45 Phenazopyridine HCl (Pyridium) 200 mg TID PO Last administered on 10/07/20 20:28; Start 10/06/20 at 22:30; Stop 10/09/20 at 08:05; Status DC Tizanidine HCl (Zanaflex) 4 mg QHS PO Last administered on 10/08/20 20:20; Start 10/06/20 at 22:00 Tramadol HCl (Ultram) 50 mg PRN Q6HRS PRN PO pain MILD 2ND CHOICE Last administered on 10/09/20 19:42; Start 10/06/20 at 21:45 Morphine Sulfate (Morphine Sulfate) 2 mg PRN Q2HR PRN IV PAIN Last administered on 10/07/20 00:22; Start 10/06/20 at 21:45; Stop 10/07/20 at 08:31; Status DC Cephalexin HCl (Keflex) 500 mg TID PO ; Start 10/06/20 at 22:30; Status Cancel Venlafaxine HCl (Effexor Xr) 37.5 mg BID PO Last administered on 10/13/20 00:15; Start 10/07/20 at 09:00 Acetaminophen/ Codeine Phosphate (Tylenol #3) 1 tab PRN Q4HRS PRN PO MILD PAIN 1-3 Last administered on 10/12/20 11:21; Start 10/06/20 at 22:30 Acetaminophen/ Hydrocodone Bitart (Lortab 5/325) 1 tab PRN Q6HRS PRN PO SEVERE PAIN Last administered on 10/13/20 00:16; Start 10/06/20 at 22:00 Diazepam (Valium) 10 mg PRN 1X PRN PO ALCOHOLISM WORKER FOR MRI, MRX1 Last administered on 10/07/20 13:42; Start 10/07/20 at 09:00; Stop 10/07/20 at 23:00; Status DC Fentanyl Citrate (Fentanyl 2ml Vial) 50 mcg PRN Q2HR PRN IVP PAIN Last administered on 10/13/20 04:19; Start 10/07/20 at 08:30 Lactobacillus Rhamnosus (Culturelle) 1 cap BID PO Last administered on 10/13/20 00:15; Start 10/07/20 at 21:00 Ceftriaxone Sodium (Rocephin) 2 gm Q24H IVP Last administered on 8/24/21at 12:26; Start 10/07/20 at 12:00; Stop 10/08/20 at 09:51; Status DC Pantoprazole Sodium (Protonix) 40 mg DAILYAC PO Last administered on 10/12/20at 08:41; Start 10/07/20 at 12:00 Propofol (Diprivan) 200 mg STK-MED ONCE IV ; Start 10/08/20 at 06:33; Stop 10/08/20 at 06:33; Status DC Lidocaine HCl (Lidocaine Pf 2% Vial) 5 ml STK-MED ONCE .ROUTE ; Start 10/08/20 at 06:33; Stop 10/08/20 at 06:33; Status DC Dexamethasone Sodium Phosphate (Decadron) 4 mg STK-MED ONCE .ROUTE ; Start 10/08/20 at 06:33; Stop 10/08/20 at 06:33; Status DC Ondansetron HCl (Zofran) 4 mg STK-MED ONCE .ROUTE ; Start 10/08/20 at 06:33; Stop 10/08/20 at 06:33; Status DC Propofol 50 ml @ As Directed STK-MED ONCE IV ; Start 10/08/20 at 06:33; Stop 10/08/20 at 06:33; Status DC Phenylephrine HCl (PHENYLEPHRINE in 0.9% NACL PF) 1 mg STK-MED ONCE IV ; Start 10/08/20 at 06:33; Stop 10/08/20 at 06:34; Status DC Remifentanil HCl (Ultiva) 2 mg STK-MED ONCE IV ; Start 10/08/20 at 06:34; Stop 10/08/20 at 06:34; Status DC Rocuronium [place] (Zemuron) 50 mg STK-MED ONCE .ROUTE ; Start 10/08/20 at 06:38; Stop 10/08/20 at 06:38; Status DC Gelatin (Gelfoam Size 100) 1 each STK-MED ONCE .ROUTE Last administered on 10/08/20at 10:14; Start 10/08/20 at 06:58; Stop 10/08/20 at 06:58; Status DC Bupivacaine HCl/ Epinephrine Bitart (Sensorcain-Epi 0.5%-1:883710 Mpf) 30 ml STK-MED ONCE .ROUTE Last administered on 10/08/20at 10:14; Start 10/08/20 at 06:58; Stop 10/08/20 at 06:58; Status DC Ketorolac Tromethamine (Toradol Im) 60 mg STK-MED ONCE .ROUTE Last administered on 10/08/20at 10:14; Start 10/08/20 at 06:58; Stop 10/08/20 at 06:59; Status DC Thrombin 20,000 unit STK-MED ONCE TP Last administered on 10/08/20at 10:14; Start 10/08/20 at 06:58; Stop 10/08/20 at 06:59; Status DC Cefazolin Sodium 1 gm/Sodium Chloride 1,000 ml @ 1,000 mls/hr 1X ONCE IRR Last administered on 10/08/20at 10:14; Start 10/08/20 at 08:00; Stop 10/08/20 at 08:59; Status DC Midazolam HCl (Versed) 2 mg STK-MED ONCE .ROUTE ; Start 10/08/20 at 08:13; Stop 10/08/20 at 08:14; Status DC Glycopyrrolate (Robinul) 1 mg STK-MED ONCE .ROUTE ; Start 10/08/20 at 08:13; Stop 10/08/20 at 08:14; Status DC Ringer's Solution 1,000 ml @ 100 mls/hr Q10H IV Last administered on 10/11/20at 21:38; Start 10/08/20 at 08:15 Propofol 50 ml @ As Directed STK-MED ONCE IV ; Start 10/08/20 at 09:28; Stop 10/08/20 at 09:28; Status DC Nafcillin Sodium 2 gm/Dextrose 100 ml @ 200 mls/hr Q4HRS IV Last administered on 10/13/20at 04:20; Start 10/08/20 at 12:00 Metoprolol Tartrate (Lopressor Vial) 5 mg STK-MED ONCE IVP ; Start 10/08/20 at 10:40; Stop 10/08/20 at 10:40; Status DC Remifentanil HCl (Ultiva) 1 mg STK-MED ONCE IV ; Start 10/08/20 at 11:14; Stop 10/08/20 at 11:14; Status DC Sodium Chloride (SODIUM CHLORIDE 20ml) 20 ml STK-MED ONCE IJ ; Start 10/08/20 at 11:14; Stop 10/08/20 at 11:14; Status DC Daptomycin 490 mg/ Sodium Chloride 50 ml @ 100 mls/hr ONCE ONCE IV Last administered on 10/08/20at 15:19; Start 10/08/20 at 12:30; Stop 10/08/20 at 12:59; Status DC Propofol 50 ml @ As Directed STK-MED ONCE IV ; Start 10/08/20 at 11:24; Stop 10/08/20 at 11:25; Status DC Hydromorphone HCl (Dilaudid) 2 mg STK-MED ONCE .ROUTE ; Start 10/08/20 at 11:30; Stop 10/08/20 at 11:31; Status DC Neostigmine [place] (Neostigmine Methylsulfate) 5 mg STK-MED ONCE .ROUTE ; Start 10/08/20 at 12:22; Stop 10/08/20 at 12:22; Status DC Fentanyl Citrate (Fentanyl 2ml Vial) 100 mcg STK-MED ONCE .ROUTE ; Start 10/08/20 at 13:13; Stop 10/08/20 at 13:13; Status DC Fentanyl Citrate (Fentanyl 2ml Vial) 25 mcg PRN Q5MIN PRN IVP MILD PAIN 1-3; Start 10/08/20 at 13:30; Stop 10/09/20 at 13:29; Status DC Fentanyl Citrate (Fentanyl 2ml Vial) 50 mcg PRN Q5MIN PRN IVP MODERATE PAIN 4-6 Last administered on 10/08/20at 13:33; Start 10/08/20 at 13:30; Stop 10/09/20 at 07:39; Status DC Morphine Sulfate (Morphine Sulfate) 1 mg PRN Q10MIN PRN IVP SEVERE PAIN 7-10 Last administered on 10/08/20at 16:40; Start 10/08/20 at 13:30; Stop 10/09/20 at 07:39; Status DC Ringer's Solution 1,000 ml @ 30 mls/hr Q24H IV ; Start 10/08/20 at 13:30; Stop 10/09/20 at 01:29; Status DC Hydromorphone HCl (Dilaudid) 0.5 mg PRN Q10MIN PRN IVP SEVERE PAIN 7-10, 2nd CHOICE Last administered on 10/08/20at 14:50; Start 10/08/20 at 13:30; Stop 10/09/20 at 07:39; Status DC Prochlorperazine Edisylate (Compazine) 5 mg PACU PRN PRN IVP NAUSEA, MRX1; Start 10/08/20 at 13:30; Stop 10/09/20 at 13:29; Status DC Hydralazine HCl (Apresoline Inj) 20 mg STK-MED ONCE .ROUTE ; Start 10/08/20 at 13:31; Stop 10/08/20 at 13:31; Status DC Hydralazine HCl (Apresoline Inj) 10 mg 1X PRN PRN IVP hypertension Last administered on 10/11/20at 00:12; Start 10/08/20 at 13:45 Hydromorphone HCl (Dilaudid) 2 mg STK-MED ONCE .ROUTE ; Start 10/08/20 at 13:51; Stop 10/08/20 at 13:51; Status DC Bisacodyl (Dulcolax Supp) 10 mg PRN DAILY PRN [place] CONSTIPATION; Start 10/09/20 at 13:00 Bisacodyl (Dulcolax Tab) 10 mg DAILY PO Last administered on 10/10/20at 09:05; Start 10/09/20 at 13:00 Senna/Docusate Sodium (Senna Plus) 1 tab BID PO Last administered on 10/10/20at 09:06; Start 10/09/20 at 21:00 Sodium Monofluorophosphate (Fleet Adult) 133 ml DAILY PRN LA CONSTIPATION, 2ND CHOICE LA; Start 10/09/20 at 13:00 Lorazepam (Ativan) 1 mg PRN Q6HRS PRN PO ANXIETY / AGITATION Last administered on 10/13/20at 04:19; Start 10/10/20 at 02:00 Magnesium Citrate (Citroma) 296 ml PRN 1X PRN PO CONSTIPATION Last administered on 10/10/20at 09:42; Start 10/10/20 at 09:30 Ferrous Sulfate (Feosol) 325 mg DAILYWBKFT PO Last administered on 10/12/20at 08:41; Start 10/10/20 at 10:00 Ascorbic Acid (Vitamin C) 500 mg DAILY PO Last administered on 10/12/20at 08:41; Start 10/10/20 at 10:00 Methylprednisolone Sodium Succinate (SOLU-Medrol 40MG VIAL) 20 mg 1X ONCE IV Last administered on 10/11/20at 11:35; Start 10/11/20 at 09:00; Stop 10/11/20 at 09:01; Status DC Potassium Chloride (Klor-Con) 40 meq 1X ONCE PO Last administered on 10/11/20at 08:13; Start 10/11/20 at 08:00; Stop 10/11/20 at 08:01; Status DC Hydromorphone HCl (Dilaudid) 1 mg 1X ONCE IM Last administered on 10/12/20at 15:08; Start 10/12/20 at 15:00; Stop 10/12/20 at 15:01; Status DC Pramipexole Dihydrochloride (miraPEX) 0.25 mg QHS PO ; Start 10/13/20 at 21:00 Active Scripts Active Hydrocodone-Apap 5-325 (Hydrocodone Bit/Acetaminophen) 1 Tab Tablet 0.5-1 Tab PO PRN Q6HRS PRN Ondansetron Odt (Ondansetron) 4 Mg Tab.rapdis 1 Tab PO PRN Q6-8HRS PRN Pyridium (Phenazopyridine Hcl) 200 Mg Tablet 200 Mg PO TID 2 Days Cephalexin 500 Mg Tablet 1 Tab PO TID 7 Days Ultram (Tramadol Hcl) 50 Mg Tablet 1 Tab PO PRN Q6HRS PRN MDD 4 Tablet(s) 7 Days Cyclobenzaprine Hcl 10 Mg Tablet 1 Tab PO QHS Reported Acetaminophen-Cod #4 Tablet (Acetaminophen/Codeine Phosphate) 1 Each Tablet 1 Tab PO PRN Q4HRS PRN Venlafaxine Hcl Er (Venlafaxine Hcl) 75 Mg Cap.er.24h 1 Cap PO DAILY Tizanidine Hcl 4 Mg Tablet 1 Tab PO QHS Metoprolol Tartrate 50 Mg Tablet 1 Tab PO DAILY Atorvastatin Calcium 10 Mg Tablet 1 Tab PO DAILY Vitals/I & O Vital Sign - Last 24 Hours 10/12/20 10/12/20 10/12/20 10/12/20 09:49 10:19 11:00 11:21 Temp 97.9 97.9 Pulse 73 Resp 18 B/P (MAP) 129/72 (91) Pulse Ox 98 O2 Delivery Room Air Room Air Room Air Room Air 10/12/20 10/12/20 10/12/20 10/12/20 11:51 14:17 14:47 15:00 Temp 98.3 98.3 Pulse 92 Resp 18 B/P (MAP) 125/72 (89) Pulse Ox 98 O2 Delivery Room Air Room Air Room Air Room Air 10/12/20 10/12/20 10/12/20 10/12/20 15:08 15:38 16:39 17:09 O2 Delivery Room Air Room Air Room Air Room Air 10/12/20 10/12/20 10/12/20 10/12/20 19:00 20:00 20:26 20:56 Temp 98.1 98.1 Pulse 89 Resp 17 18 B/P (MAP) 131/75 (93) Pulse Ox 99 99 O2 Delivery Room Air Room Air Room Air Room Air 10/12/20 10/13/20 10/13/20 10/13/20 23:00 00:16 00:46 03:00 Temp 97.9 98.0 97.9 98.0 Pulse 98 88 Resp 16 18 18 18 B/P (MAP) 130/89 (103) 143/86 (105) Pulse Ox 98 99 99 97 O2 Delivery Room Air Room Air Room Air Room Air 10/13/20 10/13/20 10/13/20 04:19 04:50 07:00 Temp 97.7 97.7 Pulse 102 Resp 20 20 18 B/P (MAP) 160/99 (119) Pulse Ox 97 97 96 O2 Delivery Room Air Room Air Room Air Intake and Output 10/12/20 10/12/20 10/13/20 15:00 23:00 07:00 Intake Total 150 ml 400 ml Output Total 1600 ml Balance 150 ml -1200 ml Justifications for Admission Other Justification SHELBY RO MD Oct 13, 2020 09:23
[2020-10-13] MEDS: FERROUS SULFATE 325 MG TABLET. PO SCH (09:51)
[2020-10-13] MEDS: ATORVASTATIN CALCIUM 10 MG TABLET. PO SCH (09:51)
[2020-10-13] MEDS: METOPROLOL TART IMMED RELEASE 50 MG TABLET. PO SCH (09:52)
[2020-10-13] MEDS: PANTOPRAZOLE 40 MG TABLET.DR. PO SCH (09:52)
[2020-10-13] MEDS: ASCORBIC ACID 500 MG TABLET PO SCH (09:52)
[2020-10-13 11:00] VITALS: BP 132/83
--- NOTE | 2020-10-13 13:20 | PDOC ---
[employer] PROGRESS NOTE Date of Service DOS: DATE: 10/13/20 TIME: 13:12 Chief Complaint Chief Complaint Thoracic abscess with cord compression status post T4-T11 laminectomy 10/08/2020 Mid abdominal pain which radiates around the back, ongoing concern C4-C5 herniated disk repair Musculoskeletal back pain pyleonephritis mood disorder chronic neck pain hyperlipidemia MSSA bacteremia MSSA UTI History of Present Illness History of Present Illness No overnight events. On nafcillin per ID plan for PICC. Discharged to acute re hab. Still requiring Gardiner catheter for urinary retention greater than 600 cc. Having some back pain but she is able to sit up and eat lunch feeling herself visiting with family. 10/12: No acute events overnight. No concerns nursing. Continue PT OT mod alities. Gardiner still in place. Patient's chart, labs, images were reviewed and discussed with RN 10/11/2020 No acute events overnight. No new focal deficits. Patient seen and examined bedside. Gardiner catheter was replaced after bladder scan that was post void showed residual greater than 500. Will attempt bladder training before Gardiner is discontinued. Continue PT OT modalities and possible rehab placement on Tuesday. Patient's chart, labs, images were reviewed and discussed with RN 10/10/2020 No acute events overnight. No new focal neuro deficits. Gardiner was discontinued. Patient's bladder scan showed 400 cc. Will attempt observe at this time and straight catheter if needed if bladder scan is greater than 500 cc. The patient continues to retain urine will need to consider bladder training. Patient will need to continue rehab. Appreciate Dr. Leon recommendations. Bowel regimen was started for constipation. Patient's chart, labs, images were reviewed and discussed with RN 10/09/2020 Patient seen and examined bedside conversing well with no neuro focal deficits. She does endorse some tingling on her shins and up to her knee. Her strength was not assessed but she is wiggling her toes and lifting her leg appropriately. Okay for transfer to the [facility] telemetry floor. Patient's chart, labs, images were reviewed and discussed with RN 10/08/2020 Patient seen and examined in the postop recovery area Discussed the case with Dr. Stahl and his nurse practitioner (appreciate their rapid intervention) Patient just got out of surgery and had a T [address] Stahl performed a thoracic laminectomy He would like to continue steroids for another day Discussed with RN Chart reviewed Patient is going to ICU room 110 HPI: The patient is a pleasant 50-year-old female who has been to the ER a couple times in the past few days. Today, she presents with some abdominal ana ns on the right, it is radiating to her back. She was seen here on , was diagnosed with a back strain, was sent home with someantispasmodics and pain meds. She then came back on the , was diagnosed with pyelonephritis, started on Keflex and Pyridium. Now, she presents with abdominal pain, but she in the last few hours has now developed lower extremity weakness and numbness. She does admit to decreased urination and increasing back pain rated at 10/10. She increased her home meds, but that did not seem tohelp. Moving makes it worse, sitting still makes it better. She does have a past history of a herniated disk with her surgical repair of C4-C5 six years ago. I discussed the case with ER physician. I have examined the patient. We are concerned that she is developing progressive weakness. She also has a sed rate of greater than 130. Her C-reactive protein is 310. We also have a blood culture that just came back from one of her recent visits to the ER, it does show some Gram-positive cocci. We are going to put the patient on IV antibiotics including Rocephin and vancomycin. I am considering starting some steroids. We are consulting Dr. Preston to see if he would agree. He would like to get an MRI of the lower back as well. 10/07: Patient seen and examined. Endorses decreased pain since admission. Endorses moving around better and says she is feeling much better. Consulted with RN. Karon reviewed. Vitals/I&O Vitals/I&O: Vital Signs Date Time Temp Pulse Resp B/P (MAP) Pulse Ox O2 Delivery O2 Flow Rate FiO2 10/13/20 12:31 Room Air 10/13/20 11:00 97.9 111 18 132/83 (99) 95 97.9 I & O 10/12/20 10/12/20 10/13/20 15:00 23:00 07:00 Intake Total 150 ml 400 ml Output Total 1600 ml Balance 150 ml -1200 ml Physical Exam Physical Exam: GENERAL: Alert, oriented x 3, pleasant female, lying in bed comfortably, in no acute distress. HEENT: Normocephalic, atraumatic. Anicteric. NECK: Supple, no JVD. LUNGS: Decreased breath sounds at the bases, otherwise clear. No accessory muscle use. HEART: S1, S2. ABDOMEN: Soft, nontender, nondistended, no rebound, no guarding. EXTREMITIES no edema, kendra hose present ble BACK:: Postoperative dressing with drain in place, not taken down. DERMATOLOGIC: Visualized area. No generalized rash. Multiple scars present from previous eczema. Mole over the left upper lip, looks well healed. NEUROLOGIC: Alert, oriented x 3, able to move all 4 extremities. Gait and stance not examined. PSYCHIATRIC: Calm and cooperative. General: Alert, Oriented X3, Cooperative, No acute distress Heart: Regular rate, Normal S1, Normal S2 Lungs: Clear Abdomen: Other (She has decreased bowel sounds) Extremities: No clubbing, No cyanosis, No edema Skin: Other (Dressing C,D, I , flat. drain in place 120 cc out total) Labs Labs: Laboratory Tests Test 10/13/20 06:10 White Blood Count 11.6 x10^3/uL (4.0-11.0) Red Blood Count 3.52 x10^6/uL (3.50-5.40) Hemoglobin 10.7 g/dL (12.0-15.5) Hematocrit 30.7 % (36.0-47.0) Mean Corpuscular Volume 87 fL (79-100) Mean Corpuscular Hemoglobin 30 pg (25-35) Mean Corpuscular Hemoglobin Concent 35 g/dL (31-37) Red Cell Distribution Width 13.4 % (11.5-14.5) Platelet Count 453 x10^3/uL (140-400) Neutrophils (%) (Auto) 56 % (31-73) Lymphocytes (%) (Auto) 33 % (24-48) Monocytes (%) (Auto) 8 % (0-9) Eosinophils (%) (Auto) 3 % (0-3) Basophils (%) (Auto) 0 % (0-3) Neutrophils # (Auto) 6.5 x10^3/uL (1.8-7.7) Lymphocytes # (Auto) 3.8 x10^3/uL (1.0-4.8) Monocytes # (Auto) 0.9 x10^3/uL (0.0-1.1) Eosinophils # (Auto) 0.3 x10^3/uL (0.0-0.7) Basophils # (Auto) 0.0 x10^3/uL (0.0-0.2) Sodium Level 136 mmol/L (136-145) Potassium Level 4.2 mmol/L (3.5-5.1) Chloride Level 100 mmol/L (98-107) Carbon Dioxide Level 31 mmol/L (21-32) Anion Gap 5 (6-14) Blood Urea Nitrogen 9 mg/dL (7-20) Creatinine 0.8 mg/dL (0.6-1.0) Estimated GFR (Cockcroft-Gault) 76.2 BUN/Creatinine Ratio 11 (6-20) Glucose Level 119 mg/dL (70-99) Calcium Level 8.9 mg/dL (8.5-10.1) Total Bilirubin 0.7 mg/dL (0.2-1.0) Aspartate Amino Transf (AST/SGOT) 8 U/L (15-37) Alanine Aminotransferase (ALT/SGPT) 24 U/L (14-59) Alkaline Phosphatase 124 U/L (46-116) Total Protein 6.5 g/dL (6.4-8.2) Albumin 2.4 g/dL (3.4-5.0) Albumin/Globulin Ratio 0.6 (1.0-1.7) Assessment and Plan Assessmemt and Plan Problems Medical Problems: (1) Abdominal pain Status: Acute (2) Low back pain Status: Acute (3) Lower extremity numbness Status: Acute (4) Lower extremity weakness Status: Acute (5) Positive blood culture Status: Acute (6) Pyelonephritis Status: Acute Comment Review of Relevant I have reviewed the following items leticia (where applicable) has been applied. Medications: Current Medications Medications (Trade) Dose Ordered Sig/Aparna Route PRN Reason Start Time Stop Time Status Last Admin Dose Admin Hydromorphone HCl (Dilaudid) 1 mg 1X ONCE IM 10/12/20 15:00 10/12/20 15:01 DC 10/12/20 15:08 Justifications for Admission Other Justification BLAYNE IVY MD Oct 13, 2020 13:20
--- NOTE | 2020-10-13 14:53 | PDOC ---
Provider Note Date of Service: DATE: 10/13/20 TIME: 14:47 Provider Note Patient seen and examined at 1220 POD #5 s/p thoracic laminectomy and evacuation of epidural abscess pain well controlled, was able to walk a few steps with a walker strength improved, continues to have decreased sensation in lower extremities but improved evans in place dressing changed, incision healing well with derick intact, drain with SS drainage strength normal while sitting in chair, generalized decreased sensation in LE continue PT, rehab SCDs antibiotics per ID will follow Justifications for Admission Other Justification PRATIMA ARAYA MD Oct 13, 2020 14:53
[2020-10-13 15:00] VITALS: BP 101/69
--- NOTE | 2020-10-13 16:40 | PDOC ---
Provider Note Date of Service: DATE: 10/13/20 TIME: 16:39 Provider Note IR NOTE RUE Picc placed w/o issue. Also noted is superficial thrombophlebitis in the antecubital fossa with some redness, and palpable tenderness. Justifications for Admission Other Justification KAY WHITE MD Oct 13, 2020 16:40
[2020-10-13 19:00] VITALS: BP 123/80
--- NOTE | 2020-10-13 20:07 | NUR ---
Dr. Farah was notified about patient complained of Left upper Arm redness and swollen.
[2020-10-13] MEDS: tiZANidine 4 MG TABLET. PO SCH (20:36)
[2020-10-13] MEDS ORDERED: PRAMIPEXOLE 0.25 MG TABLET. PO SCH (21:00)
[2020-10-13 23:00] VITALS: BP 103/62
[2020-10-14] MEDS: NAFCILLIN 2 GM in IV DEXTROSE 5% 100ML 100 ML IV SCH ×5 (00:44→16:07)
[2020-10-14 03:00] VITALS: BP 103/64
[2020-10-14] MEDS: IV RINGERS,LACTATED 1000ML 1,000 ML IV SCH ×2 (04:46→14:15)
[2020-10-14 07:38] VITALS: BP 116/77
[2020-10-14] MEDS: fentaNYL PF VIAL 100 MCG/2 ML VIAL IVP PRN ×2 (08:10→12:06)
[2020-10-14] MEDS: FERROUS SULFATE 325 MG TABLET. PO SCH (08:12)
[2020-10-14] MEDS: ASCORBIC ACID 500 MG TABLET PO SCH (08:12)
[2020-10-14] MEDS: VENLAFAXINE XR 37.5 MG CAP.ER.24H. PO SCH (08:12)
[2020-10-14] MEDS: PANTOPRAZOLE 40 MG TABLET.DR. PO SCH (08:12)
[2020-10-14] MEDS: METOPROLOL TART IMMED RELEASE 50 MG TABLET. PO SCH (08:12)
[2020-10-14] MEDS: ATORVASTATIN CALCIUM 10 MG TABLET. PO SCH (08:12)
[2020-10-14] MEDS: LACTOBACILLUS RHAMNOSUS GG 1 CAPSULE. PO SCH (08:12)
[2020-10-14] MEDS: BISACODYL 5 MG TABLET.DR. PO SCH (08:14)
[2020-10-14] MEDS: SENNOSIDES/DOCUSATE 8.6/50MG TABLET. PO SCH (08:15)
--- NOTE | 2020-10-14 08:15 | PDOC ---
Infectious Disease Note Subjective Subjective pt is feeling good, no complaints no incontinence walking little better still has numbness in legs ROS ROS no n/v/d/sob Vital Sign Vital Signs Vital Signs Date Time Temp Pulse Resp B/P (MAP) Pulse Ox O2 Delivery O2 Flow Rate FiO2 10/14/20 07:38 98.1 91 18 116/77 (90) 94 Room Air 98.1 10/13/20 18:51 8.0 Physical Exam PHYSICAL EXAM GENERAL: Alert, oriented x 3, pleasant female, lying in bed comfortably, in no acute distress. HEENT: Normocephalic, atraumatic. Anicteric. NECK: Supple, no JVD. LUNGS: Decreased breath sounds at the bases, otherwise clear. No accessory muscle use. HEART: S1, S2. ABDOMEN: Soft, nontender, nondistended, no rebound, no guarding. EXTREMITIES no edema, kendra hose present ble BACK:: Postoperative dressing with drain in place, not taken down. DERMATOLOGIC: Visualized area. No generalized rash. Multiple scars present from previous eczema. Mole over the left upper lip, looks well healed. NEUROLOGIC: Alert, oriented x 3, able to move all 4 extremities. Gait and stance not examined. PSYCHIATRIC: Calm and cooperative. Labs Micro Objective Assessment Sepsis from Gram positive bacteremia Methicillin sensitive staph aureus bacteremia October 04,,,, 10/09 and 10/10 neg MSSA Thoracic dorsal epidural abscess T3-T4 to T10-T10 - status post T4-T10 laminectomy with removal of epidural mass/abscess and placement of drain, 10/08 cultures MSSA ESR of 130. CRP of 310. Staph aureus in urine, MSSA. Leukocytosis. Abnormal LFTs, could be from sepsis. Also has hepatic steatosis hepatitis profile negative. History of eczema, on immunosuppression. History of C4-C5 herniated disk. Paresthesia affecting lower extremity, likely from epidural abscess, improving. Urinary retention, status post Gardiner placement. Anemia, acute blood loss. Diarrhea Plan Plan of Care picc d/c to rehab/snf Nafcillin f/u with ID in 2 wks wkly cbc, bun/cr, sed rate and crp d/w pt about the further management , followups and complications FRANCISCO RENO MD Oct 14, 2020 08:15
--- NOTE | 2020-10-14 08:41 | PDOC ---
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 Positive for MSSA Recent pyelonephritis History of anterior cervical discectomy and fusion C4-C6 Restless leg syndrome Methicillin sensitive staph aureus bacteremia Plan Rehabilitation modalities, needs inpatient rehab Discontinuation of [place], DVT prophylaxis per neurosurgery and internal medicine Tapered steroids Started pramipexole for RLS Subjective She says it usually takes a while for the pramipexole to get into her system, no side effects Objective Vital Signs Date Time Temp Pulse Resp B/P (MAP) Pulse Ox O2 Delivery O2 Flow Rate FiO2 10/14/20 08:12 91 116/77 10/14/20 08:10 Room Air 10/14/20 07:38 98.1 18 94 98.1 10/13/20 18:51 8.0 Intake and Output 10/14/20 07:00 Intake Total 1200 ml Output Total 2990 ml Balance -1790 ml IV Total 1200 ml Output Urine Total 2950 ml Drainage Total 40 ml PHYSICAL EXAM Alert. Oriented to time, place and person. PERRL. EOMI. CN: no focal findings. Muscle tone: normal. Muscle strength: 5/5 arms, 4/5 legs DTR: 2+ Plantar reflex: Flexor Gait: not examined in bed. Sensory exam: no abnormal findings. No longer has T10 level. No cerebellar signs elicited. Review of Relevant I have reviewed the following items leticia (where applicable) has been applied. Labs Laboratory Tests Test 10/13/20 06:10 White Blood Count 11.6 x10^3/uL (4.0-11.0) Red Blood Count 3.52 x10^6/uL (3.50-5.40) Hemoglobin 10.7 g/dL (12.0-15.5) Hematocrit 30.7 % (36.0-47.0) Mean Corpuscular Volume 87 fL (79-100) Mean Corpuscular Hemoglobin 30 pg (25-35) Mean Corpuscular Hemoglobin Concent 35 g/dL (31-37) Red Cell Distribution Width 13.4 % (11.5-14.5) Platelet Count 453 x10^3/uL (140-400) Neutrophils (%) (Auto) 56 % (31-73) Lymphocytes (%) (Auto) 33 % (24-48) Monocytes (%) (Auto) 8 % (0-9) Eosinophils (%) (Auto) 3 % (0-3) Basophils (%) (Auto) 0 % (0-3) Neutrophils # (Auto) 6.5 x10^3/uL (1.8-7.7) Lymphocytes # (Auto) 3.8 x10^3/uL (1.0-4.8) Monocytes # (Auto) 0.9 x10^3/uL (0.0-1.1) Eosinophils # (Auto) 0.3 x10^3/uL (0.0-0.7) Basophils # (Auto) 0.0 x10^3/uL (0.0-0.2) Sodium Level 136 mmol/L (136-145) Potassium Level 4.2 mmol/L (3.5-5.1) Chloride Level 100 mmol/L (98-107) Carbon Dioxide Level 31 mmol/L (21-32) Anion Gap 5 (6-14) Blood Urea Nitrogen 9 mg/dL (7-20) Creatinine 0.8 mg/dL (0.6-1.0) Estimated GFR (Cockcroft-Gault) 76.2 BUN/Creatinine Ratio 11 (6-20) Glucose Level 119 mg/dL (70-99) Calcium Level 8.9 mg/dL (8.5-10.1) Total Bilirubin 0.7 mg/dL (0.2-1.0) Aspartate Amino Transf (AST/SGOT) 8 U/L (15-37) Alanine Aminotransferase (ALT/SGPT) 24 U/L (14-59) Alkaline Phosphatase 124 U/L (46-116) Total Protein 6.5 g/dL (6.4-8.2) Albumin 2.4 g/dL (3.4-5.0) Albumin/Globulin Ratio 0.6 (1.0-1.7) Microbiology 10/10/20 Blood Culture - Preliminary, Resulted NO GROWTH AFTER 4 DAYS 10/08/20 Gram Stain - Final, Complete 10/08/20 Aerobic and Anaerobic Culture - Final, Complete 10/08/20 Antimicrobic Susceptibility - Final, Complete Medications Current Medications Sodium Chloride 1,000 ml @ 1,000 mls/hr 1X ONCE IV Last administered on 10/06/20at 10:27; Start 10/06/20 at 09:45; Stop 10/06/20 at 10:44; Status DC Ketorolac Tromethamine (Toradol 30mg Vial) 30 mg 1X ONCE IVP Last administered on 10/06/20at 10:25; Start 10/06/20 at 10:00; Stop 10/06/20 at 10:01; Status DC Fentanyl Citrate (Fentanyl 2ml Vial) 75 mcg 1X ONCE IVP Last administered on 10/06/20at 10:25; Start 10/06/20 at 10:00; Stop 10/06/20 at 10:01; Status DC Ondansetron HCl (Zofran) 4 mg 1X ONCE IVP Last administered on 10/06/20at 12:10; Start 10/06/20 at 11:45; Stop 10/06/20 at 11:46; Status DC Hydromorphone HCl (Dilaudid) 1 mg 1X ONCE IVP Last administered on 10/06/20at 12:11; Start 10/06/20 at 11:45; Stop 10/06/20 at 11:46; Status DC Iohexol (Omnipaque 300 Mg/ml) 75 ml 1X ONCE IV Last administered on 10/06/20at 12:06; Start 10/06/20 at 12:00; Stop 10/06/20 at 12:01; Status DC Info (CONTRAST GIVEN -- Rx MONITORING) 1 each PRN DAILY PRN MC SEE COMMENTS; Start 10/06/20 at 12:00; Stop 10/08/20 at 11:59; Status DC Ceftriaxone Sodium (Rocephin) 1 gm 1X ONCE IVP Last administered on 10/06/20at 12:10; Start 10/06/20 at 12:30; Stop 10/06/20 at 12:31; Status DC Vancomycin HCl (Vanco Per Pharmacy) 1 each PRN DAILY PRN MC SEE COMMENTS Last administered on 10/08/20at 09:45; Start 10/06/20 at 14:00; Stop 10/08/20 at 09:55; Status DC Vancomycin HCl 2 gm/Sodium Chloride 500 ml @ 250 mls/hr 1X ONCE IV Last administered on 10/06/20at 14:17; Start 10/06/20 at 14:15; Stop 10/06/20 at 16:14; Status DC Sodium Chloride 1,000 ml @ 1,000 mls/hr 1X ONCE IV Last administered on 10/06/20at 14:54; Start 10/06/20 at 14:45; Stop 10/06/20 at 15:44; Status DC Metoclopramide HCl (Reglan Vial) 10 mg 1X ONCE IVP Last administered on 10/06/20at 14:54; Start 10/06/20 at 14:45; Stop 10/06/20 at 14:46; Status DC Hydromorphone HCl (Dilaudid) 1 mg 1X ONCE IVP Last administered on 10/06/20at 16:44; Start 10/06/20 at 16:45; Stop 10/06/20 at 16:46; Status DC Methylprednisolone Sodium Succinate (SOLU-Medrol 40MG VIAL) 40 mg Q12HR IV Last administered on 10/10/20at 09:00; Start 10/06/20 at 19:00; Stop 10/10/20 at 09:49; Status DC Vancomycin HCl 1.25 gm/Sodium Chloride 250 ml @ 167 mls/hr Q12H IV Last administered on 10/08/20at 02:38; Start 10/07/20 at 02:30; Stop 10/08/20 at 09:51; Status DC Vancomycin HCl (Vancomycin Trough Level) 1 each 1X ONCE MC ; Start 10/08/20 at 14:00; Stop 10/08/20 at 14:01; Status Cancel Atorvastatin Calcium (Lipitor) 10 mg DAILY PO Last administered on 10/14/20at 08:12; Start 10/07/20 at 09:00 Cyclobenzaprine HCl (Flexeril) 10 mg QHS PO Last administered on 10/13/20at 20:35; Start 10/06/20 at 22:00 Acetaminophen/ Hydrocodone Bitart (Lortab 5/325) 0.5 tab PRN Q6HRS PRN PO MODERATE PAIN; Start 10/06/20 at 21:45 Metoprolol Tartrate (Lopressor) 50 mg DAILY PO Last administered on 10/14/20 08:12; Start 10/07/20 at 09:00 Ondansetron HCl (Zofran Odt) 4 mg PRN Q6HRS PRN PO NAUSEA Last administered on 10/06/20 23:37; Start 10/06/20 at 21:45 Phenazopyridine HCl (Pyridium) 200 mg TID PO Last administered on 10/07/20 20:28; Start 10/06/20 at 22:30; Stop 10/09/20 at 08:05; Status DC Tizanidine HCl (Zanaflex) 4 mg QHS PO Last administered on 10/13/20 20:36; Start 10/06/20 at 22:00 Tramadol HCl (Ultram) 50 mg PRN Q6HRS PRN PO pain MILD 2ND CHOICE Last administered on 10/09/20 19:42; Start 10/06/20 at 21:45 Morphine Sulfate (Morphine Sulfate) 2 mg PRN Q2HR PRN IV PAIN Last administered on 10/07/20 00:22; Start 10/06/20 at 21:45; Stop 10/07/20 at 08:31; Status DC Cephalexin HCl (Keflex) 500 mg TID PO ; Start 10/06/20 at 22:30; Status Cancel Venlafaxine HCl (Effexor Xr) 37.5 mg BID PO Last administered on 10/14/20 08:12; Start 10/07/20 at 09:00 Acetaminophen/ Codeine Phosphate (Tylenol #3) 1 tab PRN Q4HRS PRN PO MILD PAIN 1-3 Last administered on 10/12/20 11:21; Start 10/06/20 at 22:30 Acetaminophen/ Hydrocodone Bitart (Lortab 5/325) 1 tab PRN Q6HRS PRN PO SEVERE PAIN Last administered on 10/13/20 19:48; Start 10/06/20 at 22:00 Diazepam (Valium) 10 mg PRN 1X PRN PO 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, 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 Last administered on 10/07/20 13:42; Start 10/07/20 at 09:00; Stop 10/07/20 at 23:00; Status DC Fentanyl Citrate (Fentanyl 2ml Vial) 50 mcg PRN Q2HR PRN IVP PAIN Last administered on 8/31/21at 08:10; Start 10/07/20 at 08:30 Lactobacillus Rhamnosus (Culturelle) 1 cap BID PO Last administered on 10/14/20at 08:12; Start 10/07/20 at 21:00 Ceftriaxone Sodium (Rocephin) 2 gm Q24H IVP Last administered on 10/07/20at 12:26; Start 10/07/20 at 12:00; Stop 10/08/20 at 09:51; Status DC Pantoprazole Sodium (Protonix) 40 mg DAILYAC PO Last administered on 10/14/20at 08:12; Start 10/07/20 at 12:00 Propofol (Diprivan) 200 mg STK-MED ONCE IV ; Start 10/08/20 at 06:33; Stop 10/08/20 at 06:33; Status DC Lidocaine HCl (Lidocaine Pf 2% Vial) 5 ml STK-MED ONCE .ROUTE ; Start 10/08/20 at 06:33; Stop 10/08/20 at 06:33; Status DC Dexamethasone Sodium Phosphate (Decadron) 4 mg STK-MED ONCE .ROUTE ; Start 10/08/20 at 06:33; Stop 10/08/20 at 06:33; Status DC Ondansetron HCl (Zofran) 4 mg STK-MED ONCE .ROUTE ; Start 10/08/20 at 06:33; Stop 10/08/20 at 06:33; Status DC Propofol 50 ml @ As Directed STK-MED ONCE IV ; Start 10/08/20 at 06:33; Stop 10/08/20 at 06:33; Status DC Phenylephrine HCl (PHENYLEPHRINE in 0.9% NACL PF) 1 mg STK-MED ONCE IV ; Start 10/08/20 at 06:33; Stop 10/08/20 at 06:34; Status DC Remifentanil HCl (Ultiva) 2 mg STK-MED ONCE IV ; Start 10/08/20 at 06:34; Stop 10/08/20 at 06:34; Status DC Rocuronium Gilbert (Zemuron) 50 mg STK-MED ONCE .ROUTE ; Start 10/08/20 at 06:38; Stop 10/08/20 at 06:38; Status DC Gelatin (Gelfoam Size 100) 1 each STK-MED ONCE .ROUTE Last administered on 10/08/20at 10:14; Start 10/08/20 at 06:58; Stop 10/08/20 at 06:58; Status DC Bupivacaine HCl/ Epinephrine Bitart (Sensorcain-Epi 0.5%-1:[id number] Mpf) 30 ml STK-MED ONCE .ROUTE Last administered on 10/08/20at 10:14; Start 10/08/20 at 06:58; Stop 10/08/20 at 06:58; Status DC Ketorolac Tromethamine (Toradol Im) 60 mg STK-MED ONCE .ROUTE Last administered on 10/08/20at 10:14; Start 10/08/20 at 06:58; Stop 10/08/20 at 06:59; Status DC Thrombin 20,000 unit STK-MED ONCE TP Last administered on 10/08/20at 10:14; Start 10/08/20 at 06:58; Stop 10/08/20 at 06:59; Status DC Cefazolin Sodium 1 gm/Sodium Chloride 1,000 ml @ 1,000 mls/hr 1X ONCE IRR Last administered on 10/08/20at 10:14; Start 10/08/20 at 08:00; Stop 10/08/20 at 08:59; Status DC Midazolam HCl (Versed) 2 mg STK-MED ONCE .ROUTE ; Start 10/08/20 at 08:13; Stop 10/08/20 at 08:14; Status DC Glycopyrrolate (Robinul) 1 mg STK-MED ONCE .ROUTE ; Start 10/08/20 at 08:13; Stop 10/08/20 at 08:14; Status DC Ringer's Solution 1,000 ml @ 100 mls/hr Q10H IV Last administered on 10/14/20at 04:46; Start 10/08/20 at 08:15 Propofol 50 ml @ As Directed STK-MED ONCE IV ; Start 10/08/20 at 09:28; Stop 10/08/20 at 09:28; Status DC Nafcillin Sodium 2 gm/Dextrose 100 ml @ 200 mls/hr Q4HRS IV Last administered on 10/14/20at 08:13; Start 10/08/20 at 12:00 Metoprolol Tartrate (Lopressor Vial) 5 mg STK-MED ONCE IVP ; Start 10/08/20 at 10:40; Stop 10/08/20 at 10:40; Status DC Remifentanil HCl (Ultiva) 1 mg STK-MED ONCE IV ; Start 10/08/20 at 11:14; Stop 10/08/20 at 11:14; Status DC Sodium Chloride (SODIUM CHLORIDE 20ml) 20 ml STK-MED ONCE IJ ; Start 10/08/20 at 11:14; Stop 10/08/20 at 11:14; Status DC Daptomycin 490 mg/ Sodium Chloride 50 ml @ 100 mls/hr ONCE ONCE IV Last administered on 10/08/20at 15:19; Start 10/08/20 at 12:30; Stop 10/08/20 at 12:59; Status DC Propofol 50 ml @ As Directed STK-MED ONCE IV ; Start 10/08/20 at 11:24; Stop 10/08/20 at 11:25; Status DC Hydromorphone HCl (Dilaudid) 2 mg STK-MED ONCE .ROUTE ; Start 10/08/20 at 11:30; Stop 10/08/20 at 11:31; Status DC Neostigmine Gilbert (Neostigmine Methylsulfate) 5 mg STK-MED ONCE .ROUTE ; Start 10/08/20 at 12:22; Stop 10/08/20 at 12:22; Status DC Fentanyl Citrate (Fentanyl 2ml Vial) 100 mcg STK-MED ONCE .ROUTE ; Start 10/08/20 at 13:13; Stop 10/08/20 at 13:13; Status DC Fentanyl Citrate (Fentanyl 2ml Vial) 25 mcg PRN Q5MIN PRN IVP MILD PAIN 1-3; Start 10/08/20 at 13:30; Stop 10/09/20 at 13:29; Status DC Fentanyl Citrate (Fentanyl 2ml Vial) 50 mcg PRN Q5MIN PRN IVP MODERATE PAIN 4-6 Last administered on 10/08/20at 13:33; Start 10/08/20 at 13:30; Stop 10/09/20 at 07:39; Status DC Morphine Sulfate (Morphine Sulfate) 1 mg PRN Q10MIN PRN IVP SEVERE PAIN 7-10 Last administered on 10/08/20at 16:40; Start 10/08/20 at 13:30; Stop 10/09/20 at 07:39; Status DC Ringer's Solution 1,000 ml @ 30 mls/hr Q24H IV ; Start 10/08/20 at 13:30; Stop 10/09/20 at 01:29; Status DC Hydromorphone HCl (Dilaudid) 0.5 mg PRN Q10MIN PRN IVP SEVERE PAIN 7-10, 2nd CHOICE Last administered on 10/08/20at 14:50; Start 10/08/20 at 13:30; Stop 10/09/20 at 07:39; Status DC Prochlorperazine Edisylate (Compazine) 5 mg PACU PRN PRN IVP NAUSEA, MRX1; Start 10/08/20 at 13:30; Stop 10/09/20 at 13:29; Status DC Hydralazine HCl (Apresoline Inj) 20 mg STK-MED ONCE .ROUTE ; Start 10/08/20 at 13:31; Stop 10/08/20 at 13:31; Status DC Hydralazine HCl (Apresoline Inj) 10 mg 1X PRN PRN IVP hypertension Last administered on 10/11/20at 00:12; Start 10/08/20 at 13:45 Hydromorphone HCl (Dilaudid) 2 mg STK-MED ONCE .ROUTE ; Start 10/08/20 at 13:51; Stop 10/08/20 at 13:51; Status DC Bisacodyl (Dulcolax Supp) 10 mg PRN DAILY PRN [place] CONST[place]ATION; Start 10/09/20 at 13:00 Bisacodyl (Dulcolax Tab) 10 mg DAILY PO Last administered on 10/10/20at 09:05; Start 10/09/20 at 13:00 Senna/Docusate Sodium (Senna Plus) 1 tab BID PO Last administered on 10/13/20at 20:36; Start 10/09/20 at 21:00 Sodium Monofluorophosphate (Fleet Adult) 133 ml DAILY PRN [place], 2ND CHOICE [place]; Start 10/09/20 at 13:00 Lorazepam (Ativan) 1 mg PRN Q6HRS PRN PO ANXIETY / AGITATION Last administered on 10/13/20at 23:11; Start 10/10/20 at 02:00 Magnesium Citrate (Citroma) 296 ml PRN 1X PRN PO CONSTIPATION Last administered on 10/10/20at 09:42; Start 10/10/20 at 09:30 Ferrous Sulfate (Feosol) 325 mg DAILYWBKFT PO Last administered on 10/14/20at 08:12; Start 10/10/20 at 10:00 Ascorbic Acid (Vitamin C) 500 mg DAILY PO Last administered on 10/14/20at 08:12; Start 10/10/20 at 10:00 Methylprednisolone Sodium Succinate (SOLU-Medrol 40MG VIAL) 20 mg 1X ONCE IV Last administered on 10/11/20at 11:35; Start 10/11/20 at 09:00; Stop 10/11/20 at 09:01; Status DC Potassium Chloride (Klor-Con) 40 meq 1X ONCE PO Last administered on 10/11/20at 08:13; Start 10/11/20 at 08:00; Stop 10/11/20 at 08:01; Status DC Hydromorphone HCl (Dilaudid) 1 mg 1X ONCE IM Last administered on 10/12/20at 15:08; Start 10/12/20 at 15:00; Stop 10/12/20 at 15:01; Status DC Pramipexole Dihydrochloride (miraPEX) 0.25 mg QHS PO Last administered on 10/13/20at 20:35; Start 10/13/20 at 21:00 Active Scripts Active Hydrocodone-Apap 5-325 (Hydrocodone Bit/Acetaminophen) 1 Tab Tablet 0.5-1 Tab PO PRN Q6HRS PRN Ondansetron Odt (Ondansetron) 4 Mg Tab.rapdis 1 Tab PO PRN Q6-8HRS PRN Pyridium (Phenazopyridine Hcl) 200 Mg Tablet 200 Mg PO TID 2 Days Cephalexin 500 Mg Tablet 1 Tab PO TID 7 Days Ultram (Tramadol Hcl) 50 Mg Tablet 1 Tab PO PRN Q6HRS PRN MDD 4 Tablet(s) 7 Days Cyclobenzaprine Hcl 10 Mg Tablet 1 Tab PO QHS Reported Acetaminophen-Cod #4 Tablet (Acetaminophen/Codeine Phosphate) 1 Each Tablet 1 Tab PO PRN Q4HRS PRN Venlafaxine Hcl Er (Venlafaxine Hcl) 75 Mg Cap.er.24h 1 Cap PO DAILY Tizanidine Hcl 4 Mg Tablet 1 Tab PO QHS Metoprolol Tartrate 50 Mg Tablet 1 Tab PO DAILY Atorvastatin Calcium 10 Mg Tablet 1 Tab PO DAILY Vitals/I & O Vital Sign - Last 24 Hours 10/13/20 10/13/20 10/13/20 10/13/20 09:49 09:52 11:00 11:09 Temp 97.9 97.9 Pulse 102 111 Resp 18 B/P (MAP) 160/99 132/83 (99) Pulse Ox 95 O2 Delivery Room Air Room Air Room Air 10/13/20 10/13/20 10/13/20 10/13/20 12:31 13:58 15:00 17:19 Temp 97.5 97.5 Pulse 89 Resp 18 B/P (MAP) 101/69 (80) Pulse Ox 98 O2 Delivery Room Air Room Air Room Air Room Air 10/13/20 10/13/20 10/13/20 10/13/20 18:51 19:00 19:48 20:18 Temp 98.9 98.9 Pulse 66 Resp 16 18 B/P (MAP) 123/80 (94) Pulse Ox 98 98 98 O2 Delivery Room Air Room Air Room Air Room Air O2 Flow Rate 8.0 10/13/20 10/13/20 10/13/20 10/13/20 20:27 20:27 20:57 23:00 Temp 98.0 98.0 Pulse 87 Resp 20 16 B/P (MAP) 103/62 (76) Pulse Ox 98 93 O2 Delivery Room Air Room Air Room Air Room Air 10/14/20 10/14/20 10/14/20 10/14/20 03:00 07:38 08:10 08:12 Temp 97.8 98.1 97.8 98.1 Pulse 64 91 91 Resp 16 18 B/P (MAP) 103/64 (77) 116/77 (90) 116/77 Pulse Ox 95 94 O2 Delivery Room Air Room Air Room Air Intake and Output 10/13/20 10/13/20 10/14/20 15:00 23:00 07:00 Intake Total 100 ml 1100 ml Output Total 1900 ml 1090 ml Balance -1800 ml 10 ml Justicifation of Admission Dx: Justifications for Admission: Justification of Admission Dx: Yes VINCENT DOMINGUEZ MD Oct 14, 2020 08:41
--- NOTE | 2020-10-14 09:56 | PDOC ---
PROGRESS NOTES Date of Service DATE: 10/14/20 TIME: 09:52 Subjective Subjective No new complaints. Objective Objective Vital Signs Date Time Temp Pulse Resp B/P (MAP) Pulse Ox O2 Delivery O2 Flow Rate FiO2 10/14/20 09:12 Room Air 10/14/20 08:12 91 116/77 10/14/20 07:38 98.1 18 94 98.1 10/13/20 18:51 8.0 Intake and Output 10/14/20 07:00 Intake Total 1200 ml Output Total 2990 ml Balance -1790 ml IV Total 1200 ml Output Urine Total 2950 ml Drainage Total 40 ml Physical Exam Physical Exam She is alert,supine in bed with head end propped up and she continues with lower extremity [id number] and decreased proprioception secondary to decreased sensory perception interfering with her participation and progress with therapy and in addition she is also anxious about falling. Assessment Assessment Problems Medical Problems: (1) Abdominal pain Status: Acute (2) Low back pain Status: Acute (3) Lower extremity numbness Status: Acute (4) Lower extremity weakness Status: Acute (5) Positive blood culture Status: Acute (6) Pyelonephritis Status: Acute Plan Plan of Care To rehab unit when medically stable. I would like to hold off another trial at voiding until she can transfer with one person assistance. Comment Review of Relevant I have reviewed the following items leticia (where applicable) has been applied. Labs Laboratory Tests Test 10/13/20 06:10 White Blood Count 11.6 x10^3/uL (4.0-11.0) Red Blood Count 3.52 x10^6/uL (3.50-5.40) Hemoglobin 10.7 g/dL (12.0-15.5) Hematocrit 30.7 % (36.0-47.0) Mean Corpuscular Volume 87 fL (79-100) Mean Corpuscular Hemoglobin 30 pg (25-35) Mean Corpuscular Hemoglobin Concent 35 g/dL (31-37) Red Cell Distribution Width 13.4 % (11.5-14.5) Platelet Count 453 x10^3/uL (140-400) Neutrophils (%) (Auto) 56 % (31-73) Lymphocytes (%) (Auto) 33 % (24-48) Monocytes (%) (Auto) 8 % (0-9) Eosinophils (%) (Auto) 3 % (0-3) Basophils (%) (Auto) 0 % (0-3) Neutrophils # (Auto) 6.5 x10^3/uL (1.8-7.7) Lymphocytes # (Auto) 3.8 x10^3/uL (1.0-4.8) Monocytes # (Auto) 0.9 x10^3/uL (0.0-1.1) Eosinophils # (Auto) 0.3 x10^3/uL (0.0-0.7) Basophils # (Auto) 0.0 x10^3/uL (0.0-0.2) Sodium Level 136 mmol/L (136-145) Potassium Level 4.2 mmol/L (3.5-5.1) Chloride Level 100 mmol/L (98-107) Carbon Dioxide Level 31 mmol/L (21-32) Anion Gap 5 (6-14) Blood Urea Nitrogen 9 mg/dL (7-20) Creatinine 0.8 mg/dL (0.6-1.0) Estimated GFR (Cockcroft-Gault) 76.2 BUN/Creatinine Ratio 11 (6-20) Glucose Level 119 mg/dL (70-99) Calcium Level 8.9 mg/dL (8.5-10.1) Total Bilirubin 0.7 mg/dL (0.2-1.0) Aspartate Amino Transf (AST/SGOT) 8 U/L (15-37) Alanine Aminotransferase (ALT/SGPT) 24 U/L (14-59) Alkaline Phosphatase 124 U/L (46-116) Total Protein 6.5 g/dL (6.4-8.2) Albumin 2.4 g/dL (3.4-5.0) Albumin/Globulin Ratio 0.6 (1.0-1.7) Microbiology 10/10/20 Blood Culture - Preliminary, Resulted NO GROWTH AFTER 4 DAYS 10/08/20 Gram Stain - Final, Complete 10/08/20 Aerobic and Anaerobic Culture - Final, Complete 10/08/20 Antimicrobic Susceptibility - Final, Complete Medications Current Medications Sodium Chloride 1,000 ml @ 1,000 mls/hr 1X ONCE IV Last administered on 10/06/20at 10:27; Start 10/06/20 at 09:45; Stop 10/06/20 at 10:44; Status DC Ketorolac Tromethamine (Toradol 30mg Vial) 30 mg 1X ONCE IVP Last administered on 10/06/20at 10:25; Start 10/06/20 at 10:00; Stop 10/06/20 at 10:01; Status DC Fentanyl Citrate (Fentanyl 2ml Vial) 75 mcg 1X ONCE IVP Last administered on 10/06/20at 10:25; Start 10/06/20 at 10:00; Stop 10/06/20 at 10:01; Status DC Ondansetron HCl (Zofran) 4 mg 1X ONCE IVP Last administered on 10/06/20at 12:10; Start 10/06/20 at 11:45; Stop 10/06/20 at 11:46; Status DC Hydromorphone HCl (Dilaudid) 1 mg 1X ONCE IVP Last administered on 10/06/20at 12:11; Start 10/06/20 at 11:45; Stop 10/06/20 at 11:46; Status DC Iohexol (Omnipaque 300 Mg/ml) 75 ml 1X ONCE IV Last administered on 10/06/20at 12:06; Start 10/06/20 at 12:00; Stop 10/06/20 at 12:01; Status DC Info (CONTRAST GIVEN -- Rx MONITORING) 1 each PRN DAILY PRN MC SEE COMMENTS; Start 10/06/20 at 12:00; Stop 10/08/20 at 11:59; Status DC Ceftriaxone Sodium (Rocephin) 1 gm 1X ONCE IVP Last administered on 10/06/20at 12:10; Start 10/06/20 at 12:30; Stop 10/06/20 at 12:31; Status DC Vancomycin HCl (Vanco Per Pharmacy) 1 each PRN DAILY PRN MC SEE COMMENTS Last administered on 10/08/20at 09:45; Start 10/06/20 at 14:00; Stop 10/08/20 at 09:55; Status DC Vancomycin HCl 2 gm/Sodium Chloride 500 ml @ 250 mls/hr 1X ONCE IV Last administered on 10/06/20at 14:17; Start 10/06/20 at 14:15; Stop 10/06/20 at 16:1 4; Status DC Sodium Chloride 1,000 ml @ 1,000 mls/hr 1X ONCE IV Last administered on 10/06/20at 14:54; Start 10/06/20 at 14:45; Stop 10/06/20 at 15:44; Status DC Metoclopramide HCl (Reglan Vial) 10 mg 1X ONCE IVP Last administered on 10/06/20at 14:54; Start 10/06/20 at 14:45; Stop 10/06/20 at 14:46; Status DC Hydromorphone HCl (Dilaudid) 1 mg 1X ONCE IVP Last administered on 10/06/20at 16:44; Start 10/06/20 at 16:45; Stop 10/06/20 at 16:46; Status DC Methylprednisolone Sodium Succinate (SOLU-Medrol 40MG VIAL) 40 mg Q12HR IV Last administered on 10/10/20at 09:00; Start 10/06/20 at 19:00; Stop 10/10/20 at 09:49; Status DC Vancomycin HCl 1.25 gm/Sodium Chloride 250 ml @ 167 mls/hr Q12H IV Last administered on 10/08/20at 02:38; Start 10/07/20 at 02:30; Stop 10/08/20 at 09:51; Status DC Vancomycin HCl (Vancomycin Trough Level) 1 each 1X ONCE MC ; Start 10/08/20 at 14:00; Stop 10/08/20 at 14:01; Status Cancel Atorvastatin Calcium (Lipitor) 10 mg DAILY PO Last administered on 10/14/20at 08:12; Start 10/07/20 at 09:00 Cyclobenzaprine HCl (Flexeril) 10 mg QHS PO Last administered on 10/13/20at 20:35; Start 10/06/20 at 22:00 Acetaminophen/ Hydrocodone Bitart (Lortab 5/325) 0.5 tab PRN Q6HRS PRN PO MODERATE PAIN; Start 10/06/20 at 21:45 Metoprolol Tartrate (Lopressor) 50 mg DAILY PO Last administered on 10/14/20at 08:12; Start 10/07/20 at 09:00 Ondansetron HCl (Zofran Odt) 4 mg PRN Q6HRS PRN PO NAUSEA Last administered on 10/06/20at 23:37; Start 10/06/20 at 21:45 Phenazopyridine HCl (Pyridium) 200 mg TID PO Last administered on 10/07/20 20:28; Start 10/06/20 at 22:30; Stop 10/09/20 at 08:05; Status DC Tizanidine HCl (Zanaflex) 4 mg QHS PO Last administered on 10/13/20 20:36; Start 10/06/20 at 22:00 Tramadol HCl (Ultram) 50 mg PRN Q6HRS PRN PO pain MILD 2ND CHOICE Last administered on 10/09/20 19:42; Start 10/06/20 at 21:45 Morphine Sulfate (Morphine Sulfate) 2 mg PRN Q2HR PRN IV PAIN Last administered on 10/07/20 00:22; Start 10/06/20 at 21:45; Stop 10/07/20 at 08:31; Status DC Cephalexin HCl (Keflex) 500 mg TID PO ; Start 10/06/20 at 22:30; Status Cancel Venlafaxine HCl (Effexor Xr) 37.5 mg BID PO Last administered on 10/14/20 08:12; Start 10/07/20 at 09:00 Acetaminophen/ Codeine Phosphate (Tylenol #3) 1 tab PRN Q4HRS PRN PO MILD PAIN 1-3 Last administered on 10/12/20 11:21; Start 10/06/20 at 22:30 Acetaminophen/ Hydrocodone Bitart (Lortab 5/325) 1 tab PRN Q6HRS PRN PO SEVERE PAIN Last administered on 10/13/20 19:48; Start 10/06/20 at 22:00 Diazepam (Valium) 10 mg PRN 1X PRN PO SPECIAL EFFECTS PERSON FOR MRI, MRX1 Last administered on 10/07/20 13:42; Start 10/07/20 at 09:00; Stop 10/07/20 at 23:00; Status DC Fentanyl Citrate (Fentanyl 2ml Vial) 50 mcg PRN Q2HR PRN IVP PAIN Last administered on 10/14/20 08:10; Start 10/07/20 at 08:30 Lactobacillus Rhamnosus (Culturelle) 1 cap BID PO Last administered on 10/14/20 08:12; Start 10/07/20 at 21:00 Ceftriaxone Sodium (Rocephin) 2 gm Q24H IVP Last administered on 10/07/20 12:26; Start 10/07/20 at 12:00; Stop 10/08/20 at 09:51; Status DC Pantoprazole Sodium (Protonix) 40 mg DAILYAC PO Last administered on 10/14/20at 08:12; Start 10/07/20 at 12:00 Propofol (Diprivan) 200 mg STK-MED ONCE IV ; Start 10/08/20 at 06:33; Stop 10/08/20 at 06:33; Status DC Lidocaine HCl (Lidocaine Pf 2% Vial) 5 ml STK-MED ONCE .ROUTE ; Start 10/08/20 at 06:33; Stop 10/08/20 at 06:33; Status DC Dexamethasone Sodium Phosphate (Decadron) 4 mg STK-MED ONCE .ROUTE ; Start 10/08/20 at 06:33; Stop 10/08/20 at 06:33; Status DC Ondansetron HCl (Zofran) 4 mg STK-MED ONCE .ROUTE ; Start 10/08/20 at 06:33; Stop 10/08/20 at 06:33; Status DC Propofol 50 ml @ As Directed STK-MED ONCE IV ; Start 10/08/20 at 06:33; Stop 10/08/20 at 06:33; Status DC Phenylephrine HCl (PHENYLEPHRINE in 0.9% NACL PF) 1 mg STK-MED ONCE IV ; Start 10/08/20 at 06:33; Stop 10/08/20 at 06:34; Status DC Remifentanil HCl (Ultiva) 2 mg STK-MED ONCE IV ; Start 10/08/20 at 06:34; Stop 10/08/20 at 06:34; Status DC Rocuronium Boomer (Zemuron) 50 mg STK-MED ONCE .ROUTE ; Start 10/08/20 at 06:38; Stop 10/08/20 at 06:38; Status DC Gelatin (Gelfoam Size 100) 1 each STK-MED ONCE .ROUTE Last administered on 10/08/20at 10:14; Start 10/08/20 at 06:58; Stop 10/08/20 at 06:58; Status DC Bupivacaine HCl/ Epinephrine Bitart (Sensorcain-Epi 0.5%-1:167323 Mpf) 30 ml STK-MED ONCE .ROUTE Last administered on 10/08/20at 10:14; Start 10/08/20 at 06:58; Stop 10/08/20 at 06:58; Status DC Ketorolac Tromethamine (Toradol Im) 60 mg STK-MED ONCE .ROUTE Last administered on 10/08/20at 10:14; Start 10/08/20 at 06:58; Stop 10/08/20 at 06:59; Status DC Thrombin 20,000 unit STK-MED ONCE TP Last administered on 10/08/20at 10:14; Start 10/08/20 at 06:58; Stop 10/08/20 at 06:59; Status DC Cefazolin Sodium 1 gm/Sodium Chloride 1,000 ml @ 1,000 mls/hr 1X ONCE IRR Last administered on 10/08/20at 10:14; Start 10/08/20 at 08:00; Stop 10/08/20 at 08:59; Status DC Midazolam HCl (Versed) 2 mg STK-MED ONCE .ROUTE ; Start 10/08/20 at 08:13; Stop 10/08/20 at 08:14; Status DC Glycopyrrolate (Robinul) 1 mg STK-MED ONCE .ROUTE ; Start 10/08/20 at 08:13; Stop 10/08/20 at 08:14; Status DC Ringer's Solution 1,000 ml @ 100 mls/hr Q10H IV Last administered on 10/14/20at 04:46; Start 10/08/20 at 08:15 Propofol 50 ml @ As Directed STK-MED ONCE IV ; Start 10/08/20 at 09:28; Stop 10/08/20 at 09:28; Status DC Nafcillin Sodium 2 gm/Dextrose 100 ml @ 200 mls/hr Q4HRS IV Last administered on 10/14/20at 08:13; Start 10/08/20 at 12:00 Metoprolol Tartrate (Lopressor Vial) 5 mg STK-MED ONCE IVP ; Start 10/08/20 at 10:40; Stop 10/08/20 at 10:40; Status DC Remifentanil HCl (Ultiva) 1 mg STK-MED ONCE IV ; Start 10/08/20 at 11:14; Stop 10/08/20 at 11:14; Status DC Sodium Chloride (SODIUM CHLORIDE 20ml) 20 ml STK-MED ONCE IJ ; Start 10/08/20 at 11:14; Stop 10/08/20 at 11:14; Status DC Daptomycin 490 mg/ Sodium Chloride 50 ml @ 100 mls/hr ONCE ONCE IV Last administered on 10/08/20at 15:19; Start 10/08/20 at 12:30; Stop 10/08/20 at 12:59; Status DC Propofol 50 ml @ As Directed STK-MED ONCE IV ; Start 10/08/20 at 11:24; Stop 10/08/20 at 11:25; Status DC Hydromorphone HCl (Dilaudid) 2 mg STK-MED ONCE .ROUTE ; Start 10/08/20 at 11:30; Stop 10/08/20 at 11:31; Status DC Neostigmine Boomer (Neostigmine Methylsulfate) 5 mg STK-MED ONCE .ROUTE ; Start 10/08/20 at 12:22; Stop 10/08/20 at 12:22; Status DC Fentanyl Citrate (Fentanyl 2ml Vial) 100 mcg STK-MED ONCE .ROUTE ; Start 10/08/20 at 13:13; Stop 10/08/20 at 13:13; Status DC Fentanyl Citrate (Fentanyl 2ml Vial) 25 mcg PRN Q5MIN PRN IVP MILD PAIN 1-3; Start 10/08/20 at 13:30; Stop 10/09/20 at 13:29; Status DC Fentanyl Citrate (Fentanyl 2ml Vial) 50 mcg PRN Q5MIN PRN IVP MODERATE PAIN 4-6 Last administered on 10/08/20at 13:33; Start 10/08/20 at 13:30; Stop 10/09/20 at 07:39; Status DC Morphine Sulfate (Morphine Sulfate) 1 mg PRN Q10MIN PRN IVP SEVERE PAIN 7-10 Last administered on 10/08/20at 16:40; Start 10/08/20 at 13:30; Stop 10/09/20 at 07:39; Status DC Ringer's Solution 1,000 ml @ 30 mls/hr Q24H IV ; Start 10/08/20 at 13:30; Stop 10/09/20 at 01:29; Status DC Hydromorphone HCl (Dilaudid) 0.5 mg PRN Q10MIN PRN IVP SEVERE PAIN 7-10, 2nd CHOICE Last administered on 10/08/20at 14:50; Start 10/08/20 at 13:30; Stop 10/09/20 at 07:39; Status DC Prochlorperazine Edisylate (Compazine) 5 mg PACU PRN PRN IVP NAUSEA, MRX1; Start 10/08/20 at 13:30; Stop 10/09/20 at 13:29; Status DC Hydralazine HCl (Apresoline Inj) 20 mg STK-MED ONCE .ROUTE ; Start 10/08/20 at 13:31; Stop 10/08/20 at 13:31; Status DC Hydralazine HCl (Apresoline Inj) 10 mg 1X PRN PRN IVP hypertension Last administered on 10/11/20at 00:12; Start 10/08/20 at 13:45 Hydromorphone HCl (Dilaudid) 2 mg STK-MED ONCE .ROUTE ; Start 10/08/20 at 13:51; Stop 10/08/20 at 13:51; Status DC Bisacodyl (Dulcolax Supp) 10 mg PRN DAILY PRN OK CONSTIPATION; Start 10/09/20 at 13:00 Bisacodyl (Dulcolax Tab) 10 mg DAILY PO Last administered on 10/10/20at 09:05; Start 10/09/20 at 13:00 Senna/Docusate Sodium (Senna Plus) 1 tab BID PO Last administered on 10/13/20at 20:36; Start 10/09/20 at 21:00 Sodium Monofluorophosphate (Fleet Adult) 133 ml DAILY PRN OK CONSTIPATION, 2ND CHOICE OK; Start 10/09/20 at 13:00 Lorazepam (Ativan) 1 mg PRN Q6HRS PRN PO ANXIETY / AGITATION Last administered on 10/13/20at 23:11; Start 10/10/20 at 02:00 Magnesium Citrate (Citroma) 296 ml PRN 1X PRN PO CONSTIPATION Last administered on 10/10/20at 09:42; Start 10/10/20 at 09:30 Ferrous Sulfate (Feosol) 325 mg DAILYWBKFT PO Last administered on 10/14/20at 08:12; Start 10/10/20 at 10:00 Ascorbic Acid (Vitamin C) 500 mg DAILY PO Last administered on 10/14/20at 08:12; Start 10/10/20 at 10:00 Methylprednisolone Sodium Succinate (SOLU-Medrol 40MG VIAL) 20 mg 1X ONCE IV Last administered on 10/11/20at 11:35; Start 10/11/20 at 09:00; Stop 10/11/20 at 09:01; Status DC Potassium Chloride (Klor-Con) 40 meq 1X ONCE PO Last administered on 10/11/20at 08:13; Start 10/11/20 at 08:00; Stop 10/11/20 at 08:01; Status DC Hydromorphone HCl (Dilaudid) 1 mg 1X ONCE IM Last administered on 10/12/20at 15:08; Start 10/12/20 at 15:00; Stop 10/12/20 at 15:01; Status DC Pramipexole Dihydrochloride (miraPEX) 0.25 mg QHS PO Last administered on 10/13/20at 20:35; Start 10/13/20 at 21:00 Alprazolam (Xanax) 0.25 mg PRN Q8HRS PRN PO ANXIETY / AGITATION; Start 10/14/20 at 10:00 Active Scripts Active Hydrocodone-Apap 5-325 (Hydrocodone Bit/Acetaminophen) 1 Tab Tablet 0.5-1 Tab PO PRN Q6HRS PRN Ondansetron Odt (Ondansetron) 4 Mg Tab.rapdis 1 Tab PO PRN Q6-8HRS PRN Pyridium (Phenazopyridine Hcl) 200 Mg Tablet 200 Mg PO TID 2 Days Cephalexin 500 Mg Tablet 1 Tab PO TID 7 Days Ultram (Tramadol Hcl) 50 Mg Tablet 1 Tab PO PRN Q6HRS PRN MDD 4 Tablet(s) 7 Days Cyclobenzaprine Hcl 10 Mg Tablet 1 Tab PO QHS Reported Acetaminophen-Cod #4 Tablet (Acetaminophen/Codeine Phosphate) 1 Each Tablet 1 Tab PO PRN Q4HRS PRN Venlafaxine Hcl Er (Venlafaxine Hcl) 75 Mg Cap.er.24h 1 Cap PO DAILY Tizanidine Hcl 4 Mg Tablet 1 Tab PO QHS Metoprolol Tartrate 50 Mg Tablet 1 Tab PO DAILY Atorvastatin Calcium 10 Mg Tablet 1 Tab PO DAILY Vitals/I & O Vital Sign - Last 24 Hours 10/13/20 10/13/20 10/13/20 10/13/20 11:00 11:09 12:31 13:58 Temp 97.9 97.9 Pulse 111 Resp 18 B/P (MAP) 132/83 (99) Pulse Ox 95 O2 Delivery Room Air Room Air Room Air Room Air 10/13/20 10/13/20 10/13/20 10/13/20 15:00 17:19 18:51 19:00 Temp 97.5 98.9 97.5 98.9 Pulse 89 66 Resp 18 16 B/P (MAP) 101/69 (80) 123/80 (94) Pulse Ox 98 98 98 O2 Delivery Room Air Room Air Room Air Room Air O2 Flow Rate 8.0 10/13/20 10/13/20 10/13/20 10/13/20 19:48 20:18 20:27 20:27 Resp 18 20 Pulse Ox 98 98 O2 Delivery Room Air Room Air Room Air Room Air 10/13/20 10/13/20 10/14/20 10/14/20 20:57 23:00 03:00 07:38 Temp 98.0 97.8 98.1 98.0 97.8 98.1 Pulse 87 64 91 Resp 16 16 18 B/P (MAP) 103/62 (76) 103/64 (77) 116/77 (90) Pulse Ox 93 95 94 O2 Delivery Room Air Room Air Room Air Room Air 10/14/20 10/14/20 10/14/20 10/14/20 08:05 08:10 08:12 09:12 Pulse 91 B/P (MAP) 116/77 O2 Delivery Room Air Room Air Room Air Intake and Output 10/13/20 10/13/20 10/14/20 15:00 23:00 07:00 Intake Total 100 ml 1100 ml Output Total 1900 ml 1090 ml Balance -1800 ml 10 ml Justifications for Admission Other Justification SHELBY RO MD Oct 14, 2020 09:56
[2020-10-14] MEDS ORDERED: ALPRAZolam 0.25 MG TABLET PO PRN (10:00)
[2020-10-14] MEDS ORDERED: PANT40TA77 PO (10:28)
[2020-10-14] MEDS ORDERED: SENN-189 PO (10:28)
[2020-10-14] MEDS ORDERED: LACT1CAP19 PO (10:28)
[2020-10-14] MEDS ORDERED: PRAM0.255 PO (10:28)
[2020-10-14] MEDS ORDERED: FERR325T72 PO (10:28)
[2020-10-14] MEDS ORDERED: NAFC2FRO IV (10:28)
[2020-10-14] MEDS ORDERED: BISA10SU4 PR (10:28)
[2020-10-14 11:07] LABS: BASO # 0.1 x10^3/uL (0.0-0.2); BASO % 1 % (0-3); EOS # 0.3 x10^3/uL (0.0-0.7); EOS % 3 % (0-3); HEMATOCRIT 31.9 % (36.0-47.0); HEMOGLOBIN 10.9 g/dL (12.0-15.5); LYMPH # 3.2 x10^3/uL (1.0-4.8); LYMPH % 25 % (24-48); MEAN CORPUSCULAR HEMOGLOBIN 30 pg (25-35); MEAN CORPUSCULAR HGB CONC 34 g/dL (31-37); MEAN CORPUSCULAR VOLUME 87 fL (79-100); MONO # 1.3 x10^3/uL (0.0-1.1); MONO % 11 % (0-9); NEUT # 7.5 x10^3/uL (1.8-7.7); NEUT % 60 % (31-73); PLATELET COUNT 524 x10^3/uL (140-400); RED BLOOD COUNT 3.67 x10^6/uL (3.50-5.40); RED CELL DISTRIBUTION WIDTH 13.6 % (11.5-14.5); WHITE BLOOD COUNT 12.5 x10^3/uL (4.0-11.0)
[2020-10-14 11:12] VITALS: BP 117/74
[2020-10-14 11:23] LABS: ALBUMIN 2.7 g/dL (3.4-5.0); ALBUMIN/GLOBULIN RATIO 0.6 (1.0-1.7); CREATININE 0.9 mg/dL (0.6-1.0); GFR 66.5; POTASSIUM 4.2 mmol/L (3.5-5.1); TOTAL BILIRUBIN 0.8 mg/dL (0.2-1.0); TOTAL PROTEIN 7.2 g/dL (6.4-8.2)
--- NOTE | 2020-10-14 12:11 | PDOC ---
[facility] PROGRESS NOTE Date of Service DOS: DATE: 10/14/20 TIME: 12:10 Chief Complaint Chief Complaint Thoracic abscess with cord compression status post T4-T11 laminectomy 10/08/2020 Mid abdominal pain which radiates around the back, ongoing concern C4-C5 herniated disk repair Musculoskeletal back pain pyleonephritis mood disorder chronic neck pain hyperlipidemia MSSA bacteremia MSSA UTI History of Present Illness History of Present Illness Total little bit more pain today. Asking when she can increase her pain medicat ions. Mirapex is helping a little bit at night. Repeat blood cultures no growth to date. PICC functioning well. Had some early cellulitis of extremity which looks like superficial thrombophlebitis. Afebrile 10/13: No overnight events. On nafcillin per ID RIGHT arm for PICC. Discharged to acute rehab. Still requiring Gardiner catheter for urinary retention greater than 600 cc. Having some back pain but she is able to sit up and eat lunch feeling herself visiting with family. 10/12: No acute events overnight. No concerns nursing. Continue PT OT modalities. Gardiner still in place. Patient's chart, labs, images were reviewed and discussed with RN 10/11/2020 No acute events overnight. No new focal deficits. Patient seen and examined bedside. Gardiner catheter was replaced after bladder scan that was post void showed residual greater than 500. Will attempt bladder training before Gardiner is discontinued. Continue PT OT modalities and possible rehab placement on Tuesday. Patient's chart, labs, images were reviewed and discussed with RN 10/10/2020 No acute events overnight. No new focal neuro deficits. Gardiner was discontinued. Patient's bladder scan showed 400 cc. Will attempt observe at this time and straight catheter if needed if bladder scan is greater than 500 cc. The patient continues to retain urine will need to consider bladder training. Patient will need to continue rehab. Appreciate Dr. Leon recommendations. Bowel regimen was started for constipation. Patient's chart, labs, images were reviewed and discussed with RN 10/09/2020 Patient seen and examined bedside conversing well with no neuro focal deficits. She does endorse some tingling on her shins and up to her knee. Her strength was not assessed but she is wiggling her toes and lifting her leg appropriately. [facility]. Patient's chart, labs, images were reviewed and discussed with RN 10/08/2020 Patient seen and examined in the postop recovery area Discussed the case with Dr. Stahl and his nurse practitioner (appreciate their rapid intervention) Patient just got out of surgery and had a T [address] Stahl performed a thoracic laminectomy He would like to continue steroids for another day Discussed with RN Chart reviewed Patient is going to ICU room 110 HPI: The patient is a pleasant 50-year-old female who has been to the ER a couple times in the past few days. Today, she presents with some abdominal pains on the right, it is radiating to her back. She was seen here on , was diagnosed with a back strain, was sent home with someantispasmodics and pain meds. She then came back on the , was diagnosed with pyelonephritis, started on Keflex and Pyridium. Now, she presents with abdominal pain, but she in the last few hours has now developed lower extremity weakness and numbness. She does admit to decreased urination and increasing back pain rated at 10/10. She increased her home meds, but that did not seem tohelp. Moving makes it worse, sitting still makes it better. She does have a past history of a herniated disk with her surgical repair of C4-C5 six years ago. I discussed the case with ER physician. I have examined the patient. We are concerned that she is developing progressive weakness. She also has a sed rate of greater than 130. Her C-reactive protein is 310. We also have a blood culture that just came back from one of her recent visits to the ER, it does show some Gram-positive cocci. We are going to put the patient on IV antibiotics including Rocephin and vancomycin. I am considering starting some steroids. We are consulting Dr. Preston to see if he would agree. He would like to get an MRI of the lower back as well. 10/07: Patient seen and examined. Endorses decreased pain since admission. Endorses moving around better and says she is feeling much better. Consulted with RN. Karon reviewed. Vitals/I&O Vitals/I&O: Vital Signs Date Time Temp Pulse Resp B/P (MAP) Pulse Ox O2 Delivery O2 Flow Rate FiO2 10/14/20 12:06 Room Air 10/14/20 11:12 98.6 80 18 117/74 (88) 97 98.6 10/13/20 18:51 8.0 I & O 10/13/20 10/13/20 10/14/20 15:00 23:00 07:00 Intake Total 100 ml 1100 ml Output Total 1900 ml 1090 ml Balance -1800 ml 10 ml Physical Exam Physical Exam: GENERAL: Alert, oriented x 3, pleasant female, lying in bed comfortably, in no acute distress. HEENT: Normocephalic, atraumatic. Anicteric. NECK: Supple, no JVD. LUNGS: Decreased breath sounds at the bases, otherwise clear. No accessory muscle use. HEART: S1, S2. ABDOMEN: Soft, nontender, nondistended, no rebound, no guarding. EXTREMITIES no edema, kendra hose present ble BACK:: Postoperative dressing with drain in place, not taken down. DERMATOLOGIC: Visualized area. No generalized rash. Multiple scars present from previous eczema. Mole over the left upper lip, looks well healed. NEUROLOGIC: Alert, oriented x 3, able to move all 4 extremities. Gait and stance not examined. PSYCHIATRIC: Calm and cooperative. General: Alert, Oriented X3, Cooperative, No acute distress Heart: Regular rate, Normal S1, Normal S2 Lungs: Clear Abdomen: Other (She has decreased bowel sounds) Extremities: No clubbing, No cyanosis, No edema Skin: Other (Dressing C,D, I , flat. drain in place 120 cc out total) Labs Labs: Laboratory Tests Test 10/14/20 10:55 White Blood Count 12.5 x10^3/uL (4.0-11.0) Red Blood Count 3.67 x10^6/uL (3.50-5.40) Hemoglobin 10.9 g/dL (12.0-15.5) Hematocrit 31.9 % (36.0-47.0) Mean Corpuscular Volume 87 fL (79-100) Mean Corpuscular Hemoglobin 30 pg (25-35) Mean Corpuscular Hemoglobin Concent 34 g/dL (31-37) Red Cell Distribution Width 13.6 % (11.5-14.5) Platelet Count 524 x10^3/uL (140-400) Neutrophils (%) (Auto) 60 % (31-73) Lymphocytes (%) (Auto) 25 % (24-48) Monocytes (%) (Auto) 11 % (0-9) Eosinophils (%) (Auto) 3 % (0-3) Basophils (%) (Auto) 1 % (0-3) Neutrophils # (Auto) 7.5 x10^3/uL (1.8-7.7) Lymphocytes # (Auto) 3.2 x10^3/uL (1.0-4.8) Monocytes # (Auto) 1.3 x10^3/uL (0.0-1.1) Eosinophils # (Auto) 0.3 x10^3/uL (0.0-0.7) Basophils # (Auto) 0.1 x10^3/uL (0.0-0.2) Sodium Level 135 mmol/L (136-145) Potassium Level 4.2 mmol/L (3.5-5.1) Chloride Level 98 mmol/L (98-107) Carbon Dioxide Level 32 mmol/L (21-32) Anion Gap 5 (6-14) Blood Urea Nitrogen 10 mg/dL (7-20) Creatinine 0.9 mg/dL (0.6-1.0) Estimated GFR (Cockcroft-Gault) 66.5 BUN/Creatinine Ratio 11 (6-20) Glucose Level 112 mg/dL (70-99) Calcium Level 9.0 mg/dL (8.5-10.1) Total Bilirubin 0.8 mg/dL (0.2-1.0) Aspartate Amino Transf (AST/SGOT) 6 U/L (15-37) Alanine Aminotransferase (ALT/SGPT) 23 U/L (14-59) Alkaline Phosphatase 132 U/L (46-116) Total Protein 7.2 g/dL (6.4-8.2) Albumin 2.7 g/dL (3.4-5.0) Albumin/Globulin Ratio 0.6 (1.0-1.7) Assessment and Plan Assessmemt and Plan Problems Medical Problems: (1) Abdominal pain Status: Acute (2) Low back pain Status: Acute (3) Lower extremity numbness Status: Acute (4) Lower extremity weakness Status: Acute (5) Positive blood culture Status: Acute (6) Pyelonephritis Status: Acute Comment Review of Relevant I have reviewed the following items leticia (where applicable) has been applied. Medications: Current Medications Medications (Trade) Dose Ordered Sig/Aparna Route PRN Reason Start Time Stop Time Status Last Admin Dose Admin Pramipexole Dihydrochloride (miraPEX) 0.25 mg QHS PO 10/13/20 21:00 10/13/20 20:35 Justifications for Admission Other Justification BLAYNE IVY MD Oct 14, 2020 12:11
[2020-10-14] MEDS ORDERED: HYDROcodone/APAP 5/325MG 1 TAB TABLET PO PRN (12:15)
--- NOTE | 2020-10-14 12:19 | SNU/HH DC ---
DISCHARGE ORDERS DISCHARGE INFORMATION: DISCHARGE DATE: Oct 14, 2020 FINAL DIAGNOSIS Problems Medical Problems: (1) Abdominal pain Status: Acute (2) Low back pain Status: Acute (3) Lower extremity numbness Status: Acute (4) Lower extremity weakness Status: Acute (5) Positive blood culture Status: Acute (6) Pyelonephritis Status: Acute CONDITION ON DISCHARGE: Stable CODE STATUS: Code Status: Full HALFWAY: SNF STAY <30 DAYS: Yes POST DISCHARGE ORDERS: ACTIVITY ORDERS: Resume previous activity WEIGHT BEARING STATUS: Full weight bearing DIET AFTER DISCHARGE: Regular WOUND/INCISION CARE: Ice to area for comfort, Reinforce dressing PRN CHECKS AFTER DISCHARGE: CHECKS AFTER DISCHARGE: Check blood press - daily FOLLOW-UP: PHYSICIAN FOLLOW-UP: Dr. Delacruz neurosurgery Additional Instructions: picc d/c to rehab/snf Nafcillin f/u with ID in 2 wks call [phone] to schedule wkly cbc, bun/cr, sed rate and crp faxed to [phone] d/w pt about the further management , followups and complications Infectious disease follow-up TREATMENT/EQUIPMENT ORDERS: INFUSION EQUIPMENT NEEDED: PICC Line Physical Therapy For: Evalulation/Treatment Occupational Therapy For: Evaluation/Treatment DISCHARGE MEDICATIONS: Home Meds Active Scripts Buspirone Hcl (BUSPIRONE HCL) 5 Mg Tablet, 1 TAB PO BID for Anxiety/depression for 30 Days, #60 TAB 2 Refills Prov:BLAYNE IVY MD 10/14/20 Hydrocodone Bit/Acetaminophen (HYDROCODONE-APAP 5-325 ) 1 Tab Tablet, 2 TAB PO PRN Q6HRS PRN for MODERATE PAIN, SEVERE PAIN for 30 Days, #120 TAB Prov:BLAYNE IVY MD 10/14/20 Pantoprazole Sodium (PANTOPRAZOLE SODIUM ) 40 Mg Tablet.dr, 40 MG PO DAILYAC for GERD for 30 Days, #30 TAB.SR Prov:BLAYNE IVY MD 10/14/20 Pramipexole Di-Hcl (MIRAPEX) 0.25 Mg Tablet, 0.25 MG PO QHS for RLS for 30 Days, #30 TAB Prov:BLAYNE IVY MD 10/14/20 Ferrous Sulfate (FEOSOL) 325 Mg Tablet, 325 MG PO DAILYWBKFT for GERA for 30 Days, #30 TAB Prov:RIFFEL,CHRISTOPHER S MD 10/14/20 Sennosides/Docusate Sodium (STOOL SOFT-STIMULANT LAX TAB) 1 Each Tablet, 1 TAB PO BID for Constipation for 30 Days, #60 TAB Prov:BLAYNE IVY MD 10/14/20 Bisacodyl (BISACODYL) 10 Mg Supp.rect, 10 MG VA PRN DAILY PRN for CONSTIPATION for 30 Days, #30 SUPP.RECT Prov:BLAYNE VIY MD 10/14/20 Lactobacillus Rhamnosus Gg (CULTURELLE) 1 Each Cap.sprink, 1 CAP PO BID for Diarrhea for 14 Days, #28 CAP Prov:BLAYNE IVY MD 10/14/20 Nafcillin In Dextrose,Iso-Osm (NAFCILLIN 2 GM/ 100 ML INJ) 2 Gm/100 Ml Froz.piggy, 2 GM IV Q4DAYS for MSSA bacteremia for 14 Days, #84 EACH Prov:BLAYNE IVY MD 10/14/20 Ondansetron (ONDANSETRON ODT) 4 Mg Tab.rapdis, 1 TAB PO PRN Q6-8HRS PRN for NAUSEA, #16 TAB Prov:YULIANA BECERRIL DO 10/05/20 Cyclobenzaprine Hcl (CYCLOBENZAPRINE HCL) 10 Mg Tablet, 1 TAB PO QHS, #20 TAB Prov:HERNANDEZ KUNZ I DO 10/03/20 Reported Medications Venlafaxine Hcl (VENLAFAXINE HCL ER) 75 Mg Cap.er.24h, 1 CAP PO DAILY for mood, #90 CAP 3 Refills 10/06/20 Tizanidine Hcl (TIZANIDINE HCL) 4 Mg Tablet, 1 TAB PO QHS for muscle, #30 TAB 10/06/20 Metoprolol Tartrate (METOPROLOL TARTRATE) 50 Mg Tablet, 1 TAB PO DAILY for bp, #60 TAB 5 Refills 10/06/20 Atorvastatin Calcium (ATORVASTATIN CALCIUM) 10 Mg Tablet, 1 TAB PO DAILY for julian, #30 TAB 5 Refills 10/06/20 Discontinued Reported Medications Acetaminophen With Codeine (ACETAMINOPHEN-COD #4 TABLET) 1 Each Tablet, 1 TAB PO PRN Q4HRS PRN for PAIN, TAB 10/06/20 Discontinued Scripts Hydrocodone Bit/Acetaminophen (HYDROCODONE-APAP 5-325 ) 1 Tab Tablet, 0.5-1 TAB PO PRN Q6HRS PRN for PAIN, #10 TAB 0 Refills Prov:YULIANA BECERRIL DO 10/05/20 Phenazopyridine Hcl (PYRIDIUM) 200 Mg Tablet, 200 MG PO TID for 2 Days, #6 TAB Prov:YULIANA BECERRIL DO 10/05/20 Cephalexin (CEPHALEXIN) 500 Mg Tablet, 1 TAB PO TID for 7 Days, #21 TAB Prov:YULIANA BECERRIL DO 10/05/20 Tramadol Hcl (ULTRAM) 50 Mg Tablet, 1 TAB PO PRN Q6HRS PRN for pain MDD 4 Tablet(s) for 7 Days, #28 TAB 0 Refills Prov:HERNANDEZ KUNZ DO 10/03/20 BLAYNE IVY MD Oct 14, 2020 12:19
[2020-10-14] MEDS ORDERED: HYDR-2761 PO (12:43)
--- NOTE | 2020-10-14 12:43 | RAD ---
Date: 10/13/2020 Exam: Fluoroscopic and ultrasound guided peripheral central venous catheter placement. Indication: Consent: The procedure was explained in its entirety to the patient or the patients designated repres entative by a member of the treatment team, including a discussion of the risks, benefits and commonl y accepted alternatives to the procedure, as well as the expected consequences of no therapy whatsoev er. Discussion of the risks included, but was not limited to, those that are most frequent and thos e that are rare but possibly severe or life-threatening, as well as the possibility of unforeseen com plications. Discussion: A timeout procedure was performed. The patient was prepped and draped using maximum sterile techniq ue, including the use of: Current guideline approved cutaneous antisepsis, a large sterile sheet to e stablish a sterile field. 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 1% lidoc nargis was administered for local anesthesia. Ultrasound evaluation demonstrates a patent right cephalic vein. Reference images were saved in the edical record. The selected vein was accessed using micropuncture technique. A guidewire was advanced centrally. The PICC line was cut to length, and advanced through a peel-away sheath such that it's tip resides at the cavoatrial junction. The peel-away sheath a sheath was removed. The catheter was s ecured in place. The catheter was found to flush and aspirate normally.. Sterile dressings were appli ed. No immediate complications were identified. Fluoroscopy time: 0.2 minutes Dose area product: 1 Gycm2 Impression: Successful placement of a right upper extremity PICC line Electronically signed by: Feliciano Francisco MD (10/14/2020 12:41 PM) [id number]
--- NOTE | 2020-10-14 14:06 | PDOC ---
PROGRESS NOTES Date of Service DATE: 10/14/20 TIME: 14:00 Subjective Subjective Patient seen and examined at 1235 POD #6 s/p thoracic laminectomy and evacuation of epidural abscess up in chair pain well controlled ambulated with 2 person assist she feels primary problem is inability to feel her feet Objective Objective Vital Signs Date Time Temp Pulse Resp B/P (MAP) Pulse Ox O2 Delivery O2 Flow Rate FiO2 10/14/20 12:59 Room Air 10/14/20 11:12 98.6 80 18 117/74 (88) 97 98.6 10/13/20 18:51 8.0 Intake and Output 10/14/20 07:00 Intake Total 1200 ml Output Total 2990 ml Balance -1790 ml IV Total 1200 ml Output Urine Total 2950 ml Drainage Total 40 ml Physical Exam General: Alert, Oriented X3, Cooperative MUSCULOSKELETAL: Other Neck: Other (strength is essentailly normal in LE, sensation is diffusly decreased in LE) Skin: Other Assessment Assessment Problems Medical Problems: (1) Abdominal pain Status: Acute (2) Low back pain Status: Acute (3) Lower extremity numbness Status: Acute (4) Lower extremity weakness Status: Acute (5) Positive blood culture Status: Acute (6) Pyelonephritis Status: Acute Plan Plan of Care Continue rehab antibiotics per ID drain out prior to dc Comment Review of Relevant I have reviewed the following items leticia (where applicable) has been applied. Labs Laboratory Tests Test 10/13/20 06:10 10/14/20 10:55 White Blood Count 11.6 x10^3/uL (4.0-11.0) 12.5 x10^3/uL (4.0-11.0) Red Blood Count 3.52 x10^6/uL (3.50-5.40) 3.67 x10^6/uL (3.50-5.40) Hemoglobin 10.7 g/dL (12.0-15.5) 10.9 g/dL (12.0-15.5) Hematocrit 30.7 % (36.0-47.0) 31.9 % (36.0-47.0) Mean Corpuscular Volume 87 fL (79-100) 87 fL (79-100) Mean Corpuscular Hemoglobin 30 pg (25-35) 30 pg (25-35) Mean Corpuscular Hemoglobin Concent 35 g/dL (31-37) 34 g/dL (31-37) Red Cell Distribution Width 13.4 % (11.5-14.5) 13.6 % (11.5-14.5) Platelet Count 453 x10^3/uL (140-400) 524 x10^3/uL (140-400) Neutrophils (%) (Auto) 56 % (31-73) 60 % (31-73) Lymphocytes (%) (Auto) 33 % (24-48) 25 % (24-48) Monocytes (%) (Auto) 8 % (0-9) 11 % (0-9) Eosinophils (%) (Auto) 3 % (0-3) 3 % (0-3) Basophils (%) (Auto) 0 % (0-3) 1 % (0-3) Neutrophils # (Auto) 6.5 x10^3/uL (1.8-7.7) 7.5 x10^3/uL (1.8-7.7) Lymphocytes # (Auto) 3.8 x10^3/uL (1.0-4.8) 3.2 x10^3/uL (1.0-4.8) Monocytes # (Auto) 0.9 x10^3/uL (0.0-1.1) 1.3 x10^3/uL (0.0-1.1) Eosinophils # (Auto) 0.3 x10^3/uL (0.0-0.7) 0.3 x10^3/uL (0.0-0.7) Basophils # (Auto) 0.0 x10^3/uL (0.0-0.2) 0.1 x10^3/uL (0.0-0.2) Sodium Level 136 mmol/L (136-145) 135 mmol/L (136-145) Potassium Level 4.2 mmol/L (3.5-5.1) 4.2 mmol/L (3.5-5.1) Chloride Level 100 mmol/L (98-107) 98 mmol/L (98-107) Carbon Dioxide Level 31 mmol/L (21-32) 32 mmol/L (21-32) Anion Gap 5 (6-14) 5 (6-14) Blood Urea Nitrogen 9 mg/dL (7-20) 10 mg/dL (7-20) Creatinine 0.8 mg/dL (0.6-1.0) 0.9 mg/dL (0.6-1.0) Estimated GFR (Cockcroft-Gault) 76.2 66.5 BUN/Creatinine Ratio 11 (6-20) 11 (6-20) Glucose Level 119 mg/dL (70-99) 112 mg/dL (70-99) Calcium Level 8.9 mg/dL (8.5-10.1) 9.0 mg/dL (8.5-10.1) Total Bilirubin 0.7 mg/dL (0.2-1.0) 0.8 mg/dL (0.2-1.0) Aspartate Amino Transf (AST/SGOT) 8 U/L (15-37) 6 U/L (15-37) Alanine Aminotransferase (ALT/SGPT) 24 U/L (14-59) 23 U/L (14-59) Alkaline Phosphatase 124 U/L (46-116) 132 U/L (46-116) Total Protein 6.5 g/dL (6.4-8.2) 7.2 g/dL (6.4-8.2) Albumin 2.4 g/dL (3.4-5.0) 2.7 g/dL (3.4-5.0) Albumin/Globulin Ratio 0.6 (1.0-1.7) 0.6 (1.0-1.7) Laboratory Tests Test 10/14/20 10:55 White Blood Count 12.5 x10^3/uL (4.0-11.0) Red Blood Count 3.67 x10^6/uL (3.50-5.40) Hemoglobin 10.9 g/dL (12.0-15.5) Hematocrit 31.9 % (36.0-47.0) Mean Corpuscular Volume 87 fL (79-100) Mean Corpuscular Hemoglobin 30 pg (25-35) Mean Corpuscular Hemoglobin Concent 34 g/dL (31-37) Red Cell Distribution Width 13.6 % (11.5-14.5) Platelet Count 524 x10^3/uL (140-400) Neutrophils (%) (Auto) 60 % (31-73) Lymphocytes (%) (Auto) 25 % (24-48) Monocytes (%) (Auto) 11 % (0-9) Eosinophils (%) (Auto) 3 % (0-3) Basophils (%) (Auto) 1 % (0-3) Neutrophils # (Auto) 7.5 x10^3/uL (1.8-7.7) Lymphocytes # (Auto) 3.2 x10^3/uL (1.0-4.8) Monocytes # (Auto) 1.3 x10^3/uL (0.0-1.1) Eosinophils # (Auto) 0.3 x10^3/uL (0.0-0.7) Basophils # (Auto) 0.1 x10^3/uL (0.0-0.2) Sodium Level 135 mmol/L (136-145) Potassium Level 4.2 mmol/L (3.5-5.1) Chloride Level 98 mmol/L (98-107) Carbon Dioxide Level 32 mmol/L (21-32) Anion Gap 5 (6-14) Blood Urea Nitrogen 10 mg/dL (7-20) Creatinine 0.9 mg/dL (0.6-1.0) Estimated GFR (Cockcroft-Gault) 66.5 BUN/Creatinine Ratio 11 (6-20) Glucose Level 112 mg/dL (70-99) Calcium Level 9.0 mg/dL (8.5-10.1) Total Bilirubin 0.8 mg/dL (0.2-1.0) Aspartate Amino Transf (AST/SGOT) 6 U/L (15-37) Alanine Aminotransferase (ALT/SGPT) 23 U/L (14-59) Alkaline Phosphatase 132 U/L (46-116) Total Protein 7.2 g/dL (6.4-8.2) Albumin 2.7 g/dL (3.4-5.0) Albumin/Globulin Ratio 0.6 (1.0-1.7) Microbiology 10/10/20 Blood Culture - Preliminary, Resulted NO GROWTH AFTER 4 DAYS 10/08/20 Gram Stain - Final, Complete 10/08/20 Aerobic and Anaerobic Culture - Final, Complete 10/08/20 Antimicrobic Susceptibility - Final, Complete Medications Current Medications Sodium Chloride 1,000 ml @ 1,000 mls/hr 1X ONCE IV Last administered on 10/06/20at 10:27; Start 10/06/20 at 09:45; Stop 10/06/20 at 10:44; Status DC Ketorolac Tromethamine (Toradol 30mg Vial) 30 mg 1X ONCE IVP Last administered on 10/06/20at 10:25; Start 10/06/20 at 10:00; Stop 10/06/20 at 10:01; Status DC Fentanyl Citrate (Fentanyl 2ml Vial) 75 mcg 1X ONCE IVP Last administered on 10/06/20at 10:25; Start 10/06/20 at 10:00; Stop 10/06/20 at 10:01; Status DC Ondansetron HCl (Zofran) 4 mg 1X ONCE IVP Last administered on 10/06/20at 12: 10; Start 10/06/20 at 11:45; Stop 10/06/20 at 11:46; Status DC Hydromorphone HCl (Dilaudid) 1 mg 1X ONCE IVP Last administered on 10/06/20at 12:11; Start 10/06/20 at 11:45; Stop 10/06/20 at 11:46; Status DC Iohexol (Omnipaque 300 Mg/ml) 75 ml 1X ONCE IV Last administered on 10/06/20at 12:06; Start 10/06/20 at 12:00; Stop 10/06/20 at 12:01; Status DC Info (CONTRAST GIVEN -- Rx MONITORING) 1 each PRN DAILY PRN MC SEE COMMENTS; Start 10/06/20 at 12:00; Stop 10/08/20 at 11:59; Status DC Ceftriaxone Sodium (Rocephin) 1 gm 1X ONCE IVP Last administered on 10/06/20at 12:10; Start 10/06/20 at 12:30; Stop 10/06/20 at 12:31; Status DC Vancomycin HCl (Vanco Per Pharmacy) 1 each PRN DAILY PRN MC SEE COMMENTS Last administered on 10/08/20at 09:45; Start 10/06/20 at 14:00; Stop 10/08/20 at 09:55; Status DC Vancomycin HCl 2 gm/Sodium Chloride 500 ml @ 250 mls/hr 1X ONCE IV Last administered on 10/06/20at 14:17; Start 10/06/20 at 14:15; Stop 10/06/20 at 16:14; Status DC Sodium Chloride 1,000 ml @ 1,000 mls/hr 1X ONCE IV Last administered on 10/06/20at 14:54; Start 10/06/20 at 14:45; Stop 10/06/20 at 15:44; Status DC Metoclopramide HCl (Reglan Vial) 10 mg 1X ONCE IVP Last administered on 10/06/20at 14:54; Start 10/06/20 at 14:45; Stop 10/06/20 at 14:46; Status DC Hydromorphone HCl (Dilaudid) 1 mg 1X ONCE IVP Last administered on 10/06/20at 16:44; Start 10/06/20 at 16:45; Stop 10/06/20 at 16:46; Status DC Methylprednisolone Sodium Succinate (SOLU-Medrol 40MG VIAL) 40 mg Q12HR IV Last administered on 10/10/20at 09:00; Start 10/06/20 at 19:00; Stop 10/10/20 at 09:49; Status DC Vancomycin HCl 1.25 gm/Sodium Chloride 250 ml @ 167 mls/hr Q12H IV Last administered on 10/08/20at 02:38; Start 10/07/20 at 02:30; Stop 10/08/20 at 09:51; Status DC Vancomycin HCl (Vancomycin Trough Level) 1 each 1X ONCE MC ; Start 10/08/20 at 14:00; Stop 10/08/20 at 14:01; Status Cancel Atorvastatin Calcium (Lipitor) 10 mg DAILY PO Last administered on 10/14/20at 08:12; Start 10/07/20 at 09:00 Cyclobenzaprine HCl (Flexeril) 10 mg QHS PO Last administered on 10/13/20at 20:35; Start 10/06/20 at 22:00 Acetaminophen/ Hydrocodone Bitart (Lortab 5/325) 0.5 tab PRN Q6HRS PRN PO MODERATE PAIN; Start 10/06/20 at 21:45; Stop 10/14/20 at 12:10; Status DC Metoprolol Tartrate (Lopressor) 50 mg DAILY PO Last administered on 10/14/20at 08:12; Start 10/07/20 at 09:00 Ondansetron HCl (Zofran Odt) 4 mg PRN Q6HRS PRN PO NAUSEA Last administered on 10/06/20 23:37; Start 10/06/20 at 21:45 Phenazopyridine HCl (Pyridium) 200 mg TID PO Last administered on 10/07/20 20:28; Start 10/06/20 at 22:30; Stop 10/09/20 at 08:05; Status DC Tizanidine HCl (Zanaflex) 4 mg QHS PO Last administered on 10/13/20 20:36; Start 10/06/20 at 22:00 Tramadol HCl (Ultram) 50 mg PRN Q6HRS PRN PO pain MILD 2ND CHOICE Last admi nistered on 10/09/20 19:42; Start 10/06/20 at 21:45 Morphine Sulfate (Morphine Sulfate) 2 mg PRN Q2HR PRN IV PAIN Last administered on 10/07/20 00:22; Start 10/06/20 at 21:45; Stop 10/07/20 at 08:31; Status DC Cephalexin HCl (Keflex) 500 mg TID PO ; Start 10/06/20 at 22:30; Status Cancel Venlafaxine HCl (Effexor Xr) 37.5 mg BID PO Last administered on 10/14/20 08:12; Start 10/07/20 at 09:00 Acetaminophen/ Codeine Phosphate (Tylenol #3) 1 tab PRN Q4HRS PRN PO MILD PAIN 1-3 Last administered on 10/12/20 11:21; Start 10/06/20 at 22:30 Acetaminophen/ Hydrocodone Bitart (Lortab 5/325) 1 tab PRN Q6HRS PRN PO SEVERE PAIN Last administered on 10/13/20 19:48; Start 10/06/20 at 22:00 Diazepam (Valium) 10 mg PRN 1X PRN PO [employer]CHIT[employer] FOR MRI, MRX1 Last administered on 10/07/20 13:42; Start 10/07/20 at 09:00; Stop 10/07/20 at 23:00; Status DC Fentanyl Citrate (Fentanyl 2ml Vial) 50 mcg PRN Q2HR PRN IVP PAIN Last administered on 10/14/20 12:06; Start 10/07/20 at 08:30 Lactobacillus Rhamnosus (Culturelle) 1 cap BID PO Last administered on 8/31/21at 08:12; Start 10/07/20 at 21:00 Ceftriaxone Sodium (Rocephin) 2 gm Q24H IVP Last administered on 10/07/20at 12:26; Start 10/07/20 at 12:00; Stop 10/08/20 at 09:51; Status DC Pantoprazole Sodium (Protonix) 40 mg DAILYAC PO Last administered on 10/14/20at 08:12; Start 10/07/20 at 12:00 Propofol (Diprivan) 200 mg STK-MED ONCE IV ; Start 10/08/20 at 06:33; Stop 10/08/20 at 06:33; Status DC Lidocaine HCl (Lidocaine Pf 2% Vial) 5 ml STK-MED ONCE .ROUTE ; Start 10/08/20 at 06:33; Stop 10/08/20 at 06:33; Status DC Dexamethasone Sodium Phosphate (Decadron) 4 mg STK-MED ONCE .ROUTE ; Start 10/08/20 at 06:33; Stop 10/08/20 at 06:33; Status DC Ondansetron HCl (Zofran) 4 mg STK-MED ONCE .ROUTE ; Start 10/08/20 at 06:33; Stop 10/08/20 at 06:33; Status DC Propofol 50 ml @ As Directed STK-MED ONCE IV ; Start 10/08/20 at 06:33; Stop 10/08/20 at 06:33; Status DC Phenylephrine HCl (PHENYLEPHRINE in 0.9% NACL PF) 1 mg STK-MED ONCE IV ; Start 10/08/20 at 06:33; Stop 10/08/20 at 06:34; Status DC Remifentanil HCl (Ultiva) 2 mg STK-MED ONCE IV ; Start 10/08/20 at 06:34; Stop 10/08/20 at 06:34; Status DC Rocuronium [place] (Zemuron) 50 mg STK-MED ONCE .ROUTE ; Start 10/08/20 at 06:38; Stop 10/08/20 at 06:38; Status DC Gelatin (Gelfoam Size 100) 1 each STK-MED ONCE .ROUTE Last administered on 10/08/20at 10:14; Start 10/08/20 at 06:58; Stop 10/08/20 at 06:58; Status DC Bupivacaine HCl/ Epinephrine Bitart (Sensorcain-Epi 0.5%-1:[id number] Mpf) 30 ml STK-MED ONCE .ROUTE Last administered on 10/08/20at 10:14; Start 10/08/20 at 06:58; Stop 10/08/20 at 06:58; Status DC Ketorolac Tromethamine (Toradol Im) 60 mg STK-MED ONCE .ROUTE Last administered on 10/08/20at 10:14; Start 10/08/20 at 06:58; Stop 10/08/20 at 06:59; Status DC Thrombin 20,000 unit STK-MED ONCE TP Last administered on 10/08/20at 10:14; Start 10/08/20 at 06:58; Stop 10/08/20 at 06:59; Status DC Cefazolin Sodium 1 gm/Sodium Chloride 1,000 ml @ 1,000 mls/hr 1X ONCE IRR Last administered on 10/08/20at 10:14; Start 10/08/20 at 08:00; Stop 10/08/20 at 08:59; Status DC Midazolam HCl (Versed) 2 mg STK-MED ONCE .ROUTE ; Start 10/08/20 at 08:13; Stop 10/08/20 at 08:14; Status DC Glycopyrrolate (Robinul) 1 mg STK-MED ONCE .ROUTE ; Start 10/08/20 at 08:13; Stop 10/08/20 at 08:14; Status DC Ringer's Solution 1,000 ml @ 100 mls/hr Q10H IV Last administered on 10/14/20at 04:46; Start 10/08/20 at 08:15 Propofol 50 ml @ As Directed STK-MED ONCE IV ; Start 10/08/20 at 09:28; Stop 10/08/20 at 09:28; Status DC Nafcillin Sodium 2 gm/Dextrose 100 ml @ 200 mls/hr Q4HRS IV Last administered on 10/14/20at 12:06; Start 10/08/20 at 12:00 Metoprolol Tartrate (Lopressor Vial) 5 mg STK-MED ONCE IVP ; Start 10/08/20 at 10:40; Stop 10/08/20 at 10:40; Status DC Remifentanil HCl (Ultiva) 1 mg STK-MED ONCE IV ; Start 10/08/20 at 11:14; Stop 10/08/20 at 11:14; Status DC Sodium Chloride (SODIUM CHLORIDE 20ml) 20 ml STK-MED ONCE IJ ; Start 10/08/20 at 11:14; Stop 10/08/20 at 11:14; Status DC Daptomycin 490 mg/ Sodium Chloride 50 ml @ 100 mls/hr ONCE ONCE IV Last administered on 10/08/20at 15:19; Start 10/08/20 at 12:30; Stop 10/08/20 at 12:59; Status DC Propofol 50 ml @ As Directed STK-MED ONCE IV ; Start 10/08/20 at 11:24; Stop 10/08/20 at 11:25; Status DC Hydromorphone HCl (Dilaudid) 2 mg STK-MED ONCE .ROUTE ; Start 10/08/20 at 11:30; Stop 10/08/20 at 11:31; Status DC Neostigmine [place] (Neostigmine Methylsulfate) 5 mg STK-MED ONCE .ROUTE ; Start 10/08/20 at 12:22; Stop 10/08/20 at 12:22; Status DC Fentanyl Citrate (Fentanyl 2ml Vial) 100 mcg STK-MED ONCE .ROUTE ; Start 10/08/20 at 13:13; Stop 10/08/20 at 13:13; Status DC Fentanyl Citrate (Fentanyl 2ml Vial) 25 mcg PRN Q5MIN PRN IVP MILD PAIN 1-3; Start 10/08/20 at 13:30; Stop 10/09/20 at 13:29; Status DC Fentanyl Citrate (Fentanyl 2ml Vial) 50 mcg PRN Q5MIN PRN IVP MODERATE PAIN 4-6 Last administered on 10/08/20at 13:33; Start 10/08/20 at 13:30; Stop 10/09/20 at 07:39; Status DC Morphine Sulfate (Morphine Sulfate) 1 mg PRN Q10MIN PRN IVP SEVERE PAIN 7-10 Last administered on 10/08/20at 16:40; Start 10/08/20 at 13:30; Stop 10/09/20 at 07:39; Status DC Ringer's Solution 1,000 ml @ 30 mls/hr Q24H IV ; Start 10/08/20 at 13:30; Stop 10/09/20 at 01:29; Status DC Hydromorphone HCl (Dilaudid) 0.5 mg PRN Q10MIN PRN IVP SEVERE PAIN 7-10, 2nd CHOICE Last administered on 10/08/20at 14:50; Start 10/08/20 at 13:30; Stop 10/09/20 at 07:39; Status DC Prochlorperazine Edisylate (Compazine) 5 mg PACU PRN PRN IVP NAUSEA, MRX1; Start 10/08/20 at 13:30; Stop 10/09/20 at 13:29; Status DC Hydralazine HCl (Apresoline Inj) 20 mg STK-MED ONCE .ROUTE ; Start 10/08/20 at 13:31; Stop 10/08/20 at 13:31; Status DC Hydralazine HCl (Apresoline Inj) 10 mg 1X PRN PRN IVP hypertension Last administered on 10/11/20at 00:12; Start 10/08/20 at 13:45 Hydromorphone HCl (Dilaudid) 2 mg STK-MED ONCE .ROUTE ; Start 10/08/20 at 13:51; Stop 10/08/20 at 13:51; Status DC Bisacodyl (Dulcolax Supp) 10 mg PRN DAILY PRN [place] CONSTIPATION; Start 10/09/20 at 13:00 Bisacodyl (Dulcolax Tab) 10 mg DAILY PO Last administered on 10/10/20at 09:05; Start 10/09/20 at 13:00 Senna/Docusate Sodium (Senna Plus) 1 tab BID PO Last administered on 10/13/20at 20:36; Start 10/09/20 at 21:00 Sodium Monofluorophosphate (Fleet Adult) 133 ml DAILY PRN MT CONSTIPATION, 2ND CHOICE MT; Start 10/09/20 at 13:00; Stop 10/14/20 at 12:10; Status DC Lorazepam (Ativan) 1 mg PRN Q6HRS PRN PO ANXIETY / AGITATION Last administered on 10/14/20at 12:59; Start 10/10/20 at 02:00 Magnesium Citrate (Citroma) 296 ml PRN 1X PRN PO CONSTIPATION Last administered on 10/10/20at 09:42; Start 10/10/20 at 09:30 Ferrous Sulfate (Feosol) 325 mg DAILYWBKFT PO Last administered on 10/14/20at 08:12; Start 10/10/20 at 10:00 Ascorbic Acid (Vitamin C) 500 mg DAILY PO Last administered on 10/14/20at 08:12; Start 10/10/20 at 10:00 Methylprednisolone Sodium Succinate (SOLU-Medrol 40MG VIAL) 20 mg 1X ONCE IV Last administered on 10/11/20at 11:35; Start 10/11/20 at 09:00; Stop 10/11/20 at 09:01; Status DC Potassium Chloride (Klor-Con) 40 meq 1X ONCE PO Last administered on 10/11/20at 08:13; Start 10/11/20 at 08:00; Stop 10/11/20 at 08:01; Status DC Hydromorphone HCl (Dilaudid) 1 mg 1X ONCE IM Last administered on 10/12/20at 15:08; Start 10/12/20 at 15:00; Stop 10/12/20 at 15:01; Status DC Pramipexole Dihydrochloride (miraPEX) 0.25 mg QHS PO Last administered on 10/13/20at 20:35; Start 10/13/20 at 21:00 Alprazolam (Xanax) 0.25 mg PRN Q8HRS PRN PO ANXIETY / AGITATION; Start 10/14/20 at 10:00; Stop 10/14/20 at 09:58; Status DC Acetaminophen/ Hydrocodone Bitart (Lortab 5/325) 2 tab PRN Q6HRS PRN PO MODERATE PAIN, SEVERE PAIN; Start 10/14/20 at 12:15 Active Scripts Active Hydrocodone-Apap 5-325 (Hydrocodone Bit/Acetaminophen) 1 Tab Tablet 2 Tab PO PRN Q6HRS PRN 30 Days Pantoprazole Sodium (Pantoprazole Sodium) 40 Mg Tablet.dr 40 Mg PO DAILYAC 30 Days Mirapex (Pramipexole Di-Hcl) 0.25 Mg Tablet 0.25 Mg PO QHS 30 Days Feosol (Ferrous Sulfate) 325 Mg Tablet 325 Mg PO DAILYWBKFT 30 Days Stool Soft-Stimulant Lax Tab (Sennosides/Docusate Sodium) 1 Each Tablet 1 Tab PO BID 30 Days Bisacodyl 10 Mg Supp.rect 10 Mg MT PRN DAILY PRN 30 Days Culturelle (Lactobacillus Rhamnosus Gg) 1 Each Cap.sprink 1 Cap PO BID 14 Days Nafcillin 2 Gm/ 100 Ml Inj (Nafcillin In Dextrose,Iso-Osm) 2 Gm/100 Ml Froz.piggy 2 Gm IV Q4DAYS 14 Days Ondansetron Odt (Ondansetron) 4 Mg Tab.rapdis 1 Tab PO PRN Q6-8HRS PRN Cyclobenzaprine Hcl 10 Mg Tablet 1 Tab PO QHS Reported Venlafaxine Hcl Er (Venlafaxine Hcl) 75 Mg Cap.er.24h 1 Cap PO DAILY Tizanidine Hcl 4 Mg Tablet 1 Tab PO QHS Metoprolol Tartrate 50 Mg Tablet 1 Tab PO DAILY Atorvastatin Calcium 10 Mg Tablet 1 Tab PO DAILY Vitals/I & O Vital Sign - Last 24 Hours 10/13/20 10/13/20 10/13/20 10/13/20 15:00 17:19 18:51 19:00 Temp 97.5 98.9 97.5 98.9 Pulse 89 66 Resp 18 16 B/P (MAP) 101/69 (80) 123/80 (94) Pulse Ox 98 98 98 O2 Delivery Room Air Room Air Room Air Room Air O2 Flow Rate 8.0 10/13/20 10/13/20 10/13/20 10/13/20 19:48 20:18 20:27 20:27 Resp 18 20 Pulse Ox 98 98 O2 Delivery Room Air Room Air Room Air Room Air 10/13/20 10/13/20 10/14/20 10/14/20 20:57 23:00 03:00 07:38 Temp 98.0 97.8 98.1 98.0 97.8 98.1 Pulse 87 64 91 Resp 16 16 18 B/P (MAP) 103/62 (76) 103/64 (77) 116/77 (90) Pulse Ox 93 95 94 O2 Delivery Room Air Room Air Room Air Room Air 10/14/20 10/14/20 10/14/20 10/14/20 08:05 08:10 08:12 09:12 Pulse 91 B/P (MAP) 116/77 O2 Delivery Room Air Room Air Room Air 10/14/20 10/14/20 10/14/20 11:12 12:06 12:59 Temp 98.6 98.6 Pulse 80 Resp 18 B/P (MAP) 117/74 (88) Pulse Ox 97 O2 Delivery Room Air Room Air Room Air Intake and Output 10/13/20 10/13/20 10/14/20 15:00 23:00 07:00 Intake Total 100 ml 1100 ml Output Total 1900 ml 1090 ml Balance -1800 ml 10 ml Justifications for Admission Other Justification PRATIMA ARAYA MD Oct 14, 2020 14:06
[2020-10-14 15:15] VITALS: BP 111/76
[2020-10-14] MEDS ORDERED: BUSP5TAB PO (16:34)
--- NOTE | 2020-10-14 16:46 | PDOC3 ---
Discharge Summary Visit Information Date of Admission: Oct 06, 2020 Date of Discharge: Oct 14, 2020 Admitting Diagnosis: Epidural abscess Final Diagnosis Problems Medical Problems: (1) Abdominal pain Status: Acute (2) Low back pain Status: Acute (3) Lower extremity numbness Status: Acute (4) Lower extremity weakness Status: Acute (5) Positive blood culture Status: Acute (6) Pyelonephritis Status: Acute Brief Hospital Course Allergies Allergies Coded Allergies Type Severity Reaction Last Updated Verified No Known Drug Allergies 10/03/20 No Vital Signs Vital Signs Date Time Temp Pulse Resp B/P (MAP) Pulse Ox O2 Delivery O2 Flow Rate FiO2 10/14/20 15:34 Room Air 10/14/20 15:15 98.7 91 20 111/76 (88) 98 98.7 10/13/20 18:51 8.0 Lab Results Laboratory Tests Test 10/13/20 06:10 10/14/20 10:55 White Blood Count 11.6 x10^3/uL (4.0-11.0) 12.5 x10^3/uL (4.0-11.0) Red Blood Count 3.52 x10^6/uL (3.50-5.40) 3.67 x10^6/uL (3.50-5.40) Hemoglobin 10.7 g/dL (12.0-15.5) 10.9 g/dL (12.0-15.5) Hematocrit 30.7 % (36.0-47.0) 31.9 % (36.0-47.0) Mean Corpuscular Volume 87 fL (79-100) 87 fL (79-100) Mean Corpuscular Hemoglobin 30 pg (25-35) 30 pg (25-35) Mean Corpuscular Hemoglobin Concent 35 g/dL (31-37) 34 g/dL (31-37) Red Cell Distribution Width 13.4 % (11.5-14.5) 13.6 % (11.5-14.5) Platelet Count 453 x10^3/uL (140-400) 524 x10^3/uL (140-400) Neutrophils (%) (Auto) 56 % (31-73) 60 % (31-73) Lymphocytes (%) (Auto) 33 % (24-48) 25 % (24-48) Monocytes (%) (Auto) 8 % (0-9) 11 % (0-9) Eosinophils (%) (Auto) 3 % (0-3) 3 % (0-3) Basophils (%) (Auto) 0 % (0-3) 1 % (0-3) Neutrophils # (Auto) 6.5 x10^3/uL (1.8-7.7) 7.5 x10^3/uL (1.8-7.7) Lymphocytes # (Auto) 3.8 x10^3/uL (1.0-4.8) 3.2 x10^3/uL (1.0-4.8) Monocytes # (Auto) 0.9 x10^3/uL (0.0-1.1) 1.3 x10^3/uL (0.0-1.1) Eosinophils # (Auto) 0.3 x10^3/uL (0.0-0.7) 0.3 x10^3/uL (0.0-0.7) Basophils # (Auto) 0.0 x10^3/uL (0.0-0.2) 0.1 x10^3/uL (0.0-0.2) Sodium Level 136 mmol/L (136-145) 135 mmol/L (136-145) Potassium Level 4.2 mmol/L (3.5-5.1) 4.2 mmol/L (3.5-5.1) Chloride Level 100 mmol/L (98-107) 98 mmol/L (98-107) Carbon Dioxide Level 31 mmol/L (21-32) 32 mmol/L (21-32) Anion Gap 5 (6-14) 5 (6-14) Blood Urea Nitrogen 9 mg/dL (7-20) 10 mg/dL (7-20) Creatinine 0.8 mg/dL (0.6-1.0) 0.9 mg/dL (0.6-1.0) Estimated GFR (Cockcroft-Gault) 76.2 66.5 BUN/Creatinine Ratio 11 (6-20) 11 (6-20) Glucose Level 119 mg/dL (70-99) 112 mg/dL (70-99) Calcium Level 8.9 mg/dL (8.5-10.1) 9.0 mg/dL (8.5-10.1) Total Bilirubin 0.7 mg/dL (0.2-1.0) 0.8 mg/dL (0.2-1.0) Aspartate Amino Transf (AST/SGOT) 8 U/L (15-37) 6 U/L (15-37) Alanine Aminotransferase (ALT/SGPT) 24 U/L (14-59) 23 U/L (14-59) Alkaline Phosphatase 124 U/L (46-116) 132 U/L (46-116) Total Protein 6.5 g/dL (6.4-8.2) 7.2 g/dL (6.4-8.2) Albumin 2.4 g/dL (3.4-5.0) 2.7 g/dL (3.4-5.0) Albumin/Globulin Ratio 0.6 (1.0-1.7) 0.6 (1.0-1.7) Laboratory Tests Test 10/14/20 10:55 White Blood Count 12.5 x10^3/uL (4.0-11.0) Red Blood Count 3.67 x10^6/uL (3.50-5.40) Hemoglobin 10.9 g/dL (12.0-15.5) Hematocrit 31.9 % (36.0-47.0) Mean Corpuscular Volume 87 fL (79-100) Mean Corpuscular Hemoglobin 30 pg (25-35) Mean Corpuscular Hemoglobin Concent 34 g/dL (31-37) Red Cell Distribution Width 13.6 % (11.5-14.5) Platelet Count 524 x10^3/uL (140-400) Neutrophils (%) (Auto) 60 % (31-73) Lymphocytes (%) (Auto) 25 % (24-48) Monocytes (%) (Auto) 11 % (0-9) Eosinophils (%) (Auto) 3 % (0-3) Basophils (%) (Auto) 1 % (0-3) Neutrophils # (Auto) 7.5 x10^3/uL (1.8-7.7) Lymphocytes # (Auto) 3.2 x10^3/uL (1.0-4.8) Monocytes # (Auto) 1.3 x10^3/uL (0.0-1.1) Eosinophils # (Auto) 0.3 x10^3/uL (0.0-0.7) Basophils # (Auto) 0.1 x10^3/uL (0.0-0.2) Sodium Level 135 mmol/L (136-145) Potassium Level 4.2 mmol/L (3.5-5.1) Chloride Level 98 mmol/L (98-107) Carbon Dioxide Level 32 mmol/L (21-32) Anion Gap 5 (6-14) Blood Urea Nitrogen 10 mg/dL (7-20) Creatinine 0.9 mg/dL (0.6-1.0) Estimated GFR (Cockcroft-Gault) 66.5 BUN/Creatinine Ratio 11 (6-20) Glucose Level 112 mg/dL (70-99) Calcium Level 9.0 mg/dL (8.5-10.1) Total Bilirubin 0.8 mg/dL (0.2-1.0) Aspartate Amino Transf (AST/SGOT) 6 U/L (15-37) Alanine Aminotransferase (ALT/SGPT) 23 U/L (14-59) Alkaline Phosphatase 132 U/L (46-116) Total Protein 7.2 g/dL (6.4-8.2) Albumin 2.7 g/dL (3.4-5.0) Albumin/Globulin Ratio 0.6 (1.0-1.7) Brief Hospital Course Ms Lopez is a 50-year-old female with PMHx RLS, eczema who presented to the ER initially on 10/02/2020 with complaints of back pain, which started suddenly. With movement and bending down, it got worse. It is relieved with rest. The patient was afebrile. She was diagnosed with musculoskeletal and back pain. She was given tramadol and cyclobenzaprine. The patient returned to the ER on 10/04/2020 with complaints of pain which has now progressed into the mid abdomen and sharp. The patient did not have any imaging done. She had worsening of back pain. She could not even sit up or get out of bed. She denies any bowel or bladder complaints. The patient rated her pain as 10/10. She was given ceftriaxone. UA showed pyuria. Temperature was 99.1. She underwent CT of the abdomen which did not show any acute process, negative CT thoracic spine for acute traumatic injury. The patient was diagnosed with pyelonephritis and was given cephalexin. She returned again to the ER on 10/06/2020 at which time she continued to have pain. Blood cultures from 10/04 were reported positive for 1/3 bottles for Staph aureus, methicillin-sensitive. UA was positive for Staph aureus. The patient's white count on the was 12.4, on was 13.9. ESR was greater than 30. Lactate was normal. Creatinine was normal. LFTs were elevated. Repeat UA showed occasional WBC. SARS COVID was negative. LFTs were elevated. C-reactive protein was 310.1. GI was consulted. Hepatitis serology was negative. The patient underwent a thoracolumbar spine MRI, which showed posterior epidural fluid collection extending from T3, T4 inferiorly to T11 vertebral body with areas of moderate to severe spinal canal stenosis extending from T5-T6 through T8-T9, there is an ill-defined cord signal alteration at T9- T10 suggestive of cord edema. There is fluid within the facet joints, more prominent at the T6-T7 on the right. Minimal fluid identified at the facets at T7-T8 and T8-T9 bilaterally. Differential consideration would include epidural hematoma, although no fracture to suggest trauma, visualized septic arthritis of the facet joint is in the differential. Mild degenerative changes of the lumbar spine. The patient was seen by Neurosurgery. She underwent T4-T10 laminectomy with removal of epidural mass/abscess and placement of drain on 10/08/2020. The patient also had numbness and tingling affecting both her lower extremities. The patient had been on steroids. Due to her urinary retention, Gardiner was placed. She does have a past history of a herniated disk with her surgical repair of C4- C5 six years ago. Consults: Neurosurgery, ID, Neurology, PMR 10/07: Patient seen and examined. Endorses decreased pain since admission. Endorses moving around better and says she is feeling much better. Consulted with RN. Karon salgado. 10/08: Patient seen and examined in the postop recovery area. Discussed the case with Dr. Stahl and his nurse practitioner (appreciate their rapid intervention) Patient just got out of surgery and had a T [address] Stahl performed a thoracic laminectomy. He would like to continue steroids for another day. To ICU for recovery 10/09: Patient seen and examined bedside conversing well with no neuro focal deficits. She does endorse some tingling on her shins and up to her knee. Her strength was not assessed but she is wiggling her toes and lifting her leg appropriately. Okay for [facility]. Patient's chart, labs, images were reviewed and discussed with RN 10/10: No acute events overnight. No new focal neuro deficits. Gardiner was discontinued. Patient's bladder scan showed 400 cc. Will attempt observe at t his time and straight catheter if needed if bladder scan is greater than 500 cc. The patient continues to retain urine will need to consider bladder training. Patient will need to continue rehab. Appreciate Dr. Leon recommendations. Bowel regimen was started for constipation. Patient's chart, labs, images were reviewed and discussed with RN 10/11: No acute events overnight. No new focal deficits. Patient seen and examined bedside. Gardiner catheter was replaced after bladder scan that was post void showed residual greater than 500. Will attempt bladder training before Gardiner is discontinued. Continue PT OT modalities and possible rehab placement 10/12: No acute events overnight. No concerns nursing. Continue PT OT modalities. Gardiner still in place. 10/13: No overnight events. On nafcillin per ID RIGHT arm for PICC. Discharged to acute rehab. Still requiring Gardiner catheter for urinary retention greater than 600 cc. Having some back pain but she is able to sit up and eat lunch feeling herself visiting with family. 10/14: A little bit more pain today. Asking when she can increase her pain medications. Mirapex is helping a little bit at night. Repeat blood cultures no growth to date. PICC functioning well. Had some left arm AC fossa pain which looks like superficial thrombophlebitis on bedside US, improved with warm compress. Afebrile Surgical drain pulled. Going with full weightbearing. Will have patient follow- up with neurosurgery next 2 to 4 weeks as well as infectious diseases. 20 acute rehab Problem list: Thoracic abscess with cord compression status post T4-T11 laminectomy 10/08/2020 Mid abdominal pain which radiates around the back, ongoing concern C4-C5 herniated disk repair Musculoskeletal back pain pyleonephritis mood disorder chronic neck pain hyperlipidemia MSSA bacteremia MSSA UTI Greater than 30 minutes spent on d/c to acute rehab Discharge Information Condition at Discharge: Stable Follow Up: Weeks (1) Disposition/Orders: D/C to Another Facility ([facility]) Scheduled Atorvastatin Calcium (Atorvastatin Calcium) 10 Mg Tablet, 1 TAB PO DAILY for julian, #30 Ref 5 (Reported) Entered as Reported by: LUCIANA VINCENT on 10/06/202056 Last Action: Continued on 10/06/202144 by LUCIANA VINCENT Buspirone Hcl (Buspirone Hcl) 5 Mg Tablet, 1 TAB PO BID for Anxiety/depression for 30 Days, #60 Ref 2 Prescribed by: BLAYNE IVY MD on 10/14/20 1634 Cyclobenzaprine Hcl (Cyclobenzaprine Hcl) 10 Mg Tablet, 1 TAB PO QHS, #20 Prescribed by: HERNANDEZ KUNZ D.O. on 10/03/20 0201 Last Action: Continued on 10/06/202144 by LUCIANA VINCENT Ferrous Sulfate (Feosol) 325 Mg Tablet, 325 MG PO DAILYWBKFT for GERA for 30 Days, #30 Prescribed by: BLAYNE IVY MD on 10/14/20 1028 Lactobacillus Rhamnosus Gg (Culturelle) 1 Each Cap.sprink, 1 CAP PO BID for Diarrhea for 14 Days, #28 Prescribed by: BLAYNE IVY MD on 10/14/20 1028 Metoprolol Tartrate (Metoprolol Tartrate) 50 Mg Tablet, 1 TAB PO DAILY for bp, #60 Ref 5 (Reported) Entered as Reported by: LUCIANA VINCENT on 10/06/202056 Last Action: Continued on 10/06/202144 by LUCIANA VINCENT Nafcillin In Dextrose,Iso-Osm (Nafcillin 2 Gm/ 100 Ml Inj) 2 Gm/100 Ml Froz.piggy, 2 GM IV Q4DAYS for MSSA bacteremia for 14 Days, #84 Prescribed by: BLAYNE IVY MD on 10/14/20 1028 Pantoprazole Sodium (Pantoprazole Sodium ) 40 Mg Tablet.dr, 40 MG PO DAILYAC for GERD for 30 Days, #30 Prescribed by: BLAYNE IVY MD on 10/14/20 1028 Pramipexole Di-Hcl (Mirapex) 0.25 Mg Tablet, 0.25 MG PO QHS for RLS for 30 Days, #30 Prescribed by: BLAYNE IVY MD on 10/14/20 1028 Sennosides/Docusate Sodium (Stool Soft-Stimulant Lax Tab) 1 Each Tablet, 1 TAB PO BID for Constipation for 30 Days, #60 Prescribed by: BLAYNE IVY MD on 10/14/20 1028 Tizanidine Hcl (Tizanidine Hcl) 4 Mg Tablet, 1 TAB PO QHS for muscle, #30 (Reported) Entered as Reported by: LUCIANA VINCENT on 10/06/202056 Last Action: Continued on 10/06/202144 by LUCIANA VINCENT Venlafaxine Hcl (Venlafaxine Hcl Er) 75 Mg Cap.er.24h, 1 CAP PO DAILY for mood, #90 Ref 3 (Reported) Entered as Reported by: LUCIANA VINCENT on 10/06/202057 Last Action: Reviewed on 10/06/202057 by LUCIANA VINCENT Scheduled PRN Bisacodyl (Bisacodyl) 10 Mg Supp.rect, 10 MG NC PRN DAILY PRN for CONSTIPATION for 30 Days, #30 Prescribed by: BLAYNE IVY MD on 10/14/20 1028 Hydrocodone Bit/Acetaminophen (Hydrocodone-Apap 5-325 ) 1 Tab Tablet, 2 TAB PO PRN Q6HRS PRN for MODERATE PAIN, SEVERE PAIN for 30 Days, #120 Prescribed by: BLAYNE IVY MD on 10/14/20 1243 Ondansetron (Ondansetron Odt) 4 Mg Tab.rapdis, 1 TAB PO PRN Q6-8HRS PRN for NAUS EA, #16 Prescribed by: YULIANA BECERRIL D.O. on 10/05/20109 Last Action: Continued on 10/06/202144 by LUCIANA VINCENT Discontinued Medications Acetaminophen With Codeine (Acetaminophen-Cod #4 Tablet) 1 Each Tablet, 1 TAB PO PRN Q4HRS PRN for PAIN, (Reported) Entered as Reported by: LUCIANA VINCENT on 10/06/202057 Last Action: Converted on 10/06/202147 by LUCIANA VINCENT Cephalexin (Cephalexin) 500 Mg Tablet, 1 TAB PO TID for 7 Days, #21 Prescribed by: YULIANA BECERRIL D.O. on 10/05/20109 Last Action: Reviewed on 10/06/202056 by LUCIANA VINCENT Hydrocodone Bit/Acetaminophen (Hydrocodone-Apap 5-325 ) 1 Tab Tablet, 0.5-1 TAB PO PRN Q6HRS PRN for PAIN, #10 Ref 0 Prescribed by: YULIANA BECERRIL D.O. on 10/05/20109 Last Action: Continued on 10/06/202144 by LUCIANA VINCENT Phenazopyridine Hcl (Pyridium) 200 Mg Tablet, 200 MG PO TID for 2 Days, #6 Prescribed by: YULIANA BECERRIL D.O. on 10/05/20109 Last Action: Continued on 10/06/202144 by LUCIANA VINCENT Tramadol Hcl (Ultram) 50 Mg Tablet, 1 TAB PO PRN Q6HRS PRN for pain MDD 4 Tablet(s) for 7 Days, #28 Ref 0 Prescribed by: HERNANDEZ KUNZ D.O. on 10/03/20201 Last Action: Continued on 10/06/202144 by LUCIANA VINCENT Justicifation of Admission Dx: Justifications for Admission: Justification of Admission Dx: Yes BLAYNE IVY MD Oct 14, 2020 16:46
--- NOTE | 2020-10-14 17:44 | NUR ---
Patient discharged to [facility] today via stretcher, accompanied by private facility transporter. Patient is stable. Discharge yellow packet was given to transporters and Nursing communication was called to [facility] and the nurse taking report was Chelsea FONG. Patient left the hospital with a single lumen PICC ling for skilled nursing IV antibiotic and Gardiner per Dr. Leon recommendation. This nurse communicate with [facility] nurse for patient following up appointment.
== END 2020-10-14 17:51 | DRG 853 ==
LOC: ER 09:29 → ED HOLD 14:10 → 4 NORTH 16:26 → 5 NORTH 18:30 → 1 WEST ICU 10-08 15:48 → 4 NORTH 10-09 13:00
PROVIDERS: ADMIT Internal Medicine; ATTEND Internal Medicine
PROC: 009U00Z Drainage of Spinal Canal with Drainage Device, Open Approach (ICD-10-PCS; 2020-10-08)
PROC: 00CU0ZZ Extirpation of Matter from Spinal Canal, Open Approach (ICD-10-PCS; 2020-10-08)
PROC: 01N80ZZ Release Thoracic Nerve, Open Approach (ICD-10-PCS; principal; 2020-10-08 08:30)
PROC: 02HV33Z Insertion of Infusion Device into Superior Vena Cava, Percutaneous Approach (ICD-10-PCS; 2020-10-14)
PROC: B5181ZA Fluoroscopy of Superior Vena Cava using Low Osmolar Contrast, Guidance (ICD-10-PCS; 2020-10-14)
PROC: B5181ZA Fluoroscopy of Superior Vena Cava using Low Osmolar Contrast, Guidance (ICD-10-PCS; 2020-10-14)
DX: A41.2 Sepsis due to unspecified staphylococcus (principal); E43 Unspecified severe protein-calorie malnutrition; M50.021 Cervical disc disorder at C4-C5 level with myelopathy; E87.1 Hypo-osmolality and hyponatremia; N10 Acute pyelonephritis; D62 Acute posthemorrhagic anemia; M00.9 Pyogenic arthritis, unspecified; M47.16 Other spondylosis with myelopathy, lumbar region; B95.61 Methicillin susceptible Staphylococcus aureus infection as the cause of diseases classified elsewhere; B96.89 Other specified bacterial agents as the cause of diseases classified elsewhere; E78.00 Pure hypercholesterolemia, unspecified; E78.5 Hyperlipidemia, unspecified; F39 Unspecified mood [affective] disorder; F41.9 Anxiety disorder, unspecified; G25.81 Restless legs syndrome; G89.29 Other chronic pain; I10 Essential (primary) hypertension; K59.00 Constipation, unspecified; K76.0 Fatty (change of) liver, not elsewhere classified; L30.9 Dermatitis, unspecified; M48.04 Spinal stenosis, thoracic region; N31.9 Neuromuscular dysfunction of bladder, unspecified; S24.109S Unspecified injury at unspecified level of thoracic spinal cord, sequela; S33.5XXA Sprain of ligaments of lumbar spine, initial encounter; Z20.822 Contact with and (suspected) exposure to COVID-19; Z82.49 Family history of ischemic heart disease and other diseases of the circulatory system; Z86.61 Personal history of infections of the central nervous system; Z87.440 Personal history of urinary (tract) infections
CPT/HCPCS: 36415; 36573; 72146; 72148; 74177; 76000; 76705; 77001; 80053; 80076; 81001; 81025; 82248; 82607; 83540; 83550; 83605; 85007; 85025; 85651; 86140; 86705; 86709; 86803; 87040; 87071; 87075; 87077; 87102; 87116; 87186; 87340; 87426; 88304; 88311; 96365; 96366; 96375; 96376; A4213; A4364; A4452; A4556; A4930; A6254; A6258; C1892; J0360; J0690; J0696; J0878; J1100; J1170; J1885; J2250; J2270; J2370; J2405; J2704; J2710; J2765; J2920; J3010; J3370; J3490; J7030; J7040; J7050; J7060; J7120; Q9967; U0003; U0005; 97110-GP; 97116-GP; 97530-GO; 97530-GP; 97535-GO; 99285-25; G0378